=== PATIENT | male | born 1945 | race Caucasian/White ===

== ENCOUNTER → 2017-03-23 11:15 | Outpatient (CLI) | payer MEDICARE, SELFPAY ==
--- NOTE | 2017-03-23 13:58 | STRESSREP ---
Stress Test Report Date: 03/23/2017 Procedure: Exercise tolerance test Indications: Supraventricular tachycardia Consent: Per the patient Procedure: The patient exercised on a Stiven protocol for 6 minutes 30 seconds completing stage II and 30 seconds of stage III achieving a peak heart rate of 144 bpm (96% predicted maximal heart rate) with a peak blood pressure 162/74 mmHg and a peak MET capacity of 7 METs. The baseline ECG demonstrated normal sinus rhythm. The peak exercise ECG demonstrated no obvious ECG changes. There were occasional PACs and repetitive PACs during exercise. There were rare PVCs during exercise. There were occasional PACs in recovery. No capacity was considered average. There was no complaint of chest discomfort during exercise or recovery area Impression: 1. Technically adequate (percent predicted maximal heart rate greater than 9% predicted maximal heart rate) 2. Peak exercise ECG with no obvious ECG changes 3. Occasional PACs and repetitive PACs during exercise 4. Rare PVCs during exercise 5. Occasional PACs in recovery This note was generated with [employer] software. It may contain incorrect words, spelling, and punctuation that were not noted in checking the note before signing.
--- NOTE | 2017-03-23 14:03 | STRESSREP_ITS ---
Stress Test Report Date: 03/23/2017 Procedure: Exercise tolerance test Indications: Supraventricular tachycardia Consent: Per the patient Procedure: The patient exercised on a Stiven protocol for 6 minutes 30 seconds completing stage II and 30 seconds of stage III achieving a peak heart rate of 144 bpm (96 % predicted maximal heart rate) with a peak blood pressure 162/74 mmHg and a peak MET capacity of 7 METs. The baseline ECG demonstrated normal sinus rhythm. The peak exercise ECG demonstrated no obvious ECG changes. There were occasional PACs and repetitive PACs during exercise. There were rare PVCs during exercise. There were occasional PACs in recovery. No capacity was considered average. There was no complaint of chest discomfort during exercise or recovery area Impression: 1. Technically adequate (percent predicted maximal heart rate greater than 9% predicted maximal heart rate) 2. Peak exercise ECG with no obvious ECG changes 3. Occasional PACs and repetitive PACs during exercise 4. Rare PVCs during exercise 5. Occasional PACs in recovery This note was generated with [employer] software. It may contain incorrect words, spelling, and punctuation that were not noted in checking the note before signing.
== END ==
PROVIDERS: Family Provider Family Medicine; PCP Family Medicine; Visit Provider Internal Medicine Cardiovascular Disease
DX: R94.31 Abnormal electrocardiogram [ECG] [EKG] (principal); I47.1 Supraventricular tachycardia; I10 Essential (primary) hypertension; I49.3 Ventricular premature depolarization; I49.1 Atrial premature depolarization
CPT/HCPCS: 93017

== ENCOUNTER → 2017-05-20 09:46 | Outpatient (CLI) | payer MEDICARE, SELFPAY ==
--- NOTE | 2017-05-20 13:38 | NURSING ---
Pt is a 72 yr old male with a history of bladder cancer. Pt was referred by Dr Mcgee for some peristomal skin issues. There is a red, dry, flaky rash noted to the skin just under the appliance edges and to the skin beyond that. Patient states area has been very itchy. Pt states it had started with some small pustules and has since dried up some. Dr Mcgee had placed patient on a Prednisone taper. Pt supine in bed. removed the ostomy appliance. Pt states he changes the appliance approx every 3-4 days. Pt is currently using a flat 2 piece Coloplast appliance. patient states he cuts the opening approx 1 1/2 in diameter. stoma measures approx 1 and is slightly oval in shape. the immediate peristomal skin is intact. stoma sits just slightly above the skin level. Pt may benefit from a convex appliance, but prefers to keep using what he has. Did recommend that patient not cut the opening so large. Pt states if he cuts it smaller, it is more difficult for him to line up the opening around the stoma in the mirror. patient overall is doing well with appliance changes, etc. Pt states he feel comfortable with everything just wishes that the area around the appliance wasn't so itchy. Appears to be a fungal infection. called and talked with Dr Mcgee's nurse. Orders for nystatin powder will be sent in to patient's pharmacy. Pt is very appreciative of care and is aware to call if other questions or concerns arise.
== END ==
PROVIDERS: Family Provider Family Medicine; PCP Family Medicine; Visit Provider Internal Medicine Hematology & Oncology
DX: Z93.6 Other artificial openings of urinary tract status (principal)
CPT/HCPCS: 99211; G0463

== ENCOUNTER 2022-04-01 11:00 | Inpatient (IN) | payer MEDICARE, SELFPAY ==
[2022-04-01] VITALS (7 sets, daily range): BP systolic 136–166; BP diastolic 76–82; PULSE 85–112; RESP 16–20; TEMP 36.1–37; O2SAT 97–100; BMI 27.3; BMI 27.7
--- NOTE | 2022-04-01 11:46 | RAD_ITS ---
STUDY: X-RAY CHEST REASON FOR EXAM: Male, 77 years old. Atypical chest pain TECHNIQUE: 2 AP portable views COMPARISON: 2012 FINDINGS: EKG leads overlie the chest Lungs are expanded with chronic interstitial changes, no superimposed acute pulmonary process Normal size heart. Normal mediastinum and annalisa. Normal visualized pulmonary arteries. Normal visualized aortic arch and descending thoracic aorta. Normal visualized thoracic spine. Normal visualized ribs, clavicles, and shoulders. There is no demonstrated abnormality of the visualized soft tissue structures of the upper abdomen. RAD/Chest 1 View (Portable) IMPRESSION: Chronic interstitial changes, no superimposed acute pulmonary process Electronically Signed: Angel Cason MD at 12:33 EST ,
--- NOTE | 2022-04-01 11:46 | EKG12_ITS ---
Test Reason : ABN LABS Blood Pressure : / mmHG Vent. Rate : 095 BPM Atrial Rate : 095 BPM P-R Int : 200 ms QRS Dur : 118 ms QT Int : 358 ms P-R-T Axes : 058 -39 023 degrees QTc Int : 449 ms Sinus rhythm with Premature supraventricular complexes Left axis deviation Right bundle branch block Abnormal ECG Confirmed by DALLAS QUINTERO, CATALINO ([id number]), industrial editor JADE GARCÍA ([id number]) on 04/03/2022 12:55:12 PM Referred By: NAWAF Confirmed By:CATALINO HAYNES MD
--- NOTE | 2022-04-01 12:02 | EX.ED.DYSGE1 ---
HPI History of Present Illness Chief Complaint: Abn Labs Narrative Narrative: 77-year-old male presenting with abnormal labs. Apparently has had chest pain over the last week. He describes it as burning/pressure pain across the chest. Its been on and off for about a week but was pretty persistent for couple of days whether he was standing and walking or whether he was laying still. He states there was times when it actually improved when he walked. He was seen by his primary care physician who did outpatient labs. He was told that his kidney function was messed up and he might have heart failure and to come right to the emergency room. He denies lightheadedness, diaphoresis, nausea or vomiting. He does state at times the pain radiates to the left shoulder blade. He does state that he has a history of GERD. He also has a history of hypertension. Last stress test was within the last 5 years and he states it was normal. Patient states he smokes about a pack of cigarettes a day. He does have history of prostate cancer and bladder cancer and currently has a urostomy. No active cancer. No history of DVT/PE. PFSH PFSH Medical History Bladder cancer Bladder cancer COPD (chronic obstructive pulmonary disease) Essential hypertension History of ETOH abuse History of ETOH abuse Hydronephrosis Hydronephrosis Hyponatremia Paroxysmal SVT (supraventricular tachycardia) Prostate cancer Prostate cancer Tobacco use Tobacco use Home Medications multivitamin (Daily Multi-Vitamin tablet) 1 tab PO DAILY SUPPLEMENT 08/30/17 [History Last Taken 03/31/22] amlodipine 10 mg tablet 10 mg PO DAILY BP 04/01/22 [History Last Taken 03/31/22] cholecalciferol (vitamin D3) 250 mcg (10,000 unit) tablet 250 mcg PO DAILY SUPPLEMENT 04/01/22 [History Last Taken 03/31/22] etodolac 400 mg tablet 400 mg PO BID MUSCLES 04/01/22 [History Last Taken 03/31/22] lactobacillus comb no.10 20 billion cell capsule (Probiotic) 20,000 mmu cells PO DAILY SUPPLEMENT 04/01/22 [History Last Taken 03/31/22] pantoprazole 40 mg tablet,delayed release 40 mg PO DAILY GERD 04/01/22 [History Last Taken 04/01/22] vit C 250 mg-vit E 90 mg-zinc 40 mg-copper 1 [id number] capsule (PreserVision AREDS-2) 1 tab PO BID EYE HEALTH 04/01/22 [History Last Taken 03/31/22] Allergy/AdvReac Type Severity Reaction Status Date / Time ciprofloxacin [From Cipro] Allergy Intermediate Hives Verified 04/01/22 11:04 metronidazole [From Flagyl] Allergy Rash Verified 04/01/22 11:04 Family History Mother Hypertension Surgical History History of bladder surgery History of carpal tunnel surgery History of circumcision History of foot surgery History of tonsillectomy and adenoidectomy History of transurethral resection of prostate S/P radical cystoprostatectomy Social History Smoking Status: Current every day smoker tobacco type: cigarettes alcohol intake: never details: occasional substance use type: does not use ROS ROS ED Constitutional Constitutional ED: Denies chills, fever(s) or sweats Eyes Eyes: Denies blurry vision or change in vision ENT ENT ED: Denies ear pain or sore throat Cardiovascular Cardiovascular: Reports chest pain; Denies palpitations or racing heartbeat Respiratory/Chest Respiratory/Chest: Denies cough, dyspnea or sputum Gastrointestinal Gastrointestinal: Reports other Details: Burning in the stomach ; Denies abdominal pain, constipation or diarrhea Genitourinary Genitourinary ED: Denies dysuria, hematuria or urinary frequency Musculoskeletal Musculoskeletal: Denies arthralgias, myalgias or neck pain Integumentary Denies abscess, Abrasions or rash Neurologic Neurologic: Denies headache(s), paresthesias or weakness Psychiatric Psychiatric: Denies anxiety, depression, suicidal ideation or suicidal thoughts Endocrine Endocrinology: Denies polydipsia or polyuria EXAM Physical Exam Const Vital Signs: 04/01/22 11:01 04/01/22 12:05 04/01/22 12:05 Temperature 97 F L Temperature Source Temporal Pulse Rate 112 H 85 Respiratory Rate 18 16 Respiratory Effort Respiratory Pattern Blood Pressure 166/81 H 142/82 H Blood Pressure Mean 109 102 Pulse Ox 97 98 Oxygen Delivery Method Room Air Room Air Room Air 04/01/22 12:05 Temperature Temperature Source Pulse Rate Respiratory Rate Respiratory Effort Normal Non-Labored Respiratory Pattern Normal Blood Pressure Blood Pressure Mean Pulse Ox Oxygen Delivery Method General Appearance ED: Negative for pallor HEENT Reports normocephalic, head/scalp atraumatic and moist mucous membranes Eyes PERRL and EOMs intact bilaterally Neck no lymphadenopathy and supple Chest Wall inspection of chest normal and palpation of chest normal Resp normal respiratory effort and clear to auscultation bilaterally Auscultation: Negative for rales, rhonchi or wheezes Cardio regular rate and regular rhythm GI normal to inspection, nondistended, normoactive bowel sounds and non-distended Auscultation: normoactive bowel sounds Palpation: soft Narrative: Deferred Back/Spine no CVA tenderness Cervical Spine: Negative for cervical spine tenderness Extremity General Extremety ED: Negative for edema or tenderness General Extremity: Negative for edema Neuro oriented x3 and CN's II-XII intact bilaterally Sensorium / Orientation: alert Motor Exam: strength 5/5 throughout Psych mental status grossly normal Attitude: No agitated Skin no rashes or lesions noted and no wounds General Skin Exam: Negative for jaundice or pallor MDM MDM MDM Narrative Medical decision making narrative: Reviewed patient's blood work from outpatient. His white blood cell count was 11.5, hemoglobin 12.4, platelets 254. Differential was unremarkable. CMP showed AST 89, ALT 25, bilirubin 0.4, glucose 160 with anion gap of 12. BUN 24 and creatinine 2.07. GFR estimated to be 33. BNP was 3380 with an upper limit of normal at greater less than 450. No troponin was checked. No D-dimer. TSH was normal. His lab work performed 09/19/2021 shows his creatinine was 1.53 at that point. His GFR was 47. Patient does complain pain that feels like pressure across his chest and radiates to the left shoulder blades at times. He is not have any associated symptoms of dizziness, lightheadedness, shortness of breath but states he had a couple of days there where the pain was just unrelenting. Currently he feels okay. Denies history of cardiac disease. He had a stress test within the last 5 years that was normal. He states his only medical problems are hypertension and he does have a history of SVT. He is an everyday smoker. Differential includes but is not limited to ACS, PE, , pneumonia, , pneumothorax, muscle strain, costochondritis, GERD, gastritis, peptic ulcer disease, pancreatitis. CBC to assess white blood cell count, hemoglobin, platelets, differential. Liver function enzymes to assess for liver function. Lipase to assess for pancreatitis as the patient is having epigastric and chest pain. Chest x-ray will be obtained as well. EKG to assess for cardiac ischemia or dysrhythmia. His EKG is sinus rhythm at 95 bpm with premature supraventricular complexes. ND interval 200 ms, QRS duration 118 ms, QTc 449 ms. Chest x-ray on my interpretation shows no acute cardiopulmonary process. Radiology interprets this and agrees. CBC shows a normal white blood cell count with a hemoglobin of 10.3. Hematocrit and hemoglobin are stable. Platelets 253 and normal. Patient's creatinine is increased to 2.66 today after he was just checked a few days ago. It does not appear to be prerenal azotemia. Patient was given a liter of normal saline. His BNP was elevated as an outpatient the other day and it is slightly elevated at 167 here today but he does not have any orthopnea dyspnea, lower extremity edema so I do not believe this represents CHF and I think he would benefit from IV fluids. D-dimer was negative. High-sensitivity troponin came back at 11,578. His LFTs and lipase were normal. I spoke with Dr. Castaneda from cardiology. He recommended weight-based Lovenox. Patient was given 1 mg/kg. Patient was also given aspirin 324 mg. Discussed this with the hospitalist for admission. Patient was transferred to the floor in stabilized. I do believe he likely infarcted at some point this week because he is chest pain-free and well-appearing. Impression: 1. Chest pain 2. NSTEMI 3. GERRI Lab Data Labs: Laboratory Results - last 24 hr 04/01/22 04/01/22 04/01/22 11:59 11:59 11:59 WBC 10.3 RBC 4.12 L Hgb 12.6 L Hct 37.3 L MCV 90.5 MCH 30.6 MCHC 33.8 RDW Std Deviation 43.5 RDW Coeff of Sari 13.2 Plt Count 253 MPV 10.3 Immature Gran % (Auto) 0.600 Neut % (Auto) 68.5 Lymph % (Auto) 19.3 [place] % (Auto) 8.9 Eos % (Auto) 2.1 Baso % (Auto) 0.6 Absolute Neuts (auto) 7.0 Absolute Lymphs (auto) 1.99 Nucleated RBC % 0 D-Dimer Quant (PE/DVT) Sodium 133 L Potassium 4.1 Chloride 98 Carbon Dioxide 25.0 Anion Gap 10 BUN 27 H Creatinine 2.66 H Estim Creat Clear Calc 22.09 Est GFR (MDRD) Af Amer 30 L Est GFR (MDRD) Non-Af 25 L BUN/Creatinine Ratio 10.2 Glucose 110 H Calcium 10.2 H Magnesium Total Bilirubin Direct Bilirubin AST ALT Alkaline Phosphatase Troponin I High Sens 19426 H* B-Natriuretic Peptide 167.0 H Total Protein Albumin Globulin Lipase 04/01/22 04/01/22 04/01/22 11:59 11:59 12:14 WBC RBC Hgb Hct MCV MCH MCHC RDW Std Deviation RDW Coeff of Sari Plt Count MPV Immature Gran % (Auto) Neut % (Auto) Lymph % (Auto) [place] % (Auto) Eos % (Auto) Baso % (Auto) Absolute Neuts (auto) Absolute Lymphs (auto) Nucleated RBC % D-Dimer Quant (PE/DVT) < 0.27 L Sodium Potassium Chloride Carbon Dioxide Anion Gap BUN Creatinine Estim Creat Clear Calc Est GFR (MDRD) Af Amer Est GFR (MDRD) Non-Af BUN/Creatinine Ratio Glucose Calcium Magnesium 2.0 Total Bilirubin 0.60 Direct Bilirubin 0.16 AST 70 H ALT 26 Alkaline Phosphatase 122 H Troponin I High Sens B-Natriuretic Peptide Total Protein 8.0 Albumin 3.3 Globulin 4.7 H Lipase 141 Radiography Diagnostic Testing: Clinical Impression(s) from Imaging Studies Chest X-Ray 04/01/22 11:46 IMPRESSION: Chronic interstitial changes, no superimposed acute pulmonary process Electronically Signed: Angel Cason MD at 12:33 EST , Discharge Plan Triage Chief Complaint: Abn Labs ED Provider: Ravinder Gao Dx/Rx/DC Orders Primary Care Provider: Candido Valle
[2022-04-01 12:11] LABS: Absolute Lymphocyte Count 1.99 X10^3/uL (0.83-4.51); Basophil# 0.06 X10^3/uL; Basophil% 0.6 % (0-1); Eosinophil# 0.22 X10^3/uL; Eosinophils% 2.1 % (0-5); Hematocrit 37.3 % (40-54); Hemoglobin 12.6 g/dL (13.0-16.5); Lymphocyte # 1.99 X10^3/ul (0.83-4.51); Lymphocyte % 19.3 % (19-41); Mean Corp Hgb Conc 33.8 g/dL (32-36); Mean Corpuscular Hgb 30.6 pg (27.0-32.0); Mean Corpuscular Volume 90.5 fL (80-94); Mean Platelet Vol. 10.3 fl (6.2-12.0); Monocyte# 0.92 X10^3/uL; Monocyte% 8.9 % (0-10); NRBC Flagged by Analyzer 0 % (0-5); Neutrophil # 7.04 X10^3/uL (2.7-7.7); Neutrophil % 68.5 % (47-70); Platelet Count 253 K/mm3 (150-450); RBC Distribution Width CV 13.2 % (11.6-14.6); RBC Distribution Width SD 43.5 fl (35.1-43.9); Red Blood Count 4.12 M/mm3 (4.6-6.2); White Blood Count 10.3 K/mm3 (4.4-11.0)
[2022-04-01] MEDS: Aspirin 81 MG TAB.CHEW 324 MG PO (12:11)
[2022-04-01 12:32] LABS: D-Dimer Quantitative (DVT/PE) < 0.27 FEU/ug/m (0.27-0.49)
[2022-04-01 12:39] LABS: AST(SGOT) 70 U/L (15-37); Alanine Aminotransfer ALT/SGPT 26 U/L (16-61); Albumin, Serum 3.3 g/dL (3.2-5.0); Alkaline Phosphatase 122 U/L (45-117); Bilirubin, Direct 0.16 mg/dL (0.00-0.30); Globulin 4.7 g/dL (2.2-4.2); Lipase 141 U/L (73-393)
[2022-04-01 12:48] LABS: Anion Gap 10 (5-15); BUN 27 mg/dL (7-18); BUN/Creat Ratio 10.2 RATIO (10-20); Calcium,Total 10.2 mg/dL (8.5-10.1); Chloride 98 mmol/L (98-107); Creatinine, Serum 2.66 mg/dL (0.70-1.30); EST Glomerular Filtration Rate 25 mL/min (>60); Est Glom Filt Rate - Afr Amer 30 mL/min (>60); Estimated Creatinine Clearance 22.09 ml/min; Glucose 110 mg/dL (74-106); Potassium 4.1 mmol/L (3.5-5.1); Sodium Level 133 mmol/L (136-145); Troponin-I HS (w/2H Reflex) 11578 pg/mL (3.0-78.0)
[2022-04-01] MEDS: 0.9% Normal Saline 1,000 ML 999 ML IV (13:22)
[2022-04-01] MEDS: Enoxaparin 80 MG/0.8 ML Syringe 79 MG SC (13:22)
--- NOTE | 2022-04-01 13:22 | HP.PCM.HOS_ITS ---
HPI - General General Date of Admission: 04/01/22 Date of Service: 04/01/22 Chief Complaint: Chest pain for 1 week, abnormal labs by PCP HPI Narrative MIGUEL PEREZ, is a 77 M who Was sent by PCP for chest pain ongoing for 1 week and abnormal lab. Patient stated usually he has GERD related pain on right side but this time it was more midsternal to left side, initially intermittent for 3 days but got persistent and constant since past 02/24/2022. He described his pain as tightness, pressure-like feeling heavy with radiation to intrascapular area and left shoulder and sometimes in chin. It was not related with activity or exertion. He denies any increased shortness of breath but he has mild chronic cough and shortness of breath on exertion due to COPD and cigarette smoking. Denies diaphoresis, nausea, vomiting, headache, near-syncope or syncope. Patient denies any prior history of KS or coronary clinic disease. He has COPD and was smoking 3 to 4 packs cigarettes in the beginning since age of 17. He cut down to 1 pack/day. Family history: Patient's mother had CHF in her 70s to 80s and from that. In ED, triage vitals initially heart rate was 112/min and BP 166/81 but later readings were in normal range. Twelve-lead EKG done in ER normal sinus rhythm, PAC, RBBB, LAD at 95 beats per, QTc 449 ms. EKG from 04/01 from PCP office similar NSR, RBBB. Previous EKG from January 2017 during last admission was supraventricular tachycardia, RBBB at 131 beats per. Troponin is very high. Patient also has elevated creatinine, GERRI. Abnormal lab and imaging discussed in assessment and plan. [facility] Medical History Bladder cancer Bladder cancer COPD (chronic obstructive pulmonary disease) Essential hypertension History of ETOH abuse History of ETOH abuse Hydronephrosis Hydronephrosis Hyponatremia Paroxysmal SVT (supraventricular tachycardia) Prostate cancer Prostate cancer Tobacco use Tobacco use Home Medications multivitamin (Daily Multi-Vitamin tablet) 1 tab PO DAILY SUPPLEMENT 08/30/17 [History Last Taken 03/31/22] amlodipine 10 mg tablet 10 mg PO DAILY BP 04/01/22 [History Last Taken 03/31/22] cholecalciferol (vitamin D3) 250 mcg (10,000 unit) tablet 250 mcg PO DAILY SUPPLEMENT 04/01/22 [History Last Taken 03/31/22] etodolac 400 mg tablet 400 mg PO BID MUSCLES 04/01/22 [History Last Taken 03/31/22] lactobacillus comb no.10 20 billion cell capsule (Probiotic) 20,000 mmu cells PO DAILY SUPPLEMENT 04/01/22 [History Last Taken 03/31/22] pantoprazole 40 mg tablet,delayed release 40 mg PO DAILY GERD 04/01/22 [History Last Taken 04/01/22] vit C 250 mg-vit E 90 mg-zinc 40 mg-copper 1 [id number] capsule (PreserVision AREDS-2) 1 tab PO BID EYE HEALTH 04/01/22 [History Last Taken 03/31/22] Allergy/AdvReac Type Severity Reaction Status Date / Time ciprofloxacin [From Cipro] Allergy Intermediate Hives Verified 04/01/22 11:04 metronidazole [From Flagyl] Allergy Rash Verified 04/01/22 11:04 Family History Mother Hypertension Surgical History History of bladder surgery History of carpal tunnel surgery History of circumcision History of foot surgery History of tonsillectomy and adenoidectomy History of transurethral resection of prostate S/P radical cystoprostatectomy Social History Smoking Status: Current every day smoker tobacco type: cigarettes alcohol intake: never details: occasional substance use type: does not use ROS ROS Narrative Constitutional: Reports fatigue and weakness HEENT: Reports systems reviewed and no addt'l complaints, except as documented Respiratory: Chronic cough, mild shortness of breath on exertion. Chronic smoker. COPD. CVS: As described in HPI. Denies claudication pain. Gastrointestinal: Denies coffee ground emesis, hematemesis or vomiting Genitourinary: Has urostomy bag. Musculoskeletal: Denies joint pain and limited range of motion Neurologic: Denies seizure-like activity. No stroke. skin: No ulcer. No rash Endocrinology: Reports systems reviewed and no addt'l complaints, except as d ocumented Hematologic/Lymphatic/oncology: Patient has bladder and prostate cancer status radical post cystoprostatectomy. Reports systems reviewed and no addt'l complaints, except as documented Rest 14 ROS are negative except as mentioned in HPI Vital Signs Vital Signs Vital Signs: 04/01/22 11:01 04/01/22 12:05 04/01/22 12:05 Temperature 97 F L Temperature Source Temporal Pulse Rate 112 H 85 Respiratory Rate 18 16 Respiratory Effort Respiratory Pattern Blood Pressure 166/81 H 142/82 H Blood Pressure Mean 109 102 Pulse Ox 97 98 Oxygen Delivery Method Room Air Room Air Room Air 04/01/22 12:05 Temperature Temperature Source Pulse Rate Respiratory Rate Respiratory Effort Normal Non-Labored Respiratory Pattern Normal Blood Pressure Blood Pressure Mean Pulse Ox Oxygen Delivery Method Weight Weight: 174 lb 6.17 oz Body Mass Index (BMI) 27.3 Physical Exam Narrative General: Alert, Oriented x3, Cooperative, mild overweight, BMI 27.3 kg/m?. HEENT: Atraumatic, PERRLA, EOMI, Normocephalic Oral: Oral mucosa moist. No Gingival or Mucosal Lesions/ Ulcerations Neck: Supple, No JVD, Negative Carotid Bruits Lungs: Air entry diminished in bilateral lung bases. Expiratory rhonchi. No tachypnea or dyspnea at rest. No PND or exertional dyspnea Cardiovascular: Sinus rhythm, PAC. Regular rhythm, Normal S1, Normal S2, No murmurs Abdomen: Bowel Sounds Present, Soft, Non Tender, Non-Distended : Urostomy bag. Clear urine. Status post radical cystoprostatectomy. No renal angle tenderness. Extremities: No edema, Capillary Refill Less than 3 Seconds Skin: No rashes, No breakdown Musculoskeletal: No Tenderness to Palpation of Joints or Extremities. ROM full and adequate. Neurological: Cranial nerves II-XII grossly intact, DTR 2+/4 and Symmetrical, Neuro grossly intact Psych/Mental Status: Normal Affect, Appropriate. Results Lab / Micro Data Result Diagrams: 04/01/22 11:59 04/01/22 11:59 Labs: Laboratory Results - last 24 hr 04/01/22 11:59: WBC 10.3, RBC 4.12 L, Hgb 12.6 L, Hct 37.3 L, MCV 90.5, MCH 30.6, MCHC 33.8, RDW Std Deviation 43.5, RDW Coeff of Sari 13.2, Plt Count 253, MPV 10.3, Immature Gran % (Auto) 0.600, Neut % (Auto) 68.5, Lymph % (Auto) 19.3, [place] % (Auto) 8.9, Eos % (Auto) 2.1, Baso % (Auto) 0.6, Absolute Neuts (auto) 7.0, Absolute Lymphs (auto) 1.99, Nucleated RBC % 0 04/01/22 11:59: Sodium 133 L, Potassium 4.1, Chloride 98, Carbon Dioxide 25.0, Anion Gap 10, BUN 27 H, Creatinine 2.66 H, Estim Creat Clear Calc 22.09, Est GFR (MDRD) Af Amer 30 L, Est GFR (MDRD) Non-Af 25 L, BUN/Creatinine Ratio 10.2, Glucose 110 H, Calcium 10.2 H, Troponin I High Sens [id number] H* 04/01/22 11:59: B-Natriuretic Peptide 167.0 H 04/01/22 11:59: Total Bilirubin 0.60, Direct Bilirubin 0.16, AST 70 H, ALT 26, Alkaline Phosphatase 122 H, Total Protein 8.0, Albumin 3.3, Globulin 4.7 H, Lipase 141 04/01/22 12:14: D-Dimer Quant (PE/DVT) < 0.27 L Radiology Impression Chest X-Ray 04/01/22 11:46 IMPRESSION: Chronic interstitial changes, no superimposed acute pulmonary process Electronically Signed: Angel Cason MD at 12:33 EST Reading Location ID and State: [address] [place] [address] , Service support , Assessment & Plan Assessment/Plan (1) NSTEMI (non-ST elevated myocardial infarction): PLAN: Plan 1. Non-STEMI: Patient is being admitted in PCU. Seen by director radiation oncology and discussed with him. Patient is started on enoxaparin 1 mg/kg body weight as per creatinine clearance. High-sensitivity troponin 11,578. Overall clinical course seems that patient has already infarcted. Twelve-lead EKG does not show acute ST-T changes but patient has chronic RBBB. Aspirin, low-dose beta-taco and high sensitive statin. 2D echo ordered. Plan for heart cath when kidney function returns to normal. Labs from PCP office on 03/02 shows NT proBNP 3380, glucose 160, magnesium 1.8. Troponin was not checked. TSH and free T4 ordered. In ED, D-dimer normal. Serum magnesium normal. BNP 167. 2. GERRI from CKD stage IIIa, mild hyponatremia exact etiology unclear possible prerenal: BUN/creatinine from 03/31 was 24/2.07. Sodium 131. His lab work from 09/19/2021 shows creatinine 1.53, GFR 47. BUN/creatinine 27/2.66. Serum sodium low 133. Potassium normal. Anion gap 10. 3. COPD with chronic smoking cigarettes: Chest x-ray initially reviewed shows chronic interstitial changes but no acute cardiopulmonary abnormality. On DuoNeb as needed. Patient consulted to quit smoking. 4. Bladder and prostate cancer status post cystoprostatectomy in 2017) chronic. Patient states she follows Dr. Mcgee. He has regular follow-up CT scans and s hows in remission. Probably he will need last CT scan this month.. 5. Hypertension: BP is in normal limits. 6. History of alcohol use disorder in the past and mild chronic alcoholic hepatitis: Patient was heavy drinker but he states he drinks occasionally. In previous admission in 2017 documented as maintained sobriety since 11/2016. Labs from 03/31 alkaline phosphatase 117, AST 89, ALT 25 and from today AST 70, ALT 26, alkaline phos 122 suggestive of mild chronic alcoholic hepatitis. VTE prophylaxis: Living will/advanced directive/end of life care: Patient does not have living will or advanced directive. Patient does not have dilated power of claims attorney for health. After discussion of benefits/risks procedures involved with full code, DNR CC arrest and DNR CC, the patient opted for full code in the beginning but if resuscitation effort prolongs or becomes dependent on life support he would like to withdraw it.. Patient does want artificial life support including intubation, tube feed, ventilator and/chest compression, central venous catheter, vasopressor and DC shock if needed Total time spent in [id number] encounter in discussion of advanced directive 16 minutes. Laboratory Results 04/01/22 11:59: WBC 10.3, RBC 4.12 L, Hgb 12.6 L, Hct 37.3 L, MCV 90.5, MCH 30.6, MCHC 33.8, RDW Std Deviation 43.5, RDW Coeff of Sari 13.2, Plt Count 253, MPV 10.3, Immature Gran % (Auto) 0.600, Neut % (Auto) 68.5, Lymph % (Auto) 19.3, [place] % (Auto) 8.9, Eos % (Auto) 2.1, Baso % (Auto) 0.6, Absolute Neuts (auto) 7.0, Absolute Lymphs (auto) 1.99, Nucleated RBC % 0 04/01/22 11:59: Sodium 133 L, Potassium 4.1, Chloride 98, Carbon Dioxide 25.0, Anion Gap 10, BUN 27 H, Creatinine 2.66 H, Estim Creat Clear Calc 22.09, Est GFR (MDRD) Af Amer 30 L, Est GFR (MDRD) Non-Af 25 L, BUN/Creatinine Ratio 10.2, Glucose 110 H, Calcium 10.2 H, Troponin I High Sens [id number] H* 04/01/22 11:59: B-Natriuretic Peptide 167.0 H 04/01/22 11:59: Total Bilirubin 0.60, Direct Bilirubin 0.16, AST 70 H, ALT 26, Alkaline Phosphatase 122 H, Total Protein 8.0, Albumin 3.3, Globulin 4.7 H, Lipase 141 04/01/22 11:59: Magnesium Pending 04/01/22 12:14: D-Dimer Quant (PE/DVT) < 0.27 L Clinical Impression(s) from Imaging Studies Chest X-Ray 04/01/22 11:46 IMPRESSION: Chronic interstitial changes, no superimposed acute pulmonary process Charges/Coding Visit Charges Inpatient E&M: 17053 Init Hosp L3 Procedures Hospitalists Procedures: 53578 Advncd Care Plan 30 Min
--- NOTE | 2022-04-01 13:22 | NURSING ---
PCU NSTEMI SAMMI
--- NOTE | 2022-04-01 13:53 | CON.PCM.CA_ITS ---
Assessment & Plan Assessment/Plan (1) NSTEMI (non-ST elevated myocardial infarction): PLAN: Presents with a non-ST elevation myocardial infarction. At this particular time the patient is noted to be pain-free. My recommendations will b e as follows: * Echocardiogram to assess left ventricular function. * Aspirin 81 mg * Lovenox 1 mg/kg x 1 Patient will ultimately need a left heart catheterization. The time to perform the above will depend on recovery of his renal function. * High intensity statin (2) Essential hypertension: PLAN: We will continue with the amlodipine and also start the beta-taco with Lopressor 25 mg twice a day * Will assess left ventricular function with echocardiogram. (3) Paroxysmal SVT (supraventricular tachycardia): PLAN: Patient does not appear to have had any recurrence of the above. HPI Consult Data Date of Consult: 04/01/22 HPI Narrative HPI Narrative: MIGUEL PEREZ, is a 77 M who presents to the emergency room after presenting to his primary care physician's office. He says that he has been having chest discomfort across his chest for the better part of a week to 10 days. He had seen his primary care physician who thought that it may be a gastrointestinal problem and put him on pantoprazole. However he appeared to be getting much worse and so presented today and was sent to the emergency room after an EKG was done which demonstrated sinus rhythm with right bundle branch block and elevated natruretic peptide level. At this particular time he is free of chest discomfort. He has had no dizziness or diaphoresis near syncope or syncope. He does have a previous medical history of hypertension, supraventricular tachyarrhythmia and a colostomy. His electrocardiogram demonstrates sinus rhythm with a right bundle branch block pattern. PFSH Medical History Bladder cancer Bladder cancer COPD (chronic obstructive pulmonary disease) Essential hypertension History of ETOH abuse History of ETOH abuse Hydronephrosis Hydronephrosis Hyponatremia Paroxysmal SVT (supraventricular tachycardia) Prostate cancer Prostate cancer Tobacco use Tobacco use Home Medications multivitamin (Daily Multi-Vitamin tablet) 1 tab PO DAILY SUPPLEMENT 08/30/17 [History Last Taken 03/31/22] amlodipine 10 mg tablet 10 mg PO DAILY BP 04/01/22 [History Last Taken 03/31/22] cholecalciferol (vitamin D3) 250 mcg (10,000 unit) tablet 250 mcg PO DAILY SUPPLEMENT 04/01/22 [History Last Taken 03/31/22] etodolac 400 mg tablet 400 mg PO BID MUSCLES 04/01/22 [History Last Taken 03/31/22] lactobacillus comb no.10 20 billion cell capsule (Probiotic) 20,000 mmu cells PO DAILY SUPPLEMENT 04/01/22 [History Last Taken 03/31/22] pantoprazole 40 mg tablet,delayed release 40 mg PO DAILY GERD 04/01/22 [History Last Taken 04/01/22] vit C 250 mg-vit E 90 mg-zinc 40 mg-copper 1 [id number] capsule (PreserVision AREDS-2) 1 tab PO BID EYE HEALTH 04/01/22 [History Last Taken 03/31/22] Allergy/AdvReac Type Severity Reaction Status Date / Time ciprofloxacin [From Cipro] Allergy Intermediate Hives Verified 04/01/22 11:04 metronidazole [From Flagyl] Allergy Rash Verified 04/01/22 11:04 Family History Mother Hypertension Surgical History History of bladder surgery History of carpal tunnel surgery History of circumcision History of foot surgery History of tonsillectomy and adenoidectomy History of transurethral resection of prostate S/P radical cystoprostatectomy Social History Smoking Status: Current every day smoker tobacco type: cigarettes alcohol intake: never details: occasional substance use type: does not use ROS Constitutional Constitutional: Denies fever(s) or weight loss Eyes Eyes: Reports systems reviewed and no addt'l complaints, except as documented ENT HEENT: Reports systems reviewed and no addt'l complaints, except as documented Cardiovascular Cardiovascular: Reports chest pain at rest; Denies chest pain with activity, dyspnea at rest, dyspnea on exertion, edema, palpitations or paroxysmal nocturnal dyspnea Respiratory/Chest Respiratory/Chest: Reports dyspnea on exertion; Denies productive cough, shortness of breath at rest or shortness of breath with exertion Gastrointestinal Gastrointestinal: Denies change in bowel habits, nausea, vomiting or weight changes Genitourinary Genitourinary: Denies difficulty urinating Musculoskeletal Musculoskeletal: Denies joint stiffness or muscle weakness Integumentary Integumentary: Denies lesions Neurologic Neurologic: Denies dizziness or syncope Psychiatric Psychiatric: Denies anxiety Endocrine Endocrinology: Denies excessive sweating or fatigue Hematologic/Lymphatic Hematologic/Lymphatic: Denies anemia Allergic/Immunologic Allergic/Immunologic: Denies seasonal rhinorrhea Physical Exam Const alert, oriented x3 and no apparent distress General Appearance: cooperative HEENT hearing grossly normal bilaterally Head and Scalp: atraumatic Eyes EOMs intact bilaterally Neck General: normal visual inspection Chest inspection of chest normal and palpation of chest normal Resp normal respiratory effort Auscultation: clear to auscultation bilaterally Cardio regular rate, regular rhythm, S1 normal heart sound and S2 normal heart sound Jugular Venous Distention: JVD GI normal to inspection, nondistended, normoactive bowel sounds GI Narrative: Colostomy Extremity normal capillary refill and no pedal edema Peripheral Pulses: Yes pulses 2+ throughout and femoral pulses present Skin no rashes or lesions noted Neuro oriented x3 and CN's II-XII intact bilaterally Psych Appearance: grossly normal and appropriate Risk Stratification Risk Stratification Applicable: Yes Age >/= 65: Yes >/= 3 CAD Risk Factors (HTN, HLD, DM, family hx of CAD, or current smoker): No Aspirin Use in the Past 7 Days: No Severe Angina (>/= episodes in 24 hours): Yes EKG ST Changes >/= 0.5mm: No Positive Cardiac Marker: Yes ZULY Risk Stratification Score: 3 ZULY % Risk: 13% Risk Objective Data Vital Signs: Vital Signs Temp Pulse Resp BP Pulse Ox O2 Del Method 97 F L 89 18 136/77 H 98 Room Air 04/01/22 11:01 04/01/22 13:23 04/01/22 13:23 04/01/22 13:23 04/01/22 13:23 04/01/22 13:23 Oxygen Delivery Method Room Air Weight: 174 lb 6.17 oz Body Mass Index (BMI) 27.3 Lab / Micro Data Result Diagrams: 04/01/22 11:59 04/01/22 11:59 Labs: Laboratory Results - last 24 hr 04/01/22 11:59: WBC 10.3, RBC 4.12 L, Hgb 12.6 L, Hct 37.3 L, MCV 90.5, MCH 30.6, MCHC 33.8, RDW Std Deviation 43.5, RDW Coeff of Sari 13.2, Plt Count 253, MPV 10.3, Immature Gran % (Auto) 0.600, Neut % (Auto) 68.5, Lymph % (Auto) 19.3, [place] % (Auto) 8.9, Eos % (Auto) 2.1, Baso % (Auto) 0.6, Absolute Neuts (auto) 7.0, Absolute Lymphs (auto) 1.99, Nucleated RBC % 0 04/01/22 11:59: Sodium 133 L, Potassium 4.1, Chloride 98, Carbon Dioxide 25.0, Anion Gap 10, BUN 27 H, Creatinine 2.66 H, Estim Creat Clear Calc 22.09, Est GFR (MDRD) Af Amer 30 L, Est GFR (MDRD) Non-Af 25 L, BUN/Creatinine Ratio 10.2, Glucose 110 H, Calcium 10.2 H, Troponin I High Sens [id number] H* 04/01/22 11:59: B-Natriuretic Peptide 167.0 H 04/01/22 11:59: Total Bilirubin 0.60, Direct Bilirubin 0.16, AST 70 H, ALT 26, Alkaline Phosphatase 122 H, Total Protein 8.0, Albumin 3.3, Globulin 4.7 H, Lipase 141 04/01/22 12:14: D-Dimer Quant (PE/DVT) < 0.27 L Cardiology Labs/Tests 04/01/22 11:59: WBC 10.3, RBC 4.12 L, Hgb 12.6 L, Hct 37.3 L, MCV 90.5, MCH 30 .6, MCHC 33.8, Plt Count 253, MPV 10.3, Immature Gran % (Auto) 0.600, Neut % (Auto) 68.5, Lymph % (Auto) 19.3, [place] % (Auto) 8.9, Eos % (Auto) 2.1, Baso % (Auto) 0.6, Absolute Neuts (auto) 7.0, Nucleated RBC % 0 04/01/22 11:59: Sodium 133 L, Potassium 4.1, Chloride 98, Carbon Dioxide 25.0, Anion Gap 10, BUN 27 H, Creatinine 2.66 H, Est GFR (MDRD) Af Amer 30 L, Est GFR (MDRD) Non-Af 25 L, BUN/Creatinine Ratio 10.2, Glucose 110 H, Calcium 10.2 H 04/01/22 11:59: B-Natriuretic Peptide 167.0 H 04/01/22 11:59: Total Bilirubin 0.60, Direct Bilirubin 0.16 04/01/22 12:14: D-Dimer Quant (PE/DVT) < 0.27 L Rhythm: EKG: ECHO: Stress Test: Cardiac Cath: PCI: CT Surgery: Holter monitor: EPS: PPM: CXR: Chest CT Scan: Radiography Diagnostic Testing: Radiology Impression Chest X-Ray 04/01/22 11:46 IMPRESSION: Chronic interstitial changes, no superimposed acute pulmonary process Electronically Signed: Angel Cason MD at 12:33 EST ,
--- NOTE | 2022-04-01 13:58 | ECHOD_ITS ---
Reason For Study: S/P NE Procedure This was a 2D Doppler, Color Flow transthoracic echocardiogram. Exam performed portable in patient room. Left Ventricle Normal LV size. Apical false tendon noted. Mild segmental systolic dysfunction (see wall motion). The estimated ejection fraction is 55 %. Stage 1 diastolic dysfunction. Mid-Inferior: Severely Hypokinetic. Infero-Basal: Hypokinetic. Basal inferoseptal: Hypokinetic. The rest of the wall segments are normal. Right Ventricle Normal RV size. Normal systolic function. Atria Normal left atrium. Normal right atrium. Mitral Valve Normal mitral valve. Tricuspid Valve Normal tricuspid valve. Mild (1+) tricuspid valve insufficiency. Pulmonary artery systolic pressure is 36 mmHg. Aortic Valve Normal aortic valve. Pulmonic Valve Normal pulmonic valve. Great Vessels Normal aortic root. The pulmonary artery is normal size. Normal inferior vena cava. Pericardium/Pleural No pericardial effusion. MMode/2D Measurements & Calculations LVIDd: 4.9 cm IVSd: 0.87 cm Ao root diam: 3.3 cm LVIDs: 3.3 cm LVPWd: 0.88 cm RVDd: 3.3 cm FS: 31.9 % LAV(MOD-bp): 34.3 ml LVAd ap4: 33.5 cm2 SV(MOD-sp4): 69.0 ml LAV(MOD-bp) Indexed: 17.9 ml/m2 LVLd ap4: 8.0 cm LAV(MOD-sp2): 34.0 ml EDV(MOD-sp4): 113.4 ml LAV(MOD-sp4): 33.6 ml EDV(sp4-el): 118.5 ml LVAs ap4: 18.4 cm2 LVLs ap4: 6.4 cm ESV(MOD-sp4): 44.4 ml ESV(sp4-el): 44.8 ml EF(MOD-sp4): 60.8 % EF(sp4-el): 62.2 % SV(sp4-el): 73.7 ml LA A4 area: 14.5 cm2 LA dimension(2D): 3.5 cm RA A4 area: 12.6 cm2 Time Measurements MV dec time: 0.21 sec Doppler Measurements & Calculations MV E max ritesh: 95.0 cm/sec Lat Peak E' Ritesh: 11.3 cm/sec Med Peak E' Ritesh: 9.5 cm/sec MV A max ritesh: 102.0 cm/sec E/E' lat: 8.4 E/E' med: 10.0 MV E/A: 0.93 Ao V2 max: 123.2 cm/sec LV V1 max: 108.4 cm/sec PA V2 max: 104.7 cm/sec Ao max P.1 mmHg LV V1 max P.7 mmHg TR max ritesh: 283.9 cm/sec TR max P.2 mmHg ECHO/Echo Complete Interpretation Summary Normal LV size. Mild segmental systolic dysfunction (see wall motion). The estimated ejection fraction is 55 %. Stage 1 diastolic dysfunction. Pulmonary artery systolic pressure is 36 mmHg. Ordering Physician: Roberto Castaneda Referring Physician: RAYA LLOYD Performed By: Kayla Patrick RDCS
[2022-04-01 14:04] LABS: Reflex Troponin-HS? (from REC) Y
[2022-04-01] MEDS: 0.9% Normal Saline 1,000 ML 75 ML IV (16:16)
[2022-04-01 17:27] LABS: Troponin-I HS 10345 pg/mL (3.0-78.0)
[2022-04-01] MEDS: 0.9% Saline Lock 10 ML Syringe IV (17:50)
[2022-04-01] MEDS: Multivitamin (Healthy Eyes) Capsule 1 CAP PO (17:50)
[2022-04-01 18:46] LABS: Troponin-I HS 10366 pg/mL (3.0-78.0)
[2022-04-01] MEDS: Atorvastatin Calcium 40 MG Tablet PO (21:37)
[2022-04-01] MEDS: Senna/Docusate Sodium 1 Tablet 2 TABLET PO (21:37)
[2022-04-01] MEDS: Carvedilol 3.125 MG TABLET PO (21:37)
[2022-04-02 04:03] VITALS: BP 133/72; PULSE 79; RESP 18; TEMP 36.6; O2SAT 95
[2022-04-02] MEDS: 0.9% Normal Saline 1,000 ML 75 ML IV (04:12)
[2022-04-02 05:09] LABS: Absolute Lymphocyte Count 2.11 X10^3/uL (0.83-4.51); Absolute Neutrophil Count 5.4 X10^3/uL (2.0-7.7); Basophil# 0.07 X10^3/uL; Basophil% 0.8 % (0-1); Eosinophils% 3.4 % (0-5); Hematocrit 31.3 % (40-54); Hemoglobin 10.3 g/dL (13.0-16.5); Lymphocyte # 2.11 X10^3/ul (0.83-4.51); Lymphocyte % 24.2 % (19-41); Mean Corp Hgb Conc 32.9 g/dL (32-36); Mean Corpuscular Hgb 29.9 pg (27.0-32.0); Mean Platelet Vol. 10.4 fl (6.2-12.0); Monocyte# 0.78 X10^3/uL; NRBC Flagged by Analyzer 0 % (0-5); Neutrophil # 5.41 X10^3/uL (2.7-7.7); Neutrophil % 62.1 % (47-70); Platelet Count 236 K/mm3 (150-450); RBC Distribution Width CV 13.2 % (11.6-14.6); RBC Distribution Width SD 43.7 fl (35.1-43.9); Red Blood Count 3.44 M/mm3 (4.6-6.2); White Blood Count 8.7 K/mm3 (4.4-11.0)
[2022-04-02 05:57] LABS: Anion Gap 5 (5-15); BUN 30 mg/dL (7-18); BUN/Creat Ratio 12.3 RATIO (10-20); Calcium,Total 9.2 mg/dL (8.5-10.1); Chloride 106 mmol/L (98-107); Creatinine, Serum 2.44 mg/dL (0.70-1.30); EST Glomerular Filtration Rate 28 mL/min (>60); Est Glom Filt Rate - Afr Amer 33 mL/min (>60); Estimated Creatinine Clearance 24.08 ml/min; Glucose 92 mg/dL (74-106); Potassium 4.2 mmol/L (3.5-5.1); Sodium Level 134 mmol/L (136-145); Thyroid Stim Hormone (TSH) 3.36 uIU/mL (0.358-3.74)
[2022-04-02 07:49] LABS: Hemoglobin A1c 4.9 % (3.8-5.6)
[2022-04-02] MEDS: Multivitamins,Therapeutic Tablet 1 TABLET PO (07:53)
[2022-04-02] MEDS: Aspirin E.C. 81 MG Tablet PO (07:53)
[2022-04-02] MEDS: Pantoprazole Sodium 40 MG Tablet PO (07:53)
[2022-04-02] MEDS: amLODIPine 10 MG Tablet PO (07:53)
[2022-04-02] MEDS: Carvedilol 3.125 MG TABLET PO ×2 (07:53→20:47)
[2022-04-02] MEDS: Multivitamin (Healthy Eyes) Capsule 1 CAP PO ×2 (07:53→17:30)
[2022-04-02 10:00] VITALS: BP 127/79; PULSE 76; RESP 18; TEMP 37.1; O2SAT 95
--- NOTE | 2022-04-02 10:04 | PCM.PN.CARD ---
Subjective Subjective The patient is awake and alert this morning. He denies ongoing chest discomfort or difficulty breathing. He states he rested comfortably through the night. Objective Data Vital Signs: Vital Signs Temp Pulse Resp BP Pulse Ox O2 Del Method 98 F 79 18 133/72 H 95 Room Air 04/02/22 04:03 04/02/22 04:03 04/02/22 04:03 04/02/22 04:03 04/02/22 04:03 04/02/22 07:45 Oxygen Delivery Method Room Air Weight: 177 lb 4.026 oz Body Mass Index (BMI) 27.7 Intake & Output: Intake and Output for Last 24 Hours 03/31/22 04/01/22 04/02/22 23:59 23:59 23:59 Intake Total 1240 / 1240 895 / 895 Output Total 400 / 400 800 / 800 Balance 840 / 840 95 / 95 Lab / Micro Data Result Diagrams: 04/02/22 03:58 04/02/22 03:58 Labs: Laboratory Results - last 24 hr 04/01/22 11:59: WBC 10.3, RBC 4.12 L, Hgb 12.6 L, Hct 37.3 L, MCV 90.5, MCH 30.6, MCHC 33.8, RDW Std Deviation 43.5, RDW Coeff of Sari 13.2, Plt Count 253, MPV 10.3, Immature Gran % (Auto) 0.600, Neut % (Auto) 68.5, Lymph % (Auto) 19.3, [place] % (Auto) 8.9, Eos % (Auto) 2.1, Baso % (Auto) 0.6, Absolute Neuts (auto) 7.0, Absolute Lymphs (auto) 1.99, Nucleated RBC % 0 04/01/22 11:59: Sodium 133 L, Potassium 4.1, Chloride 98, Carbon Dioxide 25.0, Anion Gap 10, BUN 27 H, Creatinine 2.66 H, Estim Creat Clear Calc 22.09, Est GFR (MDRD) Af Amer 30 L, Est GFR (MDRD) Non-Af 25 L, BUN/Creatinine Ratio 10.2, Glucose 110 H, Calcium 10.2 H, Troponin I High Sens [id number] H* 04/01/22 11:59: B-Natriuretic Peptide 167.0 H 04/01/22 11:59: Total Bilirubin 0.60, Direct Bilirubin 0.16, AST 70 H, ALT 26, Alkaline Phosphatase 122 H, Total Protein 8.0, Albumin 3.3, Globulin 4.7 H, Lipase 141 04/01/22 11:59: Magnesium 2.0 04/01/22 12:14: D-Dimer Quant (PE/DVT) < 0.27 L 04/01/22 16:00: Troponin I High Sens [id number] H* 04/01/22 17:47: Troponin I High Sens [id number] H* 04/02/22 03:58: WBC 8.7, RBC 3.44 L, Hgb 10.3 L, Hct 31.3 L, MCV 91.0, MCH 29.9, MCHC 32.9, RDW Std Deviation 43.7, RDW Coeff of Sari 13.2, Plt Count 236, MPV 10.4, Immature Gran % (Auto) 0.500, Neut % (Auto) 62.1, Lymph % (Auto) 24.2, [place] % (Auto) 9.0, Eos % (Auto) 3.4, Baso % (Auto) 0.8, Absolute Neuts (auto) 5.4, Absolute Lymphs (auto) 2.11, Nucleated RBC % 0 04/02/22 03:58: Sodium 134 L, Potassium 4.2, Chloride 106, Carbon Dioxide 23.0, Anion Gap 5, BUN 30 H, Creatinine 2.44 H, Estim Creat Clear Calc 24.08, Est GFR (MDRD) Af Amer 33 L, Est GFR (MDRD) Non-Af 28 L, BUN/Creatinine Ratio 12.3, Glucose 92, Calcium 9.2, TSH 3.36 04/02/22 03:58: Hemoglobin A1c 4.9 Cardiology Labs/Tests 04/01/22 11:59: WBC 10.3, RBC 4.12 L, Hgb 12.6 L, Hct 37.3 L, MCV 90.5, MCH 30.6, MCHC 33.8, Plt Count 253, MPV 10.3, Immature Gran % (Auto) 0.600, Neut % (Auto) 68.5, Lymph % (Auto) 19.3, [place] % (Auto) 8.9, Eos % (Auto) 2.1, Baso % (Auto) 0.6, Absolute Neuts (auto) 7.0, Nucleated RBC % 0 04/01/22 11:59: Sodium 133 L, Potassium 4.1, Chloride 98, Carbon Dioxide 25.0, Anion Gap 10, BUN 27 H, Creatinine 2.66 H, Est GFR (MDRD) Af Amer 30 L, Est GFR (MDRD) Non-Af 25 L, BUN/Creatinine Ratio 10.2, Glucose 110 H, Calcium 10.2 H 04/01/22 11:59: B-Natriuretic Peptide 167.0 H 04/01/22 11:59: Total Bilirubin 0.60, Direct Bilirubin 0.16 04/01/22 11:59: Magnesium 2.0 04/01/22 12:14: D-Dimer Quant (PE/DVT) < 0.27 L 04/02/22 03:58: WBC 8.7, RBC 3.44 L, Hgb 10.3 L, Hct 31.3 L, MCV 91.0, MCH 29.9, MCHC 32.9, Plt Count 236, MPV 10.4, Immature Gran % (Auto) 0.500, Neut % (Auto) 62.1, Lymph % (Auto) 24.2, [place] % (Auto) 9.0, Eos % (Auto) 3.4, Baso % (Auto) 0.8, Absolute Neuts (auto) 5.4, Nucleated RBC % 0 04/02/22 03:58: Sodium 134 L, Potassium 4.2, Chloride 106, Carbon Dioxide 23.0, Anion Gap 5, BUN 30 H, Creatinine 2.44 H, Est GFR (MDRD) Af Amer 33 L, Est GFR (MDRD) Non-Af 28 L, BUN/Creatinine Ratio 12.3, Glucose 92, Calcium 9.2 04/02/22 03:58: Hemoglobin A1c 4.9 Rhythm: Sinus rhythm ECHO: Pending Radiography Diagnostic Testing: Radiology Impression Chest X-Ray 04/01/22 11:46 IMPRESSION: Chronic interstitial changes, no superimposed acute pulmonary process Electronically Signed: Angel Cason MD at 12:33 EST Reading Location ID and State: [address] [place] [address] , Service support , Physical Exam Const alert, oriented x3 and no apparent distress Orientation / Consciousness: awake HEENT normocephalic, head/scalp atraumatic and hearing grossly normal bilaterally Eyes PERRL, EOMs intact bilaterally and conjunctivae normal Neck full ROM, supple and no JVD Carotids: normal carotid upstroke Resp normal respiratory effort and clear to auscultation bilaterally Cardio regular rate, regular rhythm, S1 normal heart sound and S2 normal heart sound GI normal to inspection, nondistended, normoactive bowel sounds Extremity no pedal edema Skin no rashes or lesions noted Psych mental status grossly normal Assessment & Plan Assessment/Plan (1) NSTEMI (non-ST elevated myocardial infarction): PLAN: The patient's high-sensitivity troponin I levels have been decreasing. His cardiac rhythm has remained sinus rhythm. His echocardiogram is pending. He is continuing medical therapy. At the present time this includes his aspirin 81 mg p.o. daily, enoxaparin SQ-renal dosage, carvedilol, atorvastatin, and his amlodipine therapy. As his creatinine level improves he will be considered for future evaluation with diagnostic cardiac catheterization. (2) Paroxysmal SVT (supraventricular tachycardia): PLAN: He has a history of PSVT. There is been no obvious documented recurrence. At the moment he will continue his medical therapy as noted above (3) Essential hypertension: PLAN: His blood pressure will be followed. His medications can be adjusted as needed. (4) Acute renal insufficiency: PLAN: His renal function/creatinine level has improved. He will continue gentle IV hydration at this time. If his renal function continues to improve then perhaps he can be considered for future diagnostic cardiac catheterization-potentially tomorrow if deemed appropriate and if not then add an alternative date. Addt'l Comments The patient's case was discussed and reviewed with the patient. Comment: Time spent in the patient's evaluation, examination, review of past and present medical records/diagnostic studies, [id number], documentation, etc.: 50 minutes. Procedure Criteria Type of Procedure Procedure Type: Elective Elective Risks - COVID COVID Risk Discussion: The surgeon/proceduralist and patient have discussed in detail the risk of exposure to and/or potential harm posed by the COVID-19 virus with having a surgery/procedure at this time versus the risk of delaying the surgery/procedure. It is not possible to know either the risk of delaying the surgery or procedure or chance of getting an infection with perfect accuracy, but a joint decision was made between the patient and the surgeon/proceduralist to proceed at this time with the scheduled surgery/procedure as indicated on the consent form.
[2022-04-02] MEDS: Cholecalciferol (Vit D3) 125 MCG CAPSULE (5,000 UNITS) 250 MCG PO (10:11)
--- NOTE | 2022-04-02 12:05 | CASEMGMT ---
RN CM Face to Face with patient for initial transition planning/care coordination assessment. RN CM introduced self and role at [facility]. Patient lying in bed, alert and oriented. Patient willing to participate in assessment and is able to answer all questions appropriately. Care providers, pharmacy, and demographics verified. Patient wishes to discharge home, denies need for home health at this time. Patient states he has no further needs or concerns at this time. CM to follow for discharge planning needs that may arise. PCP: Tori Specialists: none Preferred Pharmacy: [facility] Insurance: [employer] [facility] Prescription Benefit: yes Living Will/HPOA: none LNOK: sister, niece Living Arrangements: Patient lives alone in a single story home with 2-3 step to enter the home. Patient states he is independent at home. Transportation: self, friend DME/HHC: Patient denies DME in the home. Patient has had [facility] HHC in the past. Disposition Plan: Patient to discharge home with family support and follow-up plans in place. Raven YANG, RN, CM
[2022-04-02] MEDS: Enoxaparin 80 MG/0.8 ML Syringe SC (13:12)
--- NOTE | 2022-04-02 14:19 | PN.HOSP_ITS ---
Reason for Visit Reason for Visit: Diagnoses Essential (primary) hypertension (04/01/22) Non-ST elevation (NSTEMI) myocardial infarction (04/01/22) Supraventricular tachycardia (04/01/22) Disorder of kidney and ureter, unspecified (04/01/22) Subjective Subjective Patient seen and examined. He had no complaints. Chest pain had not recurred. He was comfortably eating breakfast. Review of systems otherwise negative. He has remained hemodynamically stable. Objective Data Objective Data Vital Signs: Vital Signs Temp Pulse Resp BP Pulse Ox O2 Del Method 98.8 F 76 18 127/79 H 95 Room Air 04/02/22 10:00 04/02/22 10:00 04/02/22 10:00 04/02/22 10:00 04/02/22 10:00 04/02/22 10:00 Oxygen Delivery Method Room Air Weight: 177 lb 4.026 oz Body Mass Index (BMI) 27.7 Intake & Output: Intake and Output for Last 24 Hours 03/31/22 04/01/22 04/02/22 23:59 23:59 23:59 Intake Total 1240 / 1240 1495 / 1495 Output Total 400 / 400 1475 / 1475 Balance 840 / 840 Lab / Micro Data Result Diagrams: 04/02/22 03:58 04/02/22 03:58 Labs: Laboratory Results - last 24 hr 04/01/22 16:00: Troponin I High Sens [id number] H* 04/01/22 17:47: Troponin I High Sens [id number] H* 04/02/22 03:58: WBC 8.7, RBC 3.44 L, Hgb 10.3 L, Hct 31.3 L, MCV 91.0, MCH 29.9, MCHC 32.9, RDW Std Deviation 43.7, RDW Coeff of Sari 13.2, Plt Count 236, MPV 10.4, Immature Gran % (Auto) 0.500, Neut % (Auto) 62.1, Lymph % (Auto) 24.2, [place] % (Auto) 9.0, Eos % (Auto) 3.4, Baso % (Auto) 0.8, Absolute Neuts (auto) 5.4, Absolute Lymphs (auto) 2.11, Nucleated RBC % 0 04/02/22 03:58: Sodium 134 L, Potassium 4.2, Chloride 106, Carbon Dioxide 23.0, Anion Gap 5, BUN 30 H, Creatinine 2.44 H, Estim Creat Clear Calc 24.08, Est GFR (MDRD) Af Amer 33 L, Est GFR (MDRD) Non-Af 28 L, BUN/Creatinine Ratio 12.3, Glucose 92, Calcium 9.2, TSH 3.36 04/02/22 03:58: Hemoglobin A1c 4.9 Radiography Diagnostic Testing: Radiology Impression Echocardiogram 04/01/22 13:58 Interpretation Summary Normal LV size. Mild segmental systolic dysfunction (see wall motion). The estimated ejection fraction is 55 %. Stage 1 diastolic dysfunction. Pulmonary artery systolic pressure is 36 mmHg. Ordering Physician: Roberto Castaneda Referring Physician: RAYA LLOYD Performed By: Kayla Patrick RDCS Physical Exam Const alert, oriented x3 and no apparent distress HEENT head/scalp atraumatic, moist oral mucous membranes and oropharynx normal Head and Scalp: normocephalic Mouth: oral and palatal mucosa normal Eyes PERRL, EOMs intact bilaterally and conjunctivae normal Neck no lymphadenopathy and supple Resp normal respiratory effort and no retractions Cardio regular rate, regular rhythm, S1 normal heart sound, S2 normal heart sound and no murmurs GI normal to inspection, nondistended, normoactive bowel sounds, soft to palpation, non-tender and non-distended Extremity normal to inspection, full ROM and no clubbing, cyanosis or edema Neuro oriented x3, CN's II-XII intact bilaterally, moves all extremities and no focal motor deficits Sensorium / Orientation: awake and alert Motor Exam: strength 5/5 throughout Psych affect normal Assessment & Plan Assessment/Plan (1) Acute renal insufficiency: (2) NSTEMI (non-ST elevated myocardial infarction): PLAN: Plan #Non-STEMI * He was admitted with a complaint of chest pain. Chest pain is now resolved. * Initial troponin was 11,578 and trended downward slowly to a aby of 10,366. * Cardiology on board. * On aspirin and Plavix as well as statin. Also on carvedilol * 2D echo showed severely hypokinetic mid inferior basal inferoseptal left ventricular mari. Pulmonary artery systolic pressure is 36 mmHg. Stage I diastolic dysfunction. * To have cardiac cath once kidney function has improved. Creatinine was 2.66 on admission is trended down to 2.44 today. Baseline is around 0.9. * On Lovenox 80 mg daily for non-STEMI. * #GERRI: * Creatinine as mentioned above was 2.66. Baseline from records from 2017 was 0.53. It is unclear whether the baseline has gone up but he has developed CKD with this is GERRI. We will continue hydrating gently with fluids and trend. * #Paroxysmal SVT: on carvedilol. TSH is within normal limits. #COPD: Not in exacerbation. On breathing treatments bronchodilators. #Hypertension: On amlodipine and carvedilol DVT prophylaxis: Lovenox 80 mg daily for nonstemi Total time spent in review of chart, reviewing specialist notes, seeing and examining patient's [id number], discussion of plan of care with specialist and ancillary staff as well as nursing staff and documentation in EMR: 38 minutes. Charges/Coding Visit Charges Inpatient E&M: 11983 Subs Hosp L2
[2022-04-02 16:00] VITALS: BP 126/73; PULSE 75; RESP 18; TEMP 36.8; O2SAT 95
[2022-04-02 20:31] VITALS: BP 148/71; PULSE 80; RESP 18; TEMP 37.1; O2SAT 94
[2022-04-02] MEDS: Atorvastatin Calcium 40 MG Tablet PO (20:47)
[2022-04-03] VITALS (12 sets, daily range): BP systolic 125–150; BP diastolic 64–88; PULSE 66–84; RESP 12–18; TEMP 36.4–36.9; O2SAT 95–100
[2022-04-03 07:09] LABS: Anion Gap 8 (5-15); BUN 32 mg/dL (7-18); BUN/Creat Ratio 13.4 RATIO (10-20); Calcium,Total 9.6 mg/dL (8.5-10.1); Chloride 108 mmol/L (98-107); Creatinine, Serum 2.39 mg/dL (0.70-1.30); EST Glomerular Filtration Rate 28 mL/min (>60); Est Glom Filt Rate - Afr Amer 34 mL/min (>60); Estimated Creatinine Clearance 24.58 ml/min; Glucose 84 mg/dL (74-106); Potassium 4.3 mmol/L (3.5-5.1); Sodium Level 137 mmol/L (136-145)
[2022-04-03] MEDS: amLODIPine 10 MG Tablet PO ×2 (07:24)
--- NOTE | 2022-04-03 09:19 | CASEMGMT ---
Tertiary facilities in network with patient's insurance: [facility], [facility], , [facility], [facility], [facility].
--- NOTE | 2022-04-03 10:45 | PCIREPORT_ITS ---
PCI Cardiac Cath Report PCI Report: 1. Successful PCI of the culprit which is subtotal 99% stenosis of the proximal OM1 with ZULY I flow With predilatation followed by placement of drug-eluting stent 2.5 x 22 overlapping with 2.5 x 12 mm resolute Jeromy stent Postdilated with 2.75 x 15 mm NC balloon and achieved an excellent result. With reduction of stenosis to 0% and achievement of ZULY-3 flow. 2. Placement of TR band to close the right radial artery arteriotomy site. Preprocedure diagnosis; 77-year-old patient presented with non-ST elevation myocardial infarction. Was treated with medical therapy Had essential hypertension and also has paroxysmal SVT Based on the clinical presentation he underwent evaluation with echocardiogram and cardiac catheterization by Dr. Metz I reviewed the cardiac cath films Left main augmenter graphically bifurcated into LAD and left circumflex He had a subtotal 99% of proximal OM1 branch. Also has moderate size lesion involving the proximal to mid RCA diffuse around 70%. He also had renal insufficiency and elevated creatinine. Consent; Risk and benefit of the procedure explained in detail including risk of contrast-induced nephropathy Informed consent obtained. Interventional equipment used; 1. 6 Egyptian JL 4 guide catheter 2. 6 Egyptian guide liner 3. 0.014 180 cm run-through extra floppy strength guidewire 4. 2 x 15 mm balloon 5. 2.5 x 22 mm resolute Jeromy stent 6. 2.5 x 12 mm resolute [place] drug-eluting stent 7. 2.75 x 15 mm NC balloon Medication use in the Genetics Teacher; Heparin with ACT level 257 Brilinta 180 mg Patient was on aspirin. Procedure in detail; We proceed with a 6 Egyptian JL 4 advancing over the cannulated the left main, angiographic view in [place]BANIAN caudal and AP caudal views Of the culprit lesion proximal OM1 subtotal 99%. Following this we proceed with the extra floppy run-through guide wire cross the lesion into the OM1 followed by predilatation using 2 x 15 mm regular balloon The lesion was very tortuous and with difficulty of delivering the stent therefore we elected to proceed with a guide liner which was placed above the bifurcation of the large circumflex with OM1 and And were able to place a stent 2.5 x 22 mm resolute [place] drug-eluting stent and overlapped with 2.5 x 12 mm resolute Jeromy stent into the proximal OM1 postdilated with 2.75 x 15 mm NC balloon. And achieved an excellent result. IC nitroglycerin 200 mcg was given We achieve ZULY-3 flow into the OM1 and reduction of stenosis to 0 with no immediate complication in the Genetics Teacher Noted side branch with ostial lesion at the site of the overlapping stent that was left and treated medically. Following this TR band applied to right radial artery area to maintain hemostasis Patient is stable Conclusion and recommendation; 1. Patient to continue on DAPT with Brilinta 90 mg twice daily in addition to low-dose aspirin for 1 year 2. Patient has a lesion in the proximal to mid RCA which is moderate size and this can be done as an outpatient elective procedure in 2 to 3 weeks once his renal function is stable 3. To continue monitoring electrolytes and renal function. 4. Patient will be scheduled for cardiac rehab 5. Primary member of parliament Dr. Metz will resume cardiac care and clinical follow-up. Ras Ramirez MD,FACC,[facility]
[2022-04-03] MEDS: Carvedilol 3.125 MG TABLET PO ×2 (11:04→20:37)
[2022-04-03] MEDS: Enoxaparin 80 MG/0.8 ML Syringe SC (11:04)
[2022-04-03] MEDS: Multivitamins,Therapeutic Tablet 1 TABLET PO (11:04)
[2022-04-03] MEDS: Pantoprazole Sodium 40 MG Tablet PO (11:04)
[2022-04-03] MEDS: Cholecalciferol (Vit D3) 125 MCG CAPSULE (5,000 UNITS) 250 MCG PO (11:04)
[2022-04-03] MEDS: Multivitamin (Healthy Eyes) Capsule 1 CAP PO ×2 (11:04→16:37)
[2022-04-03] MEDS: TICAGRELOR 90 MG TABLET PO ×2 (11:08→20:37)
[2022-04-03] MEDS: 0.9% Normal Saline 1,000 ML 75 ML IV (11:13)
--- NOTE | 2022-04-03 11:25 | CRPHASE1_ITS ---
Patient Communication Former Patient:: Phase I PHII Cardiac Rehab Discussed with Patient:: Yes Guide to Cardiac Rehab Given to Patient:: Yes Cardiac Rehab Facility Choice List Given to Patient:: Yes Transfer Specialist:: Ras Ramirez Cardiac Rehabilitation Info Cardiac Rehabilitation Program Information: Cardiac Rehab The cardiac rehab team at [facility] consists of highly skilled exercise physiologists, nurses, respiratory therapists and physicians working together with you. Our purpose is to help you have a full recovery and achieve the goals you set for yourself. Over the years many of our patients have returned to activities they assumed they would never do again! We can help restore your confidence and motivation to make lifestyle changes that can have a significant impact on your health and quality of life! We can help answer questions and concerns you may have about exercise, lifestyle, medications, diet, stress and anxiety which are common following a hospitalization. WE monitor ECG and vital signs during exercise and discuss your progress with you and report to your physician(s). Cardiac Rehab is proven to help reduce readmissions, improve functional capacity and lower recurrence of problems with your heart. Our Cardiac Rehab program is Certified by the [place] [employer] Pulmonary [employer] (AACVPR) and Accredited by the [place] [employer] through our [facility]. You can contact us at . We invite you to call us with your questions or to get started in our program. If you have other questions or concerns be sure to ask your physician/provider during your follow-up visit. WE look forward to seeing you!
--- NOTE | 2022-04-03 11:27 | CRPH1.INST_ITS ---
General Education CAD and cardiac anatomy and function:: Patient communicates acknowledgment Explanation of diagnoses and procedures:: Patient communicates acknowledgment Sign/Symptoms of PA:: Patient communicates acknowledgment Antiplatelet therapy: Patient communicates acknowledgment Proper use of NTG-SL: Patient communicates acknowledgment Emergency procedures and activation of EMS: Patient communicates acknowledgment Smoking Patient Nicotine/Smoking Risk Factors Are:: Cigarettes Recommendations Include:: Smoking cessation strategies/Smoking packet, Second- hand smoke recommendation, Participation in a smoking cessation program Nicotine/Smoking Response Code:: Patient communicates acknowledgment Dyslipidemia Recommendations Include:: Lipid profile not available, Therapeutic Lifestyle Change dietary guidelines Dyslipidemia Response Code:: Patient communicates acknowledgment Overweight/Obesity Patient Overweight/Obesity Risk Factors Are:: Overweight = 26-29 Recommendations Include:: Weight loss of 5-10%, Reduced calorie diet, Exercise 5-7 times/week Overweight/Obesity:: Patient communicates acknowledgment Hypertension Recommendations Include:: Maintain BP <130/85, Moderation of ETOH Hypertension:: Patient communicates acknowledgment Heart Disease Patient Heart Disease Risk Factors Are:: Previous cardiac event Recommendations Include:: Educated family members of their risk Heart Disease Response Code:: Patient communicates acknowledgment Diabetes Patient Diabetes Risk Factors Are:: No documented hx of diabetes Diabetes:: Patient communicates acknowledgment Metabolic Syndrome Patient Metabolic Syndrome Risk Factors Are [3 of 5]:: Hypertension Recommendations Include:: Reinforce compliance to risk factor modifications Metabolic Syndrome Response Code:: Patient communicates acknowledgment Sedentary Recommendations Include:: Aerobic exercise 5-7 times/week for 20-30 minutes continuously, Benefits of regular exercise, Discussed home walking program, Monitored Outpatient Cardiac Rehab Sedentary Response Code:: Patient communicates acknowledgment Stress Recommendations Include:: Identification of stressors, and assessment of coping skills, Stress management techniques Stress Response Code:: Patient communicates acknowledgment
--- NOTE | 2022-04-03 12:49 | PN.CARD_ITS ---
Subjective Subjective The patient was evaluated earlier this morning. He denied any ongoing symptoms of classic angina pectoris or shortness of breath/dyspnea at the time. Since that time he has undergone further evaluation with diagnostic cardiac catheterization which subsequently led to OM PTCA/stent. Objective Data Vital Signs: Vital Signs Temp Pulse Resp BP Pulse Ox O2 Del Method 98.0 F 72 16 130/76 H 100 Room Air 04/03/22 08:00 04/03/22 12:30 04/03/22 12:30 04/03/22 12:30 04/03/22 12:30 04/03/22 12:30 Oxygen Delivery Method Room Air Weight: 177 lb 4.026 oz Body Mass Index (BMI) 27.7 Intake & Output: Intake and Output for Last 24 Hours 04/01/22 04/02/22 04/03/22 23:59 23:59 23:59 Intake Total 1240 / 1240 3045 / 3045 400 / 400 Output Total 400 / 400 2375 / 2375 1800 / 1800 Balance 840 / 840 670 / 670 -1400 / -1400 Lab / Micro Data Result Diagrams: 04/02/22 03:58 04/03/22 05:58 Labs: Laboratory Results - last 24 hr 04/03/22 05:58: Sodium 137, Potassium 4.3, Chloride 108 H, Carbon Dioxide 21.0, Anion Gap 8, BUN 32 H, Creatinine 2.39 H, Estim Creat Clear Calc 24.58, Est GFR (MDRD) Af Amer 34 L, Est GFR (MDRD) Non-Af 28 L, BUN/Creatinine Ratio 13.4, Glucose 84, Calcium 9.6 Cardiology Labs/Tests 04/03/22 05:58: Sodium 137, Potassium 4.3, Chloride 108 H, Carbon Dioxide 21.0, Anion Gap 8, BUN 32 H, Creatinine 2.39 H, Est GFR (MDRD) Af Amer 34 L, Est GFR (MDRD) Non-Af 28 L, BUN/Creatinine Ratio 13.4, Glucose 84, Calcium 9.6 Rhythm: Sinus rhythm Physical Exam Const alert, oriented x3 and no apparent distress HEENT head/scalp atraumatic, moist oral mucous membranes and oropharynx normal Head and Scalp: normocephalic Mouth: oral and palatal mucosa normal Eyes PERRL, EOMs intact bilaterally and conjunctivae normal Neck no lymphadenopathy and supple Resp normal respiratory effort and no retractions Cardio regular rate, regular rhythm, S1 normal heart sound, S2 normal heart sound and n o murmurs GI normal to inspection, nondistended, normoactive bowel sounds, soft to palpation, non-tender and non-distended Extremity normal to inspection, full ROM and no clubbing, cyanosis or edema Neuro oriented x3, CN's II-XII intact bilaterally, moves all extremities and no focal motor deficits Sensorium / Orientation: awake and alert Motor Exam: strength 5/5 throughout Psych affect normal Assessment & Plan Assessment/Plan (1) NSTEMI (non-ST elevated myocardial infarction): PLAN: The patient's high-sensitivity troponin I levels have been decreasing. His cardiac rhythm has remained sinus rhythm. His echocardiogram report has been noted. He has undergone evaluation with diagnostic cardiac catheterization. He was found to have angiographically significant CAD that required OM PTCA/stent. He will continue medical therapy. This will include aspirin 81 mg p.o. daily, ticagrelor 90 mg p.o. twice daily, in addition to agents such as beta-blockers, afterload reducing agents as deemed appropriate, and lipid-lowering therapy. (2) CAD (coronary artery disease): PLAN: He has been diagnosed with CAD. He will continue medical management at this time in addition to his PCI. From medicine standpoint this will include his aspirin 81 mg p.o. daily, t icagrelor/Brilinta 90 mg p.o. twice daily, carvedilol 3.125 mg p.o. twice daily, and atorvastatin 40 mg p.o. nightly. (3) S/P PTCA (percutaneous transluminal coronary angioplasty): PLAN: He underwent OM PTCA/stent per Dr. Ramirez of interventional radiology. He will be considered for a future staged procedure/PCI to the RCA system status post reassessment of his renal function. (4) Paroxysmal SVT (supraventricular tachycardia): PLAN: He has a history of PSVT. There is been no obvious documented recurrence. At the moment he will continue his medical therapy as noted above (5) Essential hypertension: PLAN: His blood pressure will be followed. His medications can be adjusted as needed. (6) Acute renal insufficiency: PLAN: His renal function/creatinine level has improved. He will continue gentle IV hydration at this time. His creatinine level will be followed. Addt'l Comments The patient's case has been discussed and reviewed with the patient and Dr. Ramirez of interventional cardiology. Comment: Time spent in the patient's overall evaluation, examination, review of medical records, review of cardiovascular procedures, documentation, question and answers, etc.,: 50 minutes. Procedure Criteria Type of Procedure Procedure Type: Elective Elective Risks - COVID COVID Risk Discussion: The surgeon/proceduralist and patient have discussed in detail the risk of exposure to and/or potential harm posed by the COVID-19 virus with having a surgery/procedure at this time versus the risk of delaying the surgery/procedure. It is not possible to know either the risk of delaying the surgery or procedure or chance of getting an infection with perfect accuracy, but a joint decision was made between the patient and the surgeon/proceduralist to proceed at this time with the scheduled surgery/procedure as indicated on the consent form.
--- NOTE | 2022-04-03 15:01 | PN.HOSP_ITS ---
Reason for Visit Reason for Visit: Diagnoses Essential (primary) hypertension (04/01/22) Non-ST elevation (NSTEMI) myocardial infarction (04/01/22) Atherosclerotic heart disease of [place] coronary artery without angina pectoris (04/01/22) Supraventricular tachycardia (04/01/22) Disorder of kidney and ureter, unspecified (04/01/22) Coronary angioplasty status (04/01/22) Subjective Subjective Patient seen and examined. He had no complaints. He had cardiac cath today with stenting to the obtuse marginal artery. Objective Data Objective Data Vital Signs: Vital Signs Temp Pulse Resp BP Pulse Ox O2 Del Method 98.0 F 80 12 130/76 H 100 Room Air 04/03/22 13:02 04/03/22 13:02 04/03/22 13:02 04/03/22 13:02 04/03/22 13:02 04/03/22 13:02 Oxygen Delivery Method Room Air Weight: 177 lb 4.026 oz Body Mass Index (BMI) 27.7 Intake & Output: Intake and Output for Last 24 Hours 04/01/22 04/02/22 04/03/22 23:59 23:59 23:59 Intake Total 1240 / 1240 3045 / 3045 400 / 400 Output Total 400 / 400 2375 / 2375 1800 / 1800 Balance 840 / 840 670 / 670 -1400 / -1400 Lab / Micro Data Result Diagrams: 04/02/22 03:58 04/03/22 05:58 Labs: Laboratory Results - last 24 hr 04/03/22 05:58: Sodium 137, Potassium 4.3, Chloride 108 H, Carbon Dioxide 21.0, Anion Gap 8, BUN 32 H, Creatinine 2.39 H, Estim Creat Clear Calc 24.58, Est GFR (MDRD) Af Amer 34 L, Est GFR (MDRD) Non-Af 28 L, BUN/Creatinine Ratio 13.4, Glucose 84, Calcium 9.6 Physical Exam Const alert, oriented x3 and no apparent distress HEENT head/scalp atraumatic, moist oral mucous membranes and oropharynx normal Head and Scalp: normocephalic Mouth: oral and palatal mucosa normal Eyes PERRL, EOMs intact bilaterally and conjunctivae normal Neck no lymphadenopathy and supple Resp normal respiratory effort and no retractions Cardio regular rate, regular rhythm, S1 normal heart sound, S2 normal heart sound and no murmurs GI normal to inspection, nondistended, normoactive bowel sounds, soft to palpation, non-tender and non-distended Extremity normal to inspection, full ROM and no clubbing, cyanosis or edema Neuro oriented x3, CN's II-XII intact bilaterally, moves all extremities and no focal motor deficits Sensorium / Orientation: awake and alert Motor Exam: strength 5/5 throughout Psych affect normal Assessment & Plan Assessment/Plan (1) Acute renal insufficiency: (2) NSTEMI (non-ST elevated myocardial infarction): PLAN: Plan #Non-STEMI * s/p cardiac cath with PCI and drug eluting stent to the obtuse marginal artery. * Cardiology on board. * On aspirin and Brilinta as well as high intensity statin. Also on carvedilol * 2D echo showed severely hypokinetic mid inferior basal inferoseptal left ventricular mari. Pulmonary artery systolic pressure is 36 mmHg. Stage I diastolic dysfunction. I. * #GERRI: * Cr today is down to 2.39. * continue gentle hydration with iVF * baseline Cr is 0.53 * * #Paroxysmal SVT: on carvedilol. TSH is within normal limits. #COPD: Not in exacerbation. On breathing treatments bronchodilators. #Hypertension: On amlodipine and carvedilol DVT prophylaxis: lovenox, renally dosed Total time spent in review of chart, reviewing specialist notes, seeing and examining patient's [id number], discussion of plan of care with specialist and ancillary staff as well as nursing staff and documentation in EMR: 35 minutes. Charges/Coding Visit Charges Inpatient E&M: 66005 Subs Hosp L2
--- NOTE | 2022-04-03 16:39 | CL.D_ITS ---
Patient Name: MIGUEL PEREZ Study Date: 04/03/2022 Performing: Jonathon Metz MD Ht: 67 inches 170.18 cm : 1945 Wt: 177.5 lbs 80.4 kg Age: 77 Gender: male BSA: 1.92 PROCEDURE(S) PERFORMED DC02-(80594)LHC/COR IC12-(80449/[id number])[place] W/WO PTCA, SINGLE CORONARY ARTERY CLINICAL PROFILE AND INDICATIONS Indications: ACS > 24 hrs, Suspected CAD Heart Failure: None Stress/Imaging Stress/Image Study Performed: No Angina Classification Anginal Classification w/in 2 Weeks: CCS III CAD Presentations: Non-STEMI. CONCLUSIONS Elevated Left Ventricular End Diastolic Pressure [place] Multivessel CAD RECOMMENDATIONS Risk factor modification Medical therapy Referred for immediate PCI Case discussed and reviewed with Dr. Ramirez of Interventional Radiology DESCRIPTION OF PROCEDURE The patient arrived to the procedure lab. The risks and benefits of the procedure as well as a full description of our services here and current unavailability of surgical backup were fully explained to the patient and/or their significant other prior to the catheterization. The Timeout was completed, verifying the correct patient and procedure. The patient's procedural site was prepped and draped in the usual fashion. Local anesthetic was given subcutaneously to right radial region with Lidocaine 2%. Using a modified Seldinger technique, arterial access was obtained via the right radial artery, a 6Fr sheath was inserted. Left Coronary Artery selective angiography was performed in multiple views using a 5 Fr. 4.0 [place] catheter. Right Coronary Artery selective angiography was then performed in multiple views using a 5 Fr. 4.0 [place] catheter. LV to AO pullback pressures were then recorded.The arterial sheath was pulled and a TR Band was applied for hemostasis w/ 11ml air CORONARY ANGIOGRAPHY DOMINANCE: Co- Dominant LEFT HEART ASSESSMENT Left Ventricular Ejection Fraction: Not assessed Elevated Left Ventricular End Diastolic Pressure LVEDP: 17 mmHg LEFT MAIN: proximal: 25 % Stenosis LEFT ANTERIOR DESCENDING ARTERY: Mild luminal irregularities CIRCUMFLEX ARTERY: PROX CIRC: Mild luminal irregularities less than 30% OM 1: Proximal - long: diffuse: 95 % Stenosis RIGHT CORONARY ARTERY: MID RCA: irregular: 75 % Stenosis COMPLICATIONS No Complications PROCEDURE MEDICATIONS Versed 1 mg IV Fentanyl 50 mcg IV Fentanyl 25 mcg IV Baby Aspirin (81mg) 1 Tabs PO 04/03/2022 08:18:26 Brilinta 180 mg PO @ 04/03/2022 09:17:47 Heparin given IA 04/03/2022 09:01:25 Heparin 5000 unit(s) IV 04/03/2022 09:23:24 Heparin 2000 unit(s) IV 04/03/2022 10:18:47 Nitro 200 mcg IC 04/03/2022 09:57:43 Verapamil 2.5mg, Ntg 100mcgs, 3000 units of Heparin given IA 04/03/2022 09:01:25 IV Fluids: LR IV started @ 100 ml/hr 04/03/2022 08:20:06 SUMMARY OF HEMODYNAMIC DATA Time AIR REST ECG 08:29:32 AO 132/59 (83) SA 09:04:26 LV 138/3, 18 09:11:55 LV 137/5, 17 09:12:04 LVp 137/2, 17 09:12:09 AOp 147/66 (100) 09:12:16 AO 0/-20 (-17) 10:18:09 Signed By Jonathon Metz MD On 04/03/2022 16:38:52 Jonathon Metz MD
[2022-04-03 17:00] LABS: ACT Activated Clotting Time 257 sec (74-137)
[2022-04-03] MEDS: Atorvastatin Calcium 40 MG Tablet PO (20:37)
[2022-04-04 04:40] VITALS: BP 139/74; PULSE 69; RESP 14; TEMP 36.8; O2SAT 96
[2022-04-04 05:54] LABS: Absolute Lymphocyte Count 1.68 X10^3/uL (0.83-4.51); Absolute Neutrophil Count 6.9 X10^3/uL (2.0-7.7); Basophil# 0.06 X10^3/uL; Basophil% 0.6 % (0-1); Eosinophils% 3.1 % (0-5); Hematocrit 32.7 % (40-54); Hemoglobin 10.8 g/dL (13.0-16.5); Lymphocyte # 1.68 X10^3/ul (0.83-4.51); Lymphocyte % 17.2 % (19-41); Mean Corpuscular Hgb 30.3 pg (27.0-32.0); Mean Corpuscular Volume 91.6 fL (80-94); Mean Platelet Vol. 10.1 fl (6.2-12.0); Monocyte# 0.79 X10^3/uL; Monocyte% 8.1 % (0-10); NRBC Flagged by Analyzer 0 % (0-5); Neutrophil # 6.88 X10^3/uL (2.7-7.7); Neutrophil % 70.5 % (47-70); Platelet Count 270 K/mm3 (150-450); RBC Distribution Width SD 43.4 fl (35.1-43.9); Red Blood Count 3.57 M/mm3 (4.6-6.2); White Blood Count 9.8 K/mm3 (4.4-11.0)
--- NOTE | 2022-04-04 05:55 | EKG12_ITS ---
Test Reason : am ekg Blood Pressure : / mmHG Vent. Rate : 067 BPM Atrial Rate : 067 BPM P-R Int : 216 ms QRS Dur : 112 ms QT Int : 408 ms P-R-T Axes : 073 058 067 degrees QTc Int : 431 ms Sinus rhythm with 1st degree A-V block Right bundle branch block Abnormal ECG When compared with ECG of 01-APR-2022 14:52, No significant change was found Confirmed by DALLAS QUINTERO, CATALINO ([id number]), editorial assistant JADE GARCÍA ([id number]) on 04/07/2022 10:07:25 AM Referred By: Confirmed By:CATALINO HAYNES MD
[2022-04-04 06:16] LABS: ALB/GLOB Ratio 0.7 RATIO (0.9-2.4); AST(SGOT) 31 U/L (15-37); Alanine Aminotransfer ALT/SGPT 16 U/L (16-61); Albumin, Serum 2.8 g/dL (3.2-5.0); Alkaline Phosphatase 102 U/L (45-117); Anion Gap 6 (5-15); BUN 30 mg/dL (7-18); BUN/Creat Ratio 12.8 RATIO (10-20); Calcium,Total 9.8 mg/dL (8.5-10.1); Chloride 106 mmol/L (98-107); Creatinine, Serum 2.34 mg/dL (0.70-1.30); EST Glomerular Filtration Rate 29 mL/min (>60); Est Glom Filt Rate - Afr Amer 35 mL/min (>60); Estimated Creatinine Clearance 25.11 ml/min; Globulin 4.2 g/dL (2.2-4.2); Glucose 92 mg/dL (74-106); Potassium 4.4 mmol/L (3.5-5.1); Sodium Level 134 mmol/L (136-145)
[2022-04-04 08:02] VITALS: O2SAT 95
[2022-04-04 09:15] VITALS: BP 132/72; PULSE 73; RESP 15; TEMP 36.7; O2SAT 98
[2022-04-04] MEDS: amLODIPine 10 MG Tablet PO (09:22)
[2022-04-04] MEDS: Cholecalciferol (Vit D3) 125 MCG CAPSULE (5,000 UNITS) 250 MCG PO (09:23)
[2022-04-04] MEDS: TICAGRELOR 90 MG TABLET PO (09:23)
[2022-04-04] MEDS: Pantoprazole Sodium 40 MG Tablet PO (09:24)
[2022-04-04] MEDS: Carvedilol 3.125 MG TABLET PO (09:24)
[2022-04-04] MEDS: Multivitamin (Healthy Eyes) Capsule 1 CAP PO (09:24)
[2022-04-04] MEDS: Multivitamins,Therapeutic Tablet 1 TABLET PO (09:24)
[2022-04-04] MEDS: Aspirin E.C. 81 MG Tablet PO (09:25)
[2022-04-04] MEDS: Enoxaparin 80 MG/0.8 ML Syringe SC (09:25)
--- NOTE | 2022-04-04 09:50 | CASEMGMT ---
YULIANA HECK NOTE: RN CM to room. Introduced self and role. Given Brilinta 30-day savings card and instructed on use. Questions answered. Pt made aware, if refills are not affordable, to discuss other possible options w/cardiology. He voices understanding. Laurie RALPHN RN CM
--- NOTE | 2022-04-04 11:51 | PN.CARD_ITS ---
Subjective Subjective Patient seen and evaluated today at bedside and discussed with the nursing staff and the medical team Is comfortable does not have any active chest pain and his vitals has been stable. Objective Data To his cardiac telemetry as well as his current treatment plan and medication and current lab test Stable hemodynamically underlying cardiac rhythm is normal sinus rhythm. Vital Signs: Vital Signs Temp Pulse Resp BP Pulse Ox O2 Del Method 98.1 F 73 15 132/72 H 98 Room Air 04/04/22 09:15 04/04/22 09:15 04/04/22 09:15 04/04/22 09:15 04/04/22 09:15 04/04/22 09:15 Oxygen Delivery Method Room Air Weight: 177 lb 4.026 oz Body Mass Index (BMI) 27.7 Intake & Output: Intake and Output for Last 24 Hours 04/02/22 04/03/22 04/04/22 23:59 23:59 23:59 Intake Total 3045 / 3045 400 / 400 1000 / 1000 Output Total 2375 / 2375 3350 / 3350 750 / 750 Balance 670 / 670 -2950 / -2950 250 / 250 Lab / Micro Data Result Diagrams: 04/04/22 05:34 04/04/22 05:34 Labs: Laboratory Results - last 24 hr 04/03/22 10:25: Activated Clotting Time 257 H 04/04/22 05:34: WBC 9.8, RBC 3.57 L, Hgb 10.8 L, Hct 32.7 L, MCV 91.6, MCH 30.3, MCHC 33.0, RDW Std Deviation 43.4, RDW Coeff of Sari 13.0, Plt Count 270, MPV 10.1, Immature Gran % (Auto) 0.500, Neut % (Auto) 70.5 H, Lymph % (Auto) 17.2 L, [place] % (Auto) 8.1, Eos % (Auto) 3.1, Baso % (Auto) 0.6, Absolute Neuts (auto) 6.9, Absolute Lymphs (auto) 1.68, Nucleated RBC % 0 04/04/22 05:34: Sodium 134 L, Potassium 4.4, Chloride 106, Carbon Dioxide 22.0, Anion Gap 6, BUN 30 H, Creatinine 2.34 H, Estim Creat Clear Calc 25.11, Est GFR (MDRD) Af Amer 35 L, Est GFR (MDRD) Non-Af 29 L, BUN/Creatinine Ratio 12.8, Glucose 92, Calcium 9.8, Total Bilirubin 0.40, AST 31, ALT 16, Alkaline Phosphatase 102, Total Protein 7.0, Albumin 2.8 L, Globulin 4.2, Albumin/Globulin Ratio 0.7 L Cardiology Labs/Tests 04/04/22 05:34: WBC 9.8, RBC 3.57 L, Hgb 10.8 L, Hct 32.7 L, MCV 91.6, MCH 30.3, MCHC 33.0, Plt Count 270, MPV 10.1, Immature Gran % (Auto) 0.500, Neut % (Auto) 70.5 H, Lymph % (Auto) 17.2 L, [place] % (Auto) 8.1, Eos % (Auto) 3.1, Baso % (Auto) 0.6, Absolute Neuts (auto) 6.9, Nucleated RBC % 0 04/04/22 05:34: Sodium 134 L, Potassium 4.4, Chloride 106, Carbon Dioxide 22.0, Anion Gap 6, BUN 30 H, Creatinine 2.34 H, Est GFR (MDRD) Af Amer 35 L, Est GFR (MDRD) Non-Af 29 L, BUN/Creatinine Ratio 12.8, Glucose 92, Calcium 9.8, Total Bilirubin 0.40 Rhythm: EKG: ECHO: Stress Test: Cardiac Cath: PCI: CT Surgery: Holter monitor: EPS: PPM: CXR: Chest CT Scan: Physical Exam Cardio Cardio Narrative: Patient alert orientated x3 Not in acute distress Underlying cardiac rhythm is normal sinus Cardiovascular exam S1-S2 is regular Chest examination is clear to auscultation bilateral. Examination abdomen soft. Examination of lower extremity no clubbing no cyanosis no lower extremity edema. Assessment & Plan Assessment/Plan (1) COPD (chronic obstructive pulmonary disease): QUALIFIERS: COPD type: unspecified COPD Qualified Code(s): J44.9 - Chronic obstructive pulmonary disease, unspecified (2) CAD (coronary artery disease): (3) S/P PTCA (percutaneous transluminal coronary angioplasty): (4) Chronic renal insufficiency: PLAN: Plan 77-year-old patient, underwent cardiac catheterization by his primary cardiolog ist Dr. Metz Had a subtotal OM1 and underwent successful PCI and placement of drug-eluting stent. Patient also has [id number] RCA lesion diffuse for 75% This can be done as an elective as an outpatient Patient seen and evaluated today at bedside He is stable clinically he does not have any active chest pain. Cardiac care plan and recommendations; 1. Patient to continue on DAPT dual antiplatelet therapy with Brilinta 90 mg twice daily and aspirin for 1 year Patient also to follow-up with the primary aeronautical engineering professor Dr. Metz. For continuation of cardiac care. Patient also will be scheduled for cardiac rehab 2. To monitor electrolytes and renal function. He has a baseline abnormal creatinine with CKD. No change in his creatinine the baseline creatinine was 2.44 on April 02 today the creatinine number is 2.34 we will continue hydration. Patient will need elective PCI of the RCA this can be set up in outpatient I reviewed the current lab and kidney function remains stable We will continue to monitor and follow-up clinically.
--- NOTE | 2022-04-04 15:03 | DS.PCM_ITS ---
Providers Date of Admission: 04/01/22 Date of Discharge: 04/04/22 Primary Care Physician: Dr. Candido Valle MD Consultations 04/01/22 15:39 Consult: Cardiology Urgent Consulting Provider: Roberto Castaneda Reason for Consult: NSTEMI EMERGENT Consult: No MD Notified: Yes Date Notified: 04/01/22 Time Notified: 13:18 Method of Notification: ED Physician Initiated Reason For Visit: NSTEMI Diagnosis Discharge Diagnosis (1) COPD (chronic obstructive pulmonary disease): Status: Chronic Code(s): J44.9 - Chronic obstructive pulmonary disease, unspecified Qualifiers: COPD type: unspecified COPD Qualified Code(s): J44.9 - Chronic obstructive pulmonary disease, unspecified (2) CAD (coronary artery disease): Status: Acute Code(s): I25.10 - Atherosclerotic heart disease of [place] coronary artery without angina pectoris (3) S/P PTCA (percutaneous transluminal coronary angioplasty): Status: Acute Code(s): Z98.61 - Coronary angioplasty status (4) Chronic renal insufficiency: Status: Chronic Code(s): N18.9 - Chronic kidney disease, unspecified Plan #Non-STEMI * s/p cardiac cath with PCI and drug eluting stent to the obtuse marginal artery. * Cardiology on board. * On aspirin and Brilinta as well as high intensity statin. Also on carvedilol * 2D echo showed severely hypokinetic mid inferior basal inferoseptal left ventricular mari. Pulmonary artery systolic pressure is 36 mmHg. Stage I diastolic dysfunction. I. * #GERRI: * Cr today is down to 2.39. * continue gentle hydration with iVF * baseline Cr is 0.53 * * #Paroxysmal SVT: on carvedilol. TSH is within normal limits. #COPD: Not in exacerbation. On breathing treatments bronchodilators. #Hypertension: On amlodipine and carvedilol DVT prophylaxis: lovenox, renally dosed Total time spent in review of chart, reviewing specialist notes, seeing and examining patient's [id number], discussion of plan of care with specialist and ancillary staff as well as nursing staff and documentation in EMR: 35 minutes. Medications at Discharge Home Medications multivitamin (Daily Multi-Vitamin tablet) 1 tab PO DAILY SUPPLEMENT 08/30/17 amlodipine 10 mg tablet 10 mg PO DAILY BP 02/22/23 cholecalciferol (vitamin D3) 250 mcg (10,000 unit) tablet 250 mcg PO DAILY SUPPLEMENT 04/01/22 lactobacillus comb no.10 20 billion cell capsule (Probiotic) 20,000 mmu cells PO DAILY SUPPLEMENT 04/01/22 pantoprazole 40 mg tablet,delayed release 40 mg PO DAILY GERD 04/01/22 vit C 250 mg-vit E 90 mg-zinc 40 mg-copper 1 er-pctjrw-ocrlwq capsule (PreserVision AREDS-2) 1 tab PO BID EYE HEALTH 04/01/22 aspirin 81 mg tablet,delayed release 81 mg PO DAILY@0800 #30 tabs 04/04/22 atorvastatin 40 mg tablet 40 mg PO QHS #3 tabs 04/04/22 carvedilol 3.125 mg tablet 3.125 mg PO BID #60 tabs 04/04/22 ticagrelor 90 mg tablet (Brilinta) 90 mg PO BID #60 tabs 04/04/22 Hospital Course Operations None Procedures 2-D Echocardiogram Summary of Care Provided Minutes Spent on Discharge: 45 Hospital Course: Patient is a 77-year-old male with a past medical history as outlined was admitted through the ED with a complaint of chest pain which had been going on for about a week. Was midsternal and left-sided and intermittent but became persistent. EKG showed no acute ST changes. Initial troponin was markedly elevated. He was therefore admitted and managed for non-STEMI. Patient also had elevated creatinine and also question whether it was GERRI or a post trend in his creatinine indicating CKD. He was hydrated with IV fluids and cardiology was consulted. He had cardiac cath with PCI and placement of drug-eluting s tents in the obtuse marginal artery. He was placed on aspirin and Brilinta as well as high intensity statin and carvedilol. 2D echo showed severely hypokinetic mid inferior basal, inferoseptal and left ventricular mari with pulmonary artery systolic pressure of 36 mmHg and stage I diastolic dysfunction. His creatinine did trend down slightly but then plateaued. This was thought to be likely due to CKD as his baseline creatinine in the EMR was from 2017 when it was around 0.5. It was therefore likely the patient had developed some chronic renal insufficiency during that period. He remained stable and was discharged home on 04/05/2022. He is follow-up with his primary care doctor and follow-up with cardiology on outpatient basis. Patient seen and examined prior to discharge. He had no active complaints and had an uneventful night. Review of systems otherwise negative. Labs and vitals reviewed. Home medication reviewed and reconciled. Physical Exam Const alert, oriented x3 and no apparent distress General Appearance: cooperative and comfortable Orientation / Consciousness: awake Exam Limitations: no limitations HEENT normocephalic, head/scalp atraumatic, hearing grossly normal bilaterally, moist oral mucous membranes and oropharynx normal Mouth: oral and palatal mucosa normal Eyes PERRL, EOMs intact bilaterally and conjunctivae normal Neck no lymphadenopathy and supple Resp normal respiratory effort and no retractions Cardio regular rate, regular rhythm, S1 normal heart sound, S2 normal heart sound and no murmurs GI normal to inspection, nondistended, normoactive bowel sounds, soft to palpation, non-tender and non-distended Extremity normal to inspection, full ROM and no clubbing, cyanosis or edema Skin no rashes or lesions noted Neuro oriented x3, CN's II-XII intact bilaterally, moves all extremities and no focal motor deficits Sensorium / Orientation: awake and alert Motor Exam: strength 5/5 throughout Psych affect normal Weight / BMI Weight Weight: 177 lb 4.026 oz Body Mass Index (BMI) 27.7 ABG / Lab / Microbiology Data Result Diagrams: 04/04/22 05:34 04/04/22 05:34 Laboratory: Laboratory Results - last 24 hr 04/03/22 10:25: Activated Clotting Time 257 H 04/04/22 05:34: WBC 9.8, RBC 3.57 L, Hgb 10.8 L, Hct 32.7 L, MCV 91.6, MCH 30.3, MCHC 33.0, RDW Std Deviation 43.4, RDW Coeff of Sari 13.0, Plt Count 270, MPV 10.1, Immature Gran % (Auto) 0.500, Neut % (Auto) 70.5 H, Lymph % (Auto) 17.2 L, [place] % (Auto) 8.1, Eos % (Auto) 3.1, Baso % (Auto) 0.6, Absolute Neuts (auto) 6.9, Absolute Lymphs (auto) 1.68, Nucleated RBC % 0 04/04/22 05:34: Sodium 134 L, Potassium 4.4, Chloride 106, Carbon Dioxide 22.0, Anion Gap 6, BUN 30 H, Creatinine 2.34 H, Estim Creat Clear Calc 25.11, Est GFR (MDRD) Af Amer 35 L, Est GFR (MDRD) Non-Af 29 L, BUN/Creatinine Ratio 12.8, Glucose 92, Calcium 9.8, Total Bilirubin 0.40, AST 31, ALT 16, Alkaline Phosphatase 102, Total Protein 7.0, Albumin 2.8 L, Globulin 4.2, Albumin/Globulin Ratio 0.7 L D/C Instructions Discharge Diet: Low fat / Low cholesterol Discharge Activity: Return to Normal Activity Weight Bearing Status: Weight bearing as tolerated Call your doctor if you observe: Fever of 101 or Higher, Shortness of breath, Dizziness, Swelling in the ankles, Chest pain and Increased palpitations (irregular heartbeat) Meaningful Use Info Meaningful Use Diagnoses (Choose all that apply): AMI AMI/Post PCI/Angioplasty Aspirin given w/in 24hrs of arrival?: Yes ASA at discharge?: Yes Antiplatelet Therapy at Discharge:: Yes Statins at discharge?: Yes Claude/ARB at discharge?: No Reason Claude/ARB not ordered:: Worsening renal dysfunctn Beta David at discharge?: Yes Done w/ Acute ME measure.: Yes Documented LVEF (%): 55 Discharge Plan Admission Admit Date/Time: 04/01/22 13:14 Primary Reason for Your Visit: nonstemi Attending Provider: Rhina Hurt Primary Care Provider: Candido Valle Consulting Providers: Roberto Castaneda ; Scott Barrios Instructions Patient Instructions: Heart Attack Dc Discharge Orders/Prescriptions Prescriptions: New Brilinta 90 mg Tablet 90 mg PO BID Qty: 60 2RF atorvastatin 40 mg Tablet 40 mg PO QHS Qty: 3 2RF aspirin 81 mg Tablet,Delayed Release (Dr/Ec) 81 mg PO DAILY@0800 Qty: 30 2RF carvedilol 3.125 mg Tablet 3.125 mg PO BID Qty: 60 2RF Continued multivitamin [Daily Multi-Vitamin] tablet 1 tab PO DAILY pantoprazole 40 mg tablet,delayed release (DR/EC) 40 mg PO DAILY Probiotic 20 billion cell Capsule 20,000 mmu cells PO DAILY Rx Instructions: administer with a meal PreserVision AREDS-2 250-90-40-1 mg Capsule 1 tab PO BID cholecalciferol (vitamin D3) 250 mcg (10,000 unit) Tablet 250 mcg PO DAILY amlodipine 10 MG tablet 10 mg PO DAILY Discontinued etodolac 400 mg tablet 400 mg PO BID Referrals / Follow Up: Roberto Castaneda MD [Med Staff - Active Staff] - Within 2 Weeks Candido Valle MD [Primary Care Provider] - Within 2 Weeks Disposition Disposition (needs filled in before D/C Order can be placed): Home, Self Care Charges/Coding Visit Charges Inpatient E&M: 73628 Disch Hosp >30min
[2022-04-04 15:48] VITALS: BP 122/73; PULSE 62; RESP 16; TEMP 36.7; O2SAT 100
[2022-04-04 16:06] VITALS: BP 122/73; PULSE 62; RESP 16; TEMP 36.7; O2SAT 100
== END 2022-04-04 17:09 | disposition home or self-care (01) | DRG 247 ==
LOC: ED 13:25 → PCU 13:32
PROVIDERS: Internal Medicine Cardiovascular Disease; Admitting Provider Internal Medicine; Emergency Provider Student in an Organized Health Care Education/Training Program; PCP Family Medicine; Visit Provider Student in an Organized Health Care Education/Training Program
DX: I21.4 Non-ST elevation (NSTEMI) myocardial infarction (principal); N17.9 Acute kidney failure, unspecified; I47.1 Supraventricular tachycardia; N18.31 Chronic kidney disease, stage 3a; J44.9 Chronic obstructive pulmonary disease, unspecified; Z93.3 Colostomy status; K70.10 Alcoholic hepatitis without ascites; I12.9 Hypertensive chronic kidney disease with stage 1 through stage 4 chronic kidney disease, or unspecified chronic kidney disease; K21.9 Gastro-esophageal reflux disease without esophagitis; I25.10 Atherosclerotic heart disease of native coronary artery without angina pectoris; F17.210 Nicotine dependence, cigarettes, uncomplicated; Z79.82 Long term (current) use of aspirin; Z79.899 Other long term (current) drug therapy
CPT/HCPCS: 36415; 71045; 80048; 80053; 80076; 83036; 83690; 83735; 83880; 84443; 84484; 85025; 85347; 85379; 92928; 93005; 93306; 93454; 94668; 99152; 99153; 99252; 99285; 99406; J7030; Q9967; A4216; C1725; C1769; C1874; C1887; C1894; C9600; G0463

== ENCOUNTER 2022-04-18 11:42 | Emergency (ER) | payer MEDICARE, SELFPAY ==
[2022-04-18 11:44] VITALS: BP 146/77; PULSE 79; RESP 16; TEMP 36.1; O2SAT 98; BMI 28.1
--- NOTE | 2022-04-18 12:23 | EDS_ITS ---
HPI <CIRO Coronado - Last Filed: 04/18/22 17:13> History of Present Illness Chief Complaint: Complaint Narrative Narrative: Patient 77-year-old male with history of CAD, hyponatremia, bladder cancer, prostate cancer with urostomy for 5 years presents the emergency department for concern of blood in his urine this morning. Patient states that there was some clots, his urine was light red in color. Patient denies any abdominal pain, denies any injury. Patient is currently on Brilinta, baby aspirin, and he is here for evaluation. Patient states he overly feels fine, does like to get his urine checked as well as his laboratory studies. He is not taking his Brilinta yet today. He denies any pain, fever or chills. PFSH <CIRO Coronado - Last Filed: 04/18/22 17:13> PFSH Medical History Acute renal insufficiency Atherosclerotic heart disease of [place] coronary artery without angina pectoris Bladder cancer Bladder cancer CAD (coronary artery disease) Chronic renal insufficiency COPD (chronic obstructive pulmonary disease) Essential hypertension History of ETOH abuse History of ETOH abuse Hydronephrosis Hydronephrosis Hyponatremia NSTEMI (non-ST elevated myocardial infarction) Paroxysmal SVT (supraventricular tachycardia) Presence of stent in coronary artery (~04/03/22) Prostate cancer Prostate cancer Tobacco use Tobacco use Home Medications multivitamin (Daily Multi-Vitamin tablet) 1 tab PO DAILY SUPPLEMENT 08/30/17 [History Last Taken 03/31/22] amlodipine 10 mg tablet 10 mg PO DAILY BP 04/01/22 [History Last Taken 03/31/22] cholecalciferol (vitamin D3) 250 mcg (10,000 unit) tablet 250 mcg PO DAILY SUPPLEMENT 04/01/22 [History Last Taken 03/31/22] lactobacillus comb no.10 20 billion cell capsule (Probiotic) 20,000 mmu cells PO DAILY SUPPLEMENT 04/01/22 [History Last Taken 03/31/22] pantoprazole 40 mg tablet,delayed release 40 mg PO DAILY GERD 04/01/22 [History Last Taken 04/01/22] vit C 250 mg-vit E 90 mg-zinc 40 mg-copper 1 du-jehlmo-kvqmvk capsule (PreserVision AREDS-2) 1 tab PO BID EYE HEALTH 04/01/22 [History Last Taken 03/31/22] aspirin 81 mg tablet,delayed release 81 mg PO DAILY@0800 #30 tabs 04/04/22 [Rx Last Taken Unknown] atorvastatin 40 mg tablet 40 mg PO QHS #3 tabs 04/04/22 [Rx Last Taken Unknown] carvedilol 3.125 mg tablet 3.125 mg PO BID #60 tabs 04/04/22 [Rx Last Taken Unknown] ticagrelor 90 mg tablet (Brilinta) 90 mg PO BID #60 tabs 04/04/22 [Rx Last Taken Unknown] cephalexin 500 mg capsule 500 mg PO BID 5 days #10 caps 04/18/22 [Rx Last Taken Unknown] clopidogrel 75 mg tablet (Plavix) 75 mg PO DAILY #30 tabs 04/18/22 [Rx Last Taken Unknown] Allergy/AdvReac Type Severity Reaction Status Date / Time ciprofloxacin [From Cipro] Allergy Intermediate Hives Verified 04/18/22 11:43 metronidazole [From Flagyl] Allergy Rash Verified 04/18/22 11:43 Family History Mother Hypertension Surgical History (Updated 04/18/22 @ 11:48 by Mona Neves) History of bladder surgery History of carpal tunnel surgery History of circumcision History of foot surgery History of tonsillectomy and adenoidectomy History of transurethral resection of prostate History of urostomy Presence of coronary angioplasty implant and graft (~04/03/22) S/P PTCA (percutaneous transluminal coronary angioplasty) S/P radical cystoprostatectomy Social History Smoking Status: Current every day smoker tobacco type: cigarettes alcohol intake: never details: occasional substance use type: does not use ROS <CIRO Coronado - Last Filed: 04/18/22 17:13> ROS ED ROS Narrative Constitutional: Negative for fever, chills, weight loss, weakness Eyes: Negative for vision loss, vision change, double vision ENT: Negative for any sore throat, ear pain, congestion Cardiovascular: Negative for any chest pain, tightness, palpitations Respiratory: Negative for any cough, sputum production, hemoptysis, dyspnea, dyspnea on exertion, orthopnea Gastrointestinal: Negative for any abdominal pain, nausea, vomiting, diarrhea, constipation, blood in stool, blood in vomit : Negative for any urinary frequency, dysuria, retention. Positive for blood in urine Muscle skeletal: Negative for any muscle joint pain, stiffness, myalgias, arthralgias, neck pain, back pain Neurological: Negative for any headache, syncope, numbness or tingling, dizziness Skin: Negative for any rashes, lumps, itching, abrasions, lacerations Psychiatric: Negative for any depression, anxiety, stress, suicidal ideation, homicidal ideation Hematologic: Negative for any easy bruising, excessive bruising, easy bleeding Allergies: Negative for any eczema, hives, rash EXAM <CIRO Coronado - Last Filed: 04/18/22 17:13> Physical Exam Narrative Exam Narrative: Vital signs reviewed. HEET: Head normocephalic atraumatic, TMs clear bilaterally. Posterior pharynx is clear, moist mucous membranes. Nares clear bilaterally. Pupils are equal round reactive to light. Patient does have a subconjunctival hemorrhage to the medial aspect of the left eye. No signs or symptoms of trauma. Patient has no discomfort. Neck: Supple with no lymphadenopathy or tenderness. No signs of meningismus, negative jolt sign. Cardiac: Regular rate and rhythm no murmurs gallops or rubs, equal peripheral pulses bilaterally. Respiratory: Lungs clear to auscultation bilaterally. No chest tenderness. Abdomen: Soft, nontender, nondistended. No abdominal bruit or pulsatile masses. No hepatosplenomegaly. Urostomy appears well-appearing, no redness. Urine today is yellow, clear, looks normal per me and for the patient. However I did see the patient's past bag from this morning, there is a light pink tinge as well as some floating blood clots. Patient has no abdominal pain. Extremities: No peripheral edema, no signs of gross trauma or deformity. Active full range of motion of all extremities. Neuro: Cranial nerves II through XII intact, no focal neurological deficits. Skin: Clean dry and intact with no rash, purpura, petechiae, vesicles or pustules. Backs/flank: No CVA tenderness, no midline spinal tenderness, no deformity. Psych: Normal mood and affect. No SI, HI or acute psychosis. Rectal: Rectal exam completed secondary to low hemoglobin of 8.6 which is a 2 g drop in the last month. There is no signs or symptoms of [place] red blood around the anus. There is no signs or symptoms of hemorrhoids. Stool was dark brown. No clots noted. This will be sent for microscopic sample. Const Vital Signs: 04/18/22 11:44 04/18/22 15:54 04/18/22 15:55 Temperature 97.0 F L Temperature Source Temporal Pulse Rate 79 Pulse Rate [Lying] 71 69 Pulse Rate [Sitting (for 1 minute prior to obtaining)] 78 Pulse Rate [Standing (for 1 minute prior to obtaining)] 80 Respiratory Rate 16 Blood Pressure 146/77 H Blood Pressure [Lying] 134/63 H 134/63 H Blood Pressure [Sitting (for 1 minute prior to obtaining)] 119/67 Blood Pressure [Standing (for 1 minute prior to obtaining)] 139/61 H Blood Pressure Mean 100 Blood Pressure Mean [Lying] 86 86 Blood Pressure Mean [Sitting (for 1 minute prior to obtaining)] 84 Blood Pressure Mean [Standing (for 1 minute prior to obtaining)] 87 Pulse Ox 98 Oxygen Delivery Method Room Air 04/18/22 15:58 Temperature Temperature Source Pulse Rate 76 Pulse Rate [Lying] Pulse Rate [Sitting (for 1 minute prior to obtaining)] Pulse Rate [Standing (for 1 minute prior to obtaining)] Respiratory Rate 16 Blood Pressure 139/61 H Blood Pressure [Lying] Blood Pressure [Sitting (for 1 minute prior to obtaining)] Blood Pressure [Standing (for 1 minute prior to obtaining)] Blood Pressure Mean 87 Blood Pressure Mean [Lying] Blood Pressure Mean [Sitting (for 1 minute prior to obtaining)] Blood Pressure Mean [Standing (for 1 minute prior to obtaining)] Pulse Ox 98 Oxygen Delivery Method Room Air Positive well nourished and well developed General Appearance ED: well developed <Dr. Lisa Alatorre, DO - Last Filed: 04/20/22 16:31> Physical Exam Const Vital Signs: 04/18/22 11:44 04/18/22 15:54 04/18/22 15:55 Temperature 97.0 F L Temperature Source Temporal Pulse Rate 79 Pulse Rate [Lying] 71 69 Pulse Rate [Sitting (for 1 minute prior to obtaining)] 78 Pulse Rate [Standing (for 1 minute prior to obtaining)] 80 Respiratory Rate 16 Blood Pressure 146/77 H Blood Pressure [Lying] 134/63 H 134/63 H Blood Pressure [Sitting (for 1 minute prior to obtaining)] 119/67 Blood Pressure [Standing (for 1 minute prior to obtaining)] 139/61 H Blood Pressure Mean 100 Blood Pressure Mean [Lying] 86 86 Blood Pressure Mean [Sitting (for 1 minute prior to obtaining)] 84 Blood Pressure Mean [Standing (for 1 minute prior to obtaining)] 87 Pulse Ox 98 Oxygen Delivery Method Room Air 04/18/22 15:58 Temperature Temperature Source Pulse Rate 76 Pulse Rate [Lying] Pulse Rate [Sitting (for 1 minute prior to obtaining)] Pulse Rate [Standing (for 1 minute prior to obtaining)] Respiratory Rate 16 Blood Pressure 139/61 H Blood Pressure [Lying] Blood Pressure [Sitting (for 1 minute prior to obtaining)] Blood Pressure [Standing (for 1 minute prior to obtaining)] Blood Pressure Mean 87 Blood Pressure Mean [Lying] Blood Pressure Mean [Sitting (for 1 minute prior to obtaining)] Blood Pressure Mean [Standing (for 1 minute prior to obtaining)] Pulse Ox 98 Oxygen Delivery Method Room Air ROXIE <CIRO Coronado - Last Filed: 04/18/22 17:13> [facility] Lab Data Labs: Laboratory Results - last 24 hr 04/18/22 04/18/22 04/18/22 12:30 12:30 12:30 WBC 11.0 RBC 2.62 L Hgb 8.2 L Hct 24.4 L MCV 93.1 MCH 31.3 MCHC 33.6 RDW Std Deviation 45.1 H RDW Coeff of Sari 13.2 Plt Count 317 MPV 9.9 Immature Gran % (Auto) 0.500 Neut % (Auto) 74.9 H Lymph % (Auto) 15.3 L Bibb % (Auto) 5.8 Eos % (Auto) 2.8 Baso % (Auto) 0.7 Absolute Neuts (auto) 8.3 H Absolute Lymphs (auto) 1.69 Nucleated RBC % 0 PT 13.1 INR 1.0 Sodium 132 L Potassium 4.4 Chloride 102 Carbon Dioxide 20.0 L Anion Gap 10 BUN 48 H Creatinine 2.74 H Estim Creat Clear Calc 21.44 Est GFR (MDRD) Af Amer 29 L Est GFR (MDRD) Non-Af 24 L BUN/Creatinine Ratio 17.5 Glucose 91 Calcium 9.4 Total Bilirubin 0.40 AST 10 L ALT 17 Alkaline Phosphatase 87 Total Protein 6.9 Albumin 3.1 L Globulin 3.8 Albumin/Globulin Ratio 0.8 L Urine Color Urine Clarity Urine pH Ur Specific [place] Urine Protein Urine Glucose (UA) Urine Ketones Urine Occult Blood Urine Nitrite Urine Bilirubin Urine Urobilinogen Ur Leukocyte Esterase Urine RBC Urine WBC Ur Squamous Epith Cells Urine Bacteria Urine Mucus 04/18/22 12:57 WBC RBC Hgb Hct MCV MCH MCHC RDW Std Deviation RDW Coeff of Sari Plt Count MPV Immature Gran % (Auto) Neut % (Auto) Lymph % (Auto) Bibb % (Auto) Eos % (Auto) Baso % (Auto) Absolute Neuts (auto) Absolute Lymphs (auto) Nucleated RBC % PT INR Sodium Potassium Chloride Carbon Dioxide Anion Gap BUN Creatinine Estim Creat Clear Calc Est GFR (MDRD) Af Amer Est GFR (MDRD) Non-Af BUN/Creatinine Ratio Glucose Calcium Total Bilirubin AST ALT Alkaline Phosphatase Total Protein Albumin Globulin Albumin/Globulin Ratio Urine Color Yellow Urine Clarity Clear Urine pH 6.5 Ur Specific [place] 1.010 Urine Protein 30 H Urine Glucose (UA) Normal Urine Ketones Negative Urine Occult Blood 150 H Urine Nitrite Negative Urine Bilirubin 1 H Urine Urobilinogen Normal Ur Leukocyte Esterase 500 H Urine RBC 0 SEEN Urine WBC 25-50 SEEN Ur Squamous Epith Cells 0 SEEN Urine Bacteria 2+ Urine Mucus 0 SEEN Radiography Diagnostic Testing: Clinical Impression(s) from Imaging Studies Abdomen/Pelvis CT 04/18/22 13:52 IMPRESSION: Spiculated 2.3 cm right lower lobe soft tissue mass suspicious for metastatic disease. Nonspecific small bowel changes which may indicate enteritis in the appropriate clinical setting. Colonic fecal burden consistent with clinical constipation. Urinary diversion status post cystectomy with bilateral hydronephrosis and left renal atrophy. No obstructing calculus identified. Electronically Signed: Hunter Coles MD at 15:41 EST Reading Location ID and State: [facility] / [place] Tel , Service support , Management Discussion w/another healthcare provider: Grocery Supervisor Treatment and Re-Evaluation :: Patient appears well, patient appears nontoxic, vital signs are stable.Patient presents to the emergency department with complaints of blood in his urostomy bag. Patient does have a significant history of bladder cancer, CAD. Patient received a full work-up, patient's laboratory studies show that the patient is anemic with a hemoglobin of 8.2, on April 04, 2022, the patient was getting worked up to get a cardiac cath, patient's hemoglobin is 10.8. This is a 2 g drop in 1 month. Patient's PT/INR within normal limits. Patient's chemistries showed a sodium of 132, looking back in the patient's history, he does run slightly lower. Patient's creatinine is 2.74, patient has been greater than 2 since March 2022. Patient recently had stent placed, that is why he is on the Brilinta for last 2 weeks. We did reach out to cardiology, they request the patient stop the Brilinta and start Plavix and will follow-up outpatient.Patient did receive a CT scan of the abdomen pelvis without contrast looking for any obstructive pathology secondary to the renal insufficiency. Patient CT showed a spiculated 2.3 cm right lower lobe soft tissue mass suspicious for metastatic disease. Nonspecific small bowel changes which may indicate enteritis in the appropriate clinical setting. Colonic fecal burden constipation, urinary division status po st cystectomy with bilateral hydronephrosis and left renal atrophy. No obstructing renal calculi identified. Patient will follow-up with nephrology regarding the hydronephrosis which could be chronic. I did reach out to the patient's oncology office secondary for this lesion of his right lower lobe. He will follow-up this week. Patient's urinalysis was also slowed infection. This we sent for culture. Patient was started on Keflex. I had a long conversation with the patient. I even spoke with the patient's primary care physician who is made aware of all these findings. At this time, patient needs to be reevaluated, another CBC needs to be drawn, as well as a BMP. Patient will continue the Plavix and stop the Brilinta, he will also be started on Keflex. He needs to follow-up with his PCP, nephrology, as well as oncology. We spoke with multiple these specialist today. Patient was orthostatic negative, there is no admission criteria at this time. Patient would also like to be going home. He was given strict return precaution. Patient happy the plan of care and is stable for discharge. <Dr. Lisa Alatorre, DO - Last Filed: 04/20/22 16:31> [facility] History & Record Review Additional record(s) reviewed:: Prior inpatient record (Recent admission for stent. Started on Brilinta. Found to have elevation of creatinine uncertain clinical significance. Treated with gentle hydration but still discharged with the elevated creatinine.) Lab Data Attestation: I reviewed the patient's lab results. Labs: Laboratory Results - last 24 hr 04/18/22 04/18/22 04/18/22 12:30 12:30 12:30 WBC 11.0 RBC 2.62 L Hgb 8.2 L Hct 24.4 L MCV 93.1 MCH 31.3 MCHC 33.6 RDW Std Deviation 45.1 H RDW Coeff of Sari 13.2 Plt Count 317 MPV 9.9 Immature Gran % (Auto) 0.500 Neut % (Auto) 74.9 H Lymph % (Auto) 15.3 L Bibb % (Auto) 5.8 Eos % (Auto) 2.8 Baso % (Auto) 0.7 Absolute Neuts (auto) 8.3 H Absolute Lymphs (auto) 1.69 Nucleated RBC % 0 PT 13.1 INR 1.0 Sodium 132 L Potassium 4.4 Chloride 102 Carbon Dioxide 20.0 L Anion Gap 10 BUN 48 H Creatinine 2.74 H Estim Creat Clear Calc 21.44 Est GFR (MDRD) Af Amer 29 L Est GFR (MDRD) Non-Af 24 L BUN/Creatinine Ratio 17.5 Glucose 91 Calcium 9.4 Total Bilirubin 0.40 AST 10 L ALT 17 Alkaline Phosphatase 87 Total Protein 6.9 Albumin 3.1 L Globulin 3.8 Albumin/Globulin Ratio 0.8 L Urine Color Urine Clarity Urine pH Ur Specific [place] Urine Protein Urine Glucose (UA) Urine Ketones Urine Occult Blood Urine Nitrite Urine Bilirubin Urine Urobilinogen Ur Leukocyte Esterase Urine RBC Urine WBC Ur Squamous Epith Cells Urine Bacteria Urine Mucus 04/18/22 12:57 WBC RBC Hgb Hct MCV MCH MCHC RDW Std Deviation RDW Coeff of Sari Plt Count MPV Immature Gran % (Auto) Neut % (Auto) Lymph % (Auto) Bibb % (Auto) Eos % (Auto) Baso % (Auto) Absolute Neuts (auto) Absolute Lymphs (auto) Nucleated RBC % PT INR Sodium Potassium Chloride Carbon Dioxide Anion Gap BUN Creatinine Estim Creat Clear Calc Est GFR (MDRD) Af Amer Est GFR (MDRD) Non-Af BUN/Creatinine Ratio Glucose Calcium Total Bilirubin AST ALT Alkaline Phosphatase Total Protein Albumin Globulin Albumin/Globulin Ratio Urine Color Yellow Urine Clarity Clear Urine pH 6.5 Ur Specific [place] 1.010 Urine Protein 30 H Urine Glucose (UA) Normal Urine Ketones Negative Urine Occult Blood 150 H Urine Nitrite Negative Urine Bilirubin 1 H Urine Urobilinogen Normal Ur Leukocyte Esterase 500 H Urine RBC 0 SEEN Urine WBC 25-50 SEEN Ur Squamous Epith Cells 0 SEEN Urine Bacteria 2+ Urine Mucus 0 SEEN Radiography Diagnostic Testing: Clinical Impression(s) from Imaging Studies Abdomen/Pelvis CT 04/18/22 13:52 IMPRESSION: Spiculated 2.3 cm right lower lobe soft tissue mass suspicious for metastatic disease. Nonspecific small bowel changes which may indicate enteritis in the appropriate clinical setting. Colonic fecal burden consistent with clinical constipation. Urinary diversion status post cystectomy with bilateral hydronephrosis and left renal atrophy. No obstructing calculus identified. Electronically Signed: Hunter Coles MD at 15:41 EST Reading Location ID and State: [facility] / [place] Tel , Service support , Management Discussion w/another healthcare provider: PCP (Dr. Valle- ensure close outpatient follow up and repeat labs ) Treatment and Re-Evaluation :: Patient appears well, patient appears nontoxic, vital signs are stable.Patient presents to the emergency department with complaints of blood in his urostomy bag. Patient does have a significant history of bladder cancer, CAD. Patient received a full work-up, patient's laboratory studies show that the patient is anemic with a hemoglobin of 8.2, on April 04, 2022, the patient was getting worked up to get a cardiac cath, patient's hemoglobin is 10.8. This is a 2 g drop in 1 month. Patient's PT/INR within normal limits. Patient's chemistries showed a sodium of 132, looking back in the patient's history, he does run slightly lower. Patient's creatinine is 2.74, patient has been greater than 2 since March 2022. Patient recently had stent placed, that is why he is on the Brilinta for last 2 weeks. We did reach out to cardiology, they request the patient stop the Brili nta and start Plavix and will follow-up outpatient.Patient did receive a CT scan of the abdomen pelvis without contrast looking for any obstructive pathology secondary to the renal insufficiency. Patient CT showed a spiculated 2.3 cm right lower lobe soft tissue mass suspicious for metastatic disease. Nonspecific small bowel changes which may indicate enteritis in the appropriate clinical setting. Colonic fecal burden constipation, urinary division status post cystectomy with bilateral hydronephrosis and left renal atrophy. No obstructing renal calculi identified. Patient will follow-up with nephrology regarding the hydronephrosis which could be chronic. I did reach out to the patient's oncology office secondary for this lesion of his right lower lobe. He will follow-up this week. Patient's urinalysis was also slowed infection. This we sent for culture. Patient was started on Keflex. I had a long conversation with the patient. I even spoke with the patient's primary care physician who is made aware of all these findings. At this time, patient needs to be reevaluated, another CBC needs to be drawn, as well as a BMP. Patient will continue the Plavix and stop the Brilinta, he will also be started on Keflex. He needs to follow-up with his PCP, nephrology, as well as oncology. We spoke with multiple these specialist today. Patient was orthostatic negative, there is no admission criteria at this time. Patient would also like to be going home. He was given strict return precaution. Patient happy the plan of care and is stable for discharge. I have personally performed a face to face assessment of the patient and have reviewed the ALESSIO Note. I performed a substantive portion of the visit including all aspects of the following. My mcclendon findings include: Patient is a very pleasant 77-year-old male with history of bladder cancer status post cystectomy and currently has an urostomy. He was recently started on Brilinta and aspirin due to coronary artery disease and placement of his stent about 2 weeks ago. He also was recently found to have an elevation of his creatinine of unknown clinical significance. Patient is presenting today after an episode of hematuria. Patient is found to have acute anemia with a 2 g drop in his hemoglobin. He is asymptomatic from this. Denies any black or blood in his stool however he is Hemoccult positive. He is orthostatic negative in the emergency room. The exact cause of patient's elevation of his creatinine has never been determined. Due to his history of cancer I am concerned he could have some type of mass that is contributing to his renal insufficiency. CT of the abdomen pelvis is obtained which does not show any acute abdominal process but he is found to have a spiculated mass in the right lower lobe of the lung. Urinalysis is consistent with infection and given the acute but transient hematuria we will treat. Culture sent. Patient started on Keflex. Patient does not have findings since with systemic infection. Patient counseled that he should follow-up for repeat CBC and is referred to nephrology as well as oncology. While CT does show bilateral hydronephrosis he continues to have very good urine output in the ER and I do not think he requires emergent urologic consultation or emergent evaluation for nephrostomies. Likely this is more chronic in nature. I did speak with cardiology on-call, Dr. Brink, transitioned the patient from Brilinta to Plavix to see if this helps with the anemia. Patient is given first dose of Plavix in the emergency room and a prescription for a 30-day supply. Counseled importance of outpatient follow-up with oncology for this possible metastatic mass on the lung. Patient has previously been established with [facility] oncology and case discussed with on-call oncology who will relay this information to the patient's oncologist to help ensure close outpatient follow-up. Patient to return precautions. He would like to go home and is comfortable with this plan of care. Other additions or changes: [None] Discharge Plan Triage Chief Complaint: Complaint ED Midlevel Provider: Jonathon Bolaños ED Provider: Lisa Alatorre Dx/Rx/DC Orders Clinical Impression: Acute renal insufficiency, Hematuria, Urinary tract infection, Lesion of lung, Rectal bleed, Anemia, Hydronephrosis Instructions: Anemia, ED Hematuria, ED Lower GI Bleeding (Stable), ED Renal Insufficiency Prescriptions: New clopidogrel [Plavix] 75 mg tablet 75 mg PO DAILY Qty: 30 0RF cephalexin 500 mg capsule 500 mg PO BID 5 Days Qty: 10 0RF No Action multivitamin [Daily Multi-Vitamin] tablet 1 tab PO DAILY pantoprazole 40 mg tablet,delayed release (DR/EC) 40 mg PO DAILY Probiotic 20 billion cell Capsule 20,000 mmu cells PO DAILY Rx Instructions: administer with a meal PreserVision AREDS-2 250-90-40-1 mg Capsule 1 tab PO BID cholecalciferol (vitamin D3) 250 mcg (10,000 unit) Tablet 250 mcg PO DAILY amlodipine 10 MG tablet 10 mg PO DAILY Brilinta 90 mg Tablet 90 mg PO BID Qty: 60 2RF atorvastatin 40 mg Tablet 40 mg PO QHS Qty: 3 2RF aspirin 81 mg Tablet,Delayed Release (Dr/Ec) 81 mg PO DAILY@0800 Qty: 30 2RF carvedilol 3.125 mg Tablet 3.125 mg PO BID Qty: 60 2RF Primary Care Provider: Candido Valle Referrals: Candido Valle MD [Primary Care Provider] - Activity Restrictions/Additional Instructions: You have a lot to do in the next week to 2 weeks. You are going to stop the Brilinta, you will start Plavix once a day, continue her aspirin and carvedilol. You will follow-up with cardiology, you also have a lesion to your right lower lung, this will follow-up with oncology this week. Your renal functions have been worsening, you need to follow-up with your PCP. You need to return for any dizziness, worsening symptoms. You need to take antibiotics until finished. You also have a urinary tract infection. Disposition Disposition: Home, Self Care Discharge Date/Time: 04/18/22 17:33
[2022-04-18 12:41] LABS: Absolute Lymphocyte Count 1.69 X10^3/uL (0.83-4.51); Absolute Neutrophil Count 8.3 X10^3/uL (2.0-7.7); Basophil# 0.08 X10^3/uL; Basophil% 0.7 % (0-1); Eosinophil# 0.31 X10^3/uL; Eosinophils% 2.8 % (0-5); Hematocrit 24.4 % (40-54); Hemoglobin 8.2 g/dL (13.0-16.5); Lymphocyte # 1.69 X10^3/ul (0.83-4.51); Lymphocyte % 15.3 % (19-41); Mean Corp Hgb Conc 33.6 g/dL (32-36); Mean Corpuscular Hgb 31.3 pg (27.0-32.0); Mean Corpuscular Volume 93.1 fL (80-94); Mean Platelet Vol. 9.9 fl (6.2-12.0); Monocyte# 0.64 X10^3/uL; Monocyte% 5.8 % (0-10); NRBC Flagged by Analyzer 0 % (0-5); Neutrophil # 8.27 X10^3/uL (2.7-7.7); Neutrophil % 74.9 % (47-70); Platelet Count 317 K/mm3 (150-450); RBC Distribution Width CV 13.2 % (11.6-14.6); RBC Distribution Width SD 45.1 fl (35.1-43.9); Red Blood Count 2.62 M/mm3 (4.6-6.2)
[2022-04-18 12:47] LABS: Prothrombin Time (Protime)PT. 13.1 SECONDS (11.7-14.9)
[2022-04-18 12:56] LABS: ALB/GLOB Ratio 0.8 RATIO (0.9-2.4); AST(SGOT) 10 U/L (15-37); Alanine Aminotransfer ALT/SGPT 17 U/L (16-61); Albumin, Serum 3.1 g/dL (3.2-5.0); Alkaline Phosphatase 87 U/L (45-117); Anion Gap 10 (5-15); BUN 48 mg/dL (7-18); BUN/Creat Ratio 17.5 RATIO (10-20); Calcium,Total 9.4 mg/dL (8.5-10.1); Chloride 102 mmol/L (98-107); Creatinine, Serum 2.74 mg/dL (0.70-1.30); EST Glomerular Filtration Rate 24 mL/min (>60); Est Glom Filt Rate - Afr Amer 29 mL/min (>60); Estimated Creatinine Clearance 21.44 ml/min; Globulin 3.8 g/dL (2.2-4.2); Glucose 91 mg/dL (74-106); Potassium 4.4 mmol/L (3.5-5.1); Protein, Total 6.9 g/dL (6.4-8.2); Sodium Level 132 mmol/L (136-145)
[2022-04-18 13:09] LABS: Mucous, Urine 0 SEEN /hpf (<or=2+); Red Blood Cells-Urine 0 SEEN /hpf (0-5); Squamous Epithelial Cells - UA 0 SEEN /hpf (0-5)
[2022-04-18 13:31] LABS: Color, Urine Yellow (Yellow); Glucose, Dipstick Normal (Normal); Ketone-Dipstick Negative (Negative); Leukocyte Esterase-Dipstick 500 /ul (Negative); Nitrite-Dipstick Negative (Negative); Occult Blood-Urine 150 /ul (Negative); Protein-Dipstick 30 mg/dl (Negative); Urine Clarity Clear (Clear); Urine Urobilinogen Normal (Normal); Urine pH 6.5 (5.0 - 8.0)
[2022-04-18 13:36] LABS: Urine Bilirubin Dipstick 1 mg/dL (Negative)
[2022-04-18 13:49] LABS: Bacteria 2+ /hpf (None Seen); White Blood Cells 25-50 SEEN /hpf (0-5)
--- NOTE | 2022-04-18 13:52 | CT_ITS ---
INDICATION: abd pain EXAMINATION: CT ABDOMEN AND PELVIS WITHOUT CONTRAST - CT Abdomen And Pelvis W/O Contrast Injection TECHNIQUE: Helically acquired images were obtained of the abdomen and pelvis without oral or IV contrast. A radiation dose optimization technique was used for this scan. IV Contrast dosage and agent: None. Oral contrast: None. COMPARISON: 01/28/2017 FINDINGS: LOWER CHEST: 2.3 cm spiculated soft tissue lesion right lower lobe posterolaterally. No acute infiltrates or consolidations. No cardiomegaly or pericardial effusion. LIVER: Hepatic cysts right and left lobes again noted. No concerning focal mass. GALLBLADDER AND BILIARY TREE: No calcified gallstones. No gallbladder distension or wall edema. No intra- or extrahepatic biliary ductal dilation. PANCREAS: No focal cystic or solid mass. SPLEEN: Normal size without focal cystic or solid mass. ADRENAL GLANDS: No nodules. KIDNEYS AND URETERS: Left renal atrophy. Bilateral cortical cysts. Bilateral nonobstructing renal calculi. Bilateral hydronephrosis with distended ureters extending to the ileal loop without demonstrated ureteral calculus. Stable right lower quadrant ureterostomy. PERITONEUM: No ascites or free air. BOWEL: No evidence of acute appendicitis. Diffuse mild small bowel fluid distention. Diffusely increased colonic fecal burden. No focal inflammatory change. LYMPH NODES: No enlarged mesenteric or retroperitoneal lymph nodes. VESSELS: Aorta is non-dilated. URINARY BLADDER: Surgically absent. REPRODUCTIVE ORGANS: No pelvic masses. ABDOMINAL WALL: No discrete abdominal or pelvic wall hernia. BONES: No lytic or blastic abnormality. CT/Abdomen/Pelvis without Cont IMPRESSION: Spiculated 2.3 cm right lower lobe soft tissue mass suspicious for metastatic disease. Nonspecific small bowel changes which may indicate enteritis in the appropriate clinical setting. Colonic fecal burden consistent with clinical constipation. Urinary diversion status post cystectomy with bilateral hydronephrosis and left renal atrophy. No obstructing calculus identified. Electronically Signed: Hunter Coles MD at 15:41 EST ,
[2022-04-18] MEDS: Cephalexin 250 MG Capsule 500 MG PO (15:14)
[2022-04-18 15:54] VITALS: BP 134/63; PULSE 71
[2022-04-18 15:55] VITALS: BP 119/67; BP 134/63; BP 139/61; PULSE 69; PULSE 78; PULSE 80
[2022-04-18 15:58] VITALS: BP 139/61; PULSE 76; RESP 16; O2SAT 98
[2022-04-18] MEDS: Clopidogrel Bisulfate 75 MG Tablet PO (16:48)
[2022-04-18 17:32] VITALS: BP 139/69; PULSE 70; RESP 16; O2SAT 95
== END 2022-04-18 17:33 | disposition home or self-care (01) ==
PROVIDERS: Nurse Practitioner; Emergency Provider Emergency Medicine; PCP Family Medicine; Visit Provider Emergency Medicine
DX: N13.6 Pyonephrosis (principal); Z93.6 Other artificial openings of urinary tract status; D63.1 Anemia in chronic kidney disease; K62.5 Hemorrhage of anus and rectum; I25.10 Atherosclerotic heart disease of native coronary artery without angina pectoris; I12.9 Hypertensive chronic kidney disease with stage 1 through stage 4 chronic kidney disease, or unspecified chronic kidney disease; R31.9 Hematuria, unspecified; R91.1 Solitary pulmonary nodule; Z79.82 Long term (current) use of aspirin; N18.9 Chronic kidney disease, unspecified; F17.210 Nicotine dependence, cigarettes, uncomplicated; Z90.6 Acquired absence of other parts of urinary tract
CPT/HCPCS: 74176; 80053; 81001; 82274; 85025; 85610; 87077; 87086; 87088; 87186; 99285; A4216

== ENCOUNTER → 2022-04-21 | Outpatient (CLI) | payer MEDICARE, SELFPAY ==
[2022-04-21 10:39] LABS: Absolute Lymphocyte Count 1.56 X10^3/uL (0.83-4.51); Absolute Neutrophil Count 8.9 X10^3/uL (2.0-7.7); Basophil# 0.07 X10^3/uL; Basophil% 0.6 % (0-1); Eosinophil# 0.35 X10^3/uL; Hematocrit 23.9 % (40-54); Hemoglobin 7.9 g/dL (13.0-16.5); Lymphocyte # 1.56 X10^3/ul (0.83-4.51); Lymphocyte % 13.3 % (19-41); Mean Corp Hgb Conc 33.1 g/dL (32-36); Mean Corpuscular Hgb 31.5 pg (27.0-32.0); Mean Corpuscular Volume 95.2 fL (80-94); Mean Platelet Vol. 9.6 fl (6.2-12.0); Monocyte# 0.78 X10^3/uL; Monocyte% 6.7 % (0-10); NRBC Flagged by Analyzer 0 % (0-5); Neutrophil # 8.91 X10^3/uL (2.7-7.7); Platelet Count 281 K/mm3 (150-450); RBC Distribution Width CV 13.6 % (11.6-14.6); RBC Distribution Width SD 46.6 fl (35.1-43.9); Red Blood Count 2.51 M/mm3 (4.6-6.2); White Blood Count 11.7 K/mm3 (4.4-11.0)
[2022-04-21 11:03] LABS: Anion Gap 9 (5-15); BUN 53 mg/dL (7-18); BUN/Creat Ratio 15.6 RATIO (10-20); Calcium,Total 9.3 mg/dL (8.5-10.1); Chloride 107 mmol/L (98-107); Creatinine, Serum 3.39 mg/dL (0.70-1.30); EST Glomerular Filtration Rate 19 mL/min (>60); Est Glom Filt Rate - Afr Amer 23 mL/min (>60); Glucose 95 mg/dL (74-106); Potassium 4.6 mmol/L (3.5-5.1); Sodium Level 136 mmol/L (136-145)
== END | disposition home or self-care (01) ==
LOC: LAB 10:25
PROVIDERS: PCP Family Medicine; Referring Provider Physician Assistant Medical; Visit Provider Physician Assistant Medical
DX: D64.9 Anemia, unspecified (principal); N28.9 Disorder of kidney and ureter, unspecified; Z95.5 Presence of coronary angioplasty implant and graft
CPT/HCPCS: 36415; 80048; 85025

== ENCOUNTER → 2022-04-24 | Outpatient (CLI) | payer MEDICARE, SELFPAY ==
[2022-04-24 08:18] VITALS: BP 129/69; PULSE 77; RESP 16; TEMP 36.1; O2SAT 100; BMI 27.6
[2022-04-24 08:40] VITALS: BP 105/48; PULSE 66; RESP 16; TEMP 36
[2022-04-24 09:40] VITALS: BP 106/51; PULSE 61; RESP 16; TEMP 35.9; O2SAT 100
[2022-04-24 10:38] VITALS: BP 113/50; PULSE 63; RESP 16; TEMP 35.9; O2SAT 100
== END | disposition home or self-care (01) ==
PROVIDERS: PCP Family Medicine; Referring Provider Internal Medicine Hematology & Oncology; Visit Provider Internal Medicine Hematology & Oncology
DX: Z51.89 Encounter for other specified aftercare (principal); D64.9 Anemia, unspecified
CPT/HCPCS: 36430; 86850; 86900; 86901; 86920; 86922; J7040; P9016; A4216

== ENCOUNTER → 2022-05-07 | Outpatient (CLI) | payer MEDICARE, SELFPAY ==
[2022-05-07 09:24] LABS: Anion Gap 6 (5-15); BUN 40 mg/dL (7-18); BUN/Creat Ratio 13.6 RATIO (10-20); Calcium,Total 9.4 mg/dL (8.5-10.1); Chloride 109 mmol/L (98-107); Creatinine, Serum 2.95 mg/dL (0.70-1.30); EST Glomerular Filtration Rate 22 mL/min (>60); Est Glom Filt Rate - Afr Amer 27 mL/min (>60); Glucose 97 mg/dL (74-106); Potassium 4.6 mmol/L (3.5-5.1); Sodium Level 137 mmol/L (136-145)
== END | disposition home or self-care (01) ==
LOC: LAB 08:33
PROVIDERS: PCP Family Medicine; Referring Provider Urology; Visit Provider Urology
DX: C67.8 Malignant neoplasm of overlapping sites of bladder (principal)
CPT/HCPCS: 36415; 80048

== ENCOUNTER → 2022-05-14 | Outpatient (CLI) | payer MEDICARE, SELFPAY ==
[2022-05-14 13:01] LABS: PTHIN 103.8 pg/mL (18.4-80.1)
[2022-05-14 13:05] LABS: Albumin, Serum 3.3 g/dL (3.2-5.0); BUN 29 mg/dL (7-18); BUN/Creat Ratio 11.5 RATIO (10-20); Calcium,Total 9.7 mg/dL (8.5-10.1); Chloride 103 mmol/L (98-107); Creatinine, Serum 2.53 mg/dL (0.70-1.30); EST Glomerular Filtration Rate 26 mL/min (>60); Est Glom Filt Rate - Afr Amer 32 mL/min (>60); Glucose 91 mg/dL (74-106); Phosphorus 2.8 mg/dL (2.5-4.9); Potassium 4.6 mmol/L (3.5-5.1); Sodium Level 131 mmol/L (136-145)
== END | disposition home or self-care (01) ==
LOC: LAB 12:09
PROVIDERS: PCP Family Medicine; Referring Provider Internal Medicine Nephrology; Visit Provider Internal Medicine Nephrology
DX: N18.4 Chronic kidney disease, stage 4 (severe) (principal); N17.9 Acute kidney failure, unspecified
CPT/HCPCS: 36415; 80069; 82306; 83970

== ENCOUNTER → 2022-05-25 | Outpatient (CLI) | payer MEDICARE, SELFPAY ==
[2022-05-25] VITALS (12 sets, daily range): BP systolic 93–143; BP diastolic 33–77; PULSE 63–70; RESP 12–21; TEMP 36.6; O2SAT 91–100; BMI 27.1
--- NOTE | 2022-05-25 | ASPIGT_PTH ---
PATIENT: MIGUEL PEREZ LOC: CT U#:[id number] AGE/SX: 77/M ROOM: RE05/25/[address]: Dr. Jonathon Mcgee DO : 1945 BED: DIS: 05/25/2022 SPEC #: [id number] RECD: 05/25/22 11:35 STATUS: JUAN REQ #: [id number] DOMINIK: 05/25/22 00:[address]: Jonathon Mcgee DEPT: SURGICAL PATHOLOGY RECD BY: Jacques Bedolla ENTERED: 05/25/22 11:36 SP TYPE: ASP RAD OTHR DR: Dr. Candido Valle MD Tissues: Lung, NOS Procedures: FNA Specimen Adequacy Special Stain Group II Surgery Specimen Level IV Imprint (control) HEADER OPERATION: CT-guided right lower lobe lung biopsy PRE-OP DIAGNOSIS: Right lower lobe lung mass TISSUE SUBMITTED: Right lower lobe lung MICROSCOPIC DIAGNOSIS Right lower lobe lung, CT-guided core biopsy: Non-small cell carcinoma, favor squamous cell carcinoma. See comment. SJ:aranza 05/26/2022 COMMENT The specimen is evaluated at the time of biopsy by Dr. Manriquez. Immediate Evaluation = Malignant cells present derived from non-small cell carcinoma. Immunohistochemistry ([id number]) supports the above diagnosis. Metastatic from urothelial carcinoma cannot be entirely excluded. As per EMR, the patient has history of bladder carcinoma. Case has been reviewed in consultation with Dr. Farooq who concurs with the above diagnosis. IDC:AM MICROSCOPIC DESCRIPTION Slides are reviewed. GROSS DESCRIPTION Received is one container labeled with the patient's name and not further designated. The specimen consists of multiple irregular and elongated fragments of mendosa tissue that in aggregate measure 1.5 x 0.3 x 0.1 cm. The specimen is totally submitted in one cassette. / AM:aranza 05/25/2022 TC:0 CPT: 63034, 66744
--- NOTE | 2022-05-25 | IMM_PTH ---
PATIENT: MIGUEL PEREZ LOC: CT U#:[id number] AGE/SX: 77/M ROOM: RE05/25/[address]: Dr. Jonathon Mcgee DO : 1945 BED: DIS: 05/25/2022 SPEC #: [id number] RECD: 05/25/22 13:54 STATUS: JUAN REQ #: [id number] DOMINIK: 05/25/22 00:[address]: Jonathon Mcgee DEPT: IMMUNOHISTOCHEMISTRY RECD BY: Sada Clarke ENTERED: 05/25/22 13:57 SP TYPE: IMMUNO OTHR DR: Dr. Candido Valle MD Tissues: Right lower lobe of lung, NOS Procedures: RCC (add) NAPSIN A (add) CK20 (add) CK5-6 (add) CK7 (add) CK8 (add) HEP PAR (add) TTF1 (add) Pankeratin (initial) P40 (add) CD44 (add) PSAP (add) PHYSICIAN & INSTITUTION [address] [address] SPECIMEN INFORMATION: Tissue Source: Right lower lobe lung biopsy Clinical Info: Right lower lobe lung mass Specimen Number: [id number] CPT code: 47522, 05454 x11 METHODOLOGY: Deparaffinized sections of prefer/formalin-fixed tissue or PAP/DQ stained slides are incubated with monoclonal/polyclonal antibodies/oligonucleotide probes. Localization is made via biotin free immunoperoxidase method. Appropriate controls are performed and reacted as expected. Results on target cell population are indicated in the following table: RESULTS: ANTIBODY / CLONE RESULT AE1-3 (AE1/AE3/PCK26) positive CK7 (OV-TL12/30) negative CK8 (15xgwoK07) positive CK20 (KS20.8) negative TTF-1 (8G7G3/1) negative Napsin A (Rabbit Polyclonal) negative HepPar (OCh1E5) negative RCC (PN-15) negative PSAP (PASE/4LJ) negative anti-CD44 (SP37) positive CK5-6 (D5 & 1684) positive P40 (BC28) positive These tests were developed and their performance characteristics determined by [facility]. They may not have been cleared or approved by the U.S. Food and Drug Administration. The FDA has determined that such clearance or approval is not necessary. The above immunohistochemical/dualISH markers are ordered and reviewed by the Pathologist. INTERPRETATION: Right lower lobe lung, biopsy: Non-small cell carcinoma, favor squamous cell carcinoma. See comment. SJ:aranza 05/26/2022 Comment: Metastasis from urothelial carcinoma cannot be excluded. Case has been reviewed in consultation with Dr. Farooq who concurs with the above diagnosis. IDC:NOHELIA
--- NOTE | 2022-05-25 08:48 | CT_ITS ---
PROCEDURE: CT GUIDED CORE NEEDLE BIOPSY OF A right upper lobe LUNG LESION INDICATION: Male, 77 years old. Right upper lobe nodule. PHYSICIAN: CONSENT: Written informed consent was obtained having explained the risks, benefits and alternatives in detail with the patient who accepted the risks and agreed to proceed. Laboratory review and clinical assessment was performed. CONSCIOUS SEDATION PROTOCOL: The Drugs used were: 2 mg Versed, IV., and 50 mcg Fentanyl, IV. The sedation time was: 25 minutes. Conscious sedation was started at 10:20 AM and terminated at 10:45 AM. The conscious sedation protocol was independently monitored. RADIATION DOSAGE (If Supplied By Facility): CTDIvol = ( 17 ) mGy, DLP = ( 667.30 ) mGycm Individualized dose optimization techniques were used for this CT. TECHNIQUE: The patient was placed in the left side down decubitus position. A noncontrast CT was performed to localize the lesion in the peripheral aspect of the right upper lobe . The skin surface was prepped and draped in a sterile fashion. 1% lidocaine was used for local anesthesia. Using CT guidance, a 20-gauge coaxial biopsy device was advanced to the periphery of the lesion. A total of 4 core specimens were obtained. The specimens were placed in a formalin solution. A post procedure CT demonstrated no adverse sequelae or pneumothorax. The patient tolerated the procedure well without adverse event. A negative biopsy does not exclude malignancy. Further imaging or clinical followup based on patient condition and degree of clinical suspicion for malignancy. Suggest rebiopsy, if biopsy results do not match with clinical scenario. CT/Biopsy/Inj or Needle Placement IMPRESSION: 1. CT directed core needle biopsy of the peripheral base nodule in the right upper lobe using CT image guidance with image documentation as described. Pathology results are pending. 2. Conscious Sedation protocol utilized with independent monitoring. Electronically Signed: Ramo Little MD at 11:07 EDT ,
[2022-05-25 08:52] LABS: Platelet Count 284 K/mm3 (150-450)
[2022-05-25 09:04] LABS: Partial Thromboplast Time 42.1 Seconds (24.1-36.2)
[2022-05-25 09:22] LABS: International Normalized Ratio 1.1
[2022-05-25] MEDS: Midazolam 2 MG/2 ML Syringe IV (10:20)
[2022-05-25] MEDS: fentaNYL 100 MCG/2 ML Ampul IV (10:20)
--- NOTE | 2022-05-25 10:30 | RAD_ITS ---
INDICATION: post biopsy RLL -- Immediately post lung biopsy EXAMINATION/TECHNIQUE: X-RAY - XR Chest 2 Views COMPARISON: April 01, 2022 FINDINGS: LINES/DEVICES: None. LUNGS: There is a small right apical pneumothorax. There is a round opacity within the right lower lung. MEDIASTINUM AND CARDIOVASCULAR STRUCTURES: Cardiac silhouette not enlarged. Central airways and mediastinal contour are unremarkable. BONES AND SOFT TISSUES: Unremarkable. RAD/Chest Insp/Exp 2 View IMPRESSION: Small right apical pneumothorax. Please note according to the technical support analyst (Margret Guajardo) who spoke directly to Dr. Layo Little who stated he was aware of the findings and declined connection and intended to repeat a chest x-ray in 2 hours. Round opacity within the right lower lung may be secondary to a neoplastic process. N.B. : Sidney Ralph MD, confirmed on 05/25/2022 11:14:36 (ET) that the referring physician received the results and does not require a verbal communication. Electronically Signed: Marci Chávez MD at 11:19 EDT ,
[2022-05-25] MEDS: Lidocaine 2% (20 ml mdv) 20 ML Vial INFILT (10:40)
--- NOTE | 2022-05-25 12:55 | RAD_ITS ---
STUDY: X-RAY CHEST REASON FOR EXAM: Male, 77 years old. POST BIOPSY RLL -- 2 hours post lung biopsy TECHNIQUE: AP inspiration and expiration views. COMPARISON: Comparison is made with prior study done earlier in the day. FINDINGS: Stable minimal right apical pneumothorax. The patient is asymptomatic. RAD/Chest Insp/Exp 2 View IMPRESSION: Stable minimal right apical pneumothorax. The patient is asymptomatic. Electronically Signed: Ramo Little MD at 14:55 EDT ,
== END | disposition home or self-care (01) ==
LOC: CT 08:36
PROVIDERS: Radiology Diagnostic Radiology; PCP Family Medicine; Referring Provider Internal Medicine Hematology & Oncology; Visit Provider Internal Medicine Hematology & Oncology
DX: C34.31 Malignant neoplasm of lower lobe, right bronchus or lung (principal); G62.0 Drug-induced polyneuropathy; C67.2 Malignant neoplasm of lateral wall of bladder; C61 Malignant neoplasm of prostate; R91.1 Solitary pulmonary nodule; J95.811 Postprocedural pneumothorax; D50.0 Iron deficiency anemia secondary to blood loss (chronic); K90.9 Intestinal malabsorption, unspecified; F17.200 Nicotine dependence, unspecified, uncomplicated; T45.1X5A Adverse effect of antineoplastic and immunosuppressive drugs, initial encounter
CPT/HCPCS: 32408; 36415; 71046; 77012; 85049; 85610; 85730; 88172; 88305; 88313; 88341; 88342; 99156; J7050; A4216; C2613

== ENCOUNTER → 2022-05-26 | Outpatient (CLI) | payer MEDICARE, SELFPAY ==
--- NOTE | 2022-05-26 11:30 | PET_ITS ---
EXAMINATION: FDG PET/CT INDICATIONS: 77-year-old male with a history of pulmonary nodularity and presumed history of bladder carcinoma. COMPARISON EXAMINATION: None available. INDEX LESION SIZE SUV INTERPRETATION Right lower lung field, right lower lobe 22.9 mm largest 7.7 max Fulfills quantitative criteria for viable neoplasm TECHNIQUE: Following the intravenous administration of 14.32 mCi of F-18 deoxyglucose via the left hand, multiplanar image acquisitions of the head, neck, chest, abdomen and pelvis to the level of the midthigh, obtained at one-hour post radiopharmaceutical administration contemporaneously interpreted with the current CT of the chest, abdomen and pelvis dated 05/26/2022 via coregistration reveal: SERUM GLUCOSE LEVEL: 120 mg/dL HEIGHT: 68 inches WEIGHT: 174 pounds FINDINGS: HEAD/NECK: There is no evidence of abnormal increased glucose metabolism in the pharyngeal mucosal space, parapharyngeal space, oropharynx, bilateral-lateral and anterior neck, hypopharynx and distribution of the larynx. The visualized portion of the cerebral cortical-subcortical structures demonstrate symmetric and preserved glucose metabolism. CHEST: Enhanced concentration is noted in the right lower posterolateral lung zone, right lower lobe. The calculated maximum standard uptake value is 7.7. The maximal axial diameter of the metabolic, morphologic abnormality is 22.9 mm. The left ventricular myocardium visualization is consistent with the [place]. Prominent uptake is noted in the descending thoracic aorta commensurate with activated leukocytes associated with atherosclerotic plaque formation. CT of the chest demonstrates the following anatomic characteristics: Atherosclerotic calcification is defined in the thoracic aorta without evidence of dilatation, aneurysm formation. Coronary artery calcification is observed. A right hemithorax pleural effusion demonstrates no evidence of glucose avidity. Mediastinal and bilateral axillary soft tissue densities primarily subcentimeter in presentation with fatty hilus formation are nonglucose avid. There are no additional parenchymal densities-nodules noted in the right and left hemithorax with quantitatively significant increased FDG uptake. ABDOMEN/PELVIS: Normal physiologic distribution of the radiopharmaceutical is identified in the hepatic (3.3) and splenic parenchyma, both renal units are identified, and visualized intestinal tract. The urinary bladder appears surgically absent. There is evidence of a urinary diversion. The left kidney is markedly hypotrophic. Apparent contamination artifact is identified in the right anterior hemipelvic region, extracorporal in location. CT of the abdomen and pelvis is remarkable for the following: Atherosclerotic calcification is defined in the abdominal aorta without evidence of dilatation, aneurysm formation. Abdominal and pelvic arterial calcification is observed. Postprocedural change is defined in the bilateral lower hemipelvis. Right and left inguinal soft tissue densities are ametabolic. Colonic diverticulosis is noted without evidence of diverticulitis. Calcification is defined in both kidneys. Multifocal cyst formation is defined in the left kidney. There is evidence of a urinary diversion. The urinary bladder is surgically absent. Ileal conduit is defined in the right hemipelvis with ostomy formation demonstrated in the right anterior pelvic wall. SKELETAL: There is no evidence of quantitatively significant enhanced glucose metabolism on meticulous inspection of the appendicular and axial skeletal structures. Degenerative changes defined in the thoracic and lumbar spine demonstrate no evidence of increased glucose metabolism. Lumbar scoliosis is defined. There are no sclerotic, mixed sclerotic-lytic, or primarily lytic changes defined in the axial skeletal structures with evidence of increased FDG uptake. PET/PET/CT Tumor Base -Thigh Init IMPRESSION: 1. The increase in FDG concentration noted in the right lower posterolateral lung zone, right lower lobe fulfills quantitative criteria for viable neoplasm. (Teixeira et al, Journal of Nuclear Medicine, 32:1, 1991). Histopathologic analysis is recommended. 2. No other quantitatively significant hypermetabolic abnormalities are noted. Electronic Signature Sam Briggs D.O. Accurate Quantification of SUVs for this report are calculated using the exclusive [employer]. ([place].S. Patent No. [id number] [phone] B2 [phone] [place] patent [phone]). Standardization and correction of the FDG SUV metric via [employer] technology allow for vendor non-specific objective quantitative examination comparison and optimization of the sensitivity and specificity of the FDG PET-CT examination. Electronically Signed: Sam Briggs, at 11:07 EDT ,
== END | disposition home or self-care (01) ==
LOC: ONC 09:23
PROVIDERS: PCP Family Medicine; Referring Provider Internal Medicine Hematology & Oncology; Visit Provider Internal Medicine Hematology & Oncology
DX: C67.2 Malignant neoplasm of lateral wall of bladder (principal); C67.8 Malignant neoplasm of overlapping sites of bladder; R91.8 Other nonspecific abnormal finding of lung field
CPT/HCPCS: 78815; A9552

== ENCOUNTER → 2022-06-17 | Outpatient (CLI) | payer MEDICARE, SELFPAY ==
[2022-06-17 13:13] LABS: Albumin, Serum 3.7 g/dL (3.2-5.0); BUN 32 mg/dL (7-18); BUN/Creat Ratio 12.6 RATIO (10-20); Calcium,Total 9.8 mg/dL (8.5-10.1); Chloride 104 mmol/L (98-107); Creatinine, Serum 2.54 mg/dL (0.70-1.30); EST Glomerular Filtration Rate 26 mL/min (>60); Est Glom Filt Rate - Afr Amer 32 mL/min (>60); Glucose 89 mg/dL (74-106); Phosphorus 2.3 mg/dL (2.5-4.9); Potassium 4.4 mmol/L (3.5-5.1); Sodium Level 135 mmol/L (136-145)
== END | disposition home or self-care (01) ==
LOC: LAB 11:51
PROVIDERS: PCP Family Medicine; Referring Provider Internal Medicine Nephrology; Visit Provider Internal Medicine Nephrology
DX: N18.4 Chronic kidney disease, stage 4 (severe) (principal)
CPT/HCPCS: 36415; 80069

== ENCOUNTER → 2022-06-19 | Outpatient (CLI) | payer MEDICARE, SELFPAY ==
--- NOTE | 2022-06-23 07:02 | PFT ---
INTRODUCTION: The patient is a 77-year-old male that presents for pulmonary function studies secondary to a diagnosis of lung cancer. Respiratory therapy reported good patient effort. Bronchodilators were used during testing. INTERPRETATION: Forced expiration spirometry demonstrates the presence of a moderate large airways obstructive ventilatory defect. There was no significant response to aerosolized bronchodilators. Spirograms are of good quality but do not plateau indicating slow emptying of the lungs. Body plethysmography was performed and revealed lung volumes to be within normal limits. Diffusing capacity by single breath CO was also within normal limits. IMPRESSION: Irreversible moderate large airways obstructive ventilatory impairment with preserved lung volumes and diffusing capacity.
== END | disposition home or self-care (01) ==
LOC: PSN 06:36
PROVIDERS: PCP Family Medicine; Referring Provider Internal Medicine Critical Care Medicine; Visit Provider Internal Medicine Critical Care Medicine
DX: F17.210 Nicotine dependence, cigarettes, uncomplicated (principal)
CPT/HCPCS: 94060; 94726; 94729

== ENCOUNTER 2022-06-25 08:19 | Observation (INO) | payer MEDICARE, SELFPAY ==
[2022-06-25 08:20] VITALS: BP 148/62; PULSE 73; RESP 16; TEMP 36.1; O2SAT 100
[2022-06-25 08:27] VITALS: BMI 27.1
--- NOTE | 2022-06-25 08:37 | EX.ED.UPPERE ---
HPI History of Present Illness Chief Complaint: Upper Extremity Injury Informant: patient Narrative Narrative: Woke up in the middle of the night with severe pain in her right wrist and hand. Hurts to move. Hurts for anything to touch it. Never had this before. Was using his hand and wrist without any difficulty prior to going to bed last night. Here at 8:30 AM for this. No systemic symptoms or fevers. No recent injury to the affected areas, but he states couple weeks ago he bruised the knuckle on his index finger, but it has been not very painful and he has been able to use it without any difficulty. No history of gout. Never had any surgery on his hand or wrist. No pain in other joints. PFSH PFSH Medical History Acute renal insufficiency Atherosclerotic heart disease of [place] coronary artery without angina pectoris Bladder cancer Bladder cancer CAD (coronary artery disease) Chronic renal insufficiency COPD (chronic obstructive pulmonary disease) Essential hypertension History of ETOH abuse History of ETOH abuse Hydronephrosis Hydronephrosis Hyponatremia NSTEMI (non-ST elevated myocardial infarction) Paroxysmal SVT (supraventricular tachycardia) Presence of stent in coronary artery (~04/03/22) Prostate cancer Prostate cancer Tobacco use Tobacco use Home Medications multivitamin (Daily Multi-Vitamin tablet) 1 tab PO DAILY SUPPLEMENT 08/30/17 [History Last Taken 03/31/22] amlodipine 10 mg tablet 10 mg PO DAILY BP 04/01/22 [History Last Taken 03/31/22] cholecalciferol (vitamin D3) 250 mcg (10,000 unit) tablet 250 mcg PO DAILY SUPPLEMENT 04/01/22 [History Last Taken 03/31/22] vit C 250 mg-vit E 90 mg-zinc 40 mg-copper 1 [id number] capsule (PreserVision AREDS-2) 1 tab PO BID EYE HEALTH 04/01/22 [History Last Taken 03/31/22] atorvastatin 40 mg tablet 40 mg PO QHS #90 tabs 04/21/22 [Rx Last Taken Unknown] carvedilol 3.125 mg tablet 3.125 mg PO BID #180 tabs 04/21/22 [Rx Last Taken Unknown] aspirin 81 mg tablet,delayed release 81 mg PO DAILY #90 tabs 05/18/22 [Rx Last Taken Unknown] clopidogrel 75 mg tablet (Plavix) 75 mg PO DAILY #90 tabs 05/18/22 [Rx Last Taken 05/20/22] Allergy/AdvReac Type Severity Reaction Status Date / Time ciprofloxacin [From Cipro] Allergy Intermediate Hives Verified 06/25/22 08:20 metronidazole [From Flagyl] Allergy Rash Verified 06/25/22 08:20 Family History Mother Hypertension Surgical History History of bladder surgery History of carpal tunnel surgery History of circumcision History of foot surgery History of tonsillectomy and adenoidectomy History of transurethral resection of prostate History of urostomy Presence of coronary angioplasty implant and graft (~04/03/22) S/P PTCA (percutaneous transluminal coronary angioplasty) S/P radical cystoprostatectomy Social History Smoking Status: Current every day smoker tobacco type: cigarettes alcohol intake: current details: occasional substance use type: does not use ROS ROS ED Constitutional Constitutional ED: Denies chills or fever(s) Musculoskeletal Musculoskeletal: Reports extremity pain; Denies neck pain Integumentary Denies Abrasions, rash or wounds Neurologic Neurologic: Denies paresthesias or weakness EXAM Physical Exam Const Vital Signs: 06/25/22 08:20 Temperature 97.0 F L Temperature Source Temporal Pulse Rate 73 Respiratory Rate 16 Blood Pressure 148/62 H Blood Pressure Mean 90 Pulse Ox 100 Oxygen Delivery Method Room Air Positive well nourished and well developed General Appearance ED: well developed and NAD Neck full ROM and supple GI non-tender and non-distended GI Narrative: Urostomy right lower quadrant, no hematuria Back/Spine normal ROM and normal to inspection Extremity Extremity Narrative: Warm very mild erythema about the right wrist. Severe pain with any range of movement of that joint. He has pain that seems to be more referred to the wrist when I move the joints of the hand, but everyone of them moves without significant difficulty on their own. The only slight redness is about the dorsum of the right wrist. There is no epitrochlear lymphadenopathy. There is no lymphangitis. There is no abscess or obvious nidus for infection or signs of a foreign body. Neuro oriented x3, no focal motor deficits and no sensory deficits noted Sensorium / Orientation: alert Psych mental status grossly normal and thought process normal Skin no wounds Rashes: no rashes MDM MDM MDM Narrative Medical decision making narrative: My concern is that this patient could have septic arthritis versus crystal induced arthritis, looks less like cellulitis. Labs and x-ray obtained initially, he has a leukocytosis, x-ray 3 views of the right wrist on my interpretation negative for any acute fracture, radiology in agreement, reviewed the rest of the labs. Patient was amenable to an arthrocentesis of this was done, given that he has never had a history of gout or pseudogout in the past, and his exam is suspicious for one of the above. I reviewed the results. 32,000 white blood cells, although the specimen was slightly bloody, his white blood count is not nearly this high, and no crystals were seen. However no organisms were seen on Gram stain. These are both not under percent sensitive, so I am starting him on Zosyn empirically. Discussed with orthopedics Dr. Holman. He recommends IV antibiotics which we started, and admission to medicine given his other medical issues, and he will see the patient today for further evaluation and management. Lab Data Attestation: I reviewed the patient's lab results. Labs: Laboratory Tests 06/25/22 06/25/22 06/25/22 Range/Units 12:25 08:35 08:35 WBC 13.0 H (4.4-11.0) K/mm3 RBC 3.14 L (4.6-6.2) M/mm3 Hgb 10.1 L (13.0-16.5) g/dL Hct 30.0 L (40-54) % MCV 95.5 H (80-94) fL MCH 32.2 H (27.0-32.0) pg MCHC 33.7 (32-36) g/dL RDW Std Deviation 42.8 (35.1-43.9) fl RDW Coeff of Sari 12.2 (11.6-14.6) % Plt Count 267 (150-450) K/mm3 MPV 9.7 (6.2-12.0) fl Immature Gran % (Auto) 0.600 (0.0-0.9) % Neut % (Auto) 77.2 H (47-70) % Lymph % (Auto) 10.8 L (19-41) % [place] % (Auto) 7.8 (0-10) % Eos % (Auto) 2.8 (0-5) % Baso % (Auto) 0.8 (0-1) % Absolute Neuts (auto) 10.1 H (2.0-7.7) X10^3/uL Absolute Lymphs (auto) 1.40 (0.83-4.51) X10^3/uL Nucleated RBC % 0 (0-5) % ESR 13 (0-20) mm/hr Sodium 134 L (136-145) mmol/L Potassium 4.0 (3.5-5.1) mmol/L Chloride 105 (98-107) mmol/L Carbon Dioxide 24.0 (21.0-32.0) mmol/L Anion Gap 5 (5-15) BUN 29 H (7-18) mg/dL Creatinine 2.17 H (0.70-1.30) mg/dL Estim Creat Clear Calc 27.08 ml/min Est GFR (MDRD) Af Amer 38 L (>60) mL/min Est GFR (MDRD) Non-Af 32 L (>60) mL/min BUN/Creatinine Ratio 13.4 (10-20) RATIO Glucose 109 H (74-106) mg/dL Uric Acid 4.6 (3.5-7.2) mg/dL Calcium 9.3 (8.5-10.1) mg/dL C-React Prot Ext Range 5.33 H (0.0-3.0) mg/L Fluid Source Cancelled Fluid Color Cancelled Fluid Appearance Cancelled Fluid WBC Cancelled Fluid RBC Cancelled Fluid Tot Cell Count Cancelled Fld Polynuclear WBCs # Cancelled Fld Polynuclear WBCs % Cancelled Fluid Mononuclear WBCs Cancelled Fld Mononuclear WBCs % Cancelled Fluid Neutrophils Cancelled Fluid Lymphocytes Cancelled Fluid Monocytes Cancelled Fluid Plasma Cells Cancelled Fluid Macrophages Cancelled Fld Mesothelial Cells Cancelled Fluid Other Cells Cancelled Fluid Crystals NO CRYSTALS SEEN Fluid Crystal Source SYNOVIAL Fl Crystal Path Review Will follow Fl Pathologist Comment Cancelled Fluid Comment 2 Cancelled Synovial Source RT WRIST Synovial Color Red (Pale Yellow) Synovial Appearance Hazy (CLEAR) Synovial Viscosity Sl. Viscous (HIGH) Synovial WBC 32.4900 H (0.000-0.002) 10^3/uL Synovial RBC 1.085 H (0) 10^6/uL Synovial Tot Cell Ct 32.5850 H (0.000-0.000) 10^3/uL Synovial Neutrophils 96 H (0-25) % Synovial Lymphocytes 1 % Synovial Monocytes 3 % Synovial Path Comment May follow Radiography Diagnostic Testing: Clinical Impression(s) from Imaging Studies Wrist X-Ray 06/25/22 09:05 IMPRESSION: Soft tissue swelling. Electronically Signed: Ramo Little MD at 9:34 EDT , Procedures Other Procedures Procedure(s): Arthrocentesis right wrist: After informed consent, area was prepped with isopropanol, locally anesthetized with 1 cc of plain 1% lidocaine, reprepped with Betadine, this is at the dorsal aspect of the wrist, just distal to the radius at the radiocarpal joint, I was able to aspirate 1 cc of bloody synovial fluid. Tolerated well no complications. Dressed with a bandage and ice pack afterwards. Discharge Plan Triage Chief Complaint: Upper Extremity Injury ED Provider: Zack Roberts Dx/Rx/DC Orders Clinical Impression: Arthritis of wrist, right, CKD (chronic kidney disease) Prescriptions: No Action multivitamin [Daily Multi-Vitamin] tablet 1 tab PO DAILY carvedilol 3.125 mg tablet 3.125 mg PO BID Qty: 180 3RF atorvastatin 40 mg tablet 40 mg PO QHS Qty: 90 3RF aspirin 81 mg tablet,delayed release (DR/EC) 81 mg PO DAILY Qty: 90 3RF clopidogrel [Plavix] 75 mg tablet 75 mg PO DAILY Qty: 90 3RF PreserVision AREDS-2 250-90-40-1 mg Capsule 1 tab PO BID cholecalciferol (vitamin D3) 250 mcg (10,000 unit) Tablet 250 mcg PO DAILY amlodipine 10 MG tablet 10 mg PO DAILY Primary Care Provider: Candido Valle Referrals: Candido Valle MD [Primary Care Provider] - Disposition Disposition: Acute Care [facility]
[2022-06-25] MEDS: Morphine 2 MG/ML Syringe IV ×2 (09:00→20:00)
--- NOTE | 2022-06-25 09:05 | RAD_ITS ---
STUDY: X-RAY - RIGHT WRIST REASON FOR EXAM: Male, 77 years old. Atraumatic wrist pain. TECHNIQUE: 3 view(s) of the wrist were obtained. COMPARISON: None. FINDINGS: Normal visualized distal radius and ulna. Normal radiocarpal articulation. Normal distal radioulnar articulation. Normal carpal bones. Normal carpal articulations. Normal carpometacarpal articulation of the thumb. Normal second through fifth carpometacarpal articulations. Normal visualized metacarpal bones. Soft tissue swelling. RAD/Wrist min 3 Views IMPRESSION: Soft tissue swelling. Electronically Signed: Ramo Little MD at 9:34 EDT ,
[2022-06-25 09:14] LABS: Erythrocyte Sedimentation Rate 13 mm/hr (0-20)
[2022-06-25 09:15] LABS: Absolute Neutrophil Count 10.1 X10^3/uL (2.0-7.7); Anion Gap 5 (5-15); BUN 29 mg/dL (7-18); BUN/Creat Ratio 13.4 RATIO (10-20); Basophil% 0.8 % (0-1); CRP 5.33 mg/L (0.0-3.0); Calcium,Total 9.3 mg/dL (8.5-10.1); Chloride 105 mmol/L (98-107); Creatinine, Serum 2.17 mg/dL (0.70-1.30); EST Glomerular Filtration Rate 32 mL/min (>60); Eosinophil# 0.36 X10^3/uL; Eosinophils% 2.8 % (0-5); Est Glom Filt Rate - Afr Amer 38 mL/min (>60); Estimated Creatinine Clearance 27.08 ml/min; Glucose 109 mg/dL (74-106); Hemoglobin 10.1 g/dL (13.0-16.5); Lymphocyte % 10.8 % (19-41); Mean Corp Hgb Conc 33.7 g/dL (32-36); Mean Corpuscular Hgb 32.2 pg (27.0-32.0); Mean Corpuscular Volume 95.5 fL (80-94); Mean Platelet Vol. 9.7 fl (6.2-12.0); Monocyte# 1.01 X10^3/uL; Monocyte% 7.8 % (0-10); NRBC Flagged by Analyzer 0 % (0-5); Neutrophil # 10.05 X10^3/uL (2.7-7.7); Neutrophil % 77.2 % (47-70); Platelet Count 267 K/mm3 (150-450); RBC Distribution Width CV 12.2 % (11.6-14.6); RBC Distribution Width SD 42.8 fl (35.1-43.9); Red Blood Count 3.14 M/mm3 (4.6-6.2); Sodium Level 134 mmol/L (136-145); Uric Acid 4.6 mg/dL (3.5-7.2)
[2022-06-25] MEDS: Colchicine 0.6 MG TABLET PO (12:01)
--- NOTE | 2022-06-25 12:56 | ED.RN ---
pt drove self. calling to see if he can arrange ride prior to getting dilaudid.
[2022-06-25 12:57] VITALS: BP 152/87; PULSE 84; RESP 16; O2SAT 99
[2022-06-25] MEDS: HYDROmorphone 0.5 MG/0.5 ML SYRINGE IV (13:03)
[2022-06-25 14:06] LABS: AUTO B FLUID DILUENT BKGD CT WBC <0.1 RBC <0.01 (W<.1,R<.01); CRYSTALS, BODY FLUID NO CRYSTALS SEEN; Pathologist Comment May follow
[2022-06-25 14:07] LABS: Source / Synovial Fluid RT WRIST; Source- Body Fluid SYNOVIAL; Viscosity / Synovial Fluid Sl. Viscous (HIGH)
[2022-06-25 14:08] LABS: Appearance /Synovial Fluid Hazy (CLEAR); Color / Synovial Fluid Red (Pale Yellow)
[2022-06-25 14:09] LABS: RBC /Synovial Fluid 1.085 10^6/uL (0)
[2022-06-25 14:17] LABS: Body Fluid QC Type(s) BF1Q
[2022-06-25 14:27] LABS: Lymph 1 %; Monocyte /Synovial Fluid 3 %; Neutrophil 96 % (0-25)
[2022-06-25 16:00] VITALS: BP 145/84; PULSE 86; RESP 18; O2SAT 98
[2022-06-25 16:13] VITALS: BP 149/86; PULSE 84; RESP 18; TEMP 36.7; O2SAT 99
--- NOTE | 2022-06-25 16:39 | CON.PCM.OR_ITS ---
HPI Consult Data Date of Consult: 06/25/22 HPI Narrative HPI Narrative: MIGUEL PEREZ, is a 77 M who presents with right wrist pain. No history of such. Started last evening around midnight, from forearm dorsal to hand dorsal. Pain became severe so came into the ED this morning. Was called around 3pm, saw the patient around 345pm. No trauma, though did hit the index finger about a week ago. Always getting blood draws, has CKD and many medical issues. Not santos ving any fevers, chills, or feeling unwell. No drainage. Hurts through the hand dorsum and at the wrist, and hurts to make an ok sign. Pain failed to improve with 1 mg IV morphine this morning the patient states. PFSH Medical History Acute renal insufficiency Atherosclerotic heart disease of [place] coronary artery without angina pectoris Bladder cancer Bladder cancer CAD (coronary artery disease) Cellulitis of right wrist Chronic renal insufficiency COPD (chronic obstructive pulmonary disease) Essential hypertension History of ETOH abuse History of ETOH abuse Hydronephrosis Hydronephrosis Hyponatremia NSTEMI (non-ST elevated myocardial infarction) Paroxysmal SVT (supraventricular tachycardia) Presence of stent in coronary artery (~04/03/22) Prostate cancer Prostate cancer Tobacco use Tobacco use Home Medications multivitamin (Daily Multi-Vitamin tablet) 1 tab PO DAILY SUPPLEMENT 08/30/17 [ History Last Taken 03/31/22] amlodipine 10 mg tablet 10 mg PO DAILY BP 04/01/22 [History Last Taken 03/31/22] cholecalciferol (vitamin D3) 250 mcg (10,000 unit) tablet 250 mcg PO DAILY SUPPLEMENT 04/01/22 [History Last Taken 03/31/22] vit C 250 mg-vit E 90 mg-zinc 40 mg-copper 1 [id number] capsule (PreserVision AREDS-2) 1 tab PO BID EYE HEALTH 04/01/22 [History Last Taken 03/31/22] atorvastatin 40 mg tablet 40 mg PO QHS #90 tabs 04/21/22 [Rx Last Taken Unknown] carvedilol 3.125 mg tablet 3.125 mg PO BID #180 tabs 04/21/22 [Rx Last Taken Unknown] aspirin 81 mg tablet,delayed release 81 mg PO DAILY #90 tabs 05/18/22 [Rx Last Taken Unknown] clopidogrel 75 mg tablet (Plavix) 75 mg PO DAILY #90 tabs 05/18/22 [Rx Last Taken 05/20/22] Allergy/AdvReac Type Severity Reaction Status Date / Time ciprofloxacin [From Cipro] Allergy Intermediate Hives Verified 06/25/22 08:20 metronidazole [From Flagyl] Allergy Rash Verified 06/25/22 08:20 Family History Mother Hypertension Surgical History History of bladder surgery History of carpal tunnel surgery History of circumcision History of foot surgery History of tonsillectomy and adenoidectomy History of transurethral resection of prostate History of urostomy Presence of coronary angioplasty implant and graft (~04/03/22) S/P PTCA (percutaneous transluminal coronary angioplasty) S/P radical cystoprostatectomy Social History Smoking Status: Current every day smoker tobacco type: cigarettes alcohol intake: current details: occasional substance use type: does not use Vital Signs Vital Signs Vital Signs: 06/25/22 08:20 06/25/22 12:57 06/25/22 16:00 Temperature 97.0 F L Temperature Source Temporal Pulse Rate 73 84 86 Respiratory Rate 16 16 18 Blood Pressure 148/62 H 152/87 H 145/84 H Blood Pressure Mean 90 108 104 Pulse Ox 100 99 98 Oxygen Delivery Method Room Air Room Air Room Air Weight Weight: 173 lb 4.533 oz Body Mass Index (BMI) 27.1 Physical Exam Const alert, oriented x3 and no apparent distress General Appearance: cooperative HEENT normocephalic Extremity Extremity Narrative: right wrist very mild warmth, v mild redness at the dorsum of the wrist and hand, v mild swelling there, pain to palpate diffusely through wrist and hand. ROM 20 ext, 40 flexion. can make a fist with difficulty. normal sensation and motor MRU and AIN/Pin. strong radial pulse, hand warm well perfused. small needle poke with mild bruise at the radial carpal joint area on dorsum, distal to listers tubercle. forearm compartments soft. Lab / Micro Data Result Diagrams: 06/25/22 08:35 06/25/22 08:35 Labs: Laboratory Results - last 24 hr 06/25/22 08:35: WBC 13.0 H, RBC 3.14 L, Hgb 10.1 L, Hct 30.0 L, MCV 95.5 H, MCH 32.2 H, MCHC 33.7, RDW Std Deviation 42.8, RDW Coeff of Srai 12.2, Plt Count 267, MPV 9.7, Immature Gran % (Auto) 0.600, Neut % (Auto) 77.2 H, Lymph % (Auto) 10.8 L, [place] % (Auto) 7.8, Eos % (Auto) 2.8, Baso % (Auto) 0.8, Absolute Neuts (auto) 10.1 H, Absolute Lymphs (auto) 1.40, Nucleated RBC % 0, ESR 13 06/25/22 08:35: Sodium 134 L, Potassium 4.0, Chloride 105, Carbon Dioxide 24.0, Anion Gap 5, BUN 29 H, Creatinine 2.17 H, Estim Creat Clear Calc 27.08, Est GFR (MDRD) Af Amer 38 L, Est GFR (MDRD) Non-Af 32 L, BUN/Creatinine Ratio 13.4, Glucose 109 H, Uric Acid 4.6, Calcium 9.3, C-React Prot Ext Range 5.33 H 06/25/22 12:25: Fluid Source Cancelled, Fluid Color Cancelled, Fluid Appearance Cancelled, Fluid WBC Cancelled, Fluid RBC Cancelled, Fluid Tot Cell Count Cancelled, Fld Polynuclear WBCs # Cancelled, Fld Polynuclear WBCs % Cancelled, Fluid Mononuclear WBCs Cancelled, Fld Mononuclear WBCs % Cancelled, Fluid Neutrophils Cancelled, Fluid Lymphocytes Cancelled, Fluid Monocytes Cancelled, Fluid Plasma Cells Cancelled, Fluid Macrophages Cancelled, Fld Mesothelial Cells Cancelled, Fluid Other Cells Cancelled, Fluid Crystals NO CRYSTALS SEEN, Fluid Crystal Source SYNOVIAL, Fl Crystal Path Review Will follow, Fl Pathologist Comment Cancelled, Fluid Comment 2 Cancelled, Synovial Source RT WRIST, Synovial Color Red, Synovial Appearance Hazy, Synovial Viscosity Sl. Viscous, Synovial WBC 32.4900 H, Synovial RBC 1.085 H, Synovial Tot Cell Ct 32.5850 H, Synovial Neutrophils 96 H, Synovial Lymphocytes 1, Synovial Monocytes 3, Synovial Path Comment May follow Micro: Microbiology 06/25/22 12:25 Fluid - Synovial (joint) Gram Stain - Final Radiology Impression Wrist X-Ray 06/25/22 09:05 IMPRESSION: Soft tissue swelling. Electronically Signed: Ramo Little MD at 9:34 EDT , agree no bony abnormalities Assessment & Plan Assessment/Plan (1) Cellulitis of right wrist: PLAN: 77 M with right wrist pain, mild redness and warmth. WBC 13k, aspirate pending gm stain, negative crystals, 32k wbc aspirate. CRP 5. no fevers. This is a mixed clinical picture for soft tissue vs SA, and upon review of the literature a rare septic joint (3% overall) and difficult to use any one parameter or algorithm to confirm diagnosis. In my estimation this is pointing more towards a wrist cellulitis, but of course SA is in the differential. Even positive crystals do not rule out a SA. Patient already underwent an aspiration, and in the literature serial aspirations with IV antibiotics and admission are a reasonable course of action. Other option of course would be to go right to I and D, though I think it is not warranted in this case at the moment given the clinical exam. I will follow blood work, await cultures, admit the patient with IV broad spec antibiotics, and see him tomorrow morning. If fails to improve in 12-24 hours on antibiotics, would have low threshold for either repeat aspiration or I and D formally in the OR (would likely do this art hroscopically). We discussed the different courses of action, with the patient as well as the hospitalist service and Dr. Hopkins. Will proceed with plan as written.
[2022-06-25 17:28] VITALS: BMI 25.7
[2022-06-25 17:30] VITALS: BP 148/71; PULSE 77; RESP 18; TEMP 36.7; O2SAT 99
--- NOTE | 2022-06-25 17:43 | HP.PCM.HOS_ITS ---
HPI - General General Date of Admission: 06/25/22 Date of Service: 06/25/22 Chief Complaint: right wrist and hand pain. HPI Narrative MIGUEL PEREZ, is a 77 M who presents with right wrist pain. Symptoms began today. No redness. Pain with tapping thumb to fingers. Never had this before. No history of gout. No trauma/falls. He went to the ED and underwent an aspiration. The synovial fluid showe 32k WBCs, no crystals. Patient received several rounds of colchicine without help. Dr. Holman saw the patient. Patient received piperacillin/tazo in ED. Pt denies any history of this before. PFSH Medical History Acute renal insufficiency Atherosclerotic heart disease of [place] coronary artery without angina pectoris Bladder cancer Bladder cancer CAD (coronary artery disease) Cancer Cellulitis of right wrist Chest pain Chronic indwelling Ricketts catheter Chronic renal insufficiency COPD (chronic obstructive pulmonary disease) COPD (chronic obstructive pulmonary disease) Essential hypertension History of ETOH abuse History of ETOH abuse Hydronephrosis Hydronephrosis Hypertension Hyponatremia Kidney disease Kidney stones Myocardial infarct NSTEMI (non-ST elevated myocardial infarction) Paroxysmal SVT (supraventricular tachycardia) Presence of stent in coronary artery (~04/03/22) Prostate cancer Prostate cancer Smoker Tobacco use Tobacco use Home Medications multivitamin (Daily Multi-Vitamin tablet) 1 tab PO DAILY SUPPLEMENT 08/30/17 [History Last Taken 03/31/22] amlodipine 10 mg tablet 10 mg PO DAILY BP 04/01/22 [History Last Taken 03/31/22] cholecalciferol (vitamin D3) 250 mcg (10,000 unit) tablet 250 mcg PO DAILY SUPPLEMENT 04/01/22 [History Last Taken 03/31/22] vit C 250 mg-vit E 90 mg-zinc 40 mg-copper 1 [id number] capsule (PreserVision AREDS-2) 1 tab PO BID EYE HEALTH 04/01/22 [History Last Taken 03/31/22] atorvastatin 40 mg tablet 40 mg PO QHS #90 tabs 04/21/22 [Rx Last Taken Unknown] carvedilol 3.125 mg tablet 3.125 mg PO BID #180 tabs 04/21/22 [Rx Last Taken Unknown] aspirin 81 mg tablet,delayed release 81 mg PO DAILY #90 tabs 05/18/22 [Rx Last Taken Unknown] clopidogrel 75 mg tablet (Plavix) 75 mg PO DAILY #90 tabs 05/18/22 [Rx Last Taken 05/20/22] Allergy/AdvReac Type Severity Reaction Status Date / Time ciprofloxacin [From Cipro] Allergy Intermediate Hives Verified 06/25/22 08:20 metronidazole [From Flagyl] Allergy Rash Verified 06/25/22 08:20 Family History Mother Hypertension Surgical History History of bladder surgery History of carpal tunnel surgery History of circumcision History of coronary artery stent placement History of foot surgery History of tonsillectomy and adenoidectomy History of transurethral resection of prostate History of urostomy Presence of coronary angioplasty implant and graft (~04/03/22) S/P PTCA (percutaneous transluminal coronary angioplasty) S/P radical cystoprostatectomy Social History Smoking Status: Current every day smoker tobacco type: cigarettes alcohol intake: current details: occasional substance use type: does not use ROS ROS Narrative ileostomy in place, leaks occassionally. All review of systems were negative except as mentioned above in the history of present illness and the other review of systems. Vital Signs Vital Signs Vital Signs: 06/25/22 08:20 06/25/22 12:57 06/25/22 16:00 Temperature 36.1 C L Temperature Source Temporal Pulse Rate 73 84 86 Respiratory Rate 16 16 18 Blood Pressure 148/62 H 152/87 H 145/84 H Blood Pressure Mean 90 108 104 Blood Pressure Source Blood Pressure Position Blood Pressure Location Pulse Ox 100 99 98 Oxygen Delivery Method Room Air Room Air Room Air 06/25/22 16:13 06/25/22 17:30 Temperature 36.7 C 36.7 C Temperature Source Temporal Oral Pulse Rate 84 77 Respiratory Rate 18 18 Blood Pressure 149/86 H 148/71 H Blood Pressure Mean 107 96 Blood Pressure Source Monitor Blood Pressure Position Semi-Fowlers Blood Pressure Location Right Arm Pulse Ox 99 99 Oxygen Delivery Method Room Air Room Air Weight Weight: 74.616 kg Body Mass Index (BMI) 25.7 Physical Exam Const alert and no apparent distress HEENT normocephalic, head/scalp atraumatic, hearing grossly normal bilaterally and moist oral mucous membranes Eyes PERRL Neck no lymphadenopathy Resp normal respiratory effort, no retractions, no use of accessory muscles and clear to auscultation bilaterally Cardio regular rate, regular rhythm, S1 normal heart sound and S2 normal heart sound GI normal to inspection, nondistended, normoactive bowel sounds, soft to palpation, non-tender and non-distended GI Narrative: Ileostomy in place right lower quadrant. Extremity full ROM Extremity Narrative: Right wrist tender to palpation. Swelling of the dorsum of his right hand. No warmth. Patient with difficulty abducting his thumb and 4 fingers without pain. Neuro oriented x3 and moves all extremities Sensorium / Orientation: awake and alert Results Lab / Micro Data Attestation: I reviewed the patient's lab results. Result Diagrams: 06/25/22 08:35 06/25/22 08:35 Labs: Laboratory Results - last 24 hr 06/25/22 08:35: WBC 13.0 H, RBC 3.14 L, Hgb 10.1 L, Hct 30.0 L, MCV 95.5 H, MCH 32.2 H, MCHC 33.7, RDW Std Deviation 42.8, RDW Coeff of Sari 12.2, Plt Count 267, MPV 9.7, Immature Gran % (Auto) 0.600, Neut % (Auto) 77.2 H, Lymph % (Auto) 10.8 L, [place] % (Auto) 7.8, Eos % (Auto) 2.8, Baso % (Auto) 0.8, Absolute Neuts (auto) 10.1 H, Absolute Lymphs (auto) 1.40, Nucleated RBC % 0, ESR 13 06/25/22 08:35: Sodium 134 L, Potassium 4.0, Chloride 105, Carbon Dioxide 24.0, Anion Gap 5, BUN 29 H, Creatinine 2.17 H, Estim Creat Clear Calc 27.08, Est GFR (MDRD) Af Amer 38 L, Est GFR (MDRD) Non-Af 32 L, BUN/Creatinine Ratio 13.4, Glucose 109 H, Uric Acid 4.6, Calcium 9.3, C-React Prot Ext Range 5.33 H 06/25/22 12:25: Fluid Source Cancelled, Fluid Color Cancelled, Fluid Appearance Cancelled, Fluid WBC Cancelled, Fluid RBC Cancelled, Fluid Tot Cell Count Cancelled, Fld Polynuclear WBCs # Cancelled, Fld Polynuclear WBCs % Cancelled, Fluid Mononuclear WBCs Cancelled, Fld Mononuclear WBCs % Cancelled, Fluid Neutrophils Cancelled, Fluid Lymphocytes Cancelled, Fluid Monocytes Cancelled, Fluid Plasma Cells Cancelled, Fluid Macrophages Cancelled, Fld Mesothelial Cells Cancelled, Fluid Other Cells Cancelled, Fluid Crystals NO CRYSTALS SEEN, Fluid Crystal Source SYNOVIAL, Fl Crystal Path Review Will follow, Fl Pathologist Comment Cancelled, Fluid Comment 2 Cancelled, Synovial Source RT WRIST, Synovial Color Red, Synovial Appearance Hazy, Synovial Viscosity Sl. Viscous, Synovial WBC 32.4900 H, Synovial RBC 1.085 H, Synovial Tot Cell Ct 32.5850 H, Synovial Neutrophils 96 H, Synovial Lymphocytes 1, Synovial Monocytes 3, Synovial Path Comment May follow Micro: Microbiology 06/25/22 12:25 Fluid - Synovial (joint) Gram Stain - Final Radiology Impression Wrist X-Ray 06/25/22 09:05 IMPRESSION: Soft tissue swelling. Electronically Signed: Ramo Little MD at 9:34 EDT , Assessment & Plan Assessment/Plan (1) Cellulitis of right wrist: PLAN: Versus septic arthritis Patient received pip/tazo in ED. Will continue and add vancomycin Follow up cultures Orthopaedics on consult Check MRI hand Elevate hand (2) CAD (coronary artery disease): PLAN: s/p CHUYITA to OM1 on 04/03/22. He states he was taken off ASA and clopidogrel for 5 days for PET scan. Pt does not know if cardiology was aware. If surgery is needed, consider consulting cardiology to see if those medication could be held. Continue carvedilol, statin, clopidogrel ASA PLAN: Plan Chronic conditions: * NSCLC (favor squamous cell): follow up with oncology. PET on 05/26 showed RLL. * h/o bladder cancer. s/p cystectomy. ileostomy in place. * HTN: stable. continue amlodipine VTE prophylaxis: LMWH Code Status: DW pt, FULL CODE. Charges/Coding Visit Charges Inpatient E&M: 56977 Init Hosp L3
--- NOTE | 2022-06-25 17:57 | MRI_ITS ---
INDICATION: right hand septic arthritis EXAMINATION: MRI - MR Hand W/O Contrast TECHNIQUE: Multiplanar and multisequence MR images were performed of the . IV Contrast Dosage and Agent: None. COMPARISON: None. 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 There is a moderate lateral subluxation of the base of the first metacarpal with respect to the greater multangular. There is a moderate joint effusion at this site. Osteoarthritis remainder carpus and MCP and IP joints. MUSCLES: No edema or myositis. BONE: No fracture or abnormal bone marrow signal. OTHER SOFT TISSUES: There is moderate edema deep in the carpal tunnel deep to the flexor tendons. There is extensive soft tissue edema is seen adjacent to the lateral and medial carpus and extending posteriorly. There is a fluid seen extending anteriorly from the articulation of the ulna with the triquetral. This fluid could represent synovial recess or fluid within synovial cyst. There is a moderate tenosynovitis of the flexor hallucis tendon. MRI/Upper Ext/No Jt/ wo IMPRESSION: Next item no evidence of osteomyelitis. Abnormality at the articulation of the greater multangular with the base of the first metacarpal. This is likely due to osteoarthritis. Septic arthritis should be considered less likely given absence of marrow edema. Synovial cyst versus fluid and synovial recess anterior to the articulation of the ulna with a triquetral. Subcutaneous edema consistent with cellulitis most prominent laterally in the carpal and metacarpal region and to a lesser degree medially. Electronically Signed: Candido Collins MD, JANETH at 16:40 EDT ,
[2022-06-25] MEDS: oxyCODONE 5 MG Tablet PO (18:28)
--- NOTE | 2022-06-25 18:50 | PCM.RX.CS ---
Consult Pharmacy has been consulted to manage selected antiobiotic: Vancomycin Type of Consult: New start Suspected Infection: Skin/Soft tissue Labs: Sodium 134 mmol/L (136-145) L 06/25/22 08:35 Potassium 4.0 mmol/L (3.5-5.1) 06/25/22 08:35 Chloride 105 mmol/L (98-107) 06/25/22 08:35 Carbon Dioxide 24.0 mmol/L (21.0-32.0) 06/25/22 08:35 Anion Gap 5 (5-15) 06/25/22 08:35 BUN 29 mg/dL (7-18) H 06/25/22 08:35 Creatinine 2.17 mg/dL (0.70-1.30) H 06/25/22 08:35 Est GFR (MDRD) Af Amer 38 mL/min (>60) L 06/25/22 08:35 Est GFR (MDRD) Non-Af 32 mL/min (>60) L 06/25/22 08:35 BUN/Creatinine Ratio 13.4 RATIO (10-20) 06/25/22 08:35 Glucose 109 mg/dL (74-106) H 06/25/22 08:35 Microbiology: Microbiology 06/25/22 12:25 Fluid - Synovial (joint) Gram Stain - Final Goal Trough: 15-20 mcg/mL Pharmacy Plan for Drug Dosing: NEW START IV VANCOMYCIN Consulting Physician: Dr. Bravo Indication: SSTI Goal Trough: 15-20 SrCr: 2.17 CrCl: 27 mL/min Comments: Loading dose of 2g IV ordered and administered 06/25/22 @1828 Vancomycin Dose: 750mg IV Q24h to start 06/26/22 @1800 Pending Level: 06/27/22 @1730, prior to 3rd total dose per protocol. Pharmacy Service will continue to monitor and adjust dosing as required.
[2022-06-25] MEDS: 0.9% Saline Lock 10 ML Syringe IV (19:59)
[2022-06-25 20:00] VITALS: BP 136/73; PULSE 81; RESP 15; TEMP 36.9; O2SAT 98
[2022-06-25] MEDS: Acetaminophen 500 MG Tablet 1000 MG PO (21:41)
[2022-06-25] MEDS: Carvedilol 3.125 MG TABLET PO (21:42)
[2022-06-25] MEDS: Atorvastatin Calcium 40 MG Tablet PO (21:42)
[2022-06-25] MEDS: Multivitamin (Healthy Eyes) Capsule 1 CAP PO (21:45)
[2022-06-26 02:30] VITALS: BP 126/65; PULSE 64; RESP 16; TEMP 36.6; O2SAT 96
[2022-06-26] MEDS: Acetaminophen 500 MG Tablet 1000 MG PO ×3 (04:56→22:17)
[2022-06-26 05:13] LABS: Absolute Lymphocyte Count 1.86 X10^3/uL (0.83-4.51); Absolute Neutrophil Count 6.5 X10^3/uL (2.0-7.7); Basophil# 0.07 X10^3/uL; Basophil% 0.7 % (0-1); Eosinophil# 0.27 X10^3/uL; Eosinophils% 2.8 % (0-5); Hematocrit 31.6 % (40-54); Hemoglobin 10.2 g/dL (13.0-16.5); Lymphocyte # 1.86 X10^3/ul (0.83-4.51); Lymphocyte % 19.2 % (19-41); Mean Corp Hgb Conc 32.3 g/dL (32-36); Mean Platelet Vol. 9.9 fl (6.2-12.0); Monocyte# 0.98 X10^3/uL; Monocyte% 10.1 % (0-10); NRBC Flagged by Analyzer 0 % (0-5); Neutrophil # 6.47 X10^3/uL (2.7-7.7); Neutrophil % 66.6 % (47-70); Platelet Count 255 K/mm3 (150-450); RBC Distribution Width CV 12.2 % (11.6-14.6); RBC Distribution Width SD 43.1 fl (35.1-43.9); Red Blood Count 3.29 M/mm3 (4.6-6.2); White Blood Count 9.7 K/mm3 (4.4-11.0)
[2022-06-26 05:41] LABS: ALB/GLOB Ratio 0.8 RATIO (0.9-2.4); AST(SGOT) 12 U/L (15-37); Alanine Aminotransfer ALT/SGPT 19 U/L (16-61); Albumin, Serum 3.2 g/dL (3.2-5.0); Alkaline Phosphatase 106 U/L (45-117); Anion Gap 6 (5-15); BUN 27 mg/dL (7-18); BUN/Creat Ratio 12.2 RATIO (10-20); Calcium,Total 9.9 mg/dL (8.5-10.1); Chloride 105 mmol/L (98-107); Creatinine, Serum 2.21 mg/dL (0.70-1.30); EST Glomerular Filtration Rate 31 mL/min (>60); Est Glom Filt Rate - Afr Amer 37 mL/min (>60); Estimated Creatinine Clearance 26.59 ml/min; Globulin 3.8 g/dL (2.2-4.2); Glucose 105 mg/dL (74-106); Potassium 4.4 mmol/L (3.5-5.1); Sodium Level 134 mmol/L (136-145)
--- NOTE | 2022-06-26 07:26 | PN.HOSP_ITS ---
Reason for Visit Reason for Visit: Diagnoses Atherosclerotic heart disease of [place] coronary artery without angina pectoris (06/25/22) Cellulitis of right upper limb (06/25/22) Objective Data Objective Data Vital Signs: Vital Signs Temp Pulse Resp BP Pulse Ox O2 Del Method 36.6 C 64 16 126/65 H 96 Room Air 06/26/22 02:30 06/26/22 02:30 06/26/22 02:30 06/26/22 02:30 06/26/22 02:30 06/26/22 02:30 Oxygen Delivery Method Room Air Weight: 74.616 kg Body Mass Index (BMI) 25.7 Intake & Output: Intake and Output for Last 24 Hours 06/24/22 06/25/22 06/26/22 23:59 23:59 23:59 Intake Total 590 / 590 50 / 50 Output Total 800 / 800 Balance 590 / -210 -750 / -750 Lab / Micro Data Result Diagrams: 06/26/22 04:35 06/26/22 04:35 Labs: Laboratory Results - last 24 hr 06/25/22 08:35: WBC 13.0 H, RBC 3.14 L, Hgb 10.1 L, Hct 30.0 L, MCV 95.5 H, MCH 32.2 H, MCHC 33.7, RDW Std Deviation 42.8, RDW Coeff of Sari 12.2, Plt Count 267, MPV 9.7, Immature Gran % (Auto) 0.600, Neut % (Auto) 77.2 H, Lymph % (Auto) 10.8 L, [place] % (Auto) 7.8, Eos % (Auto) 2.8, Baso % (Auto) 0.8, Absolute Neuts (auto) 10.1 H, Absolute Lymphs (auto) 1.40, Nucleated RBC % 0, ESR 13 06/25/22 08:35: Sodium 134 L, Potassium 4.0, Chloride 105, Carbon Dioxide 24.0, Anion Gap 5, BUN 29 H, Creatinine 2.17 H, Estim Creat Clear Calc 27.08, Est GFR (MDRD) Af Amer 38 L, Est GFR (MDRD) Non-Af 32 L, BUN/Creatinine Ratio 13.4, Glucose 109 H, Uric Acid 4.6, Calcium 9.3, C-React Prot Ext Range 5.33 H 06/25/22 12:25: Fluid Source Cancelled, Fluid Color Cancelled, Fluid Appearance Cancelled, Fluid WBC Cancelled, Fluid RBC Cancelled, Fluid Tot Cell Count Cancelled, Fld Polynuclear WBCs # Cancelled, Fld Polynuclear WBCs % Cancelled, Fluid Mononuclear WBCs Cancelled, Fld Mononuclear WBCs % Cancelled, Fluid Neutrophils Cancelled, Fluid Lymphocytes Cancelled, Fluid Monocytes Cancelled, Fluid Plasma Cells Cancelled, Fluid Macrophages Cancelled, Fld Mesothelial Cells Cancelled, Fluid Other Cells Cancelled, Fluid Crystals NO CRYSTALS SEEN, Fluid Crystal Source SYNOVIAL, Fl Crystal Path Review Will follow, Fl Pathologist Comment Cancelled, Fluid Comment 2 Cancelled, Synovial Source RT WRIST, Synovial Color Red, Synovial Appearance Hazy, Synovial Viscosity Sl. Viscous, Synovial WBC 32.4900 H, Synovial RBC 1.085 H, Synovial Tot Cell Ct 32.5850 H, Synovial Neutrophils 96 H, Synovial Lymphocytes 1, Synovial Monocytes 3, Synovial Path Comment May follow 06/26/22 04:35: WBC 9.7, RBC 3.29 L, Hgb 10.2 L, Hct 31.6 L, MCV 96.0 H, MCH 31.0, MCHC 32.3, RDW Std Deviation 43.1, RDW Coeff of Sari 12.2, Plt Count 255, MPV 9.9, Immature Gran % (Auto) 0.600, Neut % (Auto) 66.6, Lymph % (Auto) 19.2, [place] % (Auto) 10.1 H, Eos % (Auto) 2.8, Baso % (Auto) 0.7, Absolute Neuts (auto) 6.5, Absolute Lymphs (auto) 1.86, Nucleated RBC % 0 06/26/22 04:35: Sodium 134 L, Potassium 4.4, Chloride 105, Carbon Dioxide 23.0, Anion Gap 6, BUN 27 H, Creatinine 2.21 H, Estim Creat Clear Calc 26.59, Est GFR (MDRD) Af Amer 37 L, Est GFR (MDRD) Non-Af 31 L, BUN/Creatinine Ratio 12.2, Glucose 105, Calcium 9.9, Total Bilirubin 0.50, AST 12 L, ALT 19, Alkaline Phosphatase 106, Total Protein 7.0, Albumin 3.2, Globulin 3.8, Albumin/Globulin Ratio 0.8 L Micro: Microbiology 06/25/22 12:25 Fluid - Synovial (joint) Gram Stain - Final Radiography Diagnostic Testing: Radiology Impression Wrist X-Ray 06/25/22 09:05 IMPRESSION: Soft tissue swelling. Electronically Signed: Ramo Little MD at 9:34 EDT , Assessment & Plan Assessment/Plan (1) Cellulitis of right wrist: PLAN: Versus septic arthritis Patient received pip/tazo in ED. Will continue and add vancomycin Follow up cultures Orthopaedics on consult Check MRI hand Elevate hand (2) CAD (coronary artery disease): PLAN: s/p CHUYITA to OM1 on 04/03/22. He states he was taken off ASA and clopidogrel for 5 days for PET scan. Pt does not know if cardiology was aware. If surgery is needed, consider consulting cardiology to see if those medication could be held. Continue carvedilol, statin, clopidogrel ASA PLAN: Plan Chronic conditions: * NSCLC (favor squamous cell): follow up with oncology. PET on 05/26 showed RLL. * h/o bladder cancer. s/p cystectomy. ileostomy in place. * HTN: stable. continue amlodipine VTE prophylaxis: LMWH Code Status: DW pt, FULL CODE.
[2022-06-26 08:00] VITALS: BP 121/70; PULSE 68; RESP 18; TEMP 36.4; O2SAT 94
[2022-06-26] MEDS: Aspirin E.C. 81 MG Tablet PO (08:07)
[2022-06-26] MEDS: Multivitamins,Therapeutic Tablet 1 TABLET PO (08:07)
[2022-06-26] MEDS: Clopidogrel Bisulfate 75 MG Tablet PO (08:07)
[2022-06-26] MEDS: Cholecalciferol (Vit D3) 125 MCG CAPSULE (5,000 UNITS) PO (08:07)
[2022-06-26] MEDS: Carvedilol 3.125 MG TABLET PO ×2 (08:07→22:17)
[2022-06-26] MEDS: amLODIPine 10 MG Tablet PO (08:07)
[2022-06-26] MEDS: Enoxaparin 30 MG/0.3 ML Syringe SC (08:08)
--- NOTE | 2022-06-26 08:15 | PN.ORTHO_ITS ---
Subjective Subjective Postadmission day 1 right wrist cellulitis. Patient is feeling quite a bit better today in terms of the pain is really settled down quite a lot. no subjective fevers or other symptoms. Objective Data Objective Data Vital Signs: Vital Signs Temp Pulse Resp BP Pulse Ox O2 Del Method 97.5 F L 68 18 121/70 H 94 Room Air 06/26/22 08:00 06/26/22 08:00 06/26/22 08:00 06/26/22 08:00 06/26/22 08:00 06/26/22 08:00 Oxygen Delivery Method Room Air Weight: 164 lb 8 oz Body Mass Index (BMI) 25.7 Intake & Output: Intake and Output for Last 24 Hours 06/24/22 06/25/22 06/26/22 23:59 23:59 23:59 Intake Total 590 / 590 50 / 50 Output Total 800 / 800 Balance 590 / -210 -750 / -750 Lab / Micro Data Attestation: I reviewed the patient's lab results. Result Diagrams: 06/26/22 04:35 06/26/22 04:35 Labs: Laboratory Results - last 24 hr 06/25/22 08:35: WBC 13.0 H, RBC 3.14 L, Hgb 10.1 L, Hct 30.0 L, MCV 95.5 H, MCH 32.2 H, MCHC 33.7, RDW Std Deviation 42.8, RDW Coeff of Sari 12.2, Plt Count 267, MPV 9.7, Immature Gran % (Auto) 0.600, Neut % (Auto) 77.2 H, Lymph % (Auto) 10.8 L, [place] % (Auto) 7.8, Eos % (Auto) 2.8, Baso % (Auto) 0.8, Absolute Neuts (auto) 10.1 H, Absolute Lymphs (auto) 1.40, Nucleated RBC % 0, ESR 13 06/25/22 08:35: Sodium 134 L, Potassium 4.0, Chloride 105, Carbon Dioxide 24.0, Anion Gap 5, BUN 29 H, Creatinine 2.17 H, Estim Creat Clear Calc 27.08, Est GFR (MDRD) Af Amer 38 L, Est GFR (MDRD) Non-Af 32 L, BUN/Creatinine Ratio 13.4, Glucose 109 H, Uric Acid 4.6, Calcium 9.3, C-React Prot Ext Range 5.33 H 06/25/22 12:25: Fluid Source Cancelled, Fluid Color Cancelled, Fluid Appearance Cancelled, Fluid WBC Cancelled, Fluid RBC Cancelled, Fluid Tot Cell Count Cancelled, Fld Polynuclear WBCs # Cancelled, Fld Polynuclear WBCs % Cancelled, Fluid Mononuclear WBCs Cancelled, Fld Mononuclear WBCs % Cancelled, Fluid Neutrophils Cancelled, Fluid Lymphocytes Cancelled, Fluid Monocytes Cancelled, Fluid Plasma Cells Cancelled, Fluid Macrophages Cancelled, Fld Mesothelial Cells Cancelled, Fluid Other Cells Cancelled, Fluid Crystals NO CRYSTALS SEEN, Fluid Crystal Source SYNOVIAL, Fl Crystal Path Review Will follow, Fl Pathologist Comment Cancelled, Fluid Comment 2 Cancelled, Synovial Source RT WRIST, Synovial Color Red, Synovial Appearance Hazy, Synovial Viscosity Sl. Viscous, Synovial WBC 32.4900 H, Synovial RBC 1.085 H, Synovial Tot Cell Ct 32.5850 H, Synovial Neutrophils 96 H, Synovial Lymphocytes 1, Synovial Monocytes 3, Synovial Path Comment May follow 06/26/22 04:35: WBC 9.7, RBC 3.29 L, Hgb 10.2 L, Hct 31.6 L, MCV 96.0 H, MCH 31.0, MCHC 32.3, RDW Std Deviation 43.1, RDW Coeff of Sari 12.2, Plt Count 255, MPV 9.9, Immature Gran % (Auto) 0.600, Neut % (Auto) 66.6, Lymph % (Auto) 19.2, [place] % (Auto) 10.1 H, Eos % (Auto) 2.8, Baso % (Auto) 0.7, Absolute Neuts (auto) 6.5, Absolute Lymphs (auto) 1.86, Nucleated RBC % 0 06/26/22 04:35: Sodium 134 L, Potassium 4.4, Chloride 105, Carbon Dioxide 23.0, Anion Gap 6, BUN 27 H, Creatinine 2.21 H, Estim Creat Clear Calc 26.59, Est GFR (MDRD) Af Amer 37 L, Est GFR (MDRD) Non-Af 31 L, BUN/Creatinine Ratio 12.2, Glucose 105, Calcium 9.9, Total Bilirubin 0.50, AST 12 L, ALT 19, Alkaline Phosphatase 106, Total Protein 7.0, Albumin 3.2, Globulin 3.8, Albumin/Globulin Ratio 0.8 L Micro: Microbiology 06/25/22 12:25 Fluid - Synovial (joint) Gram Stain - Final Gram stain shows no organisms trace inflammatory cells 4+ red blood cells Radiography Diagnostic Testing: Radiology Impression Wrist X-Ray 06/25/22 09:05 IMPRESSION: Soft tissue swelling. Electronically Signed: Ramo Little MD at 9:34 EDT , Physical Exam Const alert and oriented x3 General Appearance: cooperative Extremity Extremity Narrative: Right wrist shows diminished to no redness trace warmth more so toward the dorsum of the hand as well as slightly at the wrist range of motion of the wrist 20 degrees extension 45 degrees of flexion is slightly improved today. Hands warm and well-perfused. Some mild pain to palpation of the dorsum of the hand slightly at the wrist. Seems to have improved compared to last evening. Assessment & Plan Assessment/Plan (1) Cellulitis of right wrist: PLAN: 77 M postadmission day 1 right wrist seems to be a cellulitis. At this point given the negative Gram stain I have a lower suspicion of a septic wrist arthritis therefore we will continue to treat with IV antibiotics trend the inflammatory markers keep the patient in the hospital for least another 1 to 2 days with goal to transition to p.o. antibiotics and discharge home sometime over the weekend ideally. Would not recommend repeat aspiration or irrigation and debridement at this point but will still keep a close eye on things.
--- NOTE | 2022-06-26 09:10 | PCM.PSN.6M ---
PSN 6 Minute Walk Test Interpretation Interpretation: The patient ambulated 1011 feet over the course of 6 minutes beginning on room air without assistive devices. Pretesting oxygen saturation was noted to be 98% on room air. With ambulation, the aby oxygen saturation was 94%. There was no significant exertional oxygen desaturation. Recommendations Recommendations: There is no indication for the use of supplemental oxygen at this time.
--- NOTE | 2022-06-26 10:12 | CASEMGMT ---
"YULIANA HECK Assessment: Face to Face with pt for initial transition planning/care coordination assessment. RN UMANG introduced self and role at [facility], pt voices understanding and consents to assessment. Pt is A/O x4 and answers all questions appropriately at this time. Pt sitting up in bed in no distress. Care providers, pharmacy, and demographics verified/updated. Admitting Dx: arthritis of R wrist PCP:Tori Specialists:Everardo, onc; Yung, nephro; Misha, pulm; Yung, radiation onc [facility] Prescription Benefit: yes LNOK: Maria R De Jesus, niece; Leyla Enriquez, sister Living Arrangements: Pt lives alone in a single story home with 2 steps to enter without a rail. Pt reports he is I in ADL's and denies concerns at home. Transportation: Pt drives self and denies concerns with transportation. DME/HHC/SNF: Pt has a [employer] at home. He obtains his urostomy supplies through [employer]. Pt has had HHC in the past but is unsure of the name of the agency. Pt denies SNF stays. Pt states no concerns with going home at time of dc. Pt states no further concerns/needs. CM to follow. Advised pt to ask CM if any further question/concerns/needs arise, voices understanding. Pt Goal: Home Plan: Home"
[2022-06-26 10:24] LABS: Pathologist Review Reviewed
--- NOTE | 2022-06-26 12:44 | PCM.PN.HOSP ---
Reason for Visit Reason for Visit: Diagnoses Atherosclerotic heart disease of [place] coronary artery without angina pectoris (06/25/22) Cellulitis of right upper limb (06/25/22) Subjective Subjective Right hand feeling better, but still with difficulty extending right wrist. Swelling improved. Objective Data Objective Data Vital Signs: Vital Signs Temp Pulse Resp BP Pulse Ox O2 Del Method 36.4 C L 68 18 121/70 H 94 Room Air 06/26/22 08:00 06/26/22 08:00 06/26/22 08:00 06/26/22 08:00 06/26/22 08:00 06/26/22 08:00 Oxygen Delivery Method Room Air Weight: 74.616 kg Body Mass Index (BMI) 25.7 Intake & Output: Intake and Output for Last 24 Hours 06/24/22 06/25/22 06/26/22 23:59 23:59 23:59 Intake Total 590 / 590 100 / 100 Output Total 1500 / 1500 Balance 590 / -210 -1400 / -1400 Lab / Micro Data Result Diagrams: 06/26/22 04:35 06/26/22 04:35 Labs: Laboratory Results - last 24 hr 06/25/22 12:25: Fluid Source Cancelled, Fluid Color Cancelled, Fluid Appearance Cancelled, Fluid WBC Cancelled, Fluid RBC Cancelled, Fluid Tot Cell Count Cancelled, Fld Polynuclear WBCs # Cancelled, Fld Polynuclear WBCs % Cancelled, Fluid Mononuclear WBCs Cancelled, Fld Mononuclear WBCs % Cancelled, Fluid Neutrophils Cancelled, Fluid Lymphocytes Cancelled, Fluid Monocytes Cancelled, Fluid Plasma Cells Cancelled, Fluid Macrophages Cancelled, Fld Mesothelial Cells Cancelled, Fluid Other Cells Cancelled, Fluid Crystals NO CRYSTALS SEEN, Fluid Crystal Source SYNOVIAL, Fl Crystal Path Review Reviewed, Fl Pathologist Comment Cancelled, Fluid Comment 2 Cancelled, Synovial Source RT WRIST, Synovial Color Red, Synovial Appearance Hazy, Synovial Viscosity Sl. Viscous, Synovial WBC 32.4900 H, Synovial RBC 1.085 H, Synovial Tot Cell Ct 32.5850 H, Synovial Neutrophils 96 H, Synovial Lymphocytes 1, Synovial Monocytes 3, Synovial Path Comment May follow 06/26/22 04:35: WBC 9.7, RBC 3.29 L, Hgb 10.2 L, Hct 31.6 L, MCV 96.0 H, MCH 31.0, MCHC 32.3, RDW Std Deviation 43.1, RDW Coeff of Sari 12.2, Plt Count 255, MPV 9.9, Immature Gran % (Auto) 0.600, Neut % (Auto) 66.6, Lymph % (Auto) 19.2, [place] % (Auto) 10.1 H, Eos % (Auto) 2.8, Baso % (Auto) 0.7, Absolute Neuts (auto) 6.5, Absolute Lymphs (auto) 1.86, Nucleated RBC % 0 06/26/22 04:35: Sodium 134 L, Potassium 4.4, Chloride 105, Carbon Dioxide 23.0, Anion Gap 6, BUN 27 H, Creatinine 2.21 H, Estim Creat Clear Calc 26.59, Est GFR (MDRD) Af Amer 37 L, Est GFR (MDRD) Non-Af 31 L, BUN/Creatinine Ratio 12.2, Glucose 105, Calcium 9.9, Total Bilirubin 0.50, AST 12 L, ALT 19, Alkaline Phosphatase 106, Total Protein 7.0, Albumin 3.2, Globulin 3.8, Albumin/Globulin Ratio 0.8 L Micro: Microbiology 06/25/22 12:25 Fluid - Synovial (joint) Gram Stain - Final 06/25/22 12:25 Fluid - Synovial (joint) Body Fluid Culture - Preliminary No growth-Final to follow Physical Exam Const alert and no apparent distress HEENT head/scalp atraumatic Neck no lymphadenopathy Cardio regular rate Extremity Extremity Narrative: decreased edema on dorsum of right hand Neuro oriented x3 and moves all extremities Assessment & Plan Assessment/Plan (1) Cellulitis of right wrist: PLAN: Versus septic arthritis Patient received pip/tazo in ED. Will continue and add vancomycin Follow up cultures Orthopaedics on consult. YAKELIN Holman, no plans for surgery at this point. Continue to monitor. Check MRI hand Elevate hand (2) CAD (coronary artery disease): PLAN: s/p CHUYITA to OM1 on 04/03/22. He states he was taken off ASA and clopidogrel for 5 days for PET scan. Pt does not know if cardiology was aware. If surgery is needed, consider consulting cardiology to see if those medication could be held. Continue carvedilol, statin, clopidogrel ASA PLAN: Plan Chronic conditions: NSCLC (favor squamous cell): follow up with oncology. PET on 05/26 showed RLL. h/o bladder cancer. s/p cystectomy. ileostomy in place. HTN: stable. continue amlodipine VTE prophylaxis: LMWH Code Status: DW pt, FULL CODE. Charges/Coding Visit Charges Inpatient E&M: 40867 Subs Hosp L2
[2022-06-26 15:00] VITALS: BP 128/68; PULSE 68; RESP 18; TEMP 36.6; O2SAT 95
[2022-06-26] MEDS: Multivitamin (Healthy Eyes) Capsule 1 CAP PO (15:02)
[2022-06-26 20:00] VITALS: BP 135/76; PULSE 64; RESP 15; TEMP 36.7; O2SAT 96
[2022-06-26] MEDS: 0.9% Saline Lock 10 ML Syringe IV (22:17)
[2022-06-26] MEDS: Atorvastatin Calcium 40 MG Tablet PO (22:18)
[2022-06-27] MEDS: Acetaminophen 500 MG Tablet 1000 MG PO (05:04)
[2022-06-27 05:20] VITALS: BP 130/67; PULSE 68; RESP 15; TEMP 36.4; O2SAT 96
--- NOTE | 2022-06-27 07:54 | PN.HOSP_ITS ---
Reason for Visit Reason for Visit: Diagnoses Atherosclerotic heart disease of [place] coronary artery without angina pectoris (06/25/22) Cellulitis of right upper limb (06/25/22) Subjective Subjective Swelling on dorsum of right hand worse, but he is able to flex and extend his right wrist much easier and able to pinch better, but not back to normal yet. Objective Data Objective Data Vital Signs: Vital Signs Temp Pulse Resp BP Pulse Ox O2 Del Method 36.4 C L 68 15 130/67 H 96 Room Air 06/27/22 05:20 06/27/22 05:20 06/27/22 05:20 06/27/22 05:20 06/27/22 05:20 06/27/22 05:20 Oxygen Delivery Method Room Air Weight: 74.616 kg Body Mass Index (BMI) 25.7 Intake & Output: Intake and Output for Last 24 Hours 06/25/22 06/26/22 06/27/22 23:59 23:59 23:59 Intake Total 590 / 590 1015 / 1015 450 / 450 Output Total 2250 / 3250 1800 / 1800 Balance 590 / -210 -1235 / -2235 -1350 / -1350 Lab / Micro Data Result Diagrams: 06/26/22 04:35 06/26/22 04:35 Labs: Laboratory Results - last 24 hr 06/25/22 12:25: Fl Crystal Path Review Reviewed Micro: Microbiology 06/25/22 12:25 Fluid - Synovial (joint) Gram Stain - Final 06/25/22 12:25 Fluid - Synovial (joint) Body Fluid Culture - Preliminary No growth-Final to follow Radiography Diagnostic Testing: Radiology Impression Upper Extremity MRI 06/25/22 17:57 IMPRESSION: Next item no evidence of osteomyelitis. Abnormality at the articulation of the greater multangular with the base of the first metacarpal. This is likely due to osteoarthritis. Septic arthritis should be considered less likely given absence of marrow edema. Synovial cyst versus fluid and synovial recess anterior to the articulation of the ulna with a triquetral. Subcutaneous edema consistent with cellulitis most prominent laterally in the carpal and metacarpal region and to a lesser degree medially. Electronically Signed: Candido Collins MD, JANETH at 16:40 EDT , Physical Exam Const alert and no apparent distress HEENT head/scalp atraumatic Extremity Extremity Narrative: right hand with non-pitting edema. less TTP over right wrist. Assessment & Plan Assessment/Plan (1) Cellulitis of right wrist: PLAN: less likely septic arthritis s/p arthrocentesis in ED on 06/25 Patient received pip/tazo in ED. Will continue and add vancomycin Follow up cultures, thus far negative Orthopaedics on consult. DW Dr. Holman, no plans for surgery at this point. Continue to monitor. MRI hand: no OM. 1st MCP OA, less likely septic arthritis. Synovial cyst v fluid and synovail recess. SQ edema cw cellulitis Elevate hand (2) CAD (coronary artery disease): PLAN: s/p CHUYITA to OM1 on 04/03/22. He states he was taken off ASA and clopidogrel for 5 days for PET scan. Pt does not know if cardiology was aware. If surgery is needed, consider consulting cardiology to see if those medication could be held. Continue carvedilol, statin, clopidogrel ASA PLAN: Plan Chronic conditions: * NSCLC (favor squamous cell): follow up with oncology. PET on 05/26 showed RLL. * h/o bladder cancer. s/p cystectomy. ileostomy in place. * HTN: stable. continue amlodipine VTE prophylaxis: LMWH Code Status: DW pt, FULL CODE. DC home with oral abx.
[2022-06-27] MEDS: oxyCODONE 5 MG Tablet PO (08:11)
[2022-06-27] MEDS: Carvedilol 3.125 MG TABLET PO (08:12)
[2022-06-27] MEDS: Cholecalciferol (Vit D3) 125 MCG CAPSULE (5,000 UNITS) PO (08:12)
[2022-06-27] MEDS: Multivitamin (Healthy Eyes) Capsule 1 CAP PO (08:12)
[2022-06-27] MEDS: Aspirin E.C. 81 MG Tablet PO (08:12)
[2022-06-27] MEDS: Enoxaparin 30 MG/0.3 ML Syringe SC (08:12)
[2022-06-27] MEDS: Clopidogrel Bisulfate 75 MG Tablet PO (08:12)
[2022-06-27] MEDS: Multivitamins,Therapeutic Tablet 1 TABLET PO (08:13)
[2022-06-27] MEDS: amLODIPine 10 MG Tablet PO (08:13)
[2022-06-27 08:26] VITALS: BP 128/62; PULSE 72; RESP 16; TEMP 36.4; O2SAT 97
--- NOTE | 2022-06-27 09:25 | PCM.DC ---
Discharge Instructions Diet Discharge Diet: Low fat / Low cholesterol Activity Discharge Activity: Return to Normal Activity Weight Bearing Status: Weight bearing as tolerated (to right wrist) Dressing / Incision Call your doctor if your incision/area has: Increased Redness Call your doctor if you observe: Fever of 101 or Higher and - (increased pain and swelling of right wrist and hand. ) Follow Up Care Test Results: Test results from this visit will be discussed in further detail at your follow-up appointment, if applicable. Discharge Plan Admission Admit Date/Time: 06/25/22 17:36 Primary Reason for Your Visit: right hand cellulitis Attending Provider: Blake Bravo Primary Care Provider: Candido Valle Consulting Providers: Jordan Holman Instructions Additional Instructions / Restrictions: You had right hand cellulitis. You had an arthrocentesis (needle aspiration) of your right wrist. The cultures were negative. Keep you right hand elevated when you are at rest and ice as needed. Notify a physician or return to the ED if it gets worse. Discharge Orders/Prescriptions Prescriptions: New acetaminophen 500 mg Tablet 1,000 mg PO Q8 Qty: 0 0RF oxycodone 5 mg Tablet 5 mg PO Q6H PRN PRN (Reason: Pain Score 4-10) 3 Days Qty: 12 0RF doxycycline monohydrate 100 mg capsule 100 mg PO BID Qty: 14 0RF Continued multivitamin [Daily Multi-Vitamin] tablet 1 tab PO DAILY carvedilol 3.125 mg tablet 3.125 mg PO BID Qty: 180 3RF atorvastatin 40 mg tablet 40 mg PO QHS Qty: 90 3RF aspirin 81 mg tablet,delayed release (DR/EC) 81 mg PO DAILY Qty: 90 3RF clopidogrel [Plavix] 75 mg tablet 75 mg PO DAILY Qty: 90 3RF PreserVision AREDS-2 250-90-40-1 mg Capsule 1 tab PO BID cholecalciferol (vitamin D3) 250 mcg (10,000 unit) Tablet 250 mcg PO DAILY amlodipine 10 MG tablet 10 mg PO DAILY Referrals / Follow Up: Candido Valle MD [Primary Care Provider] - Within 2 Weeks Disposition Disposition (needs filled in before D/C Order can be placed): Home, Self Care
--- NOTE | 2022-06-27 09:44 | DS.PCM_ITS ---
Providers Date of Admission: 06/25/22 Primary Care Physician: Dr. Candido Valle MD Consultations 06/25/22 17:57 Consult: Orthopedics Routine Consulting Provider: Jordan Holman Reason for Consult: right wrist septic arthritis EMERGENT Consult: No MD Notified: Yes Date Notified: 06/25/22 Time Notified: 17:40 Method of Notification: ED Physician Initiated Reason For Visit: ARTHRITIS OF RT WRIST Diagnosis Discharge Diagnosis (1) Cellulitis of right wrist: Status: Acute Code(s): L03.113 - Cellulitis of right upper limb Plan: less likely septic arthritis s/p arthrocentesis in ED on 06/25 Patient received pip/tazo in ED. Will continue and add vancomycin Follow up cultures, thus far negative Orthopaedics on consult. DW Dr. Holman, [place] plans for surgery at this point. Continue to monitor. MRI hand: no OM. 1st MCP OA, less likely septic arthritis. Synovial cyst v fluid and synovail recess. SQ edema cw cellulitis Elevate hand (2) CAD (coronary artery disease): Status: Acute Code(s): I25.10 - Atherosclerotic heart disease of [place] coronary artery without angina pectoris Plan: s/p CHUYITA to OM1 on 04/03/22. He states he was taken off ASA and clopidogrel for 5 days for PET scan. Pt does not know if cardiology was aware. If surgery is needed, consider consulting cardiology to see if those medication could be held. Continue carvedilol, statin, clopidogrel ASA Plan Chronic conditions: * NSCLC (favor squamous cell): follow up with oncology. PET on 05/26 showed RLL. * h/o bladder cancer. s/p cystectomy. ileostomy in place. * HTN: stable. continue amlodipine VTE prophylaxis: LMWH Code Status: DW pt, FULL CODE. DC home with oral abx. Medications at Discharge Home Medications multivitamin (Daily Multi-Vitamin tablet) 1 tab PO DAILY SUPPLEMENT 08/30/17 amlodipine 10 mg tablet 10 mg PO DAILY BP 04/01/22 cholecalciferol (vitamin D3) 250 mcg (10,000 unit) tablet 250 mcg PO DAILY SUPPLEMENT 04/01/22 vit C 250 mg-vit E 90 mg-zinc 40 mg-copper 1 [id number] capsule (PreserVision AREDS-2) 1 tab PO BID EYE HEALTH 04/01/22 atorvastatin 40 mg tablet 40 mg PO QHS #90 tabs 04/21/22 carvedilol 3.125 mg tablet 3.125 mg PO BID #180 tabs 04/21/22 aspirin 81 mg tablet,delayed release 81 mg PO DAILY #90 tabs 05/18/22 clopidogrel 75 mg tablet (Plavix) 75 mg PO DAILY #90 tabs 05/18/22 acetaminophen 500 mg tablet 1,000 mg PO Q8 #0 tabs 06/27/22 doxycycline monohydrate 100 mg capsule 100 mg PO BID #14 caps 06/27/22 oxycodone 5 mg tablet 5 mg PO Q6H PRN PRN Pain Score 4-10 3 days #12 tabs 06/27/22 Hospital Course Operations None Procedures None Summary of Care Provided Minutes Spent on Discharge: 32 Hospital Course: Patient presents with right hand pain and wrist pain. Concern was for septic arthritis patient did undergo an arthrocentesis. The cyst showed a white count of 32,000. Orthopedics was consulted and was thinking that this is more cellulitis. Cultures are thus far negative. Patient did undergo an MRI that did show cellulitis as well as arthritis but not concerning for septic arthritis. Patient overall has been doing well with the antibiotics of vancomycin and piperacillin/tazobactam. Patient will be discharged today to complete a course of doxycycline and advised to return if his pain and wrist to get worse. Weight / BMI Weight Weight: 74.616 kg Body Mass Index (BMI) 25.7 ABG / Lab / Microbiology Data Result Diagrams: 06/26/22 04:35 06/26/22 04:35 Laboratory: Laboratory Results - last 24 hr 06/25/22 12:25: Fl Crystal Path Review Reviewed Microbiology: Microbiology 06/25/22 12:25 Fluid - Synovial (joint) Gram Stain - Final 06/25/22 12:25 Fluid - Synovial (joint) Body Fluid Culture - Preliminary No growth-Final to follow Radiography Diagnostic Testing: Radiology Impression Upper Extremity MRI 06/25/22 17:57 IMPRESSION: Next item no evidence of osteomyelitis. Abnormality at the articulation of the greater multangular with the base of the first metacarpal. This is likely due to osteoarthritis. Septic arthritis should be considered less likely given absence of marrow edema. Synovial cyst versus fluid and synovial recess anterior to the articulation of the ulna with a triquetral. Subcutaneous edema consistent with cellulitis most prominent laterally in the carpal and metacarpal region and to a lesser degree medially. Electronically Signed: Candido Collins MD, JANETH at 16:40 EDT Reading Location ID and State: [facility] / [place] Tel , Service support , D/C Instructions Discharge Diet: Low fat / Low cholesterol Weight Bearing Status: Weight bearing as tolerated (to right wrist) Call your doctor if your incision/area has: Increased Redness Call your doctor if you observe: Fever of 101 or Higher and - (increased pain and swelling of right wrist and hand. ) Meaningful Use Info Meaningful Use Diagnoses (Choose all that apply): None applicable Discharge Plan Admission Admit Date/Time: 06/25/22 17:36 Primary Reason for Your Visit: right hand cellulitis Attending Provider: Blake Bravo Primary Care Provider: Candido Valle Consulting Providers: Jordan Holman Instructions Additional Instructions / Restrictions: You had right hand cellulitis. You had an arthrocentesis (needle aspiration) of your right wrist. The cultures were negative. Keep you right hand elevated when you are at rest and ice as needed. Notify a physician or return to the ED if it gets worse. Discharge Orders/Prescriptions Prescriptions: New acetaminophen 500 mg Tablet 1,000 mg PO Q8 Qty: 0 0RF oxycodone 5 mg Tablet 5 mg PO Q6H PRN PRN (Reason: Pain Score 4-10) 3 Days Qty: 12 0RF doxycycline monohydrate 100 mg capsule 100 mg PO BID Qty: 14 0RF Continued multivitamin [Daily Multi-Vitamin] tablet 1 tab PO DAILY carvedilol 3.125 mg tablet 3.125 mg PO BID Qty: 180 3RF atorvastatin 40 mg tablet 40 mg PO QHS Qty: 90 3RF aspirin 81 mg tablet,delayed release (DR/EC) 81 mg PO DAILY Qty: 90 3RF clopidogrel [Plavix] 75 mg tablet 75 mg PO DAILY Qty: 90 3RF PreserVision AREDS-2 250-90-40-1 mg Capsule 1 tab PO BID cholecalciferol (vitamin D3) 250 mcg (10,000 unit) Tablet 250 mcg PO DAILY amlodipine 10 MG tablet 10 mg PO DAILY Referrals / Follow Up: Candido aVlle MD [Primary Care Provider] - Within 2 Weeks Disposition Disposition (needs filled in before D/C Order can be placed): Home, Self Care Charges/Coding Visit Charges Inpatient E&M: 53821 Disch Hosp >30min
--- NOTE | 2022-06-27 13:14 | PCM.PN.ORT ---
Subjective Subjective PAD 2 wrist infection. Feels a bit better today, more ROM. Objective Data Objective Data less redness and warmth today of the wrist, slightly greater ROM Vital Signs: Vital Signs Temp Pulse Resp BP Pulse Ox O2 Del Method 97.5 F L 72 16 128/62 H 97 Room Air 06/27/22 08:26 06/27/22 08:26 06/27/22 08:26 06/27/22 08:26 06/27/22 08:26 06/27/22 08:26 Oxygen Delivery Method Room Air Weight: 164 lb 8 oz Body Mass Index (BMI) 25.7 Intake & Output: Intake and Output for Last 24 Hours 06/25/22 06/26/22 06/27/22 23:59 23:59 23:59 Intake Total 590 / 590 1015 / 1015 500 / 500 Output Total 2250 / 3250 1800 / 1800 Balance 590 / -210 -1235 / -2235 -1300 / -1300 Lab / Micro Data Attestation: I reviewed the patient's lab results. Result Diagrams: 06/26/22 04:35 06/26/22 04:35 Micro: Microbiology 06/25/22 12:25 Fluid - Synovial (joint) Gram Stain - Final 06/25/22 12:25 Fluid - Synovial (joint) Body Fluid Culture - Preliminary No growth-Final to follow Radiography Diagnostic Testing: Radiology Impression Upper Extremity MRI 06/25/22 17:57 IMPRESSION: Next item no evidence of osteomyelitis. Abnormality at the articulation of the greater multangular with the base of the first metacarpal. This is likely due to osteoarthritis. Septic arthritis should be considered less likely given absence of marrow edema. Synovial cyst versus fluid and synovial recess anterior to the articulation of the ulna with a triquetral. Subcutaneous edema consistent with cellulitis most prominent laterally in the carpal and metacarpal region and to a lesser degree medially. Electronically Signed: Candido Collins MD, JAENTH at 16:40 EDT , Agree, no strong suspicion of septic arthritis Assessment & Plan Assessment/Plan (1) Cellulitis of right hand: PLAN: 77 M right wrist resolving infection. Agree with discharge plan, FU 3-5 days in clinic, outpatient antibiotics. Patient understands, no further questions or concerns.
== END 2022-06-27 11:15 | disposition home or self-care (01) | DRG 603 ==
LOC: ED 16:08 → MS3 17:45
PROVIDERS: Emergency Provider Emergency Medicine; PCP Family Medicine
DX: L03.113 Cellulitis of right upper limb (principal); Z93.2 Ileostomy status; J44.9 Chronic obstructive pulmonary disease, unspecified; Z90.6 Acquired absence of other parts of urinary tract; F17.210 Nicotine dependence, cigarettes, uncomplicated; N18.9 Chronic kidney disease, unspecified; I25.10 Atherosclerotic heart disease of native coronary artery without angina pectoris; M19.031 Primary osteoarthritis, right wrist; I12.9 Hypertensive chronic kidney disease with stage 1 through stage 4 chronic kidney disease, or unspecified chronic kidney disease; Z79.82 Long term (current) use of aspirin; Z79.02 Long term (current) use of antithrombotics/antiplatelets; Z79.899 Other long term (current) drug therapy; Z95.5 Presence of coronary angioplasty implant and graft; Z85.51 Personal history of malignant neoplasm of bladder
CPT/HCPCS: 20605; 36415; 73110; 73218; 80048; 80053; 84550; 85025; 85652; 86140; 87070; 87075; 87205; 89050; 89051; 89060; 94618; 96365; 96366; 96367; 96372; 96375; 96376; 99221; 99285; J7040; J7050; A4216; G0378

== ENCOUNTER → 2022-06-25 | Outpatient (CLI) | payer MEDICARE, SELFPAY ==
[2022-06-25 08:22] VITALS: PULSE 101; PULSE 106; PULSE 81; PULSE 86; PULSE 90; PULSE 92; PULSE 96; O2SAT 94; O2SAT 96; O2SAT 97; O2SAT 98
== END | disposition home or self-care (01) ==
LOC: PSN 07:56
PROVIDERS: PCP Family Medicine; Referring Provider Internal Medicine Critical Care Medicine; Visit Provider Internal Medicine Critical Care Medicine
DX: F17.210 Nicotine dependence, cigarettes, uncomplicated (principal)
CPT/HCPCS: 94618

== ENCOUNTER → 2022-11-24 | Outpatient (CLI) | payer MEDICARE, SELFPAY ==
--- NOTE | 2022-11-24 08:00 | PET_ITS ---
EXAMINATION: FDG PET-CT INDICATIONS: A 77-year-old male with history of primary lung carcinoma presenting for restaging examination. COMPARISON EXAMINATION: FDG PET study dated 05/26/22 INDEX LESION SIZE SUV INTERPRETATION PREVIOUS: right lower lung field, right lower lobe Demonstrates metabolic resolution on the current examination NON-INDEX LESION SIZE SUV INTERPRETATION NEW: subcutaneous fat 3.3 (max) Warrants further investigation with clinical examination TECHNIQUE: Following the intravenous administration of 13.37 mCi of F-18 deoxyglucose via the right antecubital fossa, multiplanar image acquisitions of the neck, chest, abdomen and pelvis to level of mid thigh, obtained at one hour post radiopharmaceutical administration contemporaneously interpreted with the current CT of the neck, chest, abdomen and pelvis, to level of mid thigh, dated 11/24/22 via coregistration and prior FDG PET study dated 05/26/22 reveals: BLOOD GLUCOSE LEVEL:?? 142 mg/dl?HEIGHT:?68 inches?WEIGHT: 159 lbs. FINDINGS: Head/Neck: There is no evidence of abnormal increased glucose metabolism in the pharyngeal mucosal space, parapharyngeal space, bilateral-lateral and anterior neck, hypopharynx and distribution of the laryngeal structures. The visualized portion of the cerebral cortical-subcortical structures demonstrate symmetric and preserved glucose metabolism. CHEST: There is no quantitative scintigraphic evidence of abnormal increased glucose metabolism within the context of the bilateral hemithorax pulmonary parenchyma, right and left hemithorax pleural interface, mediastinal structures and right-left thoracic perihilum. Prominent radiopharmaceutical concentration is identified in the left ventricular myocardium commensurate with the [place]. The prior defined right lower lung field, right lower lobe hypermetabolic focus is not apparent on the current examination. Facilitated uptake is noted in the left anterior chest wall associated with ventricular pacemaker placement. There is a right hemithorax pleural effusion which demonstrates no evidence of increased tracer uptake. Previously defined morphologic-anatomic changes noted on review of CT of the chest dated 05/26/22, are essentially unchanged on the current examination. Abdomen/Pelvis: Normal physiologic distribution of the radiopharmaceutical is apparent in the hepatic and splenic parenchyma, both renal units, and visualized intestinal tract. A urinary diversion-ileal conduit is redefined. The ostomy is demonstrated in the right hemipelvic anterior wall. Review of CT of the abdomen and pelvis dated 05/26/22 demonstrates no significant interval change. Skeletal/INTEGUMENTARY: Degenerative changes are noted in the cervical, thoracic and lumbar spine without evidence of increased radiopharmaceutical concentration. Facilitated radiopharmaceutical concentration is noted in several locations in the subcutaneous fat with a calculated maximal standard uptake value of 3.3. Correlation with clinical examination is recommended. PET/PET/CT Tumor WB Subs IMPRESSION: 1. NEGATIVE EXAMINATION. There is no definitive quantitative scintigraphic evidence of recurrent-metastatic primary lung neoplasm. 2. Enhanced tracer uptake noted in the subcutaneous fat in several locations warrant further clinical investigation secondary to the quantitative degree of uptake. 3. There is interim metabolic resolution of the prior defined right lower lung field, right lower lobe hypermetabolic focus. 4. Overall, compared to the prior FDG PET study dated 05/26/22, there is current absence of defined viable neoplastic disease. Electronic Signature Sam Briggs D.O. Accurate Quantification of SUVs for this report are calculated using the exclusive [employer], ([place]. Patent No. [id number] [id number] [phone] [place] patent [id number] [id number] ). Standardization and correction of the FDG SUV metric exclusively available with [employer] intellectual property, allow for vendor non-specific objective quantitative sequential FDG PET-CT comparison and otherwise unobtainable optimization of the sensitivity and specificity of the examination. [email or web address] Electronically Signed: Sam Birggs DO at 20:52 EDT ,
== END | disposition home or self-care (01) ==
LOC: ONC 07:44
PROVIDERS: PCP Family Medicine; Referring Provider Internal Medicine Hematology & Oncology; Visit Provider Internal Medicine Hematology & Oncology
DX: C34.31 Malignant neoplasm of lower lobe, right bronchus or lung (principal)
CPT/HCPCS: 78816; A9552

== ENCOUNTER 2022-11-27 12:17 | Emergency (ER) | payer MEDICARE, SELFPAY ==
[2022-11-27 12:18] VITALS: BP 118/61; PULSE 75; RESP 20; TEMP 36.6; O2SAT 97; BMI 25.6
[2022-11-27 12:20] VITALS: O2SAT 98
--- NOTE | 2022-11-27 12:40 | EKG12_ITS ---
Test Reason : SOB Blood Pressure : / mmHG Vent. Rate : 086 BPM Atrial Rate : 086 BPM P-R Int : 266 ms QRS Dur : 116 ms QT Int : 372 ms P-R-T Axes : -19 065 024 degrees QTc Int : 445 ms Sinus rhythm with 1st degree A-V block Right bundle branch block Abnormal ECG Confirmed by STEPHANE QUINTERO, JOSE ([id number]), associate editor FILI AGARWAL ([id number]) on 11/30/2022 10:51:35 AM Referred By: Confirmed By:ONEIL CALDERÓN MD
[2022-11-27 13:00] LABS: Absolute Lymphocyte Count 0.81 X10^3/uL (0.83-4.51); Absolute Neutrophil Count 6.3 X10^3/uL (2.0-7.7); Basophil# 0.05 X10^3/uL; Basophil% 0.6 % (0-1); Eosinophil# 0.01 X10^3/uL; Eosinophils% 0.1 % (0-5); Hematocrit 26.1 % (40-54); Hemoglobin 8.9 g/dL (13.0-16.5); Lymphocyte # 0.81 X10^3/ul (0.83-4.51); Lymphocyte % 9.9 % (19-41); Mean Corp Hgb Conc 34.1 g/dL (32-36); Mean Corpuscular Hgb 31.7 pg (27.0-32.0); Mean Corpuscular Volume 92.9 fL (80-94); Mean Platelet Vol. 9.5 fl (6.2-12.0); Monocyte# 0.98 X10^3/uL; Monocyte% 11.9 % (0-10); NRBC Flagged by Analyzer 0 % (0-5); Neutrophil # 6.32 X10^3/uL (2.7-7.7); Neutrophil % 76.9 % (47-70); Platelet Count 265 K/mm3 (150-450); RBC Distribution Width CV 12.4 % (11.6-14.6); RBC Distribution Width SD 42.1 fl (35.1-43.9); Red Blood Count 2.81 M/mm3 (4.6-6.2); White Blood Count 8.2 K/mm3 (4.4-11.0)
[2022-11-27 13:08] LABS: Anion Gap 9 (5-15); BUN 40 mg/dL (7-18); BUN/Creat Ratio 20.3 RATIO (10-20); Calcium,Total 9.2 mg/dL (8.5-10.1); Chloride 98 mmol/L (98-107); Creatinine, Serum 1.97 mg/dL (0.70-1.30); EST Glomerular Filtration Rate 35 mL/min (>60); Est Glom Filt Rate - Afr Amer 43 mL/min (>60); Estimated Creatinine Clearance 29.83 ml/min; Glucose 113 mg/dL (74-106); Sodium Level 129 mmol/L (136-145)
--- NOTE | 2022-11-27 14:20 | EX.ED.DYSGE1 ---
HPI History of Present Illness Chief Complaint: Shortness of Breath Detail of Chief Complaint: Multiple symptoms Informant: patient Onset/Context/Timing Onset: Weeks Context: Gradual Onset Timing: Continuous Quality: Does have been present since lobectomy. Location: Respiratory, cardiac and urologic Current Severity: Per HPI narrative Maximum Severity: Per HPI narrative Worsened by: Nothing that patient is aware of Relieved by: Nothing Associated Symptoms Associated Symptoms: No new symptoms since surgery Narrative Narrative: It is a 77-year-old male who presents because of blood in his urostomy bag. He is on apixaban for atrial fibrillation. He had a recent pacemaker placed at [facility]. 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 He denies fever, chills night sweats. He denies headache. He denies visual, ocular auditory symptoms. He denies cough. Does have shortness of breath. He said shortness of breath since surgery. He denies black or maroon-colored stool. He has a urostomy due to bladder cancer that was operated on several years ago. He denies orthopnea, PND, dyspnea on exertion. 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 Bladder cancer Bladder cancer CAD (coronary artery disease) Cancer Cellulitis of right wrist Chest pain Chronic indwelling Ricketts catheter Chronic renal insufficiency CKD (chronic kidney disease) COPD (chronic obstructive pulmonary disease) COPD (chronic obstructive pulmonary disease) Essential hypertension History of ETOH abuse History of ETOH abuse Hydronephrosis Hydronephrosis Hypertension Hyponatremia Kidney disease Kidney stones Myocardial infarct NSTEMI (non-ST elevated myocardial infarction) Paroxysmal SVT (supraventricular tachycardia) Presence of stent in coronary artery (~04/03/22) Prostate cancer Prostate cancer Smoker Tobacco use Tobacco use Home Medications multivitamin (Daily Multi-Vitamin tablet) 1 tab PO DAILY SUPPLEMENT 08/30/17 [History Last Taken 03/31/22] amlodipine 10 mg tablet 10 mg PO DAILY BP 04/01/22 [History Last Taken 03/31/22] cholecalciferol (vitamin D3) 250 mcg (10,000 unit) tablet 250 mcg PO DAILY SUPPLEMENT 04/01/22 [History Last Taken 03/31/22] vit C 250 mg-vit E 90 mg-zinc 40 mg-copper 1 [id number] capsule (PreserVision AREDS-2) 1 tab PO BID EYE HEALTH 04/01/22 [History Last Taken 03/31/22] atorvastatin 40 mg tablet 40 mg PO QHS #90 tabs 04/21/22 [Rx Last Taken Unknown] carvedilol 3.125 mg tablet 3.125 mg PO BID #180 tabs 04/21/22 [Rx Last Taken Unknown] clopidogrel 75 mg tablet (Plavix) 75 mg PO DAILY #90 tabs 05/18/22 [Rx Last Taken 05/20/22] acetaminophen 500 mg tablet 1,000 mg (2 x 500 mg) PO Q8 #0 tabs 06/27/22 [Rx Last Taken Unknown] oxycodone 5 mg tablet 5 mg PO Q6H PRN PRN Pain Score 4-10 3 days #12 tabs 06/27/22 [Rx Last Taken Unknown] Balance of Nature fruit/veg PO 07/08/22 [History Last Taken Unknown] apixaban 5 mg tablet (Eliquis) 5 mg PO BID #180 tabs 11/09/22 [Rx Last Taken Unknown] Allergy/AdvReac Type Severity Reaction Status Date / Time ciprofloxacin [From Cipro] Allergy Intermediate Hives Verified 08/26/22 09:56 metronidazole [From Flagyl] Allergy Rash Verified 08/26/22 09:56 Family History Mother Hypertension Surgical History History of bladder surgery History of carpal tunnel surgery History of circumcision History of coronary artery stent placement History of foot surgery History of tonsillectomy and adenoidectomy History of transurethral resection of prostate History of urostomy Presence of coronary angioplasty implant and graft (~04/03/22) S/P PTCA (percutaneous transluminal coronary angioplasty) S/P radical cystoprostatectomy Social History Smoking Status: Former smoker alcohol intake: current details: occasional substance use type: does not use ROS ROS ED Constitutional Constitutional ED: Denies chills, fever(s), subjective, sweats or weight loss Eyes Eyes: Denies blurry vision, change in vision or diplopia ENT ENT ED: Denies ear pain, rhinorrhea or sore throat Cardiovascular Cardiovascular: Denies chest pain, orthopnea, palpitations, paroxysmal nocturnal dyspnea or racing heartbeat Respiratory/Chest Respiratory/Chest: Reports dyspnea; Denies cough, orthopnea or paroxysmal nocturnal dyspnea Gastrointestinal Gastrointestinal: Denies abdominal pain, melena, nausea or vomiting Genitourinary Genitourinary ED: Reports hematuria; Denies dysuria or urinary frequency Musculoskeletal Musculoskeletal: Denies arthralgias or myalgias Integumentary Denies abscess or Abrasions Neurologic Neurologic: Reports weakness Psychiatric Psychiatric: Reports anxiety Endocrine Endocrinology: Denies cold intolerance or heat intolerance Hematologic/Lymphatic Hematologic/Lymphatic: Reports anemia, easy bleeding and easy bruising EXAM Physical Exam Const Vital Signs: 11/27/22 12:18 11/27/22 12:20 Temperature 97.8 F Temperature Source Oral Pulse Rate 75 Respiratory Rate 20 H Respiratory Effort Short of Breath Respiratory Depth Normal Respiratory Pattern Normal Blood Pressure 118/61 Blood Pressure Mean 80 Pulse Ox 97 Oxygen Delivery Method Room Air Room Air Positive well nourished and well developed General Appearance ED: well developed, NAD and pallor; Negative for cyanotic or diaphoretic HEENT Reports moist mucous membranes HEENT Narrative: Is atraumatic normocephalic. Ears are normal. TMs are normal. Nares are patent. Posterior pharynx is Eyes PERRL and EOMs intact bilaterally General Eye ED: Yes pale conjunctiva; Negative for scleral icterus Neck no lymphadenopathy, supple and no JVD Chest Wall inspection of chest normal and palpation of chest normal Chest Narrative: There are 2 Port sites posterior right lung field secondary to lobectomy. Resp normal respiratory effort Auscultation: diminished lung sounds right lower Cardio regular rate, regular rhythm, S1 normal heart sound, S2 normal heart sound and no murmurs GI normal to inspection, nondistended, normoactive bowel sounds, non-tender, non-distended and no masses; Negative for hepatosplenomegaly GI Narrative: Does have a urostomy bag noted right side. Stoma appears normal. There is blood in the urine. This was not sent for culture since it is a contaminated specimen. Back/Spine no CVA tenderness Thoracic Spine / Upper Back: Negative for thoracic spinal tenderness Lumbar Spine / Lower Back: Negative for lumbar spinal tenderness Extremity normal to inspection General Extremety ED: Negative for edema or tenderness General Extremity: Negative for edema Neuro oriented x3, CN's II-XII intact bilaterally and no sensory deficits noted Sensorium / Orientation: alert Motor Exam: strength 5/5 throughout Skin no rashes or lesions noted, no wounds and No skin turgor normal General Skin Exam: pallor; Negative for jaundice MDM MDM MDM Narrative Medical decision making narrative: Clinically patient appears anemic. We will compare to prior H&H. An EKG to determine rhythm and to rule out ischemia. Coags were not obtained since he is on apixaban PT/INR PTT results are of no value. History & Record Review Additional record(s) reviewed:: Prior outpatient record, Prior ED visit and Prior labs Lab Data Attestation: I reviewed the patient's lab results. Lab results narrative: White count is normal. Patient is anemic with normal indices. H&H 896 point. Electrolyte panel was elevated BUN and creatinine of 40 and 1.97 respectively she is approximately 20-1. Sodium is 129. He has history of hyponatremia. He has a history of elevated creatinine. Patient's hemoglobin is down approxi-1 g. In light of the surgical procedures he has had within the past 1 to 2 months this is not surprising. His creatinine is at baseline BUN is slightly elevated compared to prior. This may represent mild dehydration. Labs: Laboratory Results - last 24 hr 11/27/22 12:33 WBC 8.2 RBC 2.81 L Hgb 8.9 L Hct 26.1 L MCV 92.9 MCH 31.7 MCHC 34.1 RDW Std Deviation 42.1 RDW Coeff of Sari 12.4 Plt Count 265 MPV 9.5 Immature Gran % (Auto) 0.600 Neut % (Auto) 76.9 H Lymph % (Auto) 9.9 L [place] % (Auto) 11.9 H Eos % (Auto) 0.1 Baso % (Auto) 0.6 Absolute Neuts (auto) 6.3 Absolute Lymphs (auto) 0.81 L Nucleated RBC % 0 Sodium 129 L Potassium 4.0 Chloride 98 Carbon Dioxide 22.0 Anion Gap 9 BUN 40 H Creatinine 1.97 H Estim Creat Clear Calc 29.83 Est GFR (MDRD) Af Amer 43 L Est GFR (MDRD) Non-Af 35 L BUN/Creatinine Ratio 20.3 H Glucose 113 H Calcium 9.2 EKG Initial EKG: Attestation: I personally reviewed and interpreted this EKG as follows: Interpretation: Sinus Rhythm (Sinus rhythm 86 with a first-degree AV block. [place] interval is 236 ms. Cures duration is 116 ms and there is evidence of RR prime and consistent with a bundle branch block. Posterior 72 ms. [place] is to the right ) Treatment and Re-Evaluation :: Form the reason he has blood in his urine is because he is on anticoagulant. He is also on antiplatelet. Does need to be continued cannot be discontinued. Since he has only minimal red tinge to his urine this can be followed. At this point in my opinion patient does not meet criteria for admission to the hospital. Discharge Plan Triage Chief Complaint: Shortness of Breath Other Complaint: Complaint ED Provider: Real Smith Dx/Rx/DC Orders Clinical Impression: Hematuria, Atherosclerotic heart disease of [place] coronary artery without angina pectoris, COPD (chronic obstructive pulmonary disease), Chronic hyponatremia, Anemia, unspecified, History of lobectomy of lung Instructions: ED Anemia, Type Not Specified (Adult), ED Hematuria, ED Hyponatremia Prescriptions: No Action multivitamin [Daily Multi-Vitamin] tablet 1 tab PO DAILY carvedilol 3.125 mg tablet 3.125 mg PO BID Qty: 180 3RF atorvastatin 40 mg tablet 40 mg PO QHS Qty: 90 3RF clopidogrel [Plavix] 75 mg tablet 75 mg PO DAILY Qty: 90 3RF Balance of Nature fruit/veg PO PreserVision AREDS-2 250-90-40-1 mg Capsule 1 tab PO BID cholecalciferol (vitamin D3) 250 mcg (10,000 unit) Tablet 250 mcg PO DAILY amlodipine 10 MG tablet 10 mg PO DAILY acetaminophen 500 mg Tablet 1,000 mg PO Q8 Qty: 0 0RF oxycodone 5 mg Tablet 5 mg PO Q6H PRN PRN (Reason: Pain Score 4-10) 3 Days Qty: 12 0RF Eliquis 5 mg tablet 5 mg PO BID Qty: 180 3RF Primary Care Provider: Candido Valle Referrals: Candido Valle MD [Primary Care Provider] - 3-5 Days Disposition Disposition: Home, Self Care
[2022-11-27 15:08] VITALS: BP 129/62; PULSE 82; RESP 18; O2SAT 95
== END 2022-11-27 15:14 | disposition home or self-care (01) ==
PROVIDERS: Emergency Provider Emergency Medicine; PCP Family Medicine; Visit Provider Emergency Medicine
DX: T83.83XA Hemorrhage due to genitourinary prosthetic devices, implants and grafts, initial encounter (principal); J44.9 Chronic obstructive pulmonary disease, unspecified; I48.91 Unspecified atrial fibrillation; R31.9 Hematuria, unspecified; Z95.0 Presence of cardiac pacemaker; D64.9 Anemia, unspecified; I12.9 Hypertensive chronic kidney disease with stage 1 through stage 4 chronic kidney disease, or unspecified chronic kidney disease; N18.9 Chronic kidney disease, unspecified; I25.10 Atherosclerotic heart disease of native coronary artery without angina pectoris; E87.1 Hypo-osmolality and hyponatremia; I25.2 Old myocardial infarction; Z79.01 Long term (current) use of anticoagulants; Z79.02 Long term (current) use of antithrombotics/antiplatelets; Z79.899 Other long term (current) drug therapy; Z87.891 Personal history of nicotine dependence; Z95.5 Presence of coronary angioplasty implant and graft
CPT/HCPCS: 80048; 85025; 93005; 99285; A4216

== ENCOUNTER 2022-12-04 12:13 | Inpatient (IN) | payer MEDICARE, SELFPAY ==
[2022-12-04] VITALS (12 sets, daily range): BP systolic 106–137; BP diastolic 56–70; PULSE 65–79; RESP 14–22; TEMP 36.4–37; O2SAT 84–96; BMI 25.3; BMI 23.5
--- NOTE | 2022-12-04 12:42 | RAD_ITS ---
HISTORY: Shortness of breath after IV infusion. TECHNIQUE: XR Chest 1 View. COMPARISON: 05/25/2022. FINDINGS: CARDIOMEDIASTINAL BORDERS: Cardiac silhouette within normal limits in size with pacemaker generator placed in the left chest wall and leads in the expected region of the right atrium and ventricle. Mediastinal contour unremarkable. LUNGS: Right greater than left interstitial and linear opacities. PLEURA: Mild right pleural effusion. OSSEOUS STRUCTURES: Mild degenerative change. RAD/Chest 1 View (Portable) IMPRESSION: Mild right pleural effusion with asymmetric pulmonary edema or pneumonitis in the lung bases. Electronically Signed: Shelley Sheets MD at 13:38 EDT ,
[2022-12-04 13:14] LABS: Absolute Lymphocyte Count 0.95 X10^3/uL (0.83-4.51); Absolute Neutrophil Count 9.3 X10^3/uL (2.0-7.7); Basophil# 0.02 X10^3/uL; Basophil% 0.2 % (0-1); Hematocrit 27.8 % (40-54); Hemoglobin 9.2 g/dL (13.0-16.5); Lymphocyte # 0.95 X10^3/ul (0.83-4.51); Lymphocyte % 8.6 % (19-41); Mean Corp Hgb Conc 33.1 g/dL (32-36); Mean Corpuscular Hgb 30.3 pg (27.0-32.0); Mean Corpuscular Volume 91.4 fL (80-94); Monocyte% 6.3 % (0-10); NRBC Flagged by Analyzer 0 % (0-5); Neutrophil # 9.27 X10^3/uL (2.7-7.7); Neutrophil % 83.6 % (47-70); Platelet Count 364 K/mm3 (150-450); RBC Distribution Width CV 12.4 % (11.6-14.6); RBC Distribution Width SD 41.9 fl (35.1-43.9); Red Blood Count 3.04 M/mm3 (4.6-6.2); White Blood Count 11.1 K/mm3 (4.4-11.0)
--- NOTE | 2022-12-04 13:32 | ED.VIS.DYS ---
HPI History of Present Illness Chief Complaint: Shortness of Breath Detail of Chief Complaint: Shortness of breath since lung surgery. Patient has history of lung cancer Informant: patient Onset/Context/Timing Onset: Weeks Context: sudden (Postop) Timing: Continuous and Waxes and wanes Quality: Positive for Dyspnea on exertion; Negative for Orthopnea, PND or Wheezing Current Severity: Mild Maximum Severity: Moderate (After infusion of 1 L of saline at the infusion center) Worsened by: - (Presumed IV infusion) Relieved by: Nothing Associated Symptoms Negative for cough, rhinorrhea, post nasal drip, ear pain, fever, sore throat, subjective, chills or sweats Chest Pain: Positive for None Narrative Narrative: Patient is a 77-year-old male. He has history of squamous cell carcinoma of the right lung. He is status post surgery. His shortness of breath has been present since surgery. Patient states he is not normally on oxygen. Saturation was 87% uncertain whether this was on room air or oxygen the way it is documented. Patient denies history of PE or DVT. He is on regular for atrial fibrillation. He is also on Plavix. He took his last dose this morning for both the Plavix and Eliquis. He denies fever, chills night sweats. He denies headache, visual, ocular auditory symptoms. He denies chest pain or pressure. He denies vomiting. He denies black or maroon-colored stool. He does have gross blood coming from his ileal conduit. This has been bleeding for some time. Is worse today. He was told by his applications support specialist oncologist to discontinue the Eliquis. He was told to continue taking the Plavix since he was placed on the Plavix for heart stents. 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 Bladder cancer Bladder cancer CAD (coronary artery disease) Cancer Cellulitis of right wrist Chest pain Chronic indwelling Ricketts catheter Chronic renal insufficiency CKD (chronic kidney disease) COPD (chronic obstructive pulmonary disease) COPD (chronic obstructive pulmonary disease) Essential hypertension History of ETOH abuse History of ETOH abuse Hydronephrosis Hydronephrosis Hypertension Hyponatremia Kidney disease Kidney stones Myocardial infarct NSTEMI (non-ST elevated myocardial infarction) Paroxysmal SVT (supraventricular tachycardia) Presence of stent in coronary artery (~04/03/22) Prostate cancer Prostate cancer Smoker Tobacco use Tobacco use Home Medications multivitamin (Daily Multi-Vitamin tablet) 1 tab PO DAILY SUPPLEMENT 08/30/17 [History Last Taken 03/31/22] amlodipine 10 mg tablet 10 mg PO DAILY BP 04/01/22 [History Last Taken 03/31/22] cholecalciferol (vitamin D3) 250 mcg (10,000 unit) tablet 250 mcg PO DAILY SUPPLEMENT 04/01/22 [History Last Taken 03/31/22] vit C 250 mg-vit E 90 mg-zinc 40 mg-copper 1 [id number]-[id number]-qsyuvr capsule (PreserVision AREDS-2) 1 tab PO BID EYE HEALTH 04/01/22 [History Last Taken 03/31/22] atorvastatin 40 mg tablet 40 mg PO QHS #90 tabs 04/21/22 [Rx Last Taken Unknown] carvedilol 3.125 mg tablet 3.125 mg PO BID #180 tabs 04/21/22 [Rx Last Taken Unknown] clopidogrel 75 mg tablet (Plavix) 75 mg PO DAILY #90 tabs 05/18/22 [Rx Last Taken 05/20/22] acetaminophen 500 mg tablet 1,000 mg (2 x 500 mg) PO Q8 #0 tabs 06/27/22 [Rx Last Taken Unknown] Balance of Nature fruit/veg 3 cap PO DAILY 07/08/22 [History Last Taken Unknown] apixaban 5 mg tablet (Eliquis) 5 mg PO BID #180 tabs 11/09/22 [Rx Last Taken Unknown] Lactobacil.acidophilus-Bifido.animalis 5 billion cell sprinkle capsule (Probiotic) 1 cap PO DAILY 12/04/22 [History Last Taken Unknown] ferrous sulfate 325 mg (65 mg iron) tablet (Feosol) 325 mg PO QODAY 12/04/22 [History Last Taken Unknown] megestrol 400 mg/10 mL (40 mg/mL) oral suspension 20 mg PO DAILY 12/04/22 [History Last Taken Unknown] Allergy/AdvReac Type Severity Reaction Status Date / Time ciprofloxacin [From Cipro] Allergy Intermediate Hives Verified 12/04/22 12:29 metronidazole [From Flagyl] Allergy Rash Verified 12/04/22 12:29 Family History Mother Hypertension Surgical History History of bladder surgery History of carpal tunnel surgery History of circumcision History of coronary artery stent placement History of foot surgery History of tonsillectomy and adenoidectomy History of transurethral resection of prostate History of urostomy Presence of coronary angioplasty implant and graft (~04/03/22) S/P PTCA (percutaneous transluminal coronary angioplasty) S/P radical cystoprostatectomy Social History Smoking Status: Former smoker alcohol intake: current details: occasional substance use type: does not use ROS ROS ED Constitutional Constitutional ED: Denies chills, fever(s), sweats or weight loss Eyes Eyes: Denies blurry vision, change in vision or diplopia ENT ENT ED: Denies ear pain, rhinorrhea or sore throat Cardiovascular Cardiovascular: Denies chest pain, orthopnea, palpitations, paroxysmal nocturnal dyspnea or racing heartbeat Respiratory/Chest Respiratory/Chest: Reports dyspnea and dyspnea on exertion; Denies cough, orthopnea or paroxysmal nocturnal dyspnea Gastrointestinal Gastrointestinal: Denies abdominal pain, nausea or vomiting Genitourinary Genitourinary ED: Reports hematuria; Denies dysuria or urinary frequency Musculoskeletal Musculoskeletal: Denies arthralgias, back pain, myalgias or neck pain Integumentary Denies abscess, Abrasions or rash Neurologic Neurologic: Reports weakness; Denies headache(s) or paresthesias Endocrine Endocrinology: Denies cold intolerance or heat intolerance Hematologic/Lymphatic Hematologic/Lymphatic: Denies easy bleeding or easy bruising EXAM Physical Exam Const Vital Signs: 12/04/22 12:21 12/04/22 12:28 12/04/22 12:28 Temperature 97.6 F L 97.6 F L Temperature Source Temporal Temporal Pulse Rate 73 73 70 Respiratory Rate 14 20 H 20 H Respiratory Effort Respiratory Depth Respiratory Pattern Blood Pressure 116/69 124/70 H 124/70 H Blood Pressure Mean 84 88 88 Pulse Ox 87 93 92 Oxygen Delivery Method Room Air Nasal Cannula Nasal Cannula Oxygen Flow Rate (L/min) 4 4 12/04/22 12:28 12/04/22 14:14 12/04/22 14:32 Temperature 98.2 F Temperature Source Temporal Pulse Rate 78 73 Respiratory Rate 19 H 20 H Respiratory Effort Short of Breath Respiratory Depth Shallow Respiratory Pattern Tachypnea Blood Pressure 120/56 L 106/59 L Blood Pressure Mean 77 74 Pulse Ox 84 89 Oxygen Delivery Method Room Air Room Air Nasal Cannula Oxygen Flow Rate (L/min) 2 12/04/22 15:10 Temperature 97.6 F L Temperature Source Oral Pulse Rate 78 Respiratory Rate 21 H Respiratory Effort Respiratory Depth Respiratory Pattern Blood Pressure 124/63 H Blood Pressure Mean 83 Pulse Ox 94 Oxygen Delivery Method Nasal Cannula Oxygen Flow Rate (L/min) 4 Positive well nourished and well developed General Appearance ED: well developed, NAD and pallor HEENT Reports moist mucous membranes HEENT Narrative: Head is atraumatic and normocephalic. Ears are normal. Nares are patent. Posterior pharynx is normal. Uvula is midline. There is no deviation tongue with protrusion. Eyes PERRL and EOMs intact bilaterally General Eye ED: Yes pale conjunctiva; Negative for scleral icterus Neck no lymphadenopathy, supple, no meningeal signs and no JVD Resp normal respiratory effort and No clear to auscultation bilaterally Resp Narrative: Decreased breath sounds right lower lobe posteriorly. Fine crackles left base and mid to lower third on the right side posteriorly. Cardio regular rate, regular rhythm, S1 normal heart sound, S2 normal heart sound and no murmurs GI non-tender, non-distended and no masses GI Narrative: Ileal conduit noted with bright red blood. Urine has color of a rosea Auscultation: normoactive bowel sounds Palpation: soft Back/Spine no CVA tenderness Extremity normal to inspection General Extremety ED: Negative for edema or tenderness General Extremity: Negative for edema Neuro oriented x3, CN's II-XII intact bilaterally and no sensory deficits noted Kyleigh Coma Scale: document GCS findings Spontaneous Obeys Commands Oriented 15 Sensorium / Orientation: alert Psych Mood & Affect: depressed Skin No skin turgor normal General Skin Exam: pallor; Negative for jaundice Rashes: no rashes Trauma: Negative for abrasion MDM MDM MDM Narrative Medical decision making narrative: They did obtain possibility of PE which would be unlikely since patient's had shortness of breath since surgery. This may be due to fluid overload. Need to rule out pneumonia, pneumothorax, malignant effusion. Chest x-ray was obtained. Clinically patient appears pale and anemic CBC was obtained assess H&H and indices. BMP was obtained to assess renal function. Troponin to rule out cardiac ischemia BNP to assess for possible heart failure since this occurred after IV effusion. Lab Data Attestation: I reviewed the patient's lab results. Lab results narrative: Patient has anemia on the CBC. He is within his baseline. H&H is very between 8-10. Basic metabolic panel was elevated BUN and creatinine of 55 and 2.27 respectively with a ratio of 24:1. GFR is estimated to be 30. Lactate was normal. troponin is normal at 24. BNP is normal at 90. Labs: Laboratory Results - last 24 hr 12/04/22 12/04/22 13:05 13:10 WBC 11.1 H RBC 3.04 L Hgb 9.2 L Hct 27.8 L MCV 91.4 MCH 30.3 MCHC 33.1 RDW Std Deviation 41.9 RDW Coeff of Sari 12.4 Plt Count 364 MPV 9.0 Immature Gran % (Auto) 1.300 H Neut % (Auto) 83.6 H Lymph % (Auto) 8.6 L [place] % (Auto) 6.3 Eos % (Auto) 0.0 Baso % (Auto) 0.2 Absolute Neuts (auto) 9.3 H Absolute Lymphs (auto) 0.95 Nucleated RBC % 0 Sodium 132 L Potassium 3.8 Chloride 102 Carbon Dioxide 22.0 Anion Gap 8 BUN 55 H Creatinine 2.27 H Estim Creat Clear Calc 25.88 Est GFR (MDRD) Af Amer 36 L Est GFR (MDRD) Non-Af 30 L BUN/Creatinine Ratio 24.2 H Glucose 108 H Lactic Acid 1.2 Calcium 9.5 Troponin I High Sens 24 B-Natriuretic Peptide 90.0 Radiography Chest X-Ray - ED: 1 View and Read by ED Physician (There is atelectasis with pulmonary changes right lower lobe. This may be due to obstructive pneumonia versus atelectasis. Cardiac silhouette and size normal. Perihilar regions unremarkable. Osseous structures are unremarkable. This is entirely reviewed interpreted by me at 1332.) Diagnostic Testing: Clinical Impression(s) from Imaging Studies Chest X-Ray 12/04/22 12:42 IMPRESSION: Mild right pleural effusion with asymmetric pulmonary edema or pneumonitis in the lung bases. Electronically Signed: Shelley Sheets MD at 13:38 EDT , I am in disagreement with radiology read. There is no effusion. Management Discussion w/another healthcare provider: Radiologist (Discussed case Dr. Chandler. He agrees there is no effusion on the chest x-ray. CTA was reviewed by him and reveals bronchiectasis on the right and a left lower lobe pneumonia. Since he is hypoxic with a left lower lobe pneumonia and recent hospitalization we will treat for healthcare acquired pneumo) Treatment and Re-Evaluation :: Patient's chest x-ray findings may be due to the fact that he had surgery for right lower lobe squamous cell carcinoma. This may also represent pneumonia PE as a possible biliary but unlikely since she is on Eliquis and Plavix. CTA of the chest was ordered. His GFR is 30. He will require admission for hypoxia. If CT reveals infiltrate will treat with antibiotics. Comments:: Case was turned over to the afternoon physician Dr. Bess to contact hospitalist once CTA has been completed and interpreted by radiologist. Plan is antibiotics if CT reveals evidence of pneumonia. If patient has evidence of PE depending on size will need to discuss with surgery regarding possible inferior vena cava filter. Since patient's lactate is normal blood cultures were not obtained. Discharge Plan Triage Chief Complaint: Shortness of Breath ED Provider: Real Smith Dx/Rx/DC Orders Clinical Impression: Acute hypoxic respiratory failure, Smoking greater than 40 pack years, COPD (chronic obstructive pulmonary disease), Gross hematuria, Anticoagulant long-term use, Antiplatelet or antithrombotic long-term use, Bronchiectasis, Left lower lobe pneumonia Prescriptions: No Action multivitamin [Daily Multi-Vitamin] tablet 1 tab PO DAILY carvedilol 3.125 mg tablet 3.125 mg PO BID Qty: 180 3RF atorvastatin 40 mg tablet 40 mg PO QHS Qty: 90 3RF clopidogrel [Plavix] 75 mg tablet 75 mg PO DAILY Qty: 90 3RF Balance of Nature fruit/veg 3 cap PO DAILY PreserVision AREDS-2 250-90-40-1 mg Capsule 1 tab PO BID cholecalciferol (vitamin D3) 250 mcg (10,000 unit) Tablet 250 mcg PO DAILY amlodipine 10 MG tablet 10 mg PO DAILY Patient Comments: Pt instructed by PCP to stop this med due to low bp. 95/[address] today 12/04/2022. acetaminophen 500 mg Tablet 1,000 mg PO Q8 Qty: 0 0RF megestrol 400 mg/10 mL (40 mg/mL) suspension 20 mg PO DAILY ferrous sulfate [Feosol] 325 mg (65 mg iron) tablet 325 mg PO QODAY Probiotic 5 billion cell capsule, sprinkle 1 cap PO DAILY Eliquis 5 mg tablet 5 mg PO BID Qty: 180 3RF Patient Comments: Pt reports his doctor wants him to stop this med tomorrow. 12/05/2022. Pt unsure why. Primary Care Provider: Candido Valle Referrals: Candido Valle MD [Primary Care Provider] - Disposition Disposition: Acute Care Hospital [facility]
[2022-12-04 13:38] LABS: Anion Gap 8 (5-15); BUN 55 mg/dL (7-18); BUN/Creat Ratio 24.2 RATIO (10-20); Calcium,Total 9.5 mg/dL (8.5-10.1); Chloride 102 mmol/L (98-107); Creatinine, Serum 2.27 mg/dL (0.70-1.30); EST Glomerular Filtration Rate 30 mL/min (>60); Est Glom Filt Rate - Afr Amer 36 mL/min (>60); Estimated Creatinine Clearance 25.88 ml/min; Glucose 108 mg/dL (74-106); Potassium 3.8 mmol/L (3.5-5.1); Sodium Level 132 mmol/L (136-145); Troponin-I HS 24 pg/mL (3.0-78.0)
[2022-12-04 13:48] LABS: Lactic Acid 1.2 mmol/L (0.4-1.9)
--- NOTE | 2022-12-04 14:41 | CT_ITS ---
HISTORY: High pretest probability PE. TECHNIQUE: CT angiogram of the chest was performed after the intravenous administration of 100 mL Isovue-370. Post-processing of the angiographic images was performed with multiplanar reformation and 3D reconstruction. Individualized dose optimization techniques were used for this CT. 1178 images. COMPARISON: XR same day. PET-CT 11/24/2022. FINDINGS: CENTRAL AIRWAYS: Mild fluid in the right lower lobe bronchus. LUNGS: Mild-moderate centrilobular emphysema with mild scarring. Mild linear and patchy opacity in the right middle lobe. Increased dependent right lower lobe patchy opacities. New dependent consolidation in the left lower lobe. PLEURA: Persistent mild right pleural effusion. HEART/PERICARDIUM: Heart within normal limits in size with pacemaker in place. No pericardial effusion. PULMONARY ARTERIES: No filling defect. AORTA/VESSELS: No thoracic aortic aneurysm or dissection flap. MEDIASTINUM/DAVID: Mediastinal and right hilar lymph nodes without pathologic enlargement. Right infrahilar postoperative change with suture. Mild circumferential esophageal wall thickening. OSSEOUS STRUCTURES: Degenerative change and osteopenia. UPPER ABDOMEN: 2.7 cm cyst in the hepatic dome and 1.3 cm cyst in the left hepatic lobe. Left renal atrophy with small cysts. Multiple right renal calculi. CT/CTA Chest W/WO Contrast IMPRESSION: No evidence of pulmonary embolism. Increased right lower lobe opacity with patchy opacities in the right middle and left lower lobes, concerning for pneumonia or pneumonitis. Right lower lobe postoperative change. Recommend follow-up to resolution. Persistent mild right pleural effusion. Mild esophageal wall thickening, which can be seen with esophagitis. Chronic findings of the upper abdomen as above. Electronically Signed: Shelley Sheets MD at 15:40 EDT ,
[2022-12-04] MEDS: Piperacil/Tazobactam 4.5 GM in 0.9% Normal Saline (100mL MB+) 100 ML IV (15:45)
[2022-12-04] MEDS: Vancomycin HCl 1,750 MG in 0.9% Normal Saline (500mL Bag) 500 ML 250 MG IV (16:21)
--- NOTE | 2022-12-04 16:25 | HP.PCM.HOS_ITS ---
[facility] Date of Admission: 12/04/22 Date of Service: 12/04/22 Chief Complaint: Shortness of breath HPI Narrative MIGUEL PEREZ, is a 77 M who presented to the emergency department at [facility] on 12/04/2022 with chief complaint of shortness of breath. The patient was recently diagnosed with lung cancer and had a right lower lobe resection at [facility] from when she was discharged at the end of October. He notes that since that point in time he has had shortness of breath. During his lung procedure he developed some cardiac arrhythmia that required pacemaker placement concurrently. Over the last week or so he has developed more shortness of breath as well as a cough and some congestion. His cough is not productive but he feels like he has some congestion in the central chest area that he is just not able to bring up. He also complains of some chills but no documented fever. He has been weaker than he had been previously. His appetite has been poor for several months but this is not new. He is following with Dr. Mcgee from an oncology standpoint and has had some hematuria for which Dr. Mcgee has referred him to Dr. Quarles for further investigation. He typically is not oxygen dependent and he was tested for oxygen requirements prior to discharge from [facility]. Upon arrival here he was hypoxic and required 4 L nasal cannula to maintain saturations greater than 92%. Vital signs on presentation are as follows: Temperature 97.6, heart rate 73, blood pressure 116/69, respiratory rate has been 14-21 and oxygen saturations were initially 87% on room air with a follow-up at 84% on room air and then 89% on 2 L nasal cannula. He is now up to 95% on 4 L nasal cannula. During my evaluation he was somewhat dyspneic with conversation and oxygen saturations on that 4 L dropped to 92%. His CBC shows a leukocytosis with a white count of 11.1. He has an anemia at 9.2 which appears to be stable compared to previous. He does have a left shift with an 83.6% neutrophilia. His chemistry panel shows a chronic stable hyponatremia at 132, BUN at 55 and serum creatinine at 2.27 which are both his baseline as well. His lactic acid was normal at 1.2. A trop onin was obtained and was 24 and his BNP was 90. Chest x-ray showed a mild right pleural effusion with asymmetric pulmonary edema or pneumonitis in the lung bases. CTA of his chest was performed and he had no evidence of pulmonary embolus with increased right lower lobe opacity and patchy opacities in the right middle and left lower lobes concerning for pneumonia or pneumonitis and right lower lobe postoperative changes with a persistent mild right pleural effusion. He also has mild esophageal wall thickening which can be seen with esophagitis. PFSH Medical History Acute renal insufficiency Anemia Arthritis of wrist, right Atherosclerotic heart disease of [place] coronary artery without angina pectoris Bladder cancer Bladder cancer CAD (coronary artery disease) Cancer Cellulitis of right wrist Chest pain Chronic hyponatremia Chronic indwelling Ricketts catheter Chronic renal insufficiency CKD (chronic kidney disease) COPD (chronic obstructive pulmonary disease) COPD (chronic obstructive pulmonary disease) Essential hypertension History of ETOH abuse History of ETOH abuse Hydronephrosis Hydronephrosis Hypertension Hyponatremia Kidney disease Kidney stones Myocardial infarct NSTEMI (non-ST elevated myocardial infarction) Paroxysmal SVT (supraventricular tachycardia) Presence of stent in coronary artery (~04/03/22) Prostate cancer Prostate cancer Smoker Tobacco use Tobacco use Home Medications multivitamin (Daily Multi-Vitamin tablet) 1 tab PO DAILY SUPPLEMENT 08/30/17 [History Last Taken 12/04/22] amlodipine 10 mg tablet 10 mg PO DAILY BP 04/01/22 [History Last Taken 12/04/22] cholecalciferol (vitamin D3) 250 mcg (10,000 unit) tablet 250 mcg PO DAILY SUPPLEMENT 04/01/22 [History Last Taken 12/04/22] vit C 250 mg-vit E 90 mg-zinc 40 mg-copper 1 [id number]-[id number] capsule (PreserVi mackenzie AREDS-2) 1 tab PO BID EYE HEALTH 04/01/22 [History Last Taken 12/04/22] atorvastatin 40 mg tablet 40 mg PO QHS #90 tabs 04/21/22 [Rx Last Taken 12/03/22] carvedilol 3.125 mg tablet 3.125 mg PO BID #180 tabs 04/21/22 [Rx Last Taken 12/04/22] clopidogrel 75 mg tablet (Plavix) 75 mg PO DAILY #90 tabs 05/18/22 [Rx Last Taken 12/04/22] acetaminophen 500 mg tablet 1,000 mg (2 x 500 mg) PO Q8 #0 tabs 06/27/22 [Rx Last Taken Unknown] Balance of Nature fruit/veg 3 cap PO DAILY 07/08/22 [History Last Taken 12/03/22] apixaban 5 mg tablet (Eliquis) 5 mg PO BID #180 tabs 11/09/22 [Rx Last Taken 12/04/22] Lactobacil.acidophilus-Bifido.animalis 5 billion cell sprinkle capsule (Probiotic) 1 cap PO DAILY 12/04/22 [History Last Taken 12/04/22] ferrous sulfate 325 mg (65 mg iron) tablet (Feosol) 325 mg PO QODAY 12/04/22 [History Last Taken 12/03/22] megestrol 400 mg/10 mL (40 mg/mL) oral suspension 20 mg PO DAILY 12/04/22 [History Last Taken 12/03/22] Allergy/AdvReac Type Severity Reaction Status Date / Time ciprofloxacin [From Cipro] Allergy Intermediate Hives Verified 12/04/22 12:29 metronidazole [From Flagyl] Allergy Rash Verified 12/04/22 12:29 Family History Mother Hypertension Surgical History History of bladder surgery History of carpal tunnel surgery History of circumcision History of coronary artery stent placement History of foot surgery History of tonsillectomy and adenoidectomy History of transurethral resection of prostate History of urostomy Presence of coronary angioplasty implant and graft (~04/03/22) S/P PTCA (percutaneous transluminal coronary angioplasty) S/P radical cystoprostatectomy Social History Smoking Status: Former smoker alcohol intake: current details: occasional substance use type: does not use ROS Constitutional Constitutional: Reports anorexia, change in weight, chills, fatigue, malaise and weakness; Denies fever(s), night sweats or other Eyes Eyes: Denies blurry vision, change in eye color, change in vision, discharge from eye(s), double vision, erythema, eye pain, loss of vision or other ENT HEENT: Denies abnormal hearing, dysphagia, ear pain, epistaxis, headache(s), hearing loss, nasal congestion, nasal discharge, post nasal drip, sinus pressure, sore throat or other Cardiovascular Cardiovascular: Reports paroxysmal nocturnal dyspnea; Denies chest pain, claudication, dyspnea on exertion, edema, lightheadedness, orthopnea, palp itations, rapid heart rate, syncope or other Respiratory/Chest Respiratory/Chest: Reports cough, dyspnea, shortness of breath at rest and shortness of breath with exertion; Denies excessive phlegm production, hemoptysis, productive cough, wheezing or other Gastrointestinal Gastrointestinal: Denies abdominal pain, coffee ground emesis, constipation, diarrhea, dyspepsia, hematemesis, hematochezia, loose stools, melena, nausea, vomiting or other Genitourinary Genitourinary: Reports hematuria Musculoskeletal Musculoskeletal: Reports myalgias; Denies arthralgias, back pain, joint pain, joint stiffness, joint swelling, neck pain or other Neurologic Neurologic: Denies abnormal gait, abnormal speech, confusion, disequilibrium, dizziness, focal weakness, headache(s), numbness, paresthesias, seizure-like activity, seizures, syncope, tingling, tremor(s) or other Psychiatric Psychiatric: Denies anxiety, depression, homicidal ideation, suicidal ideation or other Endocrine Endocrinology: Denies change in body appearance, cold intolerance, excessive sweating, heat intolerance, polydipsia, polyuria or other Hematologic/Lymphatic Hematologic/Lymphatic: Denies anemia, easy bleeding, easy bruising, lymphaden opathy or other Allergic/Immunologic Allergic/Immunologic: Denies rhinitis, hives, eczemia, asthma or other Vital Signs Vital Signs Vital Signs: 12/04/22 12:21 12/04/22 12:28 12/04/22 12:28 Temperature 97.6 F L 97.6 F L Temperature Source Temporal Temporal Pulse Rate 73 73 70 Respiratory Rate 14 20 H 20 H Respiratory Effort Respiratory Depth Respiratory Pattern Blood Pressure 116/69 124/70 H 124/70 H Blood Pressure Mean 84 88 88 Pulse Ox 87 93 92 Oxygen Delivery Method Room Air Nasal Cannula Nasal Cannula Oxygen Flow Rate (L/min) 4 4 12/04/22 12:28 12/04/22 14:14 12/04/22 14:32 Temperature 98.2 F Temperature Source Temporal Pulse Rate 78 73 Respiratory Rate 19 H 20 H Respiratory Effort Short of Breath Respiratory Depth Shallow Respiratory Pattern Tachypnea Blood Pressure 120/56 L 106/59 L Blood Pressure Mean 77 74 Pulse Ox 84 89 Oxygen Delivery Method Room Air Room Air Nasal Cannula Oxygen Flow Rate (L/min) 2 12/04/22 15:10 12/04/22 15:32 12/04/22 16:04 Temperature 97.6 F L 98.6 F 97.8 F Temperature Source Oral Temporal Pulse Rate 78 77 78 Respiratory Rate 21 H 16 18 Respiratory Effort Respiratory Depth Respiratory Pattern Blood Pressure 124/63 H 126/62 H 113/57 L Blood Pressure Mean 83 83 75 Pulse Ox 94 94 95 Oxygen Delivery Method Nasal Cannula Nasal Cannula Oxygen Flow Rate (L/min) 4 4 Weight Weight: 73.4 kg Body Mass Index (BMI) 25.3 Results Lab / Micro Data 12/04/22 13:05 12/04/22 13:05 Labs: Laboratory Results - last 24 hr 12/04/22 13:05: WBC 11.1 H, RBC 3.04 L, Hgb 9.2 L, Hct 27.8 L, MCV 91.4, MCH 30.3, MCHC 33.1, RDW Std Deviation 41.9, RDW Coeff of Sari 12.4, Plt Count 364, MPV 9.0, Immature Gran % (Auto) 1.300 H, Neut % (Auto) 83.6 H, Lymph % (Auto) 8.6 L, [place] % (Auto) 6.3, Eos % (Auto) 0.0, Baso % (Auto) 0.2, Absolute Neuts (auto) 9.3 H, Absolute Lymphs (auto) 0.95, Nucleated RBC % 0, Sodium 132 L, Potassium 3.8, Chloride 102, Carbon Dioxide 22.0, Anion Gap 8, BUN 55 H, Creatinine 2.27 H, Estim Creat Clear Calc 25.88, Est GFR (MDRD) Af Amer 36 L, Est GFR (MDRD) Non-Af 30 L, BUN/Creatinine Ratio 24.2 H, Glucose 108 H, Calcium 9.5, Troponin I High Sens 24, B-Natriuretic Peptide 90.0 12/04/22 13:10: Lactic Acid 1.2 Radiology Impression Chest X-Ray 12/04/22 12:42 IMPRESSION: Mild right pleural effusion with asymmetric pulmonary edema or pneumonitis in the lung bases. Electronically Signed: Shelley Sheets MD at 13:38 EDT , Chest CTA 12/04/22 14:41 IMPRESSION: No evidence of pulmonary embolism. Increased right lower lobe opacity with patchy opacities in the right middle and left lower lobes, concerning for pneumonia or pneumonitis. Right lower lobe postoperative change. Recommend follow-up to resolution. Persistent mild right pleural effusion. Mild esophageal wall thickening, which can be seen with esophagitis. Chronic findings of the upper abdomen as above. Electronically Signed: Shelley Sheets MD at 15:40 EDT , Assessment & Plan Assessment/Plan (1) Pneumonia of both lower lobes: (2) Bronchiectasis: (3) Leukocytosis: (4) Hematuria: (5) Hypoxia: PLAN: Plan Acute hypoxia secondary to B LL PNA -CTA Chest shows bilateral lower lobe infiltrates -Patient has not started any chemotherapy -Vancomycin and Zosyn initially in the emergency department we will continue with recent hospitalization -Continue nasal cannula 4 L and wean as able -Aggressive pulmonary toilet with DuoNebs and as needed albuterol -Mucinex -I-S -Acapella 10 times every 2 hours while awake Acute hematuria -Patient does have history of prostate and bladder cancer -Has followed with Dr. Mcgee -Referral to Dr. Sher in progress -We will monitor hemoglobin closely and if precipitous drop may need to get urological involvement prior to discharge however at this point will lead to posthospitalization follow-up -Eliquis was stopped today with his last dose being this morning -Will need to stay on Plavix and we will need to add back baby aspirin as he had a drug-eluting stent placed in March 2022 Anemia -Blood counts do appear to be dropping slowly -Dr. Mcgee stopped his Eliquis today -Takes this for history of atrial fibrillation -We will need to continue his Plavix and start baby dose of aspirin with his recent drug-eluting stent in March 2022 -Continue supplemental iron CKD stage IV -P.o. intake has been poor and patient has been more dehydrated -Current creatinine appears to be close to baseline -We will need to monitor closely and consider fluid resuscitation -Patient follows as an outpatient with Dr. Barragan Metastatic lung cancer -Status post right lower lobectomy however tumor had infiltrated with studding into the right middle lobe therefore it is metastatic in nature CAD/HTN/HPL -[place] 04/03/2022 -Continue Plavix -Restart aspirin on 12/06/2022 -Continue home atorvastatin -Continue home amlodipine -Continue home carvedilol -Patient will need dual antiplatelet therapy with the discontinuation of Eliquis until the end of March 2023 History of bladder and prostate cancer -Patient follows with Dr. Mcgee -This is remote Tobacco abuse -Remote If in recommend continued cessation DVT prophylaxis -Subcu heparin 3 times daily -Need to monitor hemoglobin closely CODE STATUS -DNR CCA okay for short-term intubation per discussion prior to admission Charges/Coding Visit Charges Inpatient E&M: 19003 Init Hosp L2
[2022-12-04] MEDS: 0.9% Normal Saline (1000mL) 1,000 ML 75 ML IV (18:47)
[2022-12-04] MEDS: Ipratropium/Albuterol Sulfate 3 ML AMPUL.NEB INHALATION (19:13)
--- NOTE | 2022-12-04 19:17 | PCM.RX.CS ---
Consult Antibiotic Management Pharmacy has been consulted to manage selected antiobiotic: Vancomycin Type of Intervention Type of Consult: New start Suspected Infection Suspected Infection: Pneumonia Labs Labs: Sodium 132 mmol/L (136-145) L 12/04/22 13:05 Potassium 3.8 mmol/L (3.5-5.1) 12/04/22 13:05 Chloride 102 mmol/L (98-107) 12/04/22 13:05 Carbon Dioxide 22.0 mmol/L (21.0-32.0) 12/04/22 13:05 Anion Gap 8 (5-15) 12/04/22 13:05 BUN 55 mg/dL (7-18) H 12/04/22 13:05 Creatinine 2.27 mg/dL (0.70-1.30) H 12/04/22 13:05 Est GFR (MDRD) Af Amer 36 mL/min (>60) L 12/04/22 13:05 Est GFR (MDRD) Non-Af 30 mL/min (>60) L 12/04/22 13:05 BUN/Creatinine Ratio 24.2 RATIO (10-20) H 12/04/22 13:05 Glucose 108 mg/dL (74-106) H 12/04/22 13:05 Goal Trough Goal Trough: 15-20 mcg/mL Pharmacy Plan for Drug Dosing Pharmacy Plan for Drug Dosing: IV VANCOMYCIN Consulting Physician: Dr. Kade Barragan Indication: Pneumonia Goal Trough: 15-20 SrCr: 2.27 CrCl: 26 mL/min Comments: Patient had initial dose of vancomycin 1750mg IV x1 in ED 12/04 @1621 Vancomycin Dose: 750mg IV Q24hr to start 12/05/22 @1600 Pending Level: 12/06/22 @1530, prior to 3rd total dose per protocol Pharmacy Service will continue to monitor and adjust dosing as required.
[2022-12-04 20:26] LABS: M R Staph aureus DNA By PCR Negative (Negative); Probe Check PASS; Specimen Processing Control PASS
[2022-12-04] MEDS: Carvedilol 3.125 MG TABLET PO (23:52)
[2022-12-04] MEDS: Atorvastatin Calcium 40 MG Tablet PO (23:52)
[2022-12-04] MEDS: Heparin Injection (Vial) 5,000 UNIT/ML VIAL 5000 UNIT SC (23:52)
[2022-12-04] MEDS: Multivitamin (Healthy Eyes) Capsule 1 CAP PO (23:52)
[2022-12-04] MEDS: guaiFENesin 1,200 MG Tablet 1200 MG PO (23:52)
[2022-12-04] MEDS: Menthol/Lanolin/Calamine/Znox 113 GM Tube 1 APPLIC TOPICAL (23:53)
[2022-12-04] MEDS: Acetaminophen 500 MG Tablet 1000 MG PO (23:53)
[2022-12-04] MEDS: Piperacil/Tazobactam 3.375 GM in 0.9% Normal Saline (50mL MB+) 50 ML IV (23:58)
[2022-12-05] VITALS (11 sets, daily range): BP systolic 102–121; BP diastolic 52–82; PULSE 60–70; RESP 16–22; TEMP 36.4–37; O2SAT 90–96
[2022-12-05] MEDS: Ipratropium/Albuterol Sulfate 3 ML AMPUL.NEB INHALATION ×3 (00:29→19:30)
[2022-12-05] MEDS: Piperacil/Tazobactam 3.375 GM in 0.9% Normal Saline (50mL MB+) 50 ML IV ×3 (05:48→21:46)
[2022-12-05] MEDS: Acetaminophen 500 MG Tablet 1000 MG PO ×3 (05:48→21:47)
[2022-12-05] MEDS: Heparin Injection (Vial) 5,000 UNIT/ML VIAL 5000 UNIT SC ×3 (05:48→21:46)
[2022-12-05] MEDS: Menthol/Lanolin/Calamine/Znox 113 GM Tube 1 APPLIC TOPICAL ×2 (05:49→21:46)
[2022-12-05 08:41] LABS: Absolute Lymphocyte Count 1.29 X10^3/uL (0.83-4.51); Absolute Neutrophil Count 5.7 X10^3/uL (2.0-7.7); Basophil# 0.02 X10^3/uL; Basophil% 0.3 % (0-1); Eosinophil# 0.02 X10^3/uL; Eosinophils% 0.3 % (0-5); Hematocrit 22.5 % (40-54); Hemoglobin 7.4 g/dL (13.0-16.5); Lymphocyte # 1.29 X10^3/ul (0.83-4.51); Lymphocyte % 16.4 % (19-41); Mean Corp Hgb Conc 32.9 g/dL (32-36); Mean Corpuscular Hgb 30.8 pg (27.0-32.0); Mean Corpuscular Volume 93.8 fL (80-94); Mean Platelet Vol. 9.4 fl (6.2-12.0); Monocyte# 0.74 X10^3/uL; Monocyte% 9.4 % (0-10); NRBC Flagged by Analyzer 0 % (0-5); Neutrophil # 5.73 X10^3/uL (2.7-7.7); Neutrophil % 72.6 % (47-70); Platelet Count 318 K/mm3 (150-450); RBC Distribution Width CV 12.5 % (11.6-14.6); RBC Distribution Width SD 43.3 fl (35.1-43.9); White Blood Count 7.9 K/mm3 (4.4-11.0)
[2022-12-05 09:11] LABS: ALB/GLOB Ratio 0.6 RATIO (0.9-2.4); AST(SGOT) 42 U/L (15-37); Alanine Aminotransfer ALT/SGPT 73 U/L (16-61); Albumin, Serum 2.3 g/dL (3.2-5.0); Alkaline Phosphatase 123 U/L (45-117); Anion Gap 6 (5-15); BUN 43 mg/dL (7-18); BUN/Creat Ratio 21.2 RATIO (10-20); Calcium,Total 8.9 mg/dL (8.5-10.1); Chloride 109 mmol/L (98-107); Creatinine, Serum 2.03 mg/dL (0.70-1.30); EST Glomerular Filtration Rate 34 mL/min (>60); Est Glom Filt Rate - Afr Amer 41 mL/min (>60); Estimated Creatinine Clearance 28.94 ml/min; Globulin 3.8 g/dL (2.2-4.2); Glucose 99 mg/dL (74-106); Magnesium 2.4 mg/dL (1.6-2.6); Phosphorus 2.4 mg/dL (2.5-4.9); Potassium 4.2 mmol/L (3.5-5.1); Protein, Total 6.1 g/dL (6.4-8.2); Sodium Level 135 mmol/L (136-145)
[2022-12-05] MEDS: 0.9% Saline Lock 10 ML Syringe IV (09:24)
[2022-12-05] MEDS: Azithromycin 500 MG in Dextrose 5%-Water (250mL Bag) 250 ML 250 MG IV (09:25)
[2022-12-05] MEDS: Ferrous Sulfate 325 MG Tablet PO (09:25)
[2022-12-05] MEDS: Multivitamin (Healthy Eyes) Capsule 1 CAP PO ×2 (09:25→21:47)
[2022-12-05] MEDS: Carvedilol 3.125 MG TABLET PO ×2 (09:25→21:47)
[2022-12-05] MEDS: Megestrol Acetate 400 MG/10 ML UDC 200 MG PO (09:26)
[2022-12-05] MEDS: guaiFENesin 1,200 MG Tablet 1200 MG PO ×2 (09:26→21:47)
[2022-12-05] MEDS: Clopidogrel Bisulfate 75 MG Tablet PO (09:27)
--- NOTE | 2022-12-05 10:03 | PN.HOSP_ITS ---
Subjective Subjective Doing well but feels about the same as when he came in. Objective Data Objective Data Vital Signs: Vital Signs Temp Pulse Resp BP Pulse Ox O2 Del Method O2 Flow Rate 97.8 F 68 18 105/60 94 Nasal Cannula 1 12/05/22 09:33 12/05/22 09:33 12/05/22 09:33 12/05/22 09:33 12/05/22 09:33 12/05/22 09:34 12/05/22 09:33 Oxygen Flow Rate (L/min) 1 Oxygen Delivery Method Nasal Cannula Weight: 150 lb 5.684 oz Body Mass Index (BMI) 23.5 Intake & Output: Intake and Output for Last 24 Hours 12/04/22 12/05/22 12/06/22 03:59 03:59 03:59 Intake Total 685 / 685 1050 / 1050 Output Total 1100 / 1100 350 / 350 Balance -415 / -415 700 / 700 Lab / Micro Data 12/05/22 08:02 12/05/22 08:02 Labs: Laboratory Results - last 24 hr 12/04/22 13:05: WBC 11.1 H, RBC 3.04 L, Hgb 9.2 L, Hct 27.8 L, MCV 91.4, MCH 30.3, MCHC 33.1, RDW Std Deviation 41.9, RDW Coeff of Sari 12.4, Plt Count 364, MPV 9.0, Immature Gran % (Auto) 1.300 H, Neut % (Auto) 83.6 H, Lymph % (Auto) 8.6 L, [place] % (Auto) 6.3, Eos % (Auto) 0.0, Baso % (Auto) 0.2, Absolute Neuts (auto) 9.3 H, Absolute Lymphs (auto) 0.95, Nucleated RBC % 0, Sodium 132 L, Potassium 3.8, Chloride 102, Carbon Dioxide 22.0, Anion Gap 8, BUN 55 H, Creatinine 2.27 H, Estim Creat Clear Calc 25.88, Est GFR (MDRD) Af Amer 36 L, Est GFR (MDRD) Non-Af 30 L, BUN/Creatinine Ratio 24.2 H, Glucose 108 H, Calcium 9.5, Troponin I High Sens 24, B-Natriuretic Peptide 90.0 12/04/22 13:10: Lactic Acid 1.2 12/04/22 18:45: MRSA (PCR) Negative 12/05/22 08:02: WBC 7.9, RBC 2.40 L, Hgb 7.4 L, Hct 22.5 L, MCV 93.8, MCH 30.8, MCHC 32.9, RDW Std Deviation 43.3, RDW Coeff of Sari 12.5, Plt Count 318, MPV 9.4, Immature Gran % (Auto) 1.000 H, Neut % (Auto) 72.6 H, Lymph % (Auto) 16.4 L , [place] % (Auto) 9.4, Eos % (Auto) 0.3, Baso % (Auto) 0.3, Absolute Neuts (auto) 5.7, Absolute Lymphs (auto) 1.29, Nucleated RBC % 0, Sodium 135 L, Potassium 4.2, Chloride 109 H, Carbon Dioxide 20.0 L, Anion Gap 6, BUN 43 H, Creatinine 2.03 H, Estim Creat Clear Calc 28.94, Est GFR (MDRD) Af Amer 41 L, Est GFR (MDRD) Non-Af 34 L, BUN/Creatinine Ratio 21.2 H, Glucose 99, Calcium 8.9, Phosphorus 2.4 L, Magnesium 2.4, Total Bilirubin 0.40, AST 42 H, ALT 73 H, Alkaline Phosphatase 123 H, Total Protein 6.1 L, Albumin 2.3 L, Globulin 3.8, Albumin/Globulin Ratio 0.6 L Micro: Microbiology 12/04/22 19:10 Mucosa - Nasopharyngeal Respiratory Panel (PCR) - Final Radiography Diagnostic Testing: Radiology Impression Chest X-Ray 12/04/22 12:42 IMPRESSION: Mild right pleural effusion with asymmetric pulmonary edema or pneumonitis in the lung bases. Electronically Signed: Shelley Sheets MD at 13:38 EDT , Chest CTA 12/04/22 14:41 IMPRESSION: No evidence of pulmonary embolism. Increased right lower lobe opacity with patchy opacities in the right middle and left lower lobes, concerning for pneumonia or pneumonitis. Right lower lobe postoperative change. Recommend follow-up to resolution. Persistent mild right pleural effusion. Mild esophageal wall thickening, which can be seen with esophagitis. Chronic findings of the upper abdomen as above. Electronically Signed: Shelley Sheets MD at 15:40 EDT , Physical Exam Narrative General: Alert, Oriented x3, Cooperative, No apparent distress HEENT: Atraumatic, PERRLA, EOMI, Normocephalic Oral: Moist Mucosa Neck: Supple, No JVD Lungs: Diminished, Normal air movement, No rhonchi, No wheeze, No rales, basilar crackles Cardiovascular: Regular rate, Regular Rhythm, Normal S1, Normal S2, No murmurs Abdomen: Soft, Non Tender, Non-Distended, No Hepato-splenomegaly Extremities: No edema, Capillary Refill Less than 3 Seconds Skin: No rashes, No breakdown Musculoskeletal: No Tenderness to Palpation of Joints or Extremities Neurological: Cranial nerves II-XII grossly intact, Motor Exam 5/5 strength throughout, Sensory exam intact to light touch and pain Psych/Mental Status: Normal Affect, Appropriate Assessment & Plan Assessment/Plan (1) Pneumonia of both lower lobes: (2) Bronchiectasis: (3) Leukocytosis: (4) Hematuria: (5) Hypoxia: PLAN: Plan 1. Acute hypoxia secondary to bilateral lower lobe pneumonia/metastatic lung disease ? Continue with IV antibiotics ? Wean oxygen as able, will obtain an ambulatory pulse ox ? He did quit smoking in October we will continue to encourage cessation continue with inhaler as necessary ? He is status post right lower lobectomy but there was some seeding into his middle lobe 2. Anemia from acute hematuria with a history of prostate and bladder cancer/CKD 4 ? Does have a history of prostate and bladder cancer and follows with oncology as an outpatient ? We will continue to monitor his hemoglobin did drop to 7.4, will repeat this afternoon ? His Eliquis has been discontinued and he is currently on Plavix due to stents back in March we will likely need started back on aspirin but I would like to wait for his hemoglobin to improve. If he does continue to bleed will likely need to get urology on board during this admission ? Continue to monitor his renal function, he likely does also have a component of anemia these 3. CAD status post stent/HTN/HLD/A-fib ? Discontinued his Eliquis secondary to his hematuria ? Continue his blood pressure medications, will monitor and make adjustments as necessary ? Continue with Lipitor DVT: Heparin Charges/Coding Visit Charges Inpatient E&M: 98794 Subs Hosp L2
[2022-12-05 12:45] LABS: Hemoglobin 7.4 g/dL (13.0-16.5)
--- NOTE | 2022-12-05 12:45 | CASEMGMT ---
YULIANA HECK Face to Face with patient for initial transition planning/care coordination assessment. YULIANA HECK introduced self and role at [facility]. Patient lying in bed, alert and oriented, niece at bedside. Patient willing to participate in assessment and is able to answer all questions appropriately. Care providers, pharmacy, and demographics verified. Patient wishes to discharge home and would like HHC. A list of C providers including quality and resource use data and consistent with the patient?s preferred geographical region, medical needs, and insurance network were provided from the [employer] Guide. [facility]. Patient states he has no further needs or concerns at this time. CM to follow for discharge planning needs that may arise. PCP: Tori Specialists: Everardo oncologist Preferred Pharmacy: [facility] Insurance: [employer] Prescription Benefit: yes Living Will/HPOA: none, interested in completing LNOK: sister, nieces Living Arrangements: Patient lives alone in a singles story home with 3 steps to enter the home. Patient states he was independent at home. Transportation: self, friends DME/HHC: Patient has cane. No previous SNF. [place] has had HHC in the past but does not recall agency. YULIANA HECK called and made referral to [facility], awaiting acceptance. Patient is able to discharge home prior to acceptance and CM will follow-up on Wednesday. Disposition Plan: Patient to discharge home with HHC, family support, and follow-up plans in place. Raven YANG, RN, CM
--- NOTE | 2022-12-05 14:17 | CASEMGMT ---
Social Work SW met w/pt, pt completed LW and Healthcare POA w/SW. SW gave pt originals and copies, and copies placed on the chart. GAIL Maier
[2022-12-05] MEDS: Vancomycin HCl 750 MG in 0.9% Normal Saline (250mL Bag) 250 ML 250 MG IV (16:19)
[2022-12-05] MEDS: Ensure Plus High Protein 120 ML LIQUID PO (21:46)
[2022-12-05] MEDS: Atorvastatin Calcium 40 MG Tablet PO (21:47)
[2022-12-06] VITALS (9 sets, daily range): BP systolic 121–142; BP diastolic 50–69; PULSE 66–89; RESP 16–22; TEMP 36.6–36.8; O2SAT 93–97
[2022-12-06] MEDS: Ipratropium/Albuterol Sulfate 3 ML AMPUL.NEB INHALATION ×4 (01:14→19:35)
[2022-12-06] MEDS: Heparin Injection (Vial) 5,000 UNIT/ML VIAL 5000 UNIT SC ×3 (05:56→22:24)
[2022-12-06] MEDS: Acetaminophen 500 MG Tablet 1000 MG PO ×3 (05:56→22:24)
[2022-12-06] MEDS: Piperacil/Tazobactam 3.375 GM in 0.9% Normal Saline (50mL MB+) 50 ML IV ×3 (05:57→22:24)
[2022-12-06] MEDS: Menthol/Lanolin/Calamine/Znox 113 GM Tube 1 APPLIC TOPICAL ×3 (05:57→22:20)
[2022-12-06 06:56] LABS: Absolute Lymphocyte Count 1.55 X10^3/uL (0.83-4.51); Absolute Neutrophil Count 5.6 X10^3/uL (2.0-7.7); Basophil# 0.03 X10^3/uL; Basophil% 0.4 % (0-1); Eosinophil# 0.06 X10^3/uL; Eosinophils% 0.7 % (0-5); Hematocrit 23.2 % (40-54); Hemoglobin 7.5 g/dL (13.0-16.5); Lymphocyte # 1.55 X10^3/ul (0.83-4.51); Lymphocyte % 19.3 % (19-41); Mean Corp Hgb Conc 32.3 g/dL (32-36); Mean Corpuscular Hgb 30.5 pg (27.0-32.0); Mean Corpuscular Volume 94.3 fL (80-94); Mean Platelet Vol. 9.2 fl (6.2-12.0); Monocyte# 0.68 X10^3/uL; Monocyte% 8.5 % (0-10); NRBC Flagged by Analyzer 0 % (0-5); Neutrophil % 69.6 % (47-70); Platelet Count 378 K/mm3 (150-450); RBC Distribution Width CV 12.6 % (11.6-14.6); RBC Distribution Width SD 43.3 fl (35.1-43.9); Red Blood Count 2.46 M/mm3 (4.6-6.2)
[2022-12-06 07:20] LABS: Anion Gap 4 (5-15); BUN 40 mg/dL (7-18); BUN/Creat Ratio 20.9 RATIO (10-20); Calcium,Total 9.4 mg/dL (8.5-10.1); Chloride 111 mmol/L (98-107); Creatinine, Serum 1.91 mg/dL (0.70-1.30); EST Glomerular Filtration Rate 37 mL/min (>60); Est Glom Filt Rate - Afr Amer 44 mL/min (>60); Estimated Creatinine Clearance 30.76 ml/min; Glucose 96 mg/dL (74-106); Potassium 4.1 mmol/L (3.5-5.1); Sodium Level 135 mmol/L (136-145)
[2022-12-06 08:08] LABS: Iron 29 ug/dL (65-175); Iron Binding Capacity,Total 198 ug/dL (250-450); PERCENT IRON SATURATION 14.6 % (15.0-55.0)
--- NOTE | 2022-12-06 09:09 | PN.HOSP_ITS ---
Subjective Subjective Coughing and wheezing, he still feels a little bit rundown Objective Data Objective Data Vital Signs: Vital Signs Temp Pulse Resp BP Pulse Ox O2 Del Method O2 Flow Rate 97.9 F 79 18 121/63 H 97 Nasal Cannula 1 12/06/22 03:59 12/06/22 07:29 12/06/22 07:29 12/06/22 03:59 12/06/22 08:00 12/06/22 07:29 12/06/22 08:00 Oxygen Flow Rate (L/min) 1 Oxygen Delivery Method Nasal Cannula Weight: 150 lb 5.684 oz Body Mass Index (BMI) 23.5 Intake & Output: Intake and Output for Last 24 Hours 12/05/22 12/06/22 12/07/22 03:59 03:59 03:59 Intake Total 685 / 685 2019 300 / 300 Output Total 1100 / 1100 1620 / 1620 600 / 600 Balance -415 / -415 400 / 400 -300 / -300 Medical Nutrition Assessment Dietitian: Malnutrition Criteria Met Start: 12/05/22 17:17 Freq: Status: Active Protocol: Document 12/05/22 17:17 TONNY (Rec: 12/05/22 17:17 [facility] [id number]) Nutrition Malnutrition Evidence of Malnutrition Exists Yes Malnutrition (severe): Chronic Evidenced By Suboptimal Energy Intake ( Severe),Weight Loss (Severe) Clinical Problem Chronic Disease or Condition Related Malnutrition Etiology related to decreased ability to consume sufficient energy to meet estimated nutrient needs Signs/Symptoms as evidenced by significant weight loss of 15.3% in 8 months based upon EMR wt of 177lb 4.026oz as of 04/03/22 as well as decreased oral intakes meeting less than 50% of estimated nutrient needs for at least one month. Status Active Problem Recommendation Dietitian Recommendations/Changes Changed diet to Regular ALEX for liberalization. Continue with Ensure plus high protein 120mL 4x/day with medpass. Will also order Waldo BID with breakfast and dinner to promote wound healing and beneprotein with soup at lunch to further increase oral intakes. Discussed some preferences, such as cottage cheese, that also have protein . Lab / Micro Data 12/06/22 05:38 12/06/22 05:38 Labs: Laboratory Results - last 24 hr 12/05/22 08:02: Sodium 135 L, Potassium 4.2, Chloride 109 H, Carbon Dioxide 20.0 L, Anion Gap 6, BUN 43 H, Creatinine 2.03 H, Estim Creat Clear Calc 28.94, Est GFR (MDRD) Af Amer 41 L, Est GFR (MDRD) Non-Af 34 L, BUN/Creatinine Ratio 21.2 H , Glucose 99, Calcium 8.9, Phosphorus 2.4 L, Magnesium 2.4, Total Bilirubin 0.40, AST 42 H, ALT 73 H, Alkaline Phosphatase 123 H, Total Protein 6.1 L, Albumin 2.3 L, Globulin 3.8, Albumin/Globulin Ratio 0.6 L 12/05/22 12:35: Hgb 7.4 L, Hct 23.0 L 12/06/22 05:38: WBC 8.0, RBC 2.46 L, Hgb 7.5 L, Hct 23.2 L, MCV 94.3 H, MCH 30.5, MCHC 32.3, RDW Std Deviation 43.3, RDW Coeff of Sari 12.6, Plt Count 378, MPV 9.2, Immature Gran % (Auto) 1.500 H, Neut % (Auto) 69.6, Lymph % (Auto) 19.3, [place] % (Auto) 8.5, Eos % (Auto) 0.7, Baso % (Auto) 0.4, Absolute Neuts (auto) 5.6, Absolute Lymphs (auto) 1.55, Nucleated RBC % 0, Sodium 135 L, Potassium 4.1, Chloride 111 H, Carbon Dioxide 20.0 L, Anion Gap 4 L, BUN 40 H, Creatinine 1.91 H, Estim Creat Clear Calc 30.76, Est GFR (MDRD) Af Amer 44 L, Est GFR (MDRD) Non-Af 37 L, BUN/Creatinine Ratio 20.9 H, Glucose 96, Calcium 9.4, Iron 29 L, TIBC 198 L, Iron Saturation 14.6 L Micro: Microbiology 12/04/22 19:10 Mucosa - Nasopharyngeal Respiratory Panel (PCR) - Final Physical Exam Narrative General: Alert, Oriented x3, Cooperative, No apparent distress HEENT: Atraumatic, PERRLA, EOMI, Normocephalic Oral: Moist Mucosa Neck: Supple, No JVD Lungs: Diminished, Normal air movement, No rhonchi, bilateral wheeze, No rales Cardiovascular: Regular rate, Regular Rhythm, Normal S1, Normal S2, No murmurs Abdomen: Soft, Non Tender, Non-Distended, No Hepato-splenomegaly Extremities: No edema, Capillary Refill Less than 3 Seconds Skin: No rashes, No breakdown Musculoskeletal: No Tenderness to Palpation of Joints or Extremities Neurological: Cranial nerves II-XII grossly intact, Motor Exam 5/5 strength throughout, Sensory exam intact to light touch and pain Psych/Mental Status: Normal Affect, Appropriate Assessment & Plan Assessment/Plan (1) Pneumonia of both lower lobes: (2) Bronchiectasis: (3) Leukocytosis: (4) Hematuria: (5) Hypoxia: PLAN: Plan 1. Acute hypoxia secondary to bilateral lower lobe pneumonia/metastatic lung disease ? Continue with IV antibiotics, MRSA screen came back negative so we will d iscontinue his vancomycin ? Currently on room air, he does have some wheezing so we will add some pr ednisone ? He did quit smoking in October we will continue to encourage cessation continue with inhaler as necessary ? He is status post right lower lobectomy but there was some seeding into his middle lobe 2. Anemia from acute hematuria with a history of prostate and bladder cancer/CKD 4 ? Does have a history of prostate and bladder cancer and follows with oncology as an outpatient ? We will continue to monitor his hemoglobin did drop to 7.4, will repeat this afternoon ? His Eliquis has been discontinued and he is currently on Plavix due to stents back in March we will likely need started back on aspirin but I would like to wait for his hemoglobin to improve. If he does continue to bleed will likely need to get urology on board during this admission ? Continue to monitor his renal function, he likely does also have a component of anemia these ? We will also check iron studies he has not been eating very well and he takes every other day iron 3. CAD status post stent/HTN/HLD/A-fib ? Discontinued his Eliquis secondary to his hematuria ? Continue his blood pressure medications, will monitor and make adjustments as necessary ? Continue with Lipitor DVT: Heparin Charges/Coding Visit Charges Inpatient E&M: 30154 Subs Hosp L2
[2022-12-06] MEDS: Carvedilol 3.125 MG TABLET PO ×2 (10:04→22:25)
[2022-12-06] MEDS: Megestrol Acetate 400 MG/10 ML UDC 200 MG PO (10:05)
[2022-12-06] MEDS: Multivitamin (Healthy Eyes) Capsule 1 CAP PO ×2 (10:05→22:24)
[2022-12-06] MEDS: guaiFENesin 1,200 MG Tablet 1200 MG PO ×2 (10:06→22:24)
[2022-12-06] MEDS: Clopidogrel Bisulfate 75 MG Tablet PO (10:06)
[2022-12-06] MEDS: Cholecalciferol (Vit D3) 125 MCG CAPSULE (5,000 UNITS) 250 MCG PO (10:07)
[2022-12-06] MEDS: Azithromycin 500 MG in Dextrose 5%-Water (250mL Bag) 250 ML 250 MG IV (10:18)
[2022-12-06] MEDS: predniSONE 20 MG Tablet 40 MG PO (10:18)
[2022-12-06] MEDS: Ensure Plus High Protein 120 ML LIQUID PO ×4 (10:18→22:24)
[2022-12-06 13:41] LABS: Ferritin 661 ng/mL (26-388)
--- NOTE | 2022-12-06 15:50 | RAD_ITS ---
EXAM: XR CHEST, 2 VIEWS CLINICAL INDICATION: increasing SOB TECHNIQUE: Frontal and lateral views of the chest. COMPARISON: 12/04/2022 FINDINGS: LUNGS AND PLEURAL SPACES: Right pleural effusion with associated airspace disease, worse when compared to the prior examination. Overall left pulmonary hyperinflation suggesting superimposed COPD. Mild diffuse interstitial prominence. No pneumothorax. HEART: No significant abnormality. Cardiac silhouette not enlarged. MEDIASTINUM: Central airways and mediastinal contour are unremarkable. BONES/JOINTS: Degenerative changes in the spine and shoulders. SOFT TISSUES: No significant abnormality. VASCULATURE: Atherosclerosis. TUBES, LINES AND DEVICES: Left-sided cardiac pacer is again identified. RAD/Chest PA and Lateral IMPRESSION: 1. Right pleural effusion with associated airspace disease, worse when compared to the prior examination. 2. COPD. Electronically Signed: Jf Marie DO at 16:16 EDT ,
[2022-12-06] MEDS: Sodium Ferric Gluconat/Sucrose 250 MG in 0.9% Normal Saline (250mL Bag) 250 ML 135 MG IV (17:20)
[2022-12-06] MEDS: Atorvastatin Calcium 40 MG Tablet PO (22:24)
[2022-12-07] VITALS (13 sets, daily range): BP systolic 137–161; BP diastolic 62–86; PULSE 60–93; RESP 12–18; TEMP 36.3–37.1; O2SAT 94–98
[2022-12-07] MEDS: Ipratropium/Albuterol Sulfate 3 ML AMPUL.NEB INHALATION ×3 (00:45→19:21)
[2022-12-07] MEDS: Menthol/Lanolin/Calamine/Znox 113 GM Tube 1 APPLIC TOPICAL ×3 (05:57→21:11)
[2022-12-07] MEDS: Heparin Injection (Vial) 5,000 UNIT/ML VIAL 5000 UNIT SC ×3 (05:57→21:11)
[2022-12-07] MEDS: Piperacil/Tazobactam 3.375 GM in 0.9% Normal Saline (50mL MB+) 50 ML IV ×3 (05:58→21:11)
[2022-12-07] MEDS: Acetaminophen 500 MG Tablet 1000 MG PO ×3 (05:58→21:11)
[2022-12-07 06:53] LABS: Absolute Lymphocyte Count 1.12 X10^3/uL (0.83-4.51); Absolute Neutrophil Count 8.3 X10^3/uL (2.0-7.7); Basophil# 0.01 X10^3/uL; Basophil% 0.1 % (0-1); Hematocrit 22.6 % (40-54); Hemoglobin 7.5 g/dL (13.0-16.5); Lymphocyte # 1.12 X10^3/ul (0.83-4.51); Lymphocyte % 10.7 % (19-41); Mean Corp Hgb Conc 33.2 g/dL (32-36); Mean Corpuscular Hgb 30.9 pg (27.0-32.0); Mean Platelet Vol. 9.5 fl (6.2-12.0); Monocyte# 0.64 X10^3/uL; Monocyte% 6.1 % (0-10); NRBC Flagged by Analyzer 0 % (0-5); Neutrophil # 8.31 X10^3/uL (2.7-7.7); Platelet Count 409 K/mm3 (150-450); RBC Distribution Width CV 12.6 % (11.6-14.6); RBC Distribution Width SD 43.5 fl (35.1-43.9); Red Blood Count 2.43 M/mm3 (4.6-6.2); White Blood Count 10.5 K/mm3 (4.4-11.0)
--- NOTE | 2022-12-07 07:12 | US_ITS ---
STUDY: SUPERFICIAL ULTRASOUND - RIGHT CHEST. REASON FOR EXAM: Male, 77 years old. Pleural effusion TECHNIQUE: A superficial ultrasound was performed with real-time and static sparks-scale imaging. COMPARISON: None. FINDINGS: Not enough right pleural effusion is present for safe thoracentesis. US/Chest IMPRESSION: Not enough pleural effusion for safe thoracentesis. Electronically Signed: Ramo Little MD at 12:42 EDT ,
[2022-12-07 07:16] LABS: Anion Gap 6 (5-15); BUN 47 mg/dL (7-18); BUN/Creat Ratio 24.9 RATIO (10-20); Calcium,Total 9.9 mg/dL (8.5-10.1); Chloride 107 mmol/L (98-107); Creatinine, Serum 1.89 mg/dL (0.70-1.30); EST Glomerular Filtration Rate 37 mL/min (>60); Est Glom Filt Rate - Afr Amer 45 mL/min (>60); Estimated Creatinine Clearance 31.09 ml/min; Glucose 116 mg/dL (74-106); Potassium 4.6 mmol/L (3.5-5.1); Sodium Level 136 mmol/L (136-145)
[2022-12-07 07:29] LABS: International Normalized Ratio 1.1; Prothrombin Time (Protime)PT. 14.1 SECONDS (11.7-14.9)
--- NOTE | 2022-12-07 09:05 | PN.HOSP_ITS ---
Subjective Subjective Feels little bit better though still pretty weak and he gets very short of breath with ambulation Objective Data Objective Data Vital Signs: Vital Signs Temp Pulse Resp BP Pulse Ox O2 Del Method O2 Flow Rate 97.8 F 78 18 140/75 H 95 Nasal Cannula 2 12/07/22 02:53 12/07/22 06:47 12/07/22 06:47 12/07/22 02:53 12/07/22 06:47 12/07/22 06:47 12/07/22 06:47 Oxygen Flow Rate (L/min) 2 Oxygen Delivery Method Nasal Cannula Weight: 150 lb 5.684 oz Body Mass Index (BMI) 23.5 Intake & Output: Intake and Output for Last 24 Hours 12/06/22 12/07/22 12/08/22 03:59 03:59 03:59 Intake Total 2019 1475 / 1475 500 / 500 Output Total 1620 / 1620 1450 / 1450 875 / 875 Balance 400 / 400 25 / 25 -375 / -375 Medical Nutrition Assessment Dietitian: Malnutrition Criteria Met Start: 12/05/22 17:17 Freq: Status: Active Protocol: Document 12/05/22 17:17 TONNY (Rec: 12/05/22 17:17 [facility] [id number]) Nutrition Malnutrition Evidence of Malnutrition Exists Yes Malnutrition (severe): Chronic Evidenced By Suboptimal Energy Intake ( Severe),Weight Loss (Severe) Clinical Problem Chronic Disease or Condition Related Malnutrition Etiology related to decreased ability to consume sufficient energy to meet estimated nutrient needs Signs/Symptoms as evidenced by significant weight loss of 15.3% in 8 months based upon EMR wt of 177lb 4.026oz as of 04/03/22 as well as decreased oral intakes meeting less than 50% of estimated nutrient needs for at least one month. Status Active Problem Recommendation Dietitian Recommendations/Changes Changed diet to Regular ALEX for liberalization. Continue with Ensure plus high protein 120mL 4x/day with medpass. Will also order Waldo BID with breakfast and dinner to promote wound healing and beneprotein with soup at lunch to further increase oral intakes. Discussed some preferences, such as cottage cheese, that also have protein . Lab / Micro Data 12/07/22 05:40 12/07/22 05:40 Labs: Laboratory Results - last 24 hr 12/06/22 05:38: Ferritin 661 H 12/07/22 05:40: WBC 10.5, RBC 2.43 L, Hgb 7.5 L, Hct 22.6 L, MCV 93.0, MCH 30.9, MCHC 33.2, RDW Std Deviation 43.5, RDW Coeff of Sari 12.6, Plt Count 409, MPV 9.5, Immature Gran % (Auto) 4.100 H, Neut % (Auto) 79.0 H, Lymph % (Auto) 10.7 L , [place] % (Auto) 6.1, Eos % (Auto) 0.0, Baso % (Auto) 0.1, Absolute Neuts (auto) 8.3 H, Absolute Lymphs (auto) 1.12, Nucleated RBC % 0, PT 14.1, INR 1.1, Sodium 136, Potassium 4.6, Chloride 107, Carbon Dioxide 23.0, Anion Gap 6, BUN 47 H, Creatinine 1.89 H, Estim Creat Clear Calc 31.09, Est GFR (MDRD) Af Amer 45 L, Est GFR (MDRD) Non-Af 37 L, BUN/Creatinine Ratio 24.9 H, Glucose 116 H, Calcium 9.9 Micro: Microbiology 12/04/22 19:10 Mucosa - Nasopharyngeal Respiratory Panel (PCR) - Final Radiography Diagnostic Testing: Radiology Impression Chest X-Ray 12/06/22 15:50 IMPRESSION: 1. Right pleural effusion with associated airspace disease, worse when compared to the prior examination. 2. COPD. Electronically Signed: Jf Marie DO at 16:16 EDT , Physical Exam Narrative General: Alert, Oriented x3, Cooperative, No apparent distress HEENT: Atraumatic, PERRLA, EOMI, Normocephalic Oral: Moist Mucosa Neck: Supple, No JVD Lungs: Diminished right greater than left, Normal air movement, No rhonchi, bilateral wheeze, No rales Cardiovascular: Regular rate, Regular Rhythm, Normal S1, Normal S2, No murmurs Abdomen: Soft, Non Tender, Non-Distended, No Hepato-splenomegaly Extremities: No edema, Capillary Refill Less than 3 Seconds Skin: No rashes, No breakdown Musculoskeletal: No Tenderness to Palpation of Joints or Extremities Neurological: Cranial nerves II-XII grossly intact, Motor Exam 5/5 strength throughout, Sensory exam intact to light touch and pain Psych/Mental Status: Normal Affect, Appropriate Assessment & Plan Assessment/Plan (1) Pneumonia of both lower lobes: (2) Bronchiectasis: (3) Leukocytosis: (4) Hematuria: (5) Hypoxia: PLAN: Plan 1. Acute hypoxia secondary to bilateral lower lobe pneumonia/metastatic lung disease/right-sided pleural effusion ? Continue with IV antibiotics, MRSA screen came back negative so we will discontinue his vancomycin ? Continue with prednisone and DuoNebs ? He did quit smoking in October we will continue to encourage cessation continue with inhaler as necessary ? He is status post right lower lobectomy but there was some seeding into his middle lobe ? We will plan for thoracentesis today, INR is 1.1. We will send it for lab work as well as cytology 2. Anemia from acute hematuria with a history of prostate and bladder cancer/CKD 4 ? Does have a history of prostate and bladder cancer and follows with oncology as an outpatient ? We will continue to monitor his hemoglobin did drop to 7.4, will repeat this afternoon ? His Eliquis has been discontinued and he is currently on Plavix due to stents back in March we will likely need started back on aspirin but I would like to wait for his hemoglobin to improve. If he does continue to bleed will likely need to get urology on board during this admission ? Continue to monitor his renal function, he likely does also have a component of anemia these ? He did get a dose of iron yesterday and his hemoglobin has stabilized despite having dropped to 7.5, will transfuse 1 unit given his cardiac history 3. CAD status post stent/HTN/HLD/A-fib ? Discontinued his Eliquis secondary to his hematuria ? Continue his blood pressure medications, will monitor and make adjustments as necessary ? Continue with Lipitor DVT: Heparin Charges/Coding Visit Charges Inpatient E&M: 14984 Subs Hosp L2
[2022-12-07] MEDS: guaiFENesin 1,200 MG Tablet 1200 MG PO ×2 (10:05→21:11)
[2022-12-07] MEDS: Megestrol Acetate 400 MG/10 ML UDC 200 MG PO (10:05)
[2022-12-07] MEDS: Azithromycin 500 MG in Dextrose 5%-Water (250mL Bag) 250 ML 250 MG IV (10:05)
[2022-12-07] MEDS: Cholecalciferol (Vit D3) 125 MCG CAPSULE (5,000 UNITS) 250 MCG PO (10:05)
[2022-12-07] MEDS: Clopidogrel Bisulfate 75 MG Tablet PO (10:05)
[2022-12-07] MEDS: Multivitamin (Healthy Eyes) Capsule 1 CAP PO ×2 (10:06→21:11)
[2022-12-07] MEDS: Ferrous Sulfate 325 MG Tablet PO (10:06)
[2022-12-07] MEDS: Carvedilol 3.125 MG TABLET PO ×2 (10:06→21:11)
[2022-12-07] MEDS: predniSONE 20 MG Tablet 40 MG PO (10:06)
[2022-12-07] MEDS: Ensure Plus High Protein 120 ML LIQUID PO ×4 (10:06→21:15)
--- NOTE | 2022-12-07 14:42 | CASEMGMT ---
Received notification from Jyoti at [facility] that pt is accepted for services and they will start on .
--- NOTE | 2022-12-07 16:35 | CHAPLAIN ---
Type of Pastoral Visit _x__ Initial Visit ___ Follow-up Visit ___ On-call Visit ___ General Patient Visit ___ Spiritual Assessment ___ Family Conference ___ Bereavement ___ Rapid Response ___ Code Blue ___ Other (describe below) Pastoral Care Referral From _x__ Patient ___ Family ___ Nurse ___ Physician ___ Ingot Caster ___ Folder Seamer ___ Other (describe below) Sacrament/Intervention _x__ Active listening ___ Anointing ___ Anabaptism ___ Bereavement ___ Communion _x__ Zoya exploration ___ _x__ Life review _x__ Prayer ___ Reconciliation ___ Sacrament of Sick _x__ Supportive presence ___ Wedding ___ Other (describe below) Pastoral Comments patient describes his recent surgeries and his updated diagnosis of cancer advancement; pt admits that this is all heavy and leads to some depressing thoughts; pt says that he tries to stay positive for himself and for others; pt goal is to live a few more years but has no concerns that this will not be possible; pt is asked about his support and says that he has great family (although mostly in [facility]), great friends, doctors, but does worry that he won't live to get older; pt says that he is encouraged about so many people putting me on their prayer chains and they are strangers; pt admits that he has a belief in God but that someday he needs to take the next step; when asked more about this the patient deferred; explored with patient keeping his perspective and the fact that he has to deal with the physical weakness and new information with patience for himself; pt did welcome prayer and the presence of this integrity engineer for his support today
[2022-12-07] MEDS: Atorvastatin Calcium 40 MG Tablet PO (21:11)
[2022-12-08] VITALS (8 sets, daily range): BP systolic 135–158; BP diastolic 72–81; PULSE 68–88; RESP 16–18; TEMP 36.6–37.2; O2SAT 95–98
[2022-12-08] MEDS: Menthol/Lanolin/Calamine/Znox 113 GM Tube 1 APPLIC TOPICAL ×3 (06:12→21:53)
[2022-12-08] MEDS: Piperacil/Tazobactam 3.375 GM in 0.9% Normal Saline (50mL MB+) 50 ML IV ×3 (06:12→21:53)
[2022-12-08] MEDS: Heparin Injection (Vial) 5,000 UNIT/ML VIAL 5000 UNIT SC ×3 (06:13→21:54)
[2022-12-08] MEDS: Acetaminophen 500 MG Tablet 1000 MG PO ×3 (06:13→21:52)
[2022-12-08] MEDS: Ipratropium/Albuterol Sulfate 3 ML AMPUL.NEB INHALATION ×2 (06:45→19:13)
[2022-12-08 07:13] LABS: Absolute Neutrophil Count 12.6 X10^3/uL (2.0-7.7); Basophil# 0.02 X10^3/uL; Basophil% 0.1 % (0-1); Hematocrit 27.8 % (40-54); Hemoglobin 9.1 g/dL (13.0-16.5); Lymphocyte % 13.6 % (19-41); Mean Corp Hgb Conc 32.7 g/dL (32-36); Mean Corpuscular Hgb 30.4 pg (27.0-32.0); Mean Platelet Vol. 9.3 fl (6.2-12.0); Monocyte% 4.9 % (0-10); NRBC Flagged by Analyzer 0 % (0-5); Neutrophil # 12.61 X10^3/uL (2.7-7.7); Platelet Count 454 K/mm3 (150-450); RBC Distribution Width CV 13.1 % (11.6-14.6); Red Blood Count 2.99 M/mm3 (4.6-6.2); White Blood Count 16.2 K/mm3 (4.4-11.0)
[2022-12-08 07:48] LABS: Anion Gap 3 (5-15); BUN 44 mg/dL (7-18); BUN/Creat Ratio 22.4 RATIO (10-20); Calcium,Total 10.4 mg/dL (8.5-10.1); Chloride 108 mmol/L (98-107); Creatinine, Serum 1.96 mg/dL (0.70-1.30); EST Glomerular Filtration Rate 35 mL/min (>60); Est Glom Filt Rate - Afr Amer 43 mL/min (>60); Estimated Creatinine Clearance 29.98 ml/min; Glucose 101 mg/dL (74-106); Potassium 4.4 mmol/L (3.5-5.1); Sodium Level 134 mmol/L (136-145)
--- NOTE | 2022-12-08 09:30 | PN.HOSP_ITS ---
Reason for Visit Reason for Visit: Diagnoses Elevated white blood cell count, unspecified (12/04/22) Pneumonia, unspecified organism (12/04/22) Bronchiectasis, uncomplicated (12/04/22) Hypoxemia (12/04/22) Hematuria, unspecified (12/04/22) Subjective Subjective Patient is a 77-year-old gentleman with multiple comorbidities admitted with progressive shortness of breath Objective Data Objective Data Vital Signs: Vital Signs Temp Pulse Resp BP Pulse Ox O2 Del Method O2 Flow Rate 97.9 F 72 18 158/79 H 95 Room Air 2 12/08/22 02:54 12/08/22 06:46 12/08/22 06:46 12/08/22 02:54 12/08/22 06:46 12/08/22 06:46 12/07/22 06:47 Oxygen Flow Rate (L/min) 2 Oxygen Delivery Method Room Air Weight: 68.2 kg Body Mass Index (BMI) 23.5 Intake & Output: Intake and Output for Last 24 Hours 12/06/22 12/07/22 12/08/22 23:59 23:59 23:59 Intake Total 1275 / 1275 3805 / 4085 680 / 680 Output Total 1450 / 1450 2975 / 3625 1900 / 1900 Balance -175 / -175 830 / 460 -1220 / -1220 Medical Nutrition Assessment Dietitian: Malnutrition Criteria Met Start: 12/05/22 17:17 Freq: Status: Active Protocol: Document 12/05/22 17:17 TONNY (Rec: 12/05/22 17:17 TONNY [id number]) Nutrition Malnutrition Evidence of Malnutrition Exists Yes Malnutrition (severe): Chronic Evidenced By Suboptimal Energy Intake ( Severe),Weight Loss (Severe) Clinical Problem Chronic Disease or Condition Related Malnutrition Etiology related to decreased ability to consume sufficient energy to meet estimated nutrient needs Signs/Symptoms as evidenced by significant weight loss of 15.3% in 8 months based upon EMR wt of 177lb 4.026oz as of 04/03/22 as well as decreased oral intakes meeting less than 50% of estimated nutrient needs for at least one month. Status Active Problem Recommendation Dietitian Recommendations/Changes Changed diet to Regular ALEX for liberalization. Continue with Ensure plus high protein 120mL 4x/day with medpass. Will also order Waldo BID with breakfast and dinner to promote wound healing and beneprotein with soup at lunch to further increase oral intakes. Discussed some preferences, such as cottage cheese, that also have protein . Lab / Micro Data 12/08/22 06:25 12/08/22 06:25 Labs: Laboratory Results - last 24 hr 12/07/22 09:54: Blood Type O POSITIVE, Antibody Screen NEGATIVE, Crossmatch See Detail 12/08/22 06:25: WBC 16.2 H, RBC 2.99 L, Hgb 9.1 L, Hct 27.8 L, MCV 93.0, MCH 30.4, MCHC 32.7, RDW Std Deviation 44.0 H, RDW Coeff of Sari 13.1, Plt Count 454 H, MPV 9.3, Immature Gran % (Auto) 3.400 H, Neut % (Auto) 78.0 H, Lymph % (Auto) 13.6 L, [place] % (Auto) 4.9, Eos % (Auto) 0.0, Baso % (Auto) 0.1, Absolute Neuts (auto) 12.6 H, Absolute Lymphs (auto) 2.20, Nucleated RBC % 0, Sodium 134 L, Potassium 4.4, Chloride 108 H, Carbon Dioxide 23.0, Anion Gap 3 L, BUN 44 H, Creatinine 1.96 H, Estim Creat Clear Calc 29.98, Est GFR (MDRD) Af Amer 43 L, Est GFR (MDRD) Non-Af 35 L, BUN/Creatinine Ratio 22.4 H, Glucose 101, Calcium 10.4 H Micro: Microbiology 12/04/22 19:10 Mucosa - Nasopharyngeal Respiratory Panel (PCR) - Final Physical Exam Narrative GENERAL: cooperative HEENT: Atraumatic; normocephalic EYES; Anicteric, Normal Conjunctiva NECK; supple, normal thyroid, RESPIRATORY: Diminished to auscultation CARDIOVASCULAR: Regular S1 S2, GI: soft, normoactive bowel sounds, : Urostomy bag on the right flank EXTREMITIES: No edema, no clubbing, MUSCULOSKELETAL: no muscle wasting NEURO: Awake; no lateralizing signs. SKIN: No Rash PSYCH; Flat affect Assessment & Plan Assessment/Plan (1) Pneumonia of both lower lobes: (2) Hypoxia: PLAN: Plan Patient is a 77-year-old gentleman with multiple comorbidities admitted with progressive shortness of breath 1. Acute hypoxia ? Secondary to bilateral lower lobe pneumonia as well as patient underlying metastatic lung disease right-sided pleural effusion. Patient admitted to regular nursing floor managed with broad-spectrum antibiotic therapy in addition to supplemental oxygen 2. Right-sided pleural effusion -Plan was for patient to have undergone ultrasound-guided thoracocentesis however there was not much fluid to be drained 3. Recently diagnosed lung CA ? Patient had right lower lobe resection done at [facility] 4. History of prostate and bladder CA ? Status post urostomy 5. Chronic kidney disease stage IV ? Kidney function at baseline 6. Physical deconditioning - Requested for PT OT eval and medical social consultant to assist with discharge planning 7. Coronary artery disease ? With recent PCI with [facility] patient is on antiplatelet therapy 8. Anemia ? Secondary to acute blood loss anemia from hematuria. Patient antiplatelet held. Patient was recently on Eliquis for paroxysmal A-fib also discontinued. Patient did receive parenteral iron subsequently monitoring H&H 9. Hypertension - Blood pressure controlled, home medications continued with dose adjustment as needed 10. Dyslipidemia -Patient is on statin therapy, continued at home dose 11. Paroxysmal A-fib ? Rate controlled systemic anticoagulation held given patient's significant anemia 12. DVT prophylaxis ? SC heparin Time spent in the patient's overall evaluation,decision-making process, review of diagnostic data, adjustment of management, discussion with other providers, nursing nursing and ancillary staff involved in patient's care documentation,50 Minutes Charges/Coding Visit Charges Inpatient E&M: 13117 [facility] L3
[2022-12-08] MEDS: Megestrol Acetate 400 MG/10 ML UDC 200 MG PO (09:52)
[2022-12-08] MEDS: Clopidogrel Bisulfate 75 MG Tablet PO (09:52)
[2022-12-08] MEDS: guaiFENesin 1,200 MG Tablet 1200 MG PO ×2 (09:52→21:52)
[2022-12-08] MEDS: predniSONE 20 MG Tablet 40 MG PO (09:52)
[2022-12-08] MEDS: Cholecalciferol (Vit D3) 125 MCG CAPSULE (5,000 UNITS) 250 MCG PO (09:53)
[2022-12-08] MEDS: Ensure Plus High Protein 120 ML LIQUID PO ×3 (09:53→18:34)
[2022-12-08] MEDS: Carvedilol 3.125 MG TABLET PO ×2 (09:53→21:52)
[2022-12-08] MEDS: Multivitamin (Healthy Eyes) Capsule 1 CAP PO ×2 (09:53→21:51)
[2022-12-08] MEDS: Azithromycin 500 MG in Dextrose 5%-Water (250mL Bag) 250 ML 250 MG IV (10:06)
--- NOTE | 2022-12-08 10:56 | CASEMGMT ---
Discharge Planning A list of?SNF providers including quality and resource use data and consistent with the patient's preferred geographic region, medical needs, and insurance network was created in [employer] Guide.? This list was provided to the SW. Suzie Paul Discharge Planning Asst.
--- NOTE | 2022-12-08 11:56 | CASEMGMT ---
Addendum entered by Sil Nichols 12/08/22 14:46: Social Work [facility] beds available. [facility]. Precert to be started at this time. SW met with pt and updated regarding this. Pt agreeable. Plan: [facility], pending [facility] Original Note: Social Work SW received referral from physician that pt does not feel he can return home at this time. SW met with pt and introduced self and role of SW. Pt lives alone and feels he is too weak and is losing balance while ambulating and will need short term rehab prior to returning home. A list of SNF providers including quality and resource use data and consistent with the patient?s preferred geographic region, medical needs, and insurance network were provided from the [employer] Guide. Pt preferred providers are [facility]. [facility] and 2. [facility]. Referral to be made. Pt will need precert prior to admission to SNF. Plan: [facility], pending acceptance and precert [facility] [place]
[2022-12-08] MEDS: Atorvastatin Calcium 40 MG Tablet PO (21:52)
[2022-12-09] VITALS (9 sets, daily range): BP systolic 125–160; BP diastolic 65–79; PULSE 60–85; RESP 16–19; TEMP 36.4–37.2; O2SAT 95–99
[2022-12-09] MEDS: Acetaminophen 500 MG Tablet 1000 MG PO ×3 (06:22→21:41)
[2022-12-09] MEDS: Menthol/Lanolin/Calamine/Znox 113 GM Tube 1 APPLIC TOPICAL ×3 (06:22→21:42)
[2022-12-09] MEDS: Piperacil/Tazobactam 3.375 GM in 0.9% Normal Saline (50mL MB+) 50 ML IV ×3 (06:22→21:41)
[2022-12-09] MEDS: Ipratropium/Albuterol Sulfate 3 ML AMPUL.NEB INHALATION ×3 (06:45→19:17)
[2022-12-09 06:56] LABS: Absolute Neutrophil Count 15.2 X10^3/uL (2.0-7.7); Basophil# 0.06 X10^3/uL; Basophil% 0.3 % (0-1); Hematocrit 28.2 % (40-54); Hemoglobin 9.4 g/dL (13.0-16.5); Mean Corp Hgb Conc 33.3 g/dL (32-36); Mean Corpuscular Hgb 30.8 pg (27.0-32.0); Mean Corpuscular Volume 92.5 fL (80-94); Mean Platelet Vol. 9.5 fl (6.2-12.0); Monocyte# 0.95 X10^3/uL; Monocyte% 4.9 % (0-10); NRBC Flagged by Analyzer 0.1 % (0-5); Neutrophil % 78.7 % (47-70); Platelet Count 487 K/mm3 (150-450); RBC Distribution Width CV 13.1 % (11.6-14.6); RBC Distribution Width SD 43.6 fl (35.1-43.9); Red Blood Count 3.05 M/mm3 (4.6-6.2); White Blood Count 19.3 K/mm3 (4.4-11.0)
[2022-12-09 07:48] LABS: Anion Gap 7 (5-15); BUN 46 mg/dL (7-18); BUN/Creat Ratio 23.8 RATIO (10-20); Calcium,Total 10.2 mg/dL (8.5-10.1); Chloride 106 mmol/L (98-107); Creatinine, Serum 1.93 mg/dL (0.70-1.30); EST Glomerular Filtration Rate 36 mL/min (>60); Est Glom Filt Rate - Afr Amer 44 mL/min (>60); Estimated Creatinine Clearance 30.44 ml/min; Glucose 106 mg/dL (74-106); Magnesium 1.9 mg/dL (1.6-2.6); Phosphorus 2.7 mg/dL (2.5-4.9); Potassium 4.7 mmol/L (3.5-5.1); Sodium Level 135 mmol/L (136-145)
--- NOTE | 2022-12-09 07:57 | PCM.PN.HOSP ---
Reason for Visit Reason for Visit: Diagnoses Elevated white blood cell count, unspecified (12/04/22) Pneumonia, unspecified organism (12/04/22) Bronchiectasis, uncomplicated (12/04/22) Hypoxemia (12/04/22) Hematuria, unspecified (12/04/22) Subjective Subjective Patient has a rise in his WBC count attributed to patient being on concomitant steroids patient remains off oxygen. Awaiting insurance pre-CERT prior to patient being transferred to alf for Objective Data Objective Data Vital Signs: Vital Signs Temp Pulse Resp BP Pulse Ox O2 Del Method O2 Flow Rate 98.9 F 80 16 160/79 H 95 Room Air 2 12/09/22 04:09 12/09/22 06:45 12/09/22 06:45 12/09/22 04:09 12/09/22 06:45 12/09/22 06:45 12/07/22 06:47 Oxygen Flow Rate (L/min) 2 Oxygen Delivery Method Room Air Weight: 68.2 kg Body Mass Index (BMI) 23.5 Intake & Output: Intake and Output for Last 24 Hours 12/07/22 12/08/22 12/09/22 23:59 23:59 23:59 Intake Total 3805 / 4085 2735 / 2735 50 / 50 Output Total 2975 / 3625 4400 / 4400 750 / 750 Balance 830 / 460 -1665 / -1665 -700 / -700 Medical Nutrition Assessment Dietitian: Malnutrition Criteria Met Start: 12/05/22 17:17 Freq: Status: Active Protocol: Document 12/05/22 17:17 TONNY (Rec: 12/05/22 17:17 [facility] [id number]) Nutrition Malnutrition Evidence of Malnutrition Exists Yes Malnutrition (severe): Chronic Evidenced By Suboptimal Energy Intake ( Severe),Weight Loss (Severe) Clinical Problem Chronic Disease or Condition Related Malnutrition Etiology related to decreased ability to consume sufficient energy to meet estimated nutrient needs Signs/Symptoms as evidenced by significant weight loss of 15.3% in 8 months based upon EMR wt of 177lb 4.026oz as of 04/03/22 as well as decreased oral intakes meeting less than 50% of estimated nutrient needs for at least one month. Status Active Problem Recommendation Dietitian Recommendations/Changes Changed diet to Regular ALEX for liberalization. Continue with Ensure plus high protein 120mL 4x/day with medpass. Will also order Waldo BID with breakfast and dinner to promote wound healing and beneprotein with soup at lunch to further increase oral intakes. Discussed some preferences, such as cottage cheese, that also have protein . Lab / Micro Data 12/09/22 06:10 12/09/22 06:10 Labs: Laboratory Results - last 24 hr 12/09/22 06:10: WBC 19.3 H, RBC 3.05 L, Hgb 9.4 L, Hct 28.2 L, MCV 92.5, MCH 30.8, MCHC 33.3, RDW Std Deviation 43.6, RDW Coeff of Sari 13.1, Plt Count 487 H, MPV 9.5, Immature Gran % (Auto) 3.100 H, Neut % (Auto) 78.7 H, Lymph % (Auto) 13.0 L, [place] % (Auto) 4.9, Eos % (Auto) 0.0, Baso % (Auto) 0.3, Absolute Neuts (auto) 15.2 H, Absolute Lymphs (auto) 2.50, Nucleated RBC % 0.1, Sodium 135 L, Potassium 4.7, Chloride 106, Carbon Dioxide 22.0, Anion Gap 7, BUN 46 H, Creatinine 1.93 H, Estim Creat Clear Calc 30.44, Est GFR (MDRD) Af Amer 44 L, Est GFR (MDRD) Non-Af 36 L, BUN/Creatinine Ratio 23.8 H, Glucose 106, Calcium 10.2 H, Phosphorus 2.7, Magnesium 1.9 Micro: Microbiology 12/04/22 19:10 Mucosa - Nasopharyngeal Respiratory Panel (PCR) - Final Radiography Diagnostic Testing: Radiology Impression Chest Ultrasound 12/07/22 07:12 IMPRESSION: Not enough pleural effusion for safe thoracentesis. Electronically Signed: Ramo Little MD at 12:42 EDT , Physical Exam Narrative GENERAL: cooperative HEENT: Atraumatic; normocephalic EYES; Anicteric, Normal Conjunctiva NECK; supple, normal thyroid, RESPIRATORY: Diminished to auscultation CARDIOVASCULAR: Regular S1 S2, GI: soft, normoactive bowel sounds, : Urostomy bag on the right flank EXTREMITIES: No edema, no clubbing, MUSCULOSKELETAL: no muscle wasting NEURO: Awake; no lateralizing signs. SKIN: No Rash PSYCH; Flat affect Assessment & Plan Assessment/Plan (1) Pneumonia of both lower lobes: (2) Hypoxia: PLAN: Plan Patient is a 77-year-old gentleman with multiple comorbidities admitted with progressive shortness of breath 1. Acute hypoxia ? Secondary to bilateral lower lobe pneumonia as well as patient underlying metastatic lung disease right-sided pleural effusion. Patient admitted to regular nursing floor managed with broad-spectrum antibiotic therapy in addition to supplemental oxygen ? 12/09/2022 patient has been weaned off oxygen 2. Right-sided pleural effusion -Plan was for patient to have undergone ultrasound-guided thoracocentesis however there was not much fluid to be drained 3. Recently diagnosed lung CA ? Patient had right lower lobe resection done at [facility] 4. History of prostate and bladder CA ? Status post urostomy 5. Chronic kidney disease stage IV ? Kidney function at baseline 6. Physical deconditioning - Requested for PT OT eval and social work instructor to assist with discharge planning 7. Coronary artery disease ? With recent PCI with [facility] patient is on antiplatelet therapy 8. Anemia ? Secondary to acute blood loss anemia from hematuria. Patient antiplatelet held. Patient was recently on Eliquis for paroxysmal A-fib also discontinued. Patient did receive parenteral iron subsequently monitoring H&H 9. Hypertension - Blood pressure controlled, home medications continued with dose adjustment as needed 10. Dyslipidemia -Patient is on statin therapy, continued at home dose 11. Paroxysmal A-fib ? Rate controlled systemic anticoagulation held given patient's significant anemia 12. DVT prophylaxis ? SC heparin 13. Leukocytosis ? Attributed to concomitant use of steroids which is currently being tapered Time spent in the patient's overall evaluation,decision-making process, review of diagnostic data, adjustment of management, discussion with other providers, nursing nursing and ancillary staff involved in patient's care documentation, 35 Minutes Charges/Coding Visit Charges Inpatient E&M: 14932 Subs Hosp L2
--- NOTE | 2022-12-09 08:22 | NURSING ---
This RN is aware of Vital Signs taken by [facility] Medical Billing Coordinator that were obtained this morning.
[2022-12-09] MEDS: predniSONE 20 MG Tablet 40 MG PO (08:33)
[2022-12-09] MEDS: Carvedilol 3.125 MG TABLET PO ×2 (08:34→21:41)
[2022-12-09] MEDS: Clopidogrel Bisulfate 75 MG Tablet PO (08:34)
[2022-12-09] MEDS: Multivitamin (Healthy Eyes) Capsule 1 CAP PO ×2 (08:35→21:41)
[2022-12-09] MEDS: guaiFENesin 1,200 MG Tablet 1200 MG PO ×2 (08:35→21:41)
[2022-12-09] MEDS: Megestrol Acetate 400 MG/10 ML UDC 200 MG PO (08:36)
[2022-12-09] MEDS: Ferrous Sulfate 325 MG Tablet PO (08:37)
[2022-12-09] MEDS: Cholecalciferol (Vit D3) 125 MCG CAPSULE (5,000 UNITS) 250 MCG PO (08:38)
--- NOTE | 2022-12-09 08:53 | NURSING ---
Pt is sitting in chair and breakfast arrived. No further needs.
--- NOTE | 2022-12-09 10:28 | CASEMGMT ---
Updated Jyoti at [facility] that pt dc plan is SNF, referral cancelled.
[2022-12-09] MEDS: Azithromycin 500 MG in Dextrose 5%-Water (250mL Bag) 250 ML 250 MG IV (11:03)
[2022-12-09] MEDS: Ensure Plus High Protein 120 ML LIQUID PO ×2 (18:07→21:42)
[2022-12-09] MEDS: Heparin Injection (Vial) 5,000 UNIT/ML VIAL 5000 UNIT SC (21:41)
[2022-12-09] MEDS: Atorvastatin Calcium 40 MG Tablet PO (21:46)
[2022-12-10] VITALS (8 sets, daily range): BP systolic 101–151; BP diastolic 63–84; PULSE 74–118; RESP 12–20; TEMP 36.6–36.7; O2SAT 95–98
[2022-12-10] MEDS: Acetaminophen 500 MG Tablet 1000 MG PO ×3 (05:22→20:33)
[2022-12-10] MEDS: Piperacil/Tazobactam 3.375 GM in 0.9% Normal Saline (50mL MB+) 50 ML IV ×3 (05:22→20:33)
[2022-12-10] MEDS: Ipratropium/Albuterol Sulfate 3 ML AMPUL.NEB INHALATION ×2 (07:29→19:29)
[2022-12-10 07:37] LABS: Absolute Lymphocyte Count 2.63 X10^3/uL (0.83-4.51); Absolute Neutrophil Count 14.3 X10^3/uL (2.0-7.7); Basophil# 0.08 X10^3/uL; Basophil% 0.4 % (0-1); Hematocrit 30.3 % (40-54); Hemoglobin 9.8 g/dL (13.0-16.5); Lymphocyte # 2.63 X10^3/ul (0.83-4.51); Lymphocyte % 14.2 % (19-41); Mean Corp Hgb Conc 32.3 g/dL (32-36); Mean Corpuscular Hgb 30.5 pg (27.0-32.0); Mean Corpuscular Volume 94.4 fL (80-94); Mean Platelet Vol. 9.6 fl (6.2-12.0); Monocyte# 0.99 X10^3/uL; Monocyte% 5.3 % (0-10); NRBC Flagged by Analyzer 0 % (0-5); Neutrophil # 14.34 X10^3/uL (2.7-7.7); Neutrophil % 77.3 % (47-70); Platelet Count 555 K/mm3 (150-450); RBC Distribution Width CV 13.2 % (11.6-14.6); RBC Distribution Width SD 44.9 fl (35.1-43.9); Red Blood Count 3.21 M/mm3 (4.6-6.2); White Blood Count 18.6 K/mm3 (4.4-11.0)
[2022-12-10 08:09] LABS: Anion Gap 8 (5-15); BUN 48 mg/dL (7-18); Calcium,Total 10.1 mg/dL (8.5-10.1); Chloride 106 mmol/L (98-107); Creatinine, Serum 2.18 mg/dL (0.70-1.30); EST Glomerular Filtration Rate 31 mL/min (>60); Est Glom Filt Rate - Afr Amer 38 mL/min (>60); Estimated Creatinine Clearance 26.95 ml/min; Glucose 98 mg/dL (74-106); Potassium 4.8 mmol/L (3.5-5.1); Sodium Level 136 mmol/L (136-145)
--- NOTE | 2022-12-10 08:13 | PCM.PN.HOSP ---
Reason for Visit Reason for Visit: Diagnoses Elevated white blood cell count, unspecified (12/04/22) Pneumonia, unspecified organism (12/04/22) Bronchiectasis, uncomplicated (12/04/22) Hypoxemia (12/04/22) Hematuria, unspecified (12/04/22) Subjective Subjective Patient seen clinical condition continues to improve. Awaiting insurance pre-CERT prior to transfer to half-way. Objective Data Objective Data Vital Signs: Vital Signs Temp Pulse Resp BP Pulse Ox O2 Del Method O2 Flow Rate 98.1 F 74 16 151/84 H 97 Room Air 2 12/10/22 02:20 12/10/22 02:20 12/10/22 02:20 12/10/22 02:20 12/10/22 02:20 12/10/22 02:20 12/07/22 06:47 Oxygen Flow Rate (L/min) 2 Oxygen Delivery Method Room Air Weight: 68.2 kg Body Mass Index (BMI) 23.5 Intake & Output: Intake and Output for Last 24 Hours 12/08/22 12/09/22 12/10/22 23:59 23:59 23:59 Intake Total 2735 / 2735 1125 / 1125 50 / 50 Output Total 4400 / 4400 1650 / 2300 1100 / 1100 Balance -1665 / -1665 -525 / -1175 -1050 / -1050 Medical Nutrition Assessment Dietitian: Malnutrition Criteria Met Start: 12/05/22 17:17 Freq: Status: Active Protocol: Document 12/05/22 17:17 TONNY (Rec: 12/05/22 17:17 [facility] [id number]) Nutrition Malnutrition Evidence of Malnutrition Exists Yes Malnutrition (severe): Chronic Evidenced By Suboptimal Energy Intake ( Severe),Weight Loss (Severe) Clinical Problem Chronic Disease or Condition Related Malnutrition Etiology related to decreased ability to consume sufficient energy to meet estimated nutrient needs Signs/Symptoms as evidenced by significant weight loss of 15.3% in 8 months based upon EMR wt of 177lb 4.026oz as of 04/03/22 as well as decreased oral intakes meeting less than 50% of estimated nutrient needs for at least one month. Status Active Problem Recommendation Dietitian Recommendations/Changes Changed diet to Regular ALEX for liberalization. Continue with Ensure plus high protein 120mL 4x/day with medpass. Will also order Waldo BID with breakfast and dinner to promote wound healing and beneprotein with soup at lunch to further increase oral intakes. Discussed some preferences, such as cottage cheese, that also have protein . Lab / Micro Data 12/10/22 06:35 12/10/22 06:35 Labs: Laboratory Results - last 24 hr 12/10/22 06:35: WBC 18.6 H, RBC 3.21 L, Hgb 9.8 L, Hct 30.3 L, MCV 94.4 H, MCH 30.5, MCHC 32.3, RDW Std Deviation 44.9 H, RDW Coeff of Sari 13.2, Plt Count 555 H, MPV 9.6, Immature Gran % (Auto) 2.800 H, Neut % (Auto) 77.3 H, Lymph % (Auto) 14.2 L, [place] % (Auto) 5.3, Eos % (Auto) 0.0, Baso % (Auto) 0.4, Absolute Neuts (auto) 14.3 H, Absolute Lymphs (auto) 2.63, Nucleated RBC % 0, Sodium 136, Potassium 4.8, Chloride 106, Carbon Dioxide 22.0, Anion Gap 8, BUN 48 H, Creatinine 2.18 H, Estim Creat Clear Calc 26.95, Est GFR (MDRD) Af Amer 38 L, Est GFR (MDRD) Non-Af 31 L, BUN/Creatinine Ratio 22.0 H, Glucose 98, Calcium 10.1 Micro: Microbiology 12/04/22 19:10 Mucosa - Nasopharyngeal Respiratory Panel (PCR) - Final Physical Exam Narrative GENERAL: cooperative HEENT: Atraumatic; normocephalic EYES; Anicteric, Normal Conjunctiva NECK; supple, normal thyroid, RESPIRATORY: Diminished to auscultation CARDIOVASCULAR: Regular S1 S2, GI: soft, normoactive bowel sounds, : Urostomy bag on the right flank EXTREMITIES: No edema, no clubbing, MUSCULOSKELETAL: no muscle wasting NEURO: Awake; no lateralizing signs. SKIN: No Rash PSYCH; Flat affect Assessment & Plan Assessment/Plan (1) Pneumonia of both lower lobes: (2) Hypoxia: PLAN: Plan Patient is a 77-year-old gentleman with multiple comorbidities admitted with progressive shortness of breath 1. Acute hypoxia ? Secondary to bilateral lower lobe pneumonia as well as patient underlying metastatic lung disease right-sided pleural effusion. Patient admitted to regular nursing floor managed with broad-spectrum antibiotic therapy in addition to supplemental oxygen ? 12/09/2022 patient has been weaned off oxygen 2. Right-sided pleural effusion -Plan was for patient to have undergone ultrasound-guided thoracocentesis however there was not much fluid to be drained 3. Recently diagnosed lung CA ? Patient had right lower lobe resection done at [facility] 4. History of prostate and bladder CA ? Status post urostomy 5. Chronic kidney disease stage IV ? Kidney function at baseline 6. Physical deconditioning - Requested for PT OT eval and rn social work to assist with discharge planning 7. Coronary artery disease ? With recent PCI with [facility] patient is on antiplatelet therapy 8. Anemia ? Secondary to acute blood loss anemia from hematuria. Patient antiplatelet held. Patient was recently on Eliquis for paroxysmal A-fib also discontinued. Patient did receive parenteral iron subsequently monitoring H&H 9. Hypertension - Blood pressure controlled, home medications continued with dose adjustment as needed 10. Dyslipidemia -Patient is on statin therapy, continued at home dose 11. Paroxysmal A-fib ? Rate controlled systemic anticoagulation held given patient's significant anemia 12. DVT prophylaxis ? SC heparin 13. Leukocytosis ? Attributed to concomitant use of steroids which is currently being tapered 14. Malnutrition (severe): -chronic Evidenced By Suboptimal Energy Intake ( Severe),Weight Loss (Severe) Clinical Problem ? Chronic Disease or Condition Related Malnutrition Etiology related to decreased ability to consume sufficient energy to meet estimated nutrient needs ?Signs/Symptoms as evidenced by significant weight loss of 15.3% in 8 months based upon EMR wt of 177lb 4.026oz as of 04/03/22 as well as decreased oral intakes meeting less than 50% of estimated nutrient needs for at least one month. ? Dietitian Recommendations/Changes? Changed diet to Regular ALEX for liberalization. Continue with Ensure plus high protein 120mL 4x/day with medpass. Will also order Waldo BID with breakfast and dinner to promote wound healing and beneprotein with soup at lunch to further increase oral intakes. Discussed some preferences, such as cottage cheese, that also have protein. Time spent in the patient's overall evaluation,decision-making process, review of diagnostic data, adjustment of management, discussion with other providers, nursing nursing and ancillary staff involved in patient's care documentation, 35 Minutes Charges/Coding Visit Charges Inpatient E&M: 59263 Subs Hosp L2
[2022-12-10] MEDS: Clopidogrel Bisulfate 75 MG Tablet PO (09:19)
[2022-12-10] MEDS: Carvedilol 3.125 MG TABLET PO ×2 (09:19→20:35)
[2022-12-10] MEDS: Megestrol Acetate 400 MG/10 ML UDC 200 MG PO (09:19)
[2022-12-10] MEDS: Ensure Plus High Protein 120 ML LIQUID PO ×4 (09:19→20:40)
[2022-12-10] MEDS: Multivitamin (Healthy Eyes) Capsule 1 CAP PO ×2 (09:19→20:35)
[2022-12-10] MEDS: guaiFENesin 1,200 MG Tablet 1200 MG PO ×2 (09:19→20:35)
[2022-12-10] MEDS: Cholecalciferol (Vit D3) 125 MCG CAPSULE (5,000 UNITS) 250 MCG PO (09:19)
[2022-12-10] MEDS: Azithromycin 500 MG in Dextrose 5%-Water (250mL Bag) 250 ML 250 MG IV (09:27)
[2022-12-10] MEDS: 0.9% Normal Saline (250mL Bag) 250 ML 15 ML IV (11:01)
[2022-12-10] MEDS: Menthol/Lanolin/Calamine/Znox 113 GM Tube 1 APPLIC TOPICAL (20:33)
[2022-12-10] MEDS: Heparin Injection (Vial) 5,000 UNIT/ML VIAL 5000 UNIT SC (20:34)
[2022-12-10] MEDS: Atorvastatin Calcium 40 MG Tablet PO (20:36)
[2022-12-11] MEDS: Ipratropium/Albuterol Sulfate 3 ML AMPUL.NEB INHALATION ×2 (01:26→07:06)
[2022-12-11 01:28] VITALS: PULSE 76; RESP 16
[2022-12-11] MEDS: Piperacil/Tazobactam 3.375 GM in 0.9% Normal Saline (50mL MB+) 50 ML IV (06:15)
[2022-12-11] MEDS: Menthol/Lanolin/Calamine/Znox 113 GM Tube 1 APPLIC TOPICAL (06:15)
[2022-12-11] MEDS: Acetaminophen 500 MG Tablet 1000 MG PO (06:17)
[2022-12-11 06:21] VITALS: BP 135/74; PULSE 72; RESP 16; TEMP 36.6; O2SAT 99
[2022-12-11 07:06] VITALS: PULSE 72; RESP 19; O2SAT 97
[2022-12-11 07:12] LABS: Absolute Lymphocyte Count 2.39 X10^3/uL (0.83-4.51); Absolute Neutrophil Count 10.8 X10^3/uL (2.0-7.7); Basophil# 0.04 X10^3/uL; Basophil% 0.3 % (0-1); Eosinophil# 0.06 X10^3/uL; Eosinophils% 0.4 % (0-5); Hematocrit 33.1 % (40-54); Hemoglobin 10.4 g/dL (13.0-16.5); Lymphocyte # 2.39 X10^3/ul (0.83-4.51); Lymphocyte % 16.2 % (19-41); Mean Corp Hgb Conc 31.4 g/dL (32-36); Mean Corpuscular Volume 95.4 fL (80-94); Mean Platelet Vol. 9.6 fl (6.2-12.0); Monocyte# 0.92 X10^3/uL; Monocyte% 6.2 % (0-10); NRBC Flagged by Analyzer 0 % (0-5); Neutrophil # 10.79 X10^3/uL (2.7-7.7); Neutrophil % 73.3 % (47-70); Platelet Count 587 K/mm3 (150-450); RBC Distribution Width CV 13.4 % (11.6-14.6); RBC Distribution Width SD 45.4 fl (35.1-43.9); Red Blood Count 3.47 M/mm3 (4.6-6.2); White Blood Count 14.7 K/mm3 (4.4-11.0)
--- NOTE | 2022-12-11 07:25 | PCM.PN.HOSP ---
Reason for Visit Reason for Visit: Diagnoses Elevated white blood cell count, unspecified (12/04/22) Pneumonia, unspecified organism (12/04/22) Bronchiectasis, uncomplicated (12/04/22) Hypoxemia (12/04/22) Hematuria, unspecified (12/04/22) Subjective Subjective Patient seen complains of feeling winded with therapy. Awaiting insurance precertification [facility] Objective Data Objective Data Vital Signs: Vital Signs Temp Pulse Resp BP Pulse Ox O2 Del Method O2 Flow Rate 97.8 F 72 19 H 135/74 H 97 Room Air 2 12/11/22 06:21 12/11/22 07:06 12/11/22 07:06 12/11/22 06:21 12/11/22 07:06 12/11/22 07:06 12/07/22 06:47 Oxygen Flow Rate (L/min) 2 Oxygen Delivery Method Room Air Weight: 68.2 kg Body Mass Index (BMI) 23.5 Intake & Output: Intake and Output for Last 24 Hours 12/09/22 12/10/22 12/11/22 23:59 23:59 23:59 Intake Total 1125 / 1125 818.25 / 1168.25 700 / 700 Output Total 1650 / 2300 1600 / 1600 650 / 650 Balance -525 / -1175 -781.75 / -431.75 50 / 50 Medical Nutrition Assessment Dietitian: Malnutrition Criteria Met Start: 12/05/22 17:17 Freq: Status: Active Protocol: Document 12/05/22 17:17 TONNY (Rec: 12/05/22 17:17 [facility] [id number]) Nutrition Malnutrition Evidence of Malnutrition Exists Yes Malnutrition (severe): Chronic Evidenced By Suboptimal Energy Intake ( Severe),Weight Loss (Severe) Clinical Problem Chronic Disease or Condition Related Malnutrition Etiology related to decreased ability to consume sufficient energy to meet estimated nutrient needs Signs/Symptoms as evidenced by significant weight loss of 15.3% in 8 months based upon EMR wt of 177lb 4.026oz as of 04/03/22 as well as decreased oral intakes meeting less than 50% of estimated nutrient needs for at least one month. Status Active Problem Recommendation Dietitian Recommendations/Changes Changed diet to Regular ALEX for liberalization. Continue with Ensure plus high protein 120mL 4x/day with medpass. Will also order Waldo BID with breakfast and dinner to promote wound healing and beneprotein with soup at lunch to further increase oral intakes. Discussed some preferences, such as cottage cheese, that also have protein . Lab / Micro Data 12/11/22 05:40 12/11/22 05:40 Labs: Laboratory Results - last 24 hr 12/10/22 06:35: WBC 18.6 H, RBC 3.21 L, Hgb 9.8 L, Hct 30.3 L, MCV 94.4 H, MCH 30.5, MCHC 32.3, RDW Std Deviation 44.9 H, RDW Coeff of Sari 13.2, Plt Count 555 H, MPV 9.6, Immature Gran % (Auto) 2.800 H, Neut % (Auto) 77.3 H, Lymph % (Auto) 14.2 L, [place] % (Auto) 5.3, Eos % (Auto) 0.0, Baso % (Auto) 0.4, Absolute Neuts (auto) 14.3 H, Absolute Lymphs (auto) 2.63, Nucleated RBC % 0, Sodium 136, Potassium 4.8, Chloride 106, Carbon Dioxide 22.0, Anion Gap 8, BUN 48 H, Creatinine 2.18 H, Estim Creat Clear Calc 26.95, Est GFR (MDRD) Af Amer 38 L, Est GFR (MDRD) Non-Af 31 L, BUN/Creatinine Ratio 22.0 H, Glucose 98, Calcium 10.1 12/11/22 05:40: WBC 14.7 H, RBC 3.47 L, Hgb 10.4 L, Hct 33.1 L, MCV 95.4 H, MCH 30.0, MCHC 31.4 L, RDW Std Deviation 45.4 H, RDW Coeff of Sari 13.4, Plt Count 587 H, MPV 9.6, Immature Gran % (Auto) 3.600 H, Neut % (Auto) 73.3 H, Lymph % (Auto) 16.2 L, [place] % (Auto) 6.2, Eos % (Auto) 0.4, Baso % (Auto) 0.3, Absolute Neuts (auto) 10.8 H, Absolute Lymphs (auto) 2.39, Nucleated RBC % 0 Micro: Microbiology 12/04/22 19:10 Mucosa - Nasopharyngeal Respiratory Panel (PCR) - Final Physical Exam Narrative GENERAL: cooperative HEENT: Atraumatic; normocephalic EYES; Anicteric, Normal Conjunctiva NECK; supple, normal thyroid, RESPIRATORY: Diminished to auscultation CARDIOVASCULAR: Regular S1 S2, GI: soft, normoactive bowel sounds, : Urostomy bag on the right flank EXTREMITIES: No edema, no clubbing, MUSCULOSKELETAL: no muscle wasting NEURO: Awake; no lateralizing signs. SKIN: No Rash PSYCH; Flat affect Assessment & Plan Assessment/Plan (1) Pneumonia of both lower lobes: (2) Hypoxia: PLAN: Plan Patient is a 77-year-old gentleman with multiple comorbidities admitted with progressive shortness of breath 1. Acute hypoxia ? Secondary to bilateral lower lobe pneumonia as well as patient underlying metastatic lung disease right-sided pleural effusion. Patient admitted to regular nursing floor managed with broad-spectrum antibiotic therapy in addition to supplemental oxygen ? 12/09/2022 patient has been weaned off oxygen 2. Right-sided pleural effusion -Plan was for patient to have undergone ultrasound-guided thoracocentesis however there was not much fluid to be drained 3. Recently diagnosed lung CA ? Patient had right lower lobe resection done at [facility] 4. History of prostate and bladder CA ? Status post urostomy 5. Chronic kidney disease stage IV ? Kidney function at baseline 6. Physical deconditioning - Requested for PT OT eval and director social service to assist with discharge planning 7. Coronary artery disease ? With recent PCI with [facility] patient is on antiplatelet therapy 8. Anemia ? Secondary to acute blood loss anemia from hematuria. Patient antiplatelet held. Patient was recently on Eliquis for paroxysmal A-fib also discontinued. Patient did receive parenteral iron subsequently monitoring H&H 9. Hypertension - Blood pressure controlled, home medications continued with dose adjustment as needed 10. Dyslipidemia -Patient is on statin therapy, continued at home dose 11. Paroxysmal A-fib ? Rate controlled systemic anticoagulation held given patient's significant anemia 12. DVT prophylaxis ? SC heparin 13. Leukocytosis ? Attributed to concomitant use of steroids which is currently being tapered 14. Malnutrition (severe): -chronic Evidenced By Suboptimal Energy Intake ( Severe),Weight Loss (Severe) Clinical Problem ? Chronic Disease or Condition Related Malnutrition Etiology related to decreased ability to consume sufficient energy to meet estimated nutrient needs ?Signs/Symptoms as evidenced by significant weight loss of 15.3% in 8 months based upon EMR wt of 177lb 4.026oz as of 04/03/22 as well as decreased oral intakes meeting less than 50% of estimated nutrient needs for at least one month. ? Dietitian Recommendations/Changes? Changed diet to Regular ALEX for liberalization. Continue with Ensure plus high protein 120mL 4x/day with medpass. Will also order Waldo BID with breakfast and dinner to promote wound healing and beneprotein with soup at lunch to further increase oral intakes. Discussed some preferences, such as cottage cheese, that also have protein. Time spent in the patient's overall evaluation,decision-making process, review of diagnostic data, adjustment of management, discussion with other providers, nursing nursing and ancillary staff involved in patient's care documentation, 35 Minutes Charges/Coding Visit Charges Inpatient E&M: 84539 Subs Hosp L2
[2022-12-11 07:38] LABS: Anion Gap 8 (5-15); BUN 57 mg/dL (7-18); BUN/Creat Ratio 24.4 RATIO (10-20); Calcium,Total 10.1 mg/dL (8.5-10.1); Chloride 108 mmol/L (98-107); Creatinine, Serum 2.34 mg/dL (0.70-1.30); EST Glomerular Filtration Rate 29 mL/min (>60); Est Glom Filt Rate - Afr Amer 35 mL/min (>60); Estimated Creatinine Clearance 25.11 ml/min; Glucose 89 mg/dL (74-106); Potassium 4.9 mmol/L (3.5-5.1); Sodium Level 138 mmol/L (136-145)
[2022-12-11 09:16] VITALS: BP 123/75; PULSE 94; RESP 18; TEMP 36.5; O2SAT 98
[2022-12-11] MEDS: Cholecalciferol (Vit D3) 125 MCG CAPSULE (5,000 UNITS) 250 MCG PO (09:29)
[2022-12-11] MEDS: guaiFENesin 1,200 MG Tablet 1200 MG PO (09:29)
[2022-12-11] MEDS: Multivitamin (Healthy Eyes) Capsule 1 CAP PO (09:29)
[2022-12-11] MEDS: Ferrous Sulfate 325 MG Tablet PO (09:29)
[2022-12-11] MEDS: Carvedilol 3.125 MG TABLET PO (09:29)
[2022-12-11] MEDS: Clopidogrel Bisulfate 75 MG Tablet PO (09:29)
[2022-12-11] MEDS: Megestrol Acetate 400 MG/10 ML UDC 200 MG PO (09:29)
--- NOTE | 2022-12-11 09:31 | CASEMGMT ---
Discharge Planning Message sent to [facility] via [employer] asking for status of precert. Suzie Paul, Discharge Planning Asst.
[2022-12-11] MEDS: Ensure Plus High Protein 120 ML LIQUID PO (09:33)
--- NOTE | 2022-12-11 11:09 | CASEMGMT ---
Social Work Per [facility], Insurance has denied admission to SNF. SW met with pt and informed that insurance will not cover cost of SNF. SW discussed pt's functional ability with therapy and discharge options including home with home health care and private pay at facility. After discussion and consideration pt choosing to go to [facility] private pay. SW spoke with Katie at [facility] and they are able to accept pt today. Private pay costs and need to pay up front relayed to pt and he is agreeable. Physician updated and pt will discharge today. Pt requesting that SW call his sister Leyla and update on discharge plan. Phone call to Leyla and information relayed. Leyla agreeable to discharge. Plan: [facility], skilled under private pay. TORY Bhatt
--- NOTE | 2022-12-11 11:15 | PCM.TXEXTCAR ---
Diet Diet Order/Speech Therapy: 12/05/22 16:24 Diet: Regular - No Added Salt Type of Dietary Supplement:: Walod Is pt able to select menu?: Yes Diet Comments: Waldo Fruit Punch with bfast and dinner, try beneprotein w/ soup at lunch Routine Orders/Code Status Code Status: Full Code Wound(s) RIGHT UPPER BUTTOCK: Wound Type: Pressure Injury LEFT CHEST- PACEMAKER SITE: Wound Type: Surgical Incision R back and side: Wound Type: Surgical Incision Therapies Occupational Therapy: Eval and Treat Problem/Diagnosis (1) Pneumonia of both lower lobes: Status: Acute Code(s): J18.9 - Pneumonia, unspecified organism (2) Hypoxia: Status: Acute Code(s): R09.02 - Hypoxemia Plan Patient is a 77-year-old gentleman with multiple comorbidities admitted with progressive shortness of breath 1. Acute hypoxia ? Secondary to bilateral lower lobe pneumonia as well as patient underlying metastatic lung disease right-sided pleural effusion. Patient admitted to regular nursing floor managed with broad-spectrum antibiotic therapy in addition to supplemental oxygen ? 12/09/2022 patient has been weaned off oxygen 2. Right-sided pleural effusion -Plan was for patient to have undergone ultrasound-guided thoracocentesis however there was not much fluid to be drained 3. Recently diagnosed lung CA ? Patient had right lower lobe resection done at [facility] 4. History of prostate and bladder CA ? Status post urostomy 5. Chronic kidney disease stage IV ? Kidney function at baseline 6. Physical deconditioning - Requested for PT OT eval and social security benefits interviewer to assist with discharge planning 7. Coronary artery disease ? With recent PCI with CHUYITA patient is on antiplatelet therapy 8. Anemia ? Secondary to acute blood loss anemia from hematuria. Patient antiplatelet held. Patient was recently on Eliquis for paroxysmal A-fib also discontinued. Patient did receive parenteral iron subsequently monitoring H&H 9. Hypertension - Blood pressure controlled, home medications continued with dose adjustment as needed 10. Dyslipidemia -Patient is on statin therapy, continued at home dose 11. Paroxysmal A-fib ? Rate controlled systemic anticoagulation held given patient's significant anemia 12. DVT prophylaxis ? SC heparin 13. Leukocytosis ? Attributed to concomitant use of steroids which is currently being tapered 14. Malnutrition (severe): -chronic Evidenced By Suboptimal Energy Intake ( Severe),Weight Loss (Severe) Clinical Problem ? Chronic Disease or Condition Related Malnutrition Etiology related to decreased ability to consume sufficient energy to meet estimated nutrient needs ?Signs/Symptoms as evidenced by significant weight loss of 15.3% in 8 months based upon EMR wt of 177lb 4.026oz as of 04/03/22 as well as decreased oral intakes meeting less than 50% of estimated nutrient needs for at least one month. ? Dietitian Recommendations/Changes? Changed diet to Regular ALEX for liberalization. Continue with Ensure plus high protein 120mL 4x/day with medpass. Will also order Waldo BID with breakfast and dinner to promote wound healing and beneprotein with soup at lunch to further increase oral intakes. Discussed some preferences, such as cottage cheese, that also have protein. Time spent in the patient's overall evaluation,decision-making process, review of diagnostic data, adjustment of management, discussion with other providers, nursing nursing and ancillary staff involved in patient's care documentation, 35 Minutes Allergies/Procedures Done in Hospital Allergies ciprofloxacin [From Cipro] Allergy (Intermediate, Verified 12/04/22 12:29) Hives metronidazole [From Flagyl] Allergy (Verified 12/04/22 12:29) Rash Type of Care/Length of Stay Estimated LOS: Convalescent Care Less Than 30 days Type of Care Needed: Skilled Rehab Potential: Good Prognosis: Good Additional Orders/Day of Discharge Day of Discharge: 12/11/22 Dietary and Speech Recommendations Dietitian Recommendations/Changes: Changed diet to Regular ALEX for liberalization. Continue with Ensure plus high protein 120mL 4x/day with medpass and beneprotein with soup at lunch to further increase oral intakes. Will discontinue Waldo BID due to causing diarrhea. Discharge Plan Admission Admit Date/Time: 12/04/22 16:15 Attending Provider: Shaun Chen Primary Care Provider: Candido Valle Consulting Providers: Prabha Barragan; Christian Marshall Discharge Orders/Prescriptions Prescriptions: New ipratropium-albuterol 0.5 mg-3 mg(2.5 mg base)/3 mL Solution For Nebulization 3 ml inhalation Q6H.RT Qty: 0 0RF sennosides-docusate sodium [Stool Softener-Stimulant Laxat] 8.6-50 mg Tablet 2 tab PO BID PRN PRN (Reason: Constipation) Qty: 0 0RF guaifenesin [Mucus Relief ER] 1,200 mg Tablet Extended Release 12hr 1,200 mg PO BID Qty: 0 0RF menthol-zinc oxide [Calmoseptine] 0.44-20.6 % Ointment 1 applic topical TID Qty: 0 0RF Protocol: *Topical Application Instructions APPLICATION INSTRUCTIONS: RIGHT BUTTOCK- PRESSURE WOUND Ensure Plus High Protein 0.08 gram-1.5 kcal/mL Liquid 120 ml PO 4X/DAY Qty: 0 0RF Continued multivitamin [Daily Multi-Vitamin] tablet 1 tab PO DAILY carvedilol 3.125 mg tablet 3.125 mg PO BID Qty: 180 3RF atorvastatin 40 mg tablet 40 mg PO QHS Qty: 90 3RF clopidogrel [Plavix] 75 mg tablet 75 mg PO DAILY Qty: 90 3RF Balance of Nature fruit/veg 3 cap PO DAILY PreserVision AREDS-2 250-90-40-1 mg Capsule 1 tab PO BID cholecalciferol (vitamin D3) 250 mcg (10,000 unit) Tablet 250 mcg PO DAILY amlodipine 10 MG tablet 10 mg PO DAILY Patient Comments: Pt instructed by PCP to stop this med due to low bp. 95/[address] office today 12/04/2022. acetaminophen 500 mg Tablet 1,000 mg PO Q8 Qty: 0 0RF megestrol 400 mg/10 mL (40 mg/mL) suspension 200 mg PO DAILY ferrous sulfate [Feosol] 325 mg (65 mg iron) tablet 325 mg PO QODAY Probiotic 5 billion cell capsule, sprinkle 1 cap PO DAILY Eliquis 5 mg tablet 5 mg PO BID Qty: 180 3RF Patient Comments: Pt reports his doctor wants him to stop this med tomorrow. 12/05/2022. Pt unsure why. Referrals / Follow Up: Candido Valle MD [Primary Care Provider] - Within 2 Weeks Disposition Disposition (needs filled in before D/C Order can be placed): [facility] Facility
--- NOTE | 2022-12-11 11:21 | PCM.DC.SUM ---
Providers Date of Admission: 12/04/22 Date of Discharge: 12/11/22 Primary Care Physician: Dr. Candido Valle MD Reason For Visit: PNEUMONIA Diagnosis Discharge Diagnosis (1) Pneumonia of both lower lobes: Status: Acute Code(s): J18.9 - Pneumonia, unspecified organism (2) Hypoxia: Status: Acute Code(s): R09.02 - Hypoxemia Plan Patient is a 77-year-old gentleman with multiple comorbidities admitted with progressive shortness of breath 1. Acute hypoxia ? Secondary to bilateral lower lobe pneumonia as well as patient underlying metastatic lung disease right-sided pleural effusion. Patient admitted to regular nursing floor managed with broad-spectrum antibiotic therapy in addition to supplemental oxygen ? 12/09/2022 patient has been weaned off oxygen 2. Right-sided pleural effusion -Plan was for patient to have undergone ultrasound-guided thoracocentesis however there was not much fluid to be drained 3. Recently diagnosed lung CA ? Patient had right lower lobe resection done at [facility] 4. History of prostate and bladder CA ? Status post urostomy 5. Chronic kidney disease stage IV ? Kidney function at baseline 6. Physical deconditioning - Requested for PT OT eval and high school social studies tutor to assist with discharge planning 7. Coronary artery disease ? With recent PCI with CHUYITA patient is on antiplatelet therapy 8. Anemia ? Secondary to acute blood loss anemia from hematuria. Patient antiplatelet held. Patient was recently on Eliquis for paroxysmal A-fib also discontinued. Patient did receive parenteral iron subsequently monitoring H&H 9. Hypertension - Blood pressure controlled, home medications continued with dose adjustment as needed 10. Dyslipidemia -Patient is on statin therapy, continued at home dose 11. Paroxysmal A-fib ? Rate controlled systemic anticoagulation held given patient's significant anemia ? Apixaban resumed on discharge 12. DVT prophylaxis ? SC heparin 13. Leukocytosis ? Attributed to concomitant use of steroids which is currently being tapered 14. Malnutrition (severe): -chronic Evidenced By Suboptimal Energy Intake ( Severe),Weight Loss (Severe) Clinical Problem ? Chronic Disease or Condition Related Malnutrition Etiology related to decreased ability to consume sufficient energy to meet estimated nutrient needs ?Signs/Symptoms as evidenced by significant weight loss of 15.3% in 8 months based upon EMR wt of 177lb 4.026oz as of 04/03/22 as well as decreased oral intakes meeting less than 50% of estimated nutrient needs for at least one month. ? Dietitian Recommendations/Changes? Changed diet to Regular ALEX for liberalization. Continue with Ensure plus high protein 120mL 4x/day with medpass. Will also order Waldo BID with breakfast and dinner to promote wound healing and beneprotein with soup at lunch to further increase oral intakes. Discussed some preferences, such as cottage cheese, that also have protein. Time spent in the patient's overall evaluation,decision-making process, review of diagnostic data, adjustment of management, discussion with other providers, nursing nursing and ancillary staff involved in patient's care documentation, 35 Minutes Medications at Discharge Home Medications multivitamin (Daily Multi-Vitamin tablet) 1 tab PO DAILY SUPPLEMENT 08/30/17 amlodipine 10 mg tablet 10 mg PO DAILY BP 04/01/22 cholecalciferol (vitamin D3) 250 mcg (10,000 unit) tablet 250 mcg PO DAILY SUPPLEMENT 04/01/22 vit C 250 mg-vit E 90 mg-zinc 40 mg-copper 1 at-hlgcrv-gxronc capsule (PreserVision AREDS-2) 1 tab PO BID EYE HEALTH 04/01/22 atorvastatin 40 mg tablet 40 mg PO QHS #90 tabs 04/21/22 carvedilol 3.125 mg tablet 3.125 mg PO BID #180 tabs 04/21/22 clopidogrel 75 mg tablet (Plavix) 75 mg PO DAILY #90 tabs 05/18/22 acetaminophen 500 mg tablet 1,000 mg (2 x 500 mg) PO Q8 #0 tabs 06/27/22 Balance of Nature fruit/veg 3 cap PO DAILY 07/08/22 apixaban 5 mg tablet (Eliquis) 5 mg PO BID #180 tabs 11/09/22 Lactobacil.acidophilus-Bifido.animalis 5 billion cell sprinkle capsule (Probiotic) 1 cap PO DAILY 12/04/22 ferrous sulfate 325 mg (65 mg iron) tablet (Feosol) 325 mg PO QODAY 12/04/22 megestrol 400 mg/10 mL (40 mg/mL) oral suspension 200 mg PO DAILY cancer treatment 12/04/22 food supplemt, lactose-reduced 0.08 gram-1.5 kcal/mL oral liquid (Ensure Plus High Protein) 120 ml PO 4X/DAY #0 mL 12/11/22 guaifenesin 1,200 mg tablet, extended release 12 hr (Mucus Relief ER) 1,200 mg PO BID #0 tabs 12/11/22 ipratropium 0.5 mg-albuterol 3 mg (2.5 mg base)/3 mL nebulization soln 3 ml inhalation Q6H.RT #0 mL 12/11/22 menthol 0.44 %-zinc oxide 20.6 % topical ointment (Calmoseptine) 1 applic topical TID #0 grams 12/11/22 sennosides 8.6 mg-docusate sodium 50 mg tablet (Stool Softener-Stimulant Laxative) 2 tab PO BID PRN PRN Constipation #0 tabs 12/11/22 Hospital Course Summary of Care Provided Minutes Spent on Discharge: 35 Physical Exam Narrative GENERAL: cooperative HEENT: Atraumatic; normocephalic EYES; Anicteric, Normal Conjunctiva NECK; supple, normal thyroid, RESPIRATORY: Diminished to auscultation CARDIOVASCULAR: Regular S1 S2, GI: soft, normoactive bowel sounds, : Urostomy bag on the right flank EXTREMITIES: No edema, no clubbing, MUSCULOSKELETAL: no muscle wasting NEURO: Awake; no lateralizing signs. SKIN: No Rash PSYCH; Flat affect Medical Records Data Medical Nutrition Assessment Dietitian: Malnutrition Criteria Met Start: 12/05/22 17:17 Freq: Status: Active Protocol: Document 12/05/22 17:17 TONNY (Rec: 12/05/22 17:17 [facility] [id number]) Nutrition Malnutrition Evidence of Malnutrition Exists Yes Malnutrition (severe): Chronic Evidenced By Suboptimal Energy Intake ( Severe),Weight Loss (Severe) Clinical Problem Chronic Disease or Condition Related Malnutrition Etiology related to decreased ability to consume sufficient energy to meet estimated nutrient needs Signs/Symptoms as evidenced by significant weight loss of 15.3% in 8 months based upon EMR wt of 177lb 4.026oz as of 04/03/22 as well as decreased oral intakes meeting less than 50% of estimated nutrient needs for at least one month. Status Active Problem Recommendation Dietitian Recommendations/Changes Changed diet to Regular ALEX for liberalization. Continue with Ensure plus high protein 120mL 4x/day with medpass. Will also order Waldo BID with breakfast and dinner to promote wound healing and beneprotein with soup at lunch to further increase oral intakes. Discussed some preferences, such as cottage cheese, that also have protein . Weight / BMI Weight Weight: 68.2 kg Body Mass Index (BMI) 23.5 ABG / Lab / Microbiology Data 12/11/22 05:40 12/11/22 05:40 Laboratory: Laboratory Results - last 24 hr 12/11/22 05:40: WBC 14.7 H, RBC 3.47 L, Hgb 10.4 L, Hct 33.1 L, MCV 95.4 H, MCH 30.0, MCHC 31.4 L, RDW Std Deviation 45.4 H, RDW Coeff of Sari 13.4, Plt Count 587 H, MPV 9.6, Immature Gran % (Auto) 3.600 H, Neut % (Auto) 73.3 H, Lymph % (Auto) 16.2 L, [place] % (Auto) 6.2, Eos % (Auto) 0.4, Baso % (Auto) 0.3, Absolute Neuts (auto) 10.8 H, Absolute Lymphs (auto) 2.39, Nucleated RBC % 0, Sodium 138, Potassium 4.9, Chloride 108 H, Carbon Dioxide 22.0, Anion Gap 8, BUN 57 H, Creatinine 2.34 H, Estim Creat Clear Calc 25.11, Est GFR (MDRD) Af Amer 35 L, Est GFR (MDRD) Non-Af 29 L, BUN/Creatinine Ratio 24.4 H, Glucose 89, Calcium 10.1 Microbiology: Microbiology 12/04/22 19:10 Mucosa - Nasopharyngeal Respiratory Panel (PCR) - Final Meaningful Use Info Meaningful Use Diagnoses (Choose all that apply): None applicable Discharge Plan Admission Admit Date/Time: 12/04/22 16:15 Attending Provider: Shaun Chen Primary Care Provider: Candido Valle Consulting Providers: Prabha Barragan; Christian Marshall Discharge Orders/Prescriptions Prescriptions: New ipratropium-albuterol 0.5 mg-3 mg(2.5 mg base)/3 mL Solution For Nebulization 3 ml inhalation Q6H.RT Qty: 0 0RF sennosides-docusate sodium [Stool Softener-Stimulant Laxat] 8.6-50 mg Tablet 2 tab PO BID PRN PRN (Reason: Constipation) Qty: 0 0RF guaifenesin [Mucus Relief ER] 1,200 mg Tablet Extended Release 12hr 1,200 mg PO BID Qty: 0 0RF menthol-zinc oxide [Calmoseptine] 0.44-20.6 % Ointment 1 applic topical TID Qty: 0 0RF Protocol: *Topical Application Instructions APPLICATION INSTRUCTIONS: RIGHT BUTTOCK- PRESSURE WOUND Ensure Plus High Protein 0.08 gram-1.5 kcal/mL Liquid 120 ml PO 4X/DAY Qty: 0 0RF Continued multivitamin [Daily Multi-Vitamin] tablet 1 tab PO DAILY carvedilol 3.125 mg tablet 3.125 mg PO BID Qty: 180 3RF atorvastatin 40 mg tablet 40 mg PO QHS Qty: 90 3RF clopidogrel [Plavix] 75 mg tablet 75 mg PO DAILY Qty: 90 3RF Balance of Nature fruit/veg 3 cap PO DAILY PreserVision AREDS-2 250-90-40-1 mg Capsule 1 tab PO BID cholecalciferol (vitamin D3) 250 mcg (10,000 unit) Tablet 250 mcg PO DAILY amlodipine 10 MG tablet 10 mg PO DAILY Patient Comments: Pt instructed by PCP to stop this med due to low bp. 95/[address] office today 12/04/2022. acetaminophen 500 mg Tablet 1,000 mg PO Q8 Qty: 0 0RF megestrol 400 mg/10 mL (40 mg/mL) suspension 200 mg PO DAILY ferrous sulfate [Feosol] 325 mg (65 mg iron) tablet 325 mg PO QODAY Probiotic 5 billion cell capsule, sprinkle 1 cap PO DAILY Eliquis 5 mg tablet 5 mg PO BID Qty: 180 3RF Patient Comments: Pt reports his doctor wants him to stop this med tomorrow. 12/05/2022. Pt unsure why. Referrals / Follow Up: Candido Valle MD [Primary Care Provider] - Within 2 Weeks Disposition Disposition (needs filled in before D/C Order can be placed): [facility] Facility Charges/Coding Visit Charges Inpatient E&M: 46873 Disch Hosp >30min
--- NOTE | 2022-12-11 12:58 | PHA.DC.MR.R ---
[facility] has performed discharge medication reconciliation for this patient. The patient's discharge medication list was reviewed for discrepancies and discrepancies were resolved. Medications at Discharge Home Medications multivitamin (Daily Multi-Vitamin tablet) 1 tab PO DAILY SUPPLEMENT 08/30/17 amlodipine 10 mg tablet 10 mg PO DAILY BP 04/01/22 cholecalciferol (vitamin D3) 250 mcg (10,000 unit) tablet 250 mcg PO DAILY SUPPLEMENT 04/01/22 vit C 250 mg-vit E 90 mg-zinc 40 mg-copper 1 uj-gqrehl-oneyby capsule (PreserVision AREDS-2) 1 tab PO BID EYE HEALTH 04/01/22 atorvastatin 40 mg tablet 40 mg PO QHS #90 tabs 04/21/22 carvedilol 3.125 mg tablet 3.125 mg PO BID #180 tabs 04/21/22 clopidogrel 75 mg tablet (Plavix) 75 mg PO DAILY #90 tabs 05/18/22 acetaminophen 500 mg tablet 1,000 mg (2 x 500 mg) PO Q8 #0 tabs 06/27/22 Balance of Nature fruit/veg 3 cap PO DAILY 07/08/22 apixaban 5 mg tablet (Eliquis) 5 mg PO BID #180 tabs 11/09/22 Lactobacil.acidophilus-Bifido.animalis 5 billion cell sprinkle capsule (Probiotic) 1 cap PO DAILY 12/04/22 ferrous sulfate 325 mg (65 mg iron) tablet (Feosol) 325 mg PO QODAY 12/04/22 megestrol 400 mg/10 mL (40 mg/mL) oral suspension 200 mg PO DAILY cancer treatment 12/04/22 food supplemt, lactose-reduced 0.08 gram-1.5 kcal/mL oral liquid (Ensure Plus High Protein) 120 ml PO 4X/DAY #0 mL 12/11/22 guaifenesin 1,200 mg tablet, extended release 12 hr (Mucus Relief ER) 1,200 mg PO BID #0 tabs 12/11/22 ipratropium 0.5 mg-albuterol 3 mg (2.5 mg base)/3 mL nebulization soln 3 ml inhalation Q6H.RT #0 mL 12/11/22 menthol 0.44 %-zinc oxide 20.6 % topical ointment (Calmoseptine) 1 applic topical TID #0 grams 12/11/22 sennosides 8.6 mg-docusate sodium 50 mg tablet (Stool Softener-Stimulant Laxative) 2 tab PO BID PRN PRN Constipation #0 tabs 12/11/22
--- NOTE | 2022-12-11 12:58 | CASEMGMT ---
Social Work Pt is ready for discharge today. 7000 convalescent exemption form competed in [facility] and sent alonge with discharge orders sent to [place] via [facility]. Pt notified of discharge and is agreeable. Pt will secure transportation with a friend and will be picked up around 2:30. Nursing and [place] notified of discharge time. Disposition: [place], skilled level of care [facility] [place]
[2022-12-11 13:13] VITALS: BP 115/72; PULSE 95; RESP 16; TEMP 36.3; O2SAT 98
--- NOTE | 2022-12-11 14:12 | NURSING ---
Report called to [facility] [phone] to nurse Griselda
== END 2022-12-11 14:10 | disposition skilled nursing facility (03) | DRG 193 ==
LOC: ED 16:35 → MS3 17:44
PROVIDERS: Family Medicine; Admitting Provider Internal Medicine; Emergency Provider Emergency Medicine; PCP Family Medicine; Visit Provider Internal Medicine
DX: J18.9 Pneumonia, unspecified organism (principal); E43 Unspecified severe protein-calorie malnutrition; C78.01 Secondary malignant neoplasm of right lung; D62 Acute posthemorrhagic anemia; J47.0 Bronchiectasis with acute lower respiratory infection; N18.4 Chronic kidney disease, stage 4 (severe); J44.0 Chronic obstructive pulmonary disease with (acute) lower respiratory infection; J90 Pleural effusion, not elsewhere classified; I48.0 Paroxysmal atrial fibrillation; I12.9 Hypertensive chronic kidney disease with stage 1 through stage 4 chronic kidney disease, or unspecified chronic kidney disease; E78.5 Hyperlipidemia, unspecified; I25.10 Atherosclerotic heart disease of native coronary artery without angina pectoris; R31.0 Gross hematuria; R09.02 Hypoxemia; Z53.09 Procedure and treatment not carried out because of other contraindication; Y95 Nosocomial condition; Z66 Do not resuscitate; Z68.23 Body mass index [BMI] 23.0-23.9, adult; Z79.01 Long term (current) use of anticoagulants; Z79.02 Long term (current) use of antithrombotics/antiplatelets; Z95.0 Presence of cardiac pacemaker; Z95.5 Presence of coronary angioplasty implant and graft; Z87.891 Personal history of nicotine dependence; Z90.2 Acquired absence of lung [part of]; Z85.118 Personal history of other malignant neoplasm of bronchus and lung; Z85.51 Personal history of malignant neoplasm of bladder; Z85.46 Personal history of malignant neoplasm of prostate
CPT/HCPCS: 36415; 71045; 71046; 71275; 76604; 80048; 80053; 82728; 83540; 83550; 83605; 83735; 83880; 84100; 84484; 85014; 85018; 85025; 85610; 86850; 86900; 86901; 86920; 87426; 87633; 87641; 90471; 93005; 94640; 94668; 94762; 97110; 97116; 97162; 97166; 97530; 97533; 97535; 97802; 97803; 99252; 99285; J7030; J7040; J7050; P9016; Q9967; A4216; G0463; J2916

== ENCOUNTER → 2022-12-15 | Outpatient (REF) | payer MEDICARE, SELFPAY ==
[2022-12-15 08:43] LABS: Absolute Lymphocyte Count 2.03 X10^3/uL (0.83-4.51); Absolute Neutrophil Count 7.1 X10^3/uL (2.0-7.7); Basophil# 0.06 X10^3/uL; Basophil% 0.6 % (0-1); Eosinophil# 0.14 X10^3/uL; Eosinophils% 1.3 % (0-5); Hematocrit 27.3 % (40-54); Hemoglobin 8.5 g/dL (13.0-16.5); Lymphocyte # 2.03 X10^3/ul (0.83-4.51); Lymphocyte % 19.5 % (19-41); Mean Corp Hgb Conc 31.1 g/dL (32-36); Mean Corpuscular Hgb 30.5 pg (27.0-32.0); Mean Corpuscular Volume 97.8 fL (80-94); Monocyte# 0.92 X10^3/uL; Monocyte% 8.8 % (0-10); NRBC Flagged by Analyzer 0 % (0-5); Neutrophil # 7.09 X10^3/uL (2.7-7.7); Neutrophil % 68.2 % (47-70); Platelet Count 491 K/mm3 (150-450); RBC Distribution Width CV 14.6 % (11.6-14.6); RBC Distribution Width SD 49.9 fl (35.1-43.9); Red Blood Count 2.79 M/mm3 (4.6-6.2); White Blood Count 10.4 K/mm3 (4.4-11.0)
[2022-12-15 08:59] LABS: Vitamin D,25 Hydroxy 80.4 ng/mL
[2022-12-15 09:08] LABS: ALB/GLOB Ratio 0.7 RATIO (0.9-2.4); AST(SGOT) 27 U/L (15-37); Alanine Aminotransfer ALT/SGPT 77 U/L (16-61); Albumin, Serum 2.8 g/dL (3.2-5.0); Alkaline Phosphatase 112 U/L (45-117); Anion Gap 7 (5-15); BUN 63 mg/dL (7-18); BUN/Creat Ratio 32.6 RATIO (10-20); Chloride 110 mmol/L (98-107); Creatinine, Serum 1.93 mg/dL (0.70-1.30); EST Glomerular Filtration Rate 36 mL/min (>60); Est Glom Filt Rate - Afr Amer 44 mL/min (>60); Globulin 3.8 g/dL (2.2-4.2); Glucose 102 mg/dL (74-106); Potassium 4.7 mmol/L (3.5-5.1); Protein, Total 6.6 g/dL (6.4-8.2); Sodium Level 137 mmol/L (136-145); Thyroid Stim Hormone (TSH) 3.75 uIU/mL (0.358-3.74)
== END ==
LOC: OLS.WHLTCC 05:00
PROVIDERS: PCP Family Medicine; Visit Provider Internal Medicine
DX: E55.9 Vitamin D deficiency, unspecified (principal); I12.9 Hypertensive chronic kidney disease with stage 1 through stage 4 chronic kidney disease, or unspecified chronic kidney disease; J18.9 Pneumonia, unspecified organism; J90 Pleural effusion, not elsewhere classified; K59.00 Constipation, unspecified; N18.4 Chronic kidney disease, stage 4 (severe); C34.31 Malignant neoplasm of lower lobe, right bronchus or lung
CPT/HCPCS: 36415; 80053; 82306; 84443; 85025; 87493

== ENCOUNTER 2022-12-22 12:17 | Inpatient (IN) | payer MEDICARE, SELFPAY ==
[2022-12-22] VITALS (29 sets, daily range): BP systolic 109–145; BP diastolic 39–88; PULSE 65–83; RESP 11–19; TEMP 36.3–36.8; O2SAT 93–100; BMI 24.8; BMI 24.1
--- NOTE | 2022-12-22 12:35 | RAD_ITS ---
STUDY: X-RAY CHEST REASON FOR EXAM: Male, 77 years old. sob TECHNIQUE: Single AP portable view of the chest. COMPARISON: Comparison is made with prior study dated December 06, 2022. FINDINGS: EKG electrodes are seen. Elevation of the right hemidiaphragm with blunting of the right costophrenic angle. Mild bibasilar atelectasis. Normal size heart. A left-sided dual-chamber pacemaker is seen. Normal mediastinum and annalisa. Normal visualized pulmonary arteries. Normal visualized aortic arch and descending thoracic aorta. Normal visualized thoracic spine. Normal visualized ribs, clavicles, and shoulders. There is no demonstrated abnormality of the visualized soft tissue structures of the upper abdomen. RAD/Chest 1 View (Portable) IMPRESSION: Blunting of the right costophrenic angle with mild right basilar atelectasis and elevation of the right hemidiaphragm. Electronically Signed: Ramo Little MD at 13:38 EST ,
--- NOTE | 2022-12-22 12:35 | EKG12_ITS ---
Test Reason : SOB Blood Pressure : / mmHG Vent. Rate : 074 BPM Atrial Rate : 074 BPM P-R Int : 196 ms QRS Dur : 110 ms QT Int : 378 ms P-R-T Axes : 052 -15 040 degrees QTc Int : 419 ms Normal sinus rhythm Right bundle branch block Abnormal ECG Confirmed by DALLAS QUINTERO, CATALINO ([id number]), acquisition editor JADE GARCÍA ([id number]) on 12/30/2022 10:35:18 AM Referred By: Confirmed By:CATALINO HAYNES MD
--- NOTE | 2022-12-22 12:44 | EDS_ITS ---
HPI History of Present Illness Chief Complaint: Shortness of Breath Informant: patient Onset/Context/Timing Onset: Days Context: Gradual Onset Narrative Narrative: Patient presents from [facility] secondary to increased shortness of breath and weakness. Patient was admitted to the hospital December 04 through the for pneumonia and hypoxia. He is currently at [facility] for therapy. When he was in the hospital he developed hematuria and his Eliquis was stopped. He states it is still on hold but he is on Plavix. His urine has cleared and he has noted no further blood in his urine. He has developed diarrhea for the last several days. He states it is mendosa in color and he has not noted any blood in his stool. Lab work was performed this morning and his hemoglobin was found to be 5.7. PFSH PFS Medical History Acute renal insufficiency Anemia Arthritis of wrist, right Atherosclerotic heart disease of [place] coronary artery without angina pectoris Atrial fibrillation Bladder cancer CAD (coronary artery disease) Cancer Cellulitis of right wrist Chest pain Chronic hyponatremia Chronic indwelling Ricketts catheter Chronic renal insufficiency CKD (chronic kidney disease) COPD (chronic obstructive pulmonary disease) Former smoker History of ETOH abuse Hydronephrosis Hypertension Kidney disease Kidney stones Myocardial infarct NSTEMI (non-ST elevated myocardial infarction) Pacemaker Paroxysmal SVT (supraventricular tachycardia) Presence of stent in coronary artery (~04/03/22) Prostate cancer Smoker Tobacco use Home Medications multivitamin (Daily Multi-Vitamin tablet) 1 tab PO DAILY SUPPLEMENT 08/30/17 [History Last Taken 12/04/22] amlodipine 10 mg tablet 10 mg PO DAILY BP 04/01/22 [History Last Taken 12/04/22] cholecalciferol (vitamin D3) 250 mcg (10,000 unit) tablet 250 mcg PO DAILY SUPPLEMENT 04/01/22 [History Last Taken 12/04/22] vit C 250 mg-vit E 90 mg-zinc 40 mg-copper 1 xf-ofuonf-qjrewk capsule (PreserVision AREDS-2) 1 tab PO BID EYE HEALTH 04/01/22 [History Last Taken 12/04/22] atorvastatin 40 mg tablet 40 mg PO QHS #90 tabs 04/21/22 [Rx Last Taken 12/03/22] carvedilol 3.125 mg tablet 3.125 mg PO BID #180 tabs 04/21/22 [Rx Last Taken 12/04/22] clopidogrel 75 mg tablet (Plavix) 75 mg PO DAILY #90 tabs 05/18/22 [Rx Last Taken 12/04/22] acetaminophen 500 mg tablet 1,000 mg (2 x 500 mg) PO Q8 #0 tabs 06/27/22 [Rx Last Taken Unknown] Balance of Nature fruit/veg 3 cap PO DAILY 07/08/22 [History Last Taken 12/03/22] apixaban 5 mg tablet (Eliquis) 5 mg PO BID #180 tabs 11/09/22 [Rx Last Taken 12/04/22] Lactobacil.acidophilus-Bifido.animalis 5 billion cell sprinkle capsule (Probiotic) 1 cap PO DAILY 12/04/22 [History Last Taken 12/04/22] ferrous sulfate 325 mg (65 mg iron) tablet (Feosol) 325 mg PO QODAY 12/04/22 [History Last Taken 12/03/22] megestrol 400 mg/10 mL (40 mg/mL) oral suspension 200 mg PO DAILY cancer treatment 12/04/22 [History Last Taken 12/03/22] food supplemt, lactose-reduced 0.08 gram-1.5 kcal/mL oral liquid (Ensure Plus High Protein) 120 ml PO 4X/DAY #0 mL 12/11/22 [Rx Last Taken Unknown] guaifenesin 1,200 mg tablet, extended release 12 hr (Mucus Relief ER) 1,200 mg PO BID #0 tabs 12/11/22 [Rx Last Taken Unknown] ipratropium 0.5 mg-albuterol 3 mg (2.5 mg base)/3 mL nebulization soln 3 ml inhalation Q6H.RT #0 mL 12/11/22 [Rx Last Taken Unknown] menthol 0.44 %-zinc oxide 20.6 % topical ointment (Calmoseptine) 1 applic topical TID #0 grams 12/11/22 [Rx Last Taken Unknown] sennosides 8.6 mg-docusate sodium 50 mg tablet (Stool Softener-Stimulant Laxative) 2 tab PO BID PRN PRN Constipation #0 tabs 12/11/22 [Rx Last Taken Unknown] Allergy/AdvReac Type Severity Reaction Status Date / Time ciprofloxacin [From Cipro] Allergy Intermediate Hives Verified 12/22/22 12:22 metronidazole [From Flagyl] Allergy Rash Verified 12/22/22 12:22 Family History Mother Hypertension Surgical History History of bladder surgery History of carpal tunnel surgery History of circumcision History of coronary artery stent placement History of foot surgery History of tonsillectomy and adenoidectomy History of transurethral resection of prostate History of urostomy Presence of coronary angioplasty implant and graft (~04/03/22) S/P PTCA (percutaneous transluminal coronary angioplasty) S/P radical cystoprostatectomy Social History Smoking Status: Former smoker alcohol intake: current details: occasional substance use type: does not use ROS ROS ED Constitutional Constitutional ED: Denies chills or fever(s) Eyes Eyes: Denies change in vision or discharge from eye(s) ENT ENT ED: Denies discharge from eye(s), rhinorrhea or sore throat Cardiovascular Cardiovascular: Denies chest pain or palpitations Respiratory/Chest Respiratory/Chest: Reports dyspnea; Denies cough Gastrointestinal Gastrointestinal: Reports diarrhea; Denies abdominal pain, nausea or vomiting Genitourinary Genitourinary ED: Denies hematuria Musculoskeletal Musculoskeletal: Denies back pain or extremity pain Integumentary Denies Abrasions or rash Neurologic Neurologic: Reports weakness; Denies headache(s) Psychiatric Psychiatric: Denies anxiety or depression Allergic/Immunologic Allergic/Immunologic ED: Denies lip swelling or urticaria EXAM Physical Exam Const Vital Signs: 12/22/22 12:18 12/22/22 12:21 12/22/22 12:22 Temperature 97.4 F L 97.4 F L Temperature Source Oral Oral Pulse Rate 76 70 Respiratory Rate 11 L 19 H Respiratory Effort Short of Breath Labored Respiratory Depth Normal Respiratory Pattern Tachypnea Blood Pressure 109/39 L 109/39 L Blood Pressure Mean 62 62 Pulse Ox 98 97 Oxygen Delivery Method Room Air Room Air Room Air 12/22/22 13:28 12/22/22 13:43 Temperature 97.7 F L Temperature Source Oral Pulse Rate 82 66 Respiratory Rate 16 18 Respiratory Effort Respiratory Depth Respiratory Pattern Blood Pressure 126/67 H 126/67 H Blood Pressure Mean 86 86 Pulse Ox 98 99 Oxygen Delivery Method Room Air Room Air Positive well nourished and well developed General Appearance ED: well developed and pallor HEENT Reports normocephalic and head/scalp atraumatic Eyes PERRL and EOMs intact bilaterally Neck supple Chest Wall inspection of chest normal and palpation of chest normal Resp normal respiratory effort and clear to auscultation bilaterally Cardio regular rate and regular rhythm GI normal to inspection, nondistended, normoactive bowel sounds GI Narrative: Urostomy noted right lower quadrant. Palpation: soft Rectal Exam: normal sphincter tone, heme positive stool and other Other Details: No obvious hemorrhoids. Brown stool noted on gloved finger. Extremity normal to inspection Neuro oriented x3 Neuro Narrative: Generalized weakness but no focal neurologic deficits. Sensorium / Orientation: alert Psych mental status grossly normal Skin General Skin Exam: pallor MDM MDM MDM Narrative Medical decision making narrative: IV line established. Patient placed on environmental monitoring specialist. EKG obtained to evaluate for cardiac arrhythmia/ischemia. Chest x-ray obtained to evaluate for acute lung pathology, cardiac size, or mediastinal abnormality. Lab work from earlier today reviewed. His hemoglobin is 5.7 with hematocrit of 18.9. His hemoglobin was 8.5 on December 15. Chemistry studies reveal a BUN of 59 and creatinine 1.65. This is actually improving when compared to his prior values. Patient does have history of coronary disease with stent. 3 units of packed RBCs were ordered. I will perform a rectal exam to evaluate for any evidence of GI bleed. Urine in his urostomy bag is light yellow in color. Lab Data Labs: Laboratory Results - last 24 hr 12/22/22 12:48 PT 17.3 H INR 1.4 APTT 36.1 Blood Type O POSITIVE Antibody Screen NEGATIVE Crossmatch See Detail Radiography Diagnostic Testing: Clinical Impression(s) from Imaging Studies Chest X-Ray 12/22/22 12:35 IMPRESSION: Blunting of the right costophrenic angle with mild right basilar atelectasis and elevation of the right hemidiaphragm. Electronically Signed: Ramo Little MD at 13:38 EST , Treatment and Re-Evaluation :: Rectal exam is positive for blood. Chest x-ray per my interpretation was chronic changes with postop changes from previous right lower lobectomy. No focal infiltrate. Radiology interpretation is reviewed. EKG is sinus at 74 with no acute ischemia. Test results discussed with the patient. I discussed case with Dr. Hare. Patient will be given Protonix and he will see the patient in consult. I will speak with hospitalist regarding admission. Discharge Plan Triage Chief Complaint: Shortness of Breath ED Provider: Joanie Brooks Dx/Rx/DC Orders Clinical Impression: GI bleed, Anemia, Dyspnea Prescriptions: No Action multivitamin [Daily Multi-Vitamin] tablet 1 tab PO DAILY carvedilol 3.125 mg tablet 3.125 mg PO BID Qty: 180 3RF atorvastatin 40 mg tablet 40 mg PO QHS Qty: 90 3RF clopidogrel [Plavix] 75 mg tablet 75 mg PO DAILY Qty: 90 3RF Balance of Nature fruit/veg 3 cap PO DAILY PreserVision AREDS-2 250-90-40-1 mg Capsule 1 tab PO BID cholecalciferol (vitamin D3) 250 mcg (10,000 unit) Tablet 250 mcg PO DAILY amlodipine 10 MG tablet 10 mg PO DAILY Patient Comments: Pt instructed by PCP to stop this med due to low bp. 95/[address] today 12/04/2022. acetaminophen 500 mg Tablet 1,000 mg PO Q8 Qty: 0 0RF megestrol 400 mg/10 mL (40 mg/mL) suspension 200 mg PO DAILY ferrous sulfate [Feosol] 325 mg (65 mg iron) tablet 325 mg PO QODAY Probiotic 5 billion cell capsule, sprinkle 1 cap PO DAILY ipratropium-albuterol 0.5 mg-3 mg(2.5 mg base)/3 mL Solution For Nebulization 3 ml inhalation Q6H.RT Qty: 0 0RF sennosides-docusate sodium [Stool Softener-Stimulant Laxat] 8.6-50 mg Tablet 2 tab PO BID PRN PRN (Reason: Constipation) Qty: 0 0RF guaifenesin [Mucus Relief ER] 1,200 mg Tablet Extended Release 12hr 1,200 mg PO BID Qty: 0 0RF menthol-zinc oxide [Calmoseptine] 0.44-20.6 % Ointment 1 applic topical TID Qty: 0 0RF Protocol: *Topical Application Instructions APPLICATION INSTRUCTIONS: RIGHT BUTTOCK- PRESSURE WOUND Ensure Plus High Protein 0.08 gram-1.5 kcal/mL Liquid 120 ml PO 4X/DAY Qty: 0 0RF Eliquis 5 mg tablet 5 mg PO BID Qty: 180 3RF Patient Comments: Pt reports his doctor wants him to stop this med tomorrow. 12/05/2022. Pt unsure why. Primary Care Provider: Candido Valle Referrals: Candido Valle MD [Primary Care Provider] -
[2022-12-22 13:09] LABS: International Normalized Ratio 1.4; Partial Thromboplast Time 36.1 Seconds (24.1-36.2); Prothrombin Time (Protime)PT. 17.3 SECONDS (11.7-14.9)
--- NOTE | 2022-12-22 14:38 | ED.RN ---
THIS RN WITNESSED PT CALL [facility]. PT SPOKE TO NURSE TO LET THEM KNOW HE WOULD BE ADMITTED OVERNIGHT.
--- NOTE | 2022-12-22 14:38 | PCM.HP.STD ---
HPI - General General Date of Admission: 12/22/22 Date of Service: 12/22/22 Chief Complaint: Dyspnea, fatigue, weakness. HPI Narrative The patient is a 77 y/o M w/ PMHx: Former EtOH abuse, Chronic COPD, Hx Prostate and Bladder CA s/p urostomy, Recent Diagnosis Lung CA (Metastatic) s/p RLL resection [facility], HTN, HLD, PAF, CAD s/p PCI [facility] recently 04/03/2022 (planned restart ASA 12/06/22 but per his report they did not restart this as of yet, maintained on plavix), CKD stage IV, Chronic anemia/Fe Deficiency anemia w/ outpatient IV Fe following with Dr. Mcgee, Recent 12/11/2022 discharge following admission 12/04/2022 with treatment of bilateral lower lobe pneumonia with associated hypoxemia as well as right-sided pleural effusion without marked fluid to drain following attempted ultrasound-guided thoracentesis with acute blood loss anemia at that time felt secondary to hematuria with hold on patient antiplatelet as well as discontinuation of Eliquis which had previously been started for PAF who presents to the [facility] ED on 12/22/22 with history of progressively worsening dyspnea, weakness and fatigue still with Eliquis on hold but continue Plavix therapy with reported per facility of urine clearing however the last several days he has had diarrhea noted to be mendosa in color with hemoglobin routine check on day of presentation significant with level 5.7 prompting immediate referral to the ED. At the SNF they did order c-diff which was negative and following this they did give him imodium of note. He denies associated abdominal pain, nausea or emesis. Work-up in the ED included T97.9, heart 72, BP 129/63, respiratory rate 18, 100% on room air, coags with PT 17.3, INR 1.4, PTT 36.1, stool guaiac positive, chest x-ray with blunting of the right costophrenic angle with mild right basilar atelectasis and elevation of the right hemidiaphragm with left-sided dual-chamber pacemaker evident, type and cross initiated for 3 unit PRBC per ED physician. Prior to transition to the ED patient CBC with WBC 7.9, hemoglobin 5.7, platelet 105 without marked shift, previous to this most recent CBC 12/15/2022 with WBC 10.4, hemoglobin 8.5, platelet 491 with increased immature granulocytes and prior to this on 12/11/2022 CBC with hemoglobin 10.4. In the ED patient started Protonix 40 mg IV x1. PFSH Medical History Anemia Arthritis of wrist, right Atherosclerotic heart disease of [place] coronary artery without angina pectoris Atrial fibrillation Bladder cancer CAD (coronary artery disease) Cancer Chronic hyponatremia Chronic indwelling Ricketts catheter CKD (chronic kidney disease) COPD (chronic obstructive pulmonary disease) Former smoker History of ETOH abuse Hydronephrosis Hypertension Kidney stones NSTEMI (non-ST elevated myocardial infarction) Pacemaker Paroxysmal SVT (supraventricular tachycardia) Presence of stent in coronary artery (~04/03/22) Prostate cancer Smoker Tobacco use Home Medications amlodipine 10 mg tablet 10 mg PO DAILY BLOOD PRESSURE 04/01/22 [History Last Taken 12/22/22] cholecalciferol (vitamin D3) 250 mcg (10,000 unit) tablet 250 mcg PO DAILY SUPPLEMENT 04/01/22 [History Last Taken 12/22/22] vit C 250 mg-vit E 90 mg-zinc 40 mg-copper 1 [id number] capsule (PreserVision AREDS-2) 1 tab PO BID EYE HEALTH 04/01/22 [History Last Taken 12/22/22] atorvastatin 40 mg tablet 40 mg PO QHS CHOLESTEROL #90 tabs 04/21/22 [Rx Last Taken 12/21/22] carvedilol 3.125 mg tablet 3.125 mg PO BID HEART #180 tabs 04/21/22 [Rx Last Taken 12/22/22] clopidogrel 75 mg tablet (Plavix) 75 mg PO DAILY BLOOD THINNER #90 tabs 05/18/22 [Rx Last Taken 12/22/22] apixaban 5 mg tablet (Eliquis) 5 mg PO BID BLOOD THINNER #180 tabs 11/09/22 [Rx Last Taken 12/22/22] Lactobacil.acidophilus-Bifido.animalis 5 billion cell sprinkle capsule (Probiotic) 1 cap PO DAILY GUT HEALTH 12/04/22 [History Last Taken 12/22/22] ferrous sulfate 325 mg (65 mg iron) tablet (Feosol) 325 mg PO QODAY SUPPLEMENT 12/04/22 [History Last Taken 12/21/22] megestrol 400 mg/10 mL (40 mg/mL) oral suspension 200 mg PO DAILY CANCER TREATMENT 12/04/22 [History Last Taken 12/22/22] food supplemt, lactose-reduced 0.08 gram-1.5 kcal/mL oral liquid (Ensure Plus High Protein) 120 ml PO 4X/DAY SUPPLEMENT #0 mL 12/11/22 [Rx Last Taken 12/22/22] guaifenesin 1,200 mg tablet, extended release 12 hr (Mucus Relief ER) 1,200 mg PO BID PNEUMONIA #0 tabs 12/11/22 [Rx Last Taken 12/22/22] acetaminophen 500 mg tablet 1,000 mg PO Q8H PAIN 12/22/22 [History Last Taken 12/22/22] calcium polycarbophil 625 mg tablet (Fiber-Tabs) 625 mg PO DAILY CONSTIPATION 12/22/22 [History Last Taken 12/22/22] ipratropium 0.5 mg-albuterol 3 mg (2.5 mg base)/3 mL nebulization soln 3 ml inhalation TID PNEUMONIA 12/22/22 [History Last Taken 12/22/22] levothyroxine 25 mcg tablet 25 mcg PO DAILY THYROID 12/22/22 [History Last Taken 12/22/22] multivitamin 1 tab PO DAILY SUPPLEMENT 12/22/22 [History Last Taken 12/22/22] nutritional supplements 1 ea PO BID SUPPLEMENT 12/22/22 [History Last Taken 12/22/22] sennosides 8.6 mg-docusate sodium 50 mg tablet (Stool Softener-Stimulant Laxative) 2 tab PO BID PRN CONSTIPATION 12/22/22 [History Last Taken Unknown] Allergy/AdvReac Type Severity Reaction Status Date / Time ciprofloxacin [From Cipro] Allergy Intermediate Hives Verified 12/22/22 12:22 metronidazole [From Flagyl] Allergy Rash Verified 12/22/22 12:22 Family History Mother Hypertension Father Lung cancer Surgical History History of bladder surgery History of carpal tunnel surgery History of circumcision History of coronary artery stent placement History of foot surgery History of tonsillectomy and adenoidectomy History of transurethral resection of prostate History of urostomy Presence of coronary angioplasty implant and graft (~04/03/22) S/P PTCA (percutaneous transluminal coronary angioplasty) S/P radical cystoprostatectomy Social History (Updated 12/22/22 @ 19:[address] Lashon Costa MD) household members: spouse housing: prison Smoking Status: Former smoker alcohol intake: former details: Sober since 12/01/16, prior 6-8 beers per day. substance use type: does not use ROS ROS Narrative Admission Review of Systems: CONSTITUTIONAL: No weight loss, fever, chills, + weakness or fatigue. HEENT: + LH/dizziness. Eyes: No visual loss, blurred vision, double vision or yellow sclerae. Ears, Nose, Throat: No hearing loss, sneezing, congestion, runny nose or sore throat. SKIN: No rash or itching, lesions, wounds. CARDIOVASCULAR: + LH/Dizziness. No chest pain, chest pressure or chest discomfort, palpitations, edema, orthopnea, syncopal events. RESPIRATORY: + shortness of breath. No marked cough or sputum, wheezing, hemoptysis. GASTROINTESTINAL: + anorexia. No nausea, vomiting or diarrhea, abdominal pain, melena, BRBPR. GENITOURINARY: No dysuria, frequency, urgency or retention. NEUROLOGICAL: + LH/dizziness. No headache, syncope, paralysis, ataxia, numbness or tingling in the extremities, focal weakness, change in bowel or bladder control, seizure. MUSCULOSKELETAL: + muscle, back pain, joint pain or stiffness. HEMATOLOGIC: + anemia, bleeding, easy bruising. LYMPHATICS: No enlarged nodes. No history of splenectomy. PSYCHIATRIC: No history of depression or anxiety. ENDOCRINOLOGIC: No reports of sweating, cold or heat intolerance. No polyuria or polydipsia. ALLERGIES: + Hx of hives. Vital Signs Vital Signs Vital Signs: 12/22/22 12:18 12/22/22 12:21 12/22/22 12:22 Temperature 97.4 F L 97.4 F L Temperature Source Oral Oral Pulse Rate 76 70 Respiratory Rate 11 L 19 H Respiratory Effort Short of Breath Labored Respiratory Depth Normal Respiratory Pattern Tachypnea Blood Pressure 109/39 L 109/39 L Blood Pressure Mean 62 62 Blood Pressure Source Blood Pressure Position Blood Pressure Location Pulse Ox 98 97 Oxygen Delivery Method Room Air Room Air Room Air 12/22/22 13:28 12/22/22 13:43 12/22/22 14:18 Temperature 97.7 F L 97.9 F Temperature Source Oral Oral Pulse Rate 82 66 73 Respiratory Rate 16 18 19 H Respiratory Effort Respiratory Depth Respiratory Pattern Blood Pressure 126/67 H 126/67 H 129/62 H Blood Pressure Mean 86 86 84 Blood Pressure Source Blood Pressure Position Blood Pressure Location Pulse Ox 98 99 99 Oxygen Delivery Method Room Air Room Air Room Air 12/22/22 14:18 12/22/22 14:21 12/22/22 14:29 Temperature 97.7 F L 97.9 F Temperature Source Oral Oral Pulse Rate 74 80 72 Respiratory Rate 18 14 18 Respiratory Effort Respiratory Depth Respiratory Pattern Blood Pressure 129/62 H 127/64 H 129/63 H Blood Pressure Mean 84 85 85 Blood Pressure Source Monitor Monitor Blood Pressure Position Semi-Fowlers Semi-Fowlers Blood Pressure Location Left Arm Left Arm Pulse Ox 99 99 100 Oxygen Delivery Method Room Air Room Air Room Air Weight Weight: 158 lb 11.725 oz Body Mass Index (BMI) 24.8 Physical Exam Narrative Physical Examination: General: Awake, alert, oriented x 3 and cooperative, seated upright in the ED bed in no apparent distress, fatigued. Skin: Pale color, normal turgor, no icterus, no cyanosis except for occasional staged ecchymoses, abrasions. HEENT: AT/NC, EOMI, PERRLA, mildly dry MM, no carotid bruits or JVD noted. Lungs: Diminished, greater bases, appropriate effort, no evidence of any distress, no rales, ronchi or wheezing. Heart: Regular rate and rhythm; no gallop, rub audible. Abdomen: Soft, NTTP, ND, hyperactive BS, urostomy in place with normal-appearing urine output, no HSM. Extremities: No cyanosis, no clubbing, no significant marked peripheral pitting edema noted. Neurological: Patient awake, alert, oriented as noted, cognitive function intact; pupils equally reactive to light and accommodation, cranial nerves II-XII grossly normal, moving all 4 extremities, no focal deficits, strength severely globally decreased secondary to acute presentation. Psychiatric: Affect appears flat, fatigued, no acute evidence of depressive or anxiety feelings. Results Lab / Micro Data Labs: Laboratory Results - last 24 hr 12/22/22 12:48: PT 17.3 H, INR 1.4, APTT 36.1, Blood Type O POSITIVE, Antibody Screen NEGATIVE, Crossmatch See Detail Micro: Microbiology 12/22/22 13:08 Stool Stool Occult Blood (CHEL) - Final Occult Blood Positive Radiology Impression Chest X-Ray 12/22/22 12:35 IMPRESSION: Blunting of the right costophrenic angle with mild right basilar atelectasis and elevation of the right hemidiaphragm. Electronically Signed: Ramo Little MD at 13:38 EST , Assessment & Plan Assessment/Plan (1) GI bleed: QUALIFIERS: GI bleed type/associated pathology: unspecified gastrointestinal hemorrhage type Qualified Code(s): K92.2 - Gastrointestinal hemorrhage, unspecified (2) Anemia: QUALIFIERS: Anemia type: iron deficiency Iron deficiency anemia type: chronic blood loss Qualified Code(s): D50.0 - Iron deficiency anemia secondary to blood loss (chronic) PLAN: Plan The patient is a 77 y/o M w/ PMHx: Former EtOH abuse, Chronic COPD, Hx Prostate and Bladder CA s/p urostomy, Recent Diagnosis Lung CA (Metastatic) s/p RLL resection [facility], HTN, HLD, PAF, CAD s/p PCI [facility] recently 04/03/2022 (planned restart ASA 12/06/22 but per his report they did not restart this as of yet, maintained on plavix), CKD stage IV, Chronic anemia/Fe Deficiency anemia w/ outpatient IV Fe following with Dr. Mcgee, Recent 12/11/2022 discharge following admission 12/04/2022 with treatment of bilateral lower lobe pneumonia with associated hypoxemia as well as right-sided pleural effusion without marked fluid to drain following attempted ultrasound-guided thoracentesis with acute blood loss anemia at that time felt secondary to hematuria with hold on patient antiplatelet as well as discontinuation of Eliquis which had previously been started for PAF who presents to the [facility] ED on 12/22/22 with history of progressively worsening dyspnea, weakness and fatigue still with Eliquis on hold but continue Plavix therapy with reported per facility of urine clearing however the last several days he has had diarrhea noted to be [place] in color with hemoglobin routine check on day of presentation significant with level 5.7 prompting immediate referral to the ED. #1. Acute GI Bleed w/ resultant Acute Blood Loss Anemia on Chronic/iron deficiency anemia, unclear exact source: Admission Hgb 5.7, guiac positive but mendosa stool appearance, will admit to PCU, maintain on judicious IVFs, obtain serial H+Hs, continue planned 3 u PRBC administration initiated per ED with pulse dose lasix if necessary, will maintain on IV PPI, per discussion with GI will start bowel prep, clears until midnight then NPO status. Maintain on fall precautions, PT/OT/CM consultations for discharge planning. To be cautious also requested enteric pathogen but again C. difficile negative at outside facility with Lomotil initiated and stools are beginning to form now. #2. Recent acute hypoxia secondary to bilateral lower lobe pneumonia complicated by underlying metastatic lung disease with a right-sided pleural effusion with concurrent underlying COPD: Patient discharged 12/11/2022, completed antibiotic therapy course, will continue DuoNeb therapy aerosols as well as as needed albuterol, encourage head of bed, I-S. #3. Recent Diagnosis Lung CA (Metastatic): s/p RLL resection [facility], with Dr. Mcgee with ongoing outpatient therapies, will obtain magnesium and phosphorus levels to be cautious with supplementation as needed. #4. CAD: S/p PCI [facility] recently 04/03/2022, complicated recent presentation with hold on aspirin but continue Plavix and discontinuation of Eliquis, given current presentation with #1 and significant anemia associated we will hold Plavix given timeline of greater than 6 months, once endoscopies performed would certainly be beneficial to resume at least single antiplatelet therapy. We will continue patient Coreg as well as statin for. #5. CKD stage IV per GFR trending: Admission BUN/creatinine 59/1.65, baseline creatinine primarily more recently 1.8-2.3, will continue to trend CMP. #6. Hypertension: Continue home regimen including Coreg, amlodipine with hold parameters as needed given presentation as noted #1, PRN hydralazine. #7. Hyperlipidemia: We will continue patient on statin therapy. #8. PAF: We will continue Coreg, previous admission Eliquis had been held, will continue to hold especially given number 1. #9. Hx Prostate and Bladder CA: Status post resection/intervention, s/p urostomy in place, considered in remission. #10. Former EtOH abuse: Encourage sobriety. #11. Former tobacco use: Encourage continued tobacco cessation. #12. DVT prophylaxis: SCDs. #13. CODE STATUS: DNR CCA, no intubation per facility paperwork. Charges/Coding Visit Charges Inpatient E&M: 24115 Init Hosp L3
[2022-12-22] MEDS: Pantoprazole Sodium 40 MG in 0.9% Normal Saline (100mL MB+) 100 ML 330 MG IV ×2 (15:44→22:18)
--- NOTE | 2022-12-22 16:46 | EX.PCM.CON.G ---
HPI Consult Data Date of Consult: 12/22/22 HPI Narrative Reason for Consultation: Anemia HPI Narrative: MIGUEL PEREZ, is a 77 M who presents from [facility] secondary to increased shortness of breath and weakness. Patient was admitted to the hospital December 04 through the for pneumonia and hypoxia. He is currently at [facility] for therapy. When he was in the hospital he developed hematuria and his Eliquis was stopped. He states it is still on hold but he is on Plavix. His urine has cleared and he has noted no further blood in his urine. He has developed diarrhea for the last several days. He states it is mendosa in color and he has not noted any blood in his stool. Lab work was performed this morning and his hemoglobin was found to be 5.7. The patient was recently diagnosed with lung cancer and had a right lower lobe resection at [facility] from when she was discharged at the end of October. He notes that since that point in time he has had shortness of breath. During his lung procedure he developed some cardiac arrhythmia that required pacemaker placement concurrently. Over the last week or so he has developed more shortness of breath as well as a cough and some congestion. He has been weaker than he had been previously. His appetite has been poor for several months but this is not new. He is following with Dr. Mcgee from an oncology standpoint i. He typically is not oxygen dependent and he was tested for oxygen requirements prior to discharge from [facility]. [facility] Medical History Acute renal insufficiency Anemia Arthritis of wrist, right Atherosclerotic heart disease of [place] coronary artery without angina pectoris Atrial fibrillation Bladder cancer CAD (coronary artery disease) Cancer Cellulitis of right wrist Chest pain Chronic hyponatremia Chronic indwelling Ricketts catheter Chronic renal insufficiency CKD (chronic kidney disease) COPD (chronic obstructive pulmonary disease) Former smoker History of ETOH abuse Hydronephrosis Hypertension Kidney disease Kidney stones Myocardial infarct NSTEMI (non-ST elevated myocardial infarction) Pacemaker Paroxysmal SVT (supraventricular tachycardia) Presence of stent in coronary artery (~04/03/22) Prostate cancer Smoker Tobacco use Home Medications amlodipine 10 mg tablet 10 mg PO DAILY BLOOD PRESSURE 04/01/22 [History Last Taken 12/22/22] cholecalciferol (vitamin D3) 250 mcg (10,000 unit) tablet 250 mcg PO DAILY SUPPLEMENT 04/01/22 [History Last Taken 12/22/22] vit C 250 mg-vit E 90 mg-zinc 40 mg-copper 1 yo-xleycy-mdbidw capsule (PreserVision AREDS-2) 1 tab PO BID EYE HEALTH 04/01/22 [History Last Taken 12/22/22] atorvastatin 40 mg tablet 40 mg PO QHS CHOLESTEROL #90 tabs 04/21/22 [Rx Last Taken 12/21/22] carvedilol 3.125 mg tablet 3.125 mg PO BID HEART #180 tabs 04/21/22 [Rx Last Taken 12/22/22] clopidogrel 75 mg tablet (Plavix) 75 mg PO DAILY BLOOD THINNER #90 tabs 05/18/22 [Rx Last Taken 12/22/22] apixaban 5 mg tablet (Eliquis) 5 mg PO BID BLOOD THINNER #180 tabs 11/09/22 [Rx Last Taken 12/22/22] Lactobacil.acidophilus-Bifido.animalis 5 billion cell sprinkle capsule (Probiotic) 1 cap PO DAILY GUT HEALTH 12/04/22 [History Last Taken 12/22/22] ferrous sulfate 325 mg (65 mg iron) tablet (Feosol) 325 mg PO QODAY SUPPLEMENT 12/04/22 [History Last Taken 12/21/22] megestrol 400 mg/10 mL (40 mg/mL) oral suspension 200 mg PO DAILY CANCER TREATMENT 12/04/22 [History Last Taken 12/22/22] food supplemt, lactose-reduced 0.08 gram-1.5 kcal/mL oral liquid (Ensure Plus High Protein) 120 ml PO 4X/DAY SUPPLEMENT #0 mL 12/11/22 [Rx Last Taken 12/22/22] guaifenesin 1,200 mg tablet, extended release 12 hr (Mucus Relief ER) 1,200 mg PO BID PNEUMONIA #0 tabs 12/11/22 [Rx Last Taken 12/22/22] acetaminophen 500 mg tablet 1,000 mg PO Q8H PAIN 12/22/22 [History Last Taken 12/22/22] calcium polycarbophil 625 mg tablet (Fiber-Tabs) 625 mg PO DAILY CONSTIPATION 12/22/22 [History Last Taken 12/22/22] ipratropium 0.5 mg-albuterol 3 mg (2.5 mg base)/3 mL nebulization soln 3 ml inhalation TID PNEUMONIA 12/22/22 [History Last Taken 12/22/22] levothyroxine 25 mcg tablet 25 mcg PO DAILY THYROID 12/22/22 [History Last Taken 12/22/22] multivitamin 1 tab PO DAILY SUPPLEMENT 12/22/22 [History Last Taken 12/22/22] nutritional supplements 1 ea PO BID SUPPLEMENT 12/22/22 [History Last Taken 12/22/22] sennosides 8.6 mg-docusate sodium 50 mg tablet (Stool Softener-Stimulant Laxative) 2 tab PO BID PRN CONSTIPATION 12/22/22 [History Last Taken Unknown] Allergy/AdvReac Type Severity Reaction Status Date / Time ciprofloxacin [From Cipro] Allergy Intermediate Hives Verified 12/22/22 12:22 metronidazole [From Flagyl] Allergy Rash Verified 12/22/22 12:22 Family History Mother Hypertension Surgical History History of bladder surgery History of carpal tunnel surgery History of circumcision History of coronary artery stent placement History of foot surgery History of tonsillectomy and adenoidectomy History of transurethral resection of prostate History of urostomy Presence of coronary angioplasty implant and graft (~04/03/22) S/P PTCA (percutaneous transluminal coronary angioplasty) S/P radical cystoprostatectomy Social History Smoking Status: Former smoker alcohol intake: current details: occasional substance use type: does not use ROS Constitutional Constitutional: Reports anorexia, change in weight, chills, fatigue, malaise and weakness; Denies fever(s), night sweats or other Eyes Eyes: Denies blurry vision, change in eye color, change in vision, discharge from eye(s), double vision, erythema, eye pain, loss of vision or other ENT HEENT: Denies abnormal hearing, dysphagia, ear pain, epistaxis, headache(s), hearing loss, nasal congestion, nasal discharge, post nasal drip, sinus pressure, sore throat or other Cardiovascular Cardiovascular: Reports paroxysmal nocturnal dyspnea; Denies chest pain, claudication, dyspnea on exertion, edema, lightheadedness, orthopnea, palpitations, rapid heart rate, syncope or other Respiratory/Chest Respiratory/Chest: Reports cough, dyspnea, shortness of breath at rest and shortness of breath with exertion; Denies excessive phlegm production, hemoptysis, productive cough, wheezing or other Gastrointestinal Gastrointestinal: Denies abdominal pain, coffee ground emesis, constipation, diarrhea, dyspepsia, hematemesis, hematochezia, loose stools, melena, nausea, vomiting or other Genitourinary Genitourinary: Reports hematuria Musculoskeletal Musculoskeletal: Reports myalgias; Denies arthralgias, back pain, joint pain, joint stiffness, joint swelling, neck pain or other Neurologic Neurologic: Denies abnormal gait, abnormal speech, confusion, disequilibrium, dizziness, focal weakness, headache(s), numbness, paresthesias, seizure-like activity, seizures, syncope, tingling, tremor(s) or other Psychiatric Psychiatric: Denies anxiety, depression, homicidal ideation, suicidal ideation or other Endocrine Endocrinology: Denies change in body appearance, cold intolerance, excessive sweating, heat intolerance, polydipsia, polyuria or other Hematologic/Lymphatic Hematologic/Lymphatic: Denies anemia, easy bleeding, easy bruising, lymphadenopathy or other Allergic/Immunologic Allergic/Immunologic: Denies rhinitis, hives, eczemia, asthma or other Physical Exam Narrative GENERAL: cooperative HEENT: Atraumatic; normocephalic EYES; Anicteric, Normal Conjunctiva NECK; supple, normal thyroid, RESPIRATORY: Diminished to auscultation CARDIOVASCULAR: Regular S1 S2, GI: soft, normoactive bowel sounds, : Urostomy bag on the right flank EXTREMITIES: No edema, no clubbing, MUSCULOSKELETAL: no muscle wasting NEURO: Awake; no lateralizing signs. SKIN: No Rash PSYCH; Flat affect Lab / Micro Data Labs: Laboratory Results - last 24 hr 12/22/22 12:48: PT 17.3 H, INR 1.4, APTT 36.1, Blood Type O POSITIVE, Antibody Screen NEGATIVE, Crossmatch See Detail Micro: Microbiology 12/22/22 13:08 Stool Stool Occult Blood (CHEL) - Final Occult Blood Positive Radiology Impression Chest X-Ray 12/22/22 12:35 IMPRESSION: Blunting of the right costophrenic angle with mild right basilar atelectasis and elevation of the right hemidiaphragm. Electronically Signed: Ramo Little MD at 13:38 EST Reading Location ID and State: [address] [place] [address] , Service support , Assessment & Plan Assessment/Plan (1) Pneumonia of both lower lobes: QUALIFIERS: Pneumonia type: due to unspecified organism Qualified Code(s): J18.9 - Pneumonia, unspecified organism PLAN: Resolved and is currently not having any chest pain or shortness of breath or cough at this time (2) Bronchiectasis: QUALIFIERS: Bronchiectasis type: uncomplicated Qualified Code(s): J47.9 - Bronchiectasis, uncomplicated (3) Leukocytosis: QUALIFIERS: Leukocytosis type: other Qualified Code(s): D72.828 - Other elevated white blood cell count PLAN: . Likely reactive to his anemia. (4) Hematuria: QUALIFIERS: Hematuria type: unspecified type Qualified Code(s): R31.9 - Hematuria, unspecified PLAN: His hematuria resolved after being off anticoagulation and is currently only on Plavix at this time (5) Hypoxia: PLAN: .Patient is requiring 2 L of oxygen but has a history of COPD. (6) Anemia: QUALIFIERS: Anemia type: iron deficiency Iron deficiency anemia type: chronic blood loss Qualified Code(s): D50.0 - Iron deficiency anemia secondary to blood loss (chronic) PLAN: Likely multifactorial from his hematuria blood loss. However his stools are positive for blood and in the setting of antiplatelet and recent anticoagulation a GI blood loss should be ruled out. (7) GI bleed: QUALIFIERS: GI bleed type/associated pathology: unspecified gastrointestinal hemorrhage type Qualified Code(s): K92.2 - Gastrointestinal hemorrhage, unspecified PLAN: Plan Anemia from acute hematuria with a history of prostate and bladder cancer/CKD 4 ? Does have a history of prostate and bladder cancer and follows with oncology as an outpatient ? We will continue to monitor his hemoglobin did drop to 5.7, transfused 2 units of packed red blood cells ? His Eliquis has been discontinued and he is currently on Plavix due to stents back in March we will likely need started back on aspirin but we should wait to see what his upper and lower endoscopy looks like. ? Continue to monitor his renal function, he likely does also have a component of anemia these ? He is getting iron and with his cardiac history should keep hemoglobin close to 9. -He should undergo an EGD and colonoscopy to evaluate his upper GI tract and if that is negative he will need to have a capsule endoscopy. He was explained alternatives, risk, benefits including not withstanding bleeding, infection, sepsis, perforation, need for emergent surgery . He will have an ASA of 3 for the procedures. Charges/Coding Visit Charges Inpatient E&M: 98693 Init Hosp L3
[2022-12-22 17:08] LABS: Magnesium 2.2 mg/dL (1.6-2.6)
--- NOTE | 2022-12-22 19:37 | ED.RN ---
THIS RN TOOK PT TO FLOOR. BLOOD INFUSING AT 120 ML/HR CONFIRMED WITH YULIANA PATRICK (PCU NURSE). IV INTACT/PATENT/INFUSING. PT A &OX3.
[2022-12-22] MEDS: Bisacodyl 5 MG Tablet 20 MG PO (21:03)
[2022-12-22] MEDS: 0.9% Normal Saline (1000mL) 1,000 ML 75 ML IV (21:16)
[2022-12-22] MEDS: Atorvastatin Calcium 40 MG Tablet PO (22:10)
[2022-12-22] MEDS: Carvedilol 3.125 MG TABLET PO (22:11)
[2022-12-22] MEDS: guaiFENesin 1,200 MG Tablet 1200 MG PO (22:11)
[2022-12-22] MEDS: Polyethylene Glycol 3350 BOWEL PREP PO (22:15)
--- NOTE | 2022-12-22 23:25 | CPS ---
LAUNCH ENGINEER talked with patient about Aero Tx ordered, patient does not currently take any at home and wishes to not take any treatments here currently.
[2022-12-23] VITALS (9 sets, daily range): BP systolic 127–154; BP diastolic 67–79; PULSE 66–85; RESP 16–20; TEMP 36.7–36.8; O2SAT 94–100; BMI 23.9
[2022-12-23 02:16] LABS: Hematocrit 33.1 % (40-54); Hemoglobin 10.6 g/dL (13.0-16.5)
[2022-12-23] MEDS: Bisacodyl 5 MG Tablet 20 MG PO (04:58)
[2022-12-23] MEDS: Polyethylene Glycol 3350 BOWEL PREP 1 BOTTLE PO (05:56)
[2022-12-23 06:16] LABS: Absolute Lymphocyte Count 1.84 X10^3/uL (0.83-4.51); Absolute Neutrophil Count 6.7 X10^3/uL (2.0-7.7); Basophil# 0.08 X10^3/uL; Basophil% 0.8 % (0-1); Eosinophil# 0.31 X10^3/uL; Eosinophils% 3.2 % (0-5); Hemoglobin 11.1 g/dL (13.0-16.5); Lymphocyte # 1.84 X10^3/ul (0.83-4.51); Mean Corp Hgb Conc 31.7 g/dL (32-36); Mean Corpuscular Hgb 30.4 pg (27.0-32.0); Mean Corpuscular Volume 95.9 fL (80-94); Mean Platelet Vol. 9.7 fl (6.2-12.0); Monocyte# 0.69 X10^3/uL; Monocyte% 7.1 % (0-10); NRBC Flagged by Analyzer 0 % (0-5); Neutrophil % 69.2 % (47-70); Platelet Count 284 K/mm3 (150-450); RBC Distribution Width CV 17.9 % (11.6-14.6); RBC Distribution Width SD 61.8 fl (35.1-43.9); Red Blood Count 3.65 M/mm3 (4.6-6.2); White Blood Count 9.7 K/mm3 (4.4-11.0)
[2022-12-23 06:25] LABS: International Normalized Ratio 1.2; Prothrombin Time (Protime)PT. 14.8 SECONDS (11.7-14.9)
[2022-12-23 06:26] LABS: Partial Thromboplast Time 31.8 Seconds (24.1-36.2)
[2022-12-23 06:43] LABS: ALB/GLOB Ratio 0.9 RATIO (0.9-2.4); AST(SGOT) 47 U/L (15-37); Alanine Aminotransfer ALT/SGPT 109 U/L (16-61); Albumin, Serum 3.2 g/dL (3.2-5.0); Alkaline Phosphatase 104 U/L (45-117); Anion Gap 7 (5-15); BUN 41 mg/dL (7-18); BUN/Creat Ratio 25.6 RATIO (10-20); Calcium,Total 9.2 mg/dL (8.5-10.1); Chloride 115 mmol/L (98-107); EST Glomerular Filtration Rate 45 mL/min (>60); Est Glom Filt Rate - Afr Amer 54 mL/min (>60); Estimated Creatinine Clearance 36.72 ml/min; Globulin 3.6 g/dL (2.2-4.2); Glucose 98 mg/dL (74-106); Potassium 3.8 mmol/L (3.5-5.1); Protein, Total 6.8 g/dL (6.4-8.2); Sodium Level 139 mmol/L (136-145)
[2022-12-23 06:54] LABS: Thyroid Stim Hormone (TSH) 4.76 uIU/mL (0.358-3.74)
--- NOTE | 2022-12-23 08:13 | PN.HOSP_ITS ---
Reason for Visit Reason for Visit: Diagnoses Iron deficiency anemia secondary to blood loss (chronic) (12/22/22) Gastrointestinal hemorrhage, unspecified (12/22/22) Subjective Subjective Patient is a 77-year-old gentleman with multiple comorbidities admitted with progressive shortness of breath. Patient was found to be anemic with hemoglobin of 5.7 Objective Data Objective Data Vital Signs: Vital Signs Temp Pulse Resp BP Pulse Ox O2 Del Method 98.0 F 84 18 154/78 H 100 Room Air 12/23/22 06:35 12/23/22 06:35 12/23/22 06:35 12/23/22 06:35 12/23/22 06:35 12/23/22 06:35 Oxygen Delivery Method Room Air Weight: 69.3 kg Body Mass Index (BMI) 23.9 Intake & Output: Intake and Output for Last 24 Hours 12/21/22 12/22/22 12/23/22 23:59 23:59 23:59 Intake Total 222 / 222 431 / 431 Output Total 1350 / 1350 Balance 222 / -528 -919 / -919 Lab / Micro Data 12/23/22 05:50 12/23/22 05:50 Labs: Laboratory Results - last 24 hr 12/22/22 05:40: Phosphorus 3.0, Magnesium 2.2 12/22/22 12:48: PT 17.3 H, INR 1.4, APTT 36.1, Blood Type O POSITIVE, Antibody Screen NEGATIVE, Crossmatch See Detail 12/23/22 01:59: Hgb 10.6 L, Hct 33.1 L 12/23/22 05:50: WBC 9.7, RBC 3.65 L, Hgb 11.1 L, Hct 35.0 L, MCV 95.9 H D, MCH 30.4, MCHC 31.7 L, RDW Std Deviation 61.8 H, RDW Coeff of Sari 17.9 H, Plt Count 284, MPV 9.7, Immature Gran % (Auto) 0.700, Neut % (Auto) 69.2, Lymph % (Auto) 1 9.0, [place] % (Auto) 7.1, Eos % (Auto) 3.2, Baso % (Auto) 0.8, Absolute Neuts (auto) 6.7, Absolute Lymphs (auto) 1.84, Nucleated RBC % 0, PT 14.8, INR 1.2, APTT 31.8, Sodium 139, Potassium 3.8, Chloride 115 H, Carbon Dioxide 17.0 L, Anion Gap 7, BUN 41 H, Creatinine 1.60 H, Estim Creat Clear Calc 36.72, Est GFR (MDRD) Af Amer 54 L, Est GFR (MDRD) Non-Af 45 L, BUN/Creatinine Ratio 25.6 H, Glucose 98, Calcium 9.2, Total Bilirubin 0.60, AST 47 H, ALT 109 H, Alkaline Phosphatase 104, Total Protein 6.8, Albumin 3.2, Globulin 3.6, Albumin/Globulin Ratio 0.9, TSH 4.76 H Micro: Microbiology 12/22/22 13:08 Stool Stool Occult Blood (CHEL) - Final Occult Blood Positive Radiography Diagnostic Testing: Radiology Impression Chest X-Ray 12/22/22 12:35 IMPRESSION: Blunting of the right costophrenic angle with mild right basilar atelectasis and elevation of the right hemidiaphragm. Electronically Signed: Ramo Little MD at 13:38 EST , Physical Exam Narrative GENERAL: cooperative HEENT: Atraumatic; normocephalic EYES; Anicteric, Normal Conjunctiva NECK; supple, normal thyroid, RESPIRATORY: Diminished to auscultation CARDIOVASCULAR: Regular S1 S2, GI: soft, normoactive bowel sounds, : Urostomy bag on the right flank EXTREMITIES: No edema, no clubbing, MUSCULOSKELETAL: no muscle wasting NEURO: Awake; no lateralizing signs. SKIN: No Rash PSYCH; Flat affect Assessment & Plan Assessment/Plan (1) GI bleed: QUALIFIERS: GI bleed type/associated pathology: unspecified gastrointestinal hemorrhage type Qualified Code(s): K92.2 - Gastrointestinal hemorrhage, unspecified (2) Anemia: QUALIFIERS: Anemia type: iron deficiency Iron deficiency anemia type: chronic blood loss Qualified Code(s): D50.0 - Iron deficiency anemia secondary to blood loss (chronic) PLAN: Plan Patient is a 77-year-old gentleman with multiple comorbidities admitted with progressive shortness of breath. Patient was found to be anemic with hemoglobin of 5.7 1. Acute symptomatic anemia with hemoglobin of 5.7 ? Secondary to acute on chronic blood loss anemia from the GI tract. Patient admitted to a monitored bed transfused with 3 units PRBC patient is on antiplatelet therapy with aspirin and Plavix as well as systemic anticoagulation with Eliquis or held treated with Protonix consult placed to GI with plans for patient to undergo endoscopic evaluation 2. Acute GI bleed ? Management as discussed above 3. Recently diagnosed lung CA ? Patient had right lower lobe resection done at [facility] 4. History of prostate and bladder CA ? Status post urostomy 5. Chronic kidney disease stage IV ? Kidney function at baseline 6. Physical deconditioning - Requested for PT OT eval and social services specialist to assist with discharge planning 7. Coronary artery disease ? With recent PCI with [facility] patient is on antiplatelet therapy 8. Hypertension - Blood pressure controlled, home medications continued with dose adjustment as needed 9.. Dyslipidemia -Patient is on statin therapy, continued at home dose 10. Paroxysmal A-fib ? Rate controlled, systemic anticoagulation held given patient's significant anemia 11. Malnutrition (severe): -chronic Evidenced By Suboptimal Energy Intake ( Severe),Weight Loss (Severe) Clinical Problem ? Chronic Disease or Condition Related Malnutrition Etiology related to decreased ability to consume sufficient energy to meet estimated nutrient needs. Plan is to consult dietitian for recommendations 12. DVT prophylaxis -bilateral SCDs Time spent in the patient's overall evaluation,decision-making process, review of diagnostic data, adjustment of management, discussion with other providers, nursing nursing and ancillary staff involved in patient's care documentation, 55 minutes Charges/Coding Visit Charges Inpatient E&M: 69555 [facility] Hosp L3
[2022-12-23] MEDS: amLODIPine 10 MG Tablet PO (08:27)
[2022-12-23] MEDS: Levothyroxine 25 MCG TABLET PO (08:27)
[2022-12-23] MEDS: Carvedilol 3.125 MG TABLET PO ×2 (08:27→20:16)
--- NOTE | 2022-12-23 08:51 | CASEMGMT ---
Patient has a Healthcare Power of Corset Fitter (HCPOA) and a Healthcare Living Will on file at [facility]. Patient's sister Leyla is patient's HCPOA. Gricelda CONNOR
[2022-12-23] MEDS: Pantoprazole Sodium 40 MG in 0.9% Normal Saline (100mL MB+) 100 ML 330 MG IV ×2 (09:11→20:31)
[2022-12-23] MEDS: Albuterol 2.5 MG/3 ML VIAL.NEB. INHALATION (10:05)
[2022-12-23] MEDS: Ipratropium/Albuterol Sulfate 3 ML AMPUL.NEB INHALATION (12:51)
--- NOTE | 2022-12-23 17:11 | CASEMGMT ---
RN CM chart review: Patient was admitted 12/04-12/11/22 for pneumonia. SEE RN CM assessment from 12/05/22. Patient was discharged to [facility] for additional therapy. Patient returned to [facility] ED on 12/22/22 for SOB, ABLA, GI Bleed. Hgb was 5.7 and patient recieved 3 units of PRBC. GI consulted and scopes planned for 12/24/22. RN CM in to discuss discharge plan with patient. Patient wishes to return to [facility] at discharge. CM to update SW.
[2022-12-23] MEDS: Atorvastatin Calcium 40 MG Tablet PO (20:16)
[2022-12-23] MEDS: guaiFENesin 1,200 MG Tablet 1200 MG PO (20:16)
[2022-12-23] MEDS: 0.9% Saline Lock 10 ML Syringe IV (20:32)
[2022-12-24] VITALS (10 sets, daily range): BP systolic 98–132; BP diastolic 55–79; PULSE 66–90; RESP 16; TEMP 36.2–37.5; O2SAT 90–100; BMI 23.6
--- NOTE | 2022-12-24 | COLBX_PTH ---
PATIENT: MIGUEL PEREZ LOC: [facility] U#:[id number] AGE/SX: 77/M ROOM: [facility] RE12/22/[address]: Dr. Shaun Chen MD : 1945 BED: 1 DIS: 12/26/2022 SPEC #: [id number] RECD: 12/24/22 11:55 STATUS: JUAN ODWNEY #: [id number] DOMINIK: 12/24/22 00:[address]: Naga Hare DEPT: SURGICAL PATHOLOGY RECD BY: Sonam Meyers ENTERED: 12/24/22 11:55 SP TYPE: COLON BX OTHR DR: MD Dr. Shaun Grant MD Dr. Mark Elderbrock, MD Tissues: A - Duodenum, NOS B - Cecum, NOS C - COLON BIOPSY Procedures: Surgery Specimen Level IV Comments: @ Ordering doctor for SUIV edited from to @ by RGOKILEY at 12/25/22 08 @ Submitting doctor edited from to @ by RGOOD at 12/25/22805 HEADER OPERATION: Colonoscopy, EGD with biopsy PRE-OP DIAGNOSIS: GI bleed TISSUE SUBMITTED: A - Duodenum ulcer biopsy, B - Cecal polyp, C - Hepatic flexure polyp MICROSCOPIC DIAGNOSIS A. Duodenum ulcer, biopsy: Focal gastric metaplasia. Minimal chronic nonspecific inflammation. B. Cecal polyp, biopsy: Tubular adenoma. C. Colonic polyp at hepatic flexure, biopsy: Tubular adenoma. AM:aranza 12/25/2022 MICROSCOPIC DESCRIPTION Slides are reviewed. GROSS DESCRIPTION A - Received in fixative is one container labeled with the patient's name and designated duodenum ulcer biopsy. The specimen consists of multiple irregular fragments of light mendosa soft tissue that in aggregate measure 1.0 x 0.3 x 0.1 cm. The specimen is totally submitted in one cassette. B - Received in fixative is one container labeled with the patient's name and designated cecal polyp. The specimen consists of one irregular fragment of light mendosa soft tissue that measures 0.3 x 0.3 x 0.1 cm. The specimen is totally submitted in one cassette. C - Received in fixative is one container labeled with the patient's name and designated hepatic flexure polyp. The specimen consists of one irregular fragment of light mendosa soft tissue that measures 0.5 x 0.3 x 0.1 cm. The specimen is totally submitted in one cassette. / AM:aranza 12/24/2022 TC:3 CPT: 68276 x3
[2022-12-24 05:30] LABS: Absolute Lymphocyte Count 1.53 X10^3/uL (0.83-4.51); Absolute Neutrophil Count 4.6 X10^3/uL (2.0-7.7); Basophil# 0.06 X10^3/uL; Basophil% 0.9 % (0-1); Eosinophil# 0.23 X10^3/uL; Eosinophils% 3.3 % (0-5); Hemoglobin 10.2 g/dL (13.0-16.5); Lymphocyte # 1.53 X10^3/ul (0.83-4.51); Lymphocyte % 21.7 % (19-41); Mean Corp Hgb Conc 31.9 g/dL (32-36); Mean Corpuscular Hgb 30.4 pg (27.0-32.0); Mean Corpuscular Volume 95.2 fL (80-94); Mean Platelet Vol. 9.9 fl (6.2-12.0); Monocyte# 0.63 X10^3/uL; Monocyte% 8.9 % (0-10); NRBC Flagged by Analyzer 0 % (0-5); Neutrophil # 4.56 X10^3/uL (2.7-7.7); Neutrophil % 64.6 % (47-70); Platelet Count 258 K/mm3 (150-450); RBC Distribution Width CV 17.9 % (11.6-14.6); RBC Distribution Width SD 60.4 fl (35.1-43.9); Red Blood Count 3.36 M/mm3 (4.6-6.2); White Blood Count 7.1 K/mm3 (4.4-11.0)
[2022-12-24 05:53] LABS: Anion Gap 7 (5-15); BUN 31 mg/dL (7-18); BUN/Creat Ratio 18.9 RATIO (10-20); Calcium,Total 8.8 mg/dL (8.5-10.1); Chloride 116 mmol/L (98-107); Creatinine, Serum 1.64 mg/dL (0.70-1.30); EST Glomerular Filtration Rate 44 mL/min (>60); Est Glom Filt Rate - Afr Amer 53 mL/min (>60); Estimated Creatinine Clearance 35.83 ml/min; Glucose 89 mg/dL (74-106); Magnesium 2.2 mg/dL (1.6-2.6); Phosphorus 2.9 mg/dL (2.5-4.9); Potassium 4.1 mmol/L (3.5-5.1); Sodium Level 141 mmol/L (136-145)
[2022-12-24 06:05] LABS: Alanine Aminotransfer ALT/SGPT 101 U/L (16-61); Thyroid Stim Hormone (TSH) 2.17 uIU/mL (0.358-3.74)
[2022-12-24 06:06] LABS: AST(SGOT) 40 U/L (15-37)
[2022-12-24 06:09] LABS: International Normalized Ratio 1.1; Prothrombin Time (Protime)PT. 14.1 SECONDS (11.7-14.9)
[2022-12-24] MEDS: Lactated Ringers 1,000 ML 15 ML IV (07:55)
--- NOTE | 2022-12-24 07:59 | PCM.PN.HOSP ---
Reason for Visit Reason for Visit: Diagnoses Iron deficiency anemia secondary to blood loss (chronic) (12/22/22) Other elevated white blood cell count (12/22/22) Pneumonia, unspecified organism (12/22/22) Bronchiectasis, uncomplicated (12/22/22) Gastrointestinal hemorrhage, unspecified (12/22/22) Hypoxemia (12/22/22) Hematuria, unspecified (12/22/22) Subjective Subjective Patient scheduled to undergo EGD and colonoscopy Objective Data Objective Data Vital Signs: Vital Signs Temp Pulse Resp BP Pulse Ox O2 Del Method 98.8 F 76 16 125/79 H 99 Room Air 12/24/22 07:38 12/24/22 07:38 12/24/22 07:38 12/24/22 07:38 12/24/22 07:38 12/24/22 07:43 Oxygen Delivery Method Room Air Weight: 68.6 kg Body Mass Index (BMI) 23.6 Intake & Output: Intake and Output for Last 24 Hours 12/22/22 12/23/22 12/24/22 23:59 23:59 23:59 Intake Total 222 / 222 1771 / 1771 Output Total 2525 / 2525 850 / 850 Balance 222 / -528 -754 / -754 -850 / -850 Medical Nutrition Assessment Dietitian: Malnutrition Criteria Met Start: 12/23/22 12:14 Freq: Status: Active Protocol: Document 12/23/22 12:14 (Rec: 12/23/22 12:14 [id number]) Nutrition Malnutrition Evidence of Malnutrition Exists Yes Malnutrition (moderate): Chronic Evidenced By Suboptimal Energy Intake ( Moderate),Weight Loss ( Moderate),Physical Changes ( Mild) Clinical Problem Chronic Disease or Condition Related Malnutrition Etiology moderate, chronic malnutrition related to inadequate energy intake w/ increased energy needs d/t metastatic disease Signs/Symptoms as evidenced by unintentional 14% wt loss x 9 months, estimated PO intake meeting<75 % of estimated energy needs > 3 months, mild muscle wasting/ fat loss evident per physical exam in orbital, clavicle, acromion and temporal areas Status Active Problem Recommendation Dietitian Recommendations/Changes recommend advance diet as tolerated to regular w/ 120mL ensure plus high protein 4x/ day when PO diet appropriate given evidence of malnutrition Lab / Micro Data 12/24/22 04:25 12/24/22 04:25 Labs: Laboratory Results - last 24 hr 12/24/22 04:25: WBC 7.1, RBC 3.36 L, Hgb 10.2 L, Hct 32.0 L, MCV 95.2 H, MCH 30.4, MCHC 31.9 L, RDW Std Deviation 60.4 H, RDW Coeff of Sari 17.9 H, Plt Count 258, MPV 9.9, Immature Gran % (Auto) 0.600, Neut % (Auto) 64.6, Lymph % (Auto) 21.7, Meriwether % (Auto) 8.9, Eos % (Auto) 3.3, Baso % (Auto) 0.9, Absolute Neuts (auto) 4.6, Absolute Lymphs (auto) 1.53, Nucleated RBC % 0, PT 14.1, INR 1.1, APTT 32.0, Sodium 141, Potassium 4.1, Chloride 116 H, Carbon Dioxide 18.0 L, Anion Gap 7, BUN 31 H, Creatinine 1.64 H, Estim Creat Clear Calc 35.83, Est GFR (MDRD) Af Amer 53 L, Est GFR (MDRD) Non-Af 44 L, BUN/Creatinine Ratio 18.9, Glucose 89, Calcium 8.8, Phosphorus 2.9, Magnesium 2.2, AST 40 H, ALT 101 H, TSH 2.17 Micro: Microbiology 12/22/22 13:08 Stool Stool Occult Blood (CHEL) - Final Occult Blood Positive Physical Exam Narrative GENERAL: cooperative HEENT: Atraumatic; normocephalic EYES; Anicteric, Normal Conjunctiva NECK; supple, normal thyroid, RESPIRATORY: Diminished to auscultation CARDIOVASCULAR: Regular S1 S2, GI: soft, normoactive bowel sounds, : Urostomy bag on the right flank EXTREMITIES: No edema, no clubbing, MUSCULOSKELETAL: no muscle wasting NEURO: Awake; no lateralizing signs. SKIN: No Rash PSYCH; Flat affect Assessment & Plan Assessment/Plan (1) GI bleed: QUALIFIERS: GI bleed type/associated pathology: unspecified gastrointestinal hemorrhage type Qualified Code(s): K92.2 - Gastrointestinal hemorrhage, unspecified (2) Anemia: QUALIFIERS: Anemia type: iron deficiency Iron deficiency anemia type: chronic blood loss Qualified Code(s): D50.0 - Iron deficiency anemia secondary to blood loss (chronic) PLAN: Plan Patient is a 77-year-old gentleman with multiple comorbidities admitted with progressive shortness of breath. Patient was found to be anemic with hemoglobin of 5.7 1. Acute symptomatic anemia with hemoglobin of 5.7 ? Secondary to acute on chronic blood loss anemia from the GI tract. Patient admitted to a monitored bed transfused with 3 units PRBC patient is on antiplatelet therapy with aspirin and Plavix as well as systemic anticoagulation with Eliquis or held treated with Protonix consult placed to GI with plans for patient to undergo endoscopic evaluation ? 12/24/2022. Patient underwent EGD and colonoscopy results are as below EGD; Impressions : - Normal esophagus. - Non-obstructing Schatzki ring. - Medium-sized hiatal hernia. - Oozing duodenal ulcers with pigmented material. Injected. Treated with a heater probe. - Non-bleeding duodenal ulcers with no stigmata of bleeding. Biopsied. Colonoscopy; Impressions : - Hemorrhoids found on perianal exam. - Diverticulosis in the recto-sigmoid colon, in the sigmoid colon, in the descending colon and at the splenic flexure. - Two 1 to 2 mm polyps at the hepatic flexure and in the cecum, removed with a cold snare. Resected and retrieved. - The examination was otherwise normal on direct and retroflexion views 2. Acute GI bleed ? Management as discussed above 3. Recently diagnosed lung CA ? Patient had right lower lobe resection done at [facility] 4. History of prostate and bladder CA ? Status post urostomy 5. Chronic kidney disease stage IV ? Kidney function at baseline 6. Physical deconditioning - Requested for PT OT eval and social work assistant to assist with discharge planning 7. Coronary artery disease ? With recent PCI with [facility] patient is on antiplatelet therapy 8. Hypertension - Blood pressure controlled, home medications continued with dose adjustment as needed 9.. Dyslipidemia -Patient is on statin therapy, continued at home dose 10. Paroxysmal A-fib ? Rate controlled, systemic anticoagulation held given patient's significant anemia 11. Malnutrition (severe): -chronic Evidenced By Suboptimal Energy Intake ( Severe),Weight Loss (Severe) Clinical Problem ? Chronic Disease or Condition Related Malnutrition Etiology related to decreased ability to consume sufficient energy to meet estimated nutrient needs. Plan is to consult dietitian for recommendations 12. DVT prophylaxis -bilateral SCDs Time spent in the patient's overall evaluation,decision-making process, review of diagnostic data, adjustment of management, discussion with other providers, nursing nursing and ancillary staff involved in patient's care documentation, 50 minutes Charges/Coding Visit Charges Inpatient E&M: 49881 Subs Hosp L3
--- NOTE | 2022-12-24 08:40 | CASEMGMT ---
ADRY noted patient is from [place] and his plan is to return. ADRY sent updates to [place] via [employer] and asked that they start the pre-cert. Plan: d/c back to [place] pending insurance approval. Gricelda CONNOR
--- NOTE | 2022-12-24 08:48 | OP.CCLET_ITS ---
12/24/2022 Candido Valle [address] [place] [address] Re : Upper GI endoscopy procedure for Kendell Blount Dear Dr. Valle This procedure was performed on December. My impressions and recommendations are as follows: Impressions : - Normal esophagus. - Non-obstructing Schatzki ring. - Medium-sized hiatal hernia. - Oozing duodenal ulcers with pigmented material. Injected. Treated with a heater probe. - Non-bleeding duodenal ulcers with no stigmata of bleeding. Biopsied. Recommendations : - [facility]. - Resume regular diet. - Continue present medications. - Await pathology results. - Repeat upper endoscopy in 4 months for surveillance. My findings are described in the full procedure note, which is enclosed. If I can be of further assistance, please feel free to contact me at . Sincerely, Naga Hare, 12/24/2022 8:48:21 AM This report has been signed electronically.
--- NOTE | 2022-12-24 08:48 | OP.EGD_ITS ---
Patient Name: Kendell Blount Procedure Date: 12/24/2022 8:14 AM Date of : 1945 Age: 77 Procedure: Upper GI endoscopy Indications: Iron deficiency anemia Providers: Naga Hare DO Medicines: Monitored Anesthesia Care Patient Profile: This is a 77 year old male. Refer to note in patient chart for documentation of history and physical. Patient has symptoms of acute epigastric abdominal pain and acute dyspepsia. Complications: No immediate complications. Procedure: Pre-Anesthesia Assessment: - Prior to the procedure, a History and Physical was performed, and patient medications and allergies were reviewed. The risks and benefits of the procedure and the sedation options and risks were discussed with the patient. All questions were answered and informed consent was obtained. Patient identification and proposed procedure were verified by the physician in the pre-procedure area. Mental Status Examination: normal. Prophylactic Antibiotics: The patient does not require prophylactic antibiotics. Prior Anticoagulants: The patient has taken no anticoagulant or antiplatelet agents. ASA Grade Assessment: III - A patient with severe systemic disease. After reviewing the risks and benefits, the patient was deemed in satisfactory condition to undergo the procedure. The anesthesia plan was to use monitored anesthesia care (MAC). Immediately prior to administration of medications, the patient was re-assessed for adequacy to receive sedatives. The heart rate, respiratory rate, oxygen saturations, blood pressure, adequacy of pulmonary ventilation, and response to care were monitored throughout the procedure. The physical status of the patient was re-assessed after the procedure. After obtaining informed consent, the endoscope was passed under direct vision. Throughout the procedure, the patient's blood pressure, pulse, and oxygen saturations were monitored continuously. The colonoscope was introduced through the mouth, and advanced to the second part of duodenum. The upper GI endoscopy was accomplished without difficulty. The patient tolerated the procedure well. Scope In: 8:23:36 AM Scope Out: 8:26:53 AM Total Procedure Duration Time 0 hours 3 minutes 17 seconds Findings: The examined esophagus was normal. A non-obstructing Schatzki ring was found at the gastroesophageal junction. A medium-sized hiatal hernia was present. No other significant abnormalities were identified in a careful examination of the stomach. Six oozing linear duodenal ulcers with pigmented material were found in the duodenal bulb. The largest lesion was 8 mm in largest dimension. Area was successfully injected with 4 mL of a 0.1 mg/mL solution of epinephrine for drug delivery. Coagulation for hemostasis using heater probe was successful. Estimated blood loss was minimal. Two non-bleeding linear duodenal ulcers with no stigmata of bleeding were found in the first portion of the duodenum. The largest lesion was 7 mm in largest dimension. Biopsies were taken with a cold forceps for histology. Verification of patient identification for the specimen was done. Estimated blood loss was minimal. Impression: - Normal esophagus. - Non-obstructing Schatzki ring. - Medium-sized hiatal hernia. - Oozing duodenal ulcers with pigmented material. Injected. Treated with a heater probe. - Non-bleeding duodenal ulcers with no stigmata of bleeding. Biopsied. Recommendation: - [facility]. - Resume regular diet. - Continue present medications. - Await pathology results. - Repeat upper endoscopy in 4 months for surveillance. Procedure Code(s): --- Professional --- 44629, 59, Esophagogastroduodenoscopy, flexible, transoral; with control of bleeding, any method 55143, Esophagogastroduodenoscopy, flexible, transoral; with biopsy, single or multiple 49103, 59, Esophagogastroduodenoscopy, flexible, transoral; with directed submucosal injection(s), any substance CPT copyright 2021 [employer]. All rights reserved. The codes documented in this report are preliminary and upon media relations intern review may be revised to meet current compliance requirements. Naga Hare DO 12/24/2022 8:48:21 AM This report has been signed electronically. Number of Addenda: 0 Note Initiated On: 12/24/2022 8:14 AM
--- NOTE | 2022-12-24 08:51 | OP.CCLET_ITS ---
12/24/2022 Candido Valle [address] [place] [address] Re : Colonoscopy procedure for Kendell Blount Dear Dr. Valle This procedure was performed on December. My impressions and recommendations are as follows: Impressions : - Hemorrhoids found on perianal exam. - Diverticulosis in the recto-sigmoid colon, in the sigmoid colon, in the descending colon and at the splenic flexure. - Two 1 to 2 mm polyps at the hepatic flexure and in the cecum, removed with a cold snare. Resected and retrieved. - The examination was otherwise normal on direct and retroflexion views. Recommendations : - [facility]. - Resume regular diet. - Continue present medications. - Await pathology results. - Repeat colonoscopy in 5 years for surveillance. My findings are described in the full procedure note, which is enclosed. If I can be of further assistance, please feel free to contact me at . Sincerely, Naga Hare, 12/24/2022 8:50:55 AM This report has been signed electronically.
--- NOTE | 2022-12-24 08:51 | OP.COLON_ITS ---
Patient Name: Kendell Blount Procedure Date: 12/24/2022 8:27 AM Date of : 1945 Age: 77 Procedure: Colonoscopy Indications: Iron deficiency anemia Providers: Naga Hare DO Medicines: Monitored Anesthesia Care Patient Profile: This is a 77 year old male. Refer to note in patient chart for documentation of history and physical. Patient has symptoms of acute epigastric abdominal pain and acute dyspepsia. Last Colonoscopy: date unknown. Unable to locate last colonoscopy report. Complications: No immediate complications. Procedure: Pre-Anesthesia Assessment: - Prior to the procedure, a History and Physical was performed, and patient medications and allergies were reviewed. The risks and benefits of the procedure and the sedation options and risks were discussed with the patient. All questions were answered and informed consent was obtained. Patient identification and proposed procedure were verified by the physician in the pre-procedure area. Mental Status Examination: normal. Prophylactic Antibiotics: The patient does not require prophylactic antibiotics. Prior Anticoagulants: The patient has taken no anticoagulant or antiplatelet agents. ASA Grade Assessment: III - A patient with severe systemic disease. After reviewing the risks and benefits, the patient was deemed in satisfactory condition to undergo the procedure. The anesthesia plan was to use monitored anesthesia care (MAC). Immediately prior to administration of medications, the patient was re-assessed for adequacy to receive sedatives. The heart rate, respiratory rate, oxygen saturations, blood pressure, adequacy of pulmonary ventilation, and response to care were monitored throughout the procedure. The physical status of the patient was re-assessed after the procedure. After I obtained informed consent, the scope was passed under direct vision. Throughout the procedure, the patient's blood pressure, pulse, and oxygen saturations were monitored continuously. The colonoscope was introduced through the anus and advanced to the terminal ileum. The colonoscopy was performed without difficulty. The patient tolerated the procedure well. The quality of the bowel preparation was adequate. Scope In: 8:28:26 AM Scope Withdrawal Time 0 hours 10 minutes 0 seconds Scope Out: 8:42:35 AM Total Procedure Duration Time 0 hours 14 minutes 9 seconds Findings: Hemorrhoids were found on perianal exam. Multiple small and large-mouthed diverticula were found in the recto-sigmoid colon, sigmoid colon, descending colon and splenic flexure. Two sessile polyps were found in the hepatic flexure and cecum. The polyps were 1 to 2 mm in size. These polyps were removed with a cold snare. Resection and retrieval were complete. Verification of patient identification for the specimen was done. Estimated blood loss was minimal. The exam was otherwise without abnormality on direct and retroflexion views. Impression: - Hemorrhoids found on perianal exam. - Diverticulosis in the recto-sigmoid colon, in the sigmoid colon, in the descending colon and at the splenic flexure. - Two 1 to 2 mm polyps at the hepatic flexure and in the cecum, removed with a cold snare. Resected and retrieved. - The examination was otherwise normal on direct and retroflexion views. Recommendation: - [facility]. - Resume regular diet. - Continue present medications. - Await pathology results. - Repeat colonoscopy in 5 years for surveillance. Procedure Code(s): --- Professional --- 34221, Colonoscopy, flexible; with removal of tumor(s), polyp(s), or other lesion(s) by snare technique CPT copyright 2021 [employer]. All rights reserved. The codes documented in this report are preliminary and upon piece jobber review may be revised to meet current compliance requirements. Naga Haer DO 12/24/2022 8:50:55 AM This report has been signed electronically. Number of Addenda: 0 Note Initiated On: 12/24/2022 8:27 AM
--- NOTE | 2022-12-24 09:19 | CASEMGMT ---
SW received a message from Katie at [facility] stating patient was there private, but they will try and skill him. Pre-cert has been started. Gricelda Ngo ASSET PROTECTION OFFICER [employer]
[2022-12-24] MEDS: Carvedilol 3.125 MG TABLET PO ×2 (09:31→22:29)
[2022-12-24] MEDS: Menthol/Lanolin/Calamine/Znox 113 GM Tube 1 APPLIC TOPICAL (09:31)
[2022-12-24] MEDS: guaiFENesin 1,200 MG Tablet 1200 MG PO ×2 (09:31→22:29)
[2022-12-24] MEDS: amLODIPine 10 MG Tablet PO (09:31)
[2022-12-24] MEDS: Megestrol Acetate 400 MG/10 ML UDC 200 MG PO (09:32)
[2022-12-24] MEDS: Pantoprazole Sodium 40 MG in 0.9% Normal Saline (100mL MB+) 100 ML 330 MG IV ×2 (10:22→22:20)
[2022-12-24] MEDS: Atorvastatin Calcium 40 MG Tablet PO (22:29)
[2022-12-24] MEDS: 0.9% Saline Lock 10 ML Syringe IV (22:32)
[2022-12-25 04:22] VITALS: BP 125/70; PULSE 64; RESP 16; TEMP 36.7; O2SAT 99
[2022-12-25 04:41] VITALS: BMI 23.9
--- NOTE | 2022-12-25 05:55 | EKG12_ITS ---
Test Reason : AM EKG Blood Pressure : / mmHG Vent. Rate : 070 BPM Atrial Rate : 070 BPM P-R Int : 188 ms QRS Dur : 110 ms QT Int : 402 ms P-R-T Axes : 093 -24 039 degrees QTc Int : 434 ms Normal sinus rhythm Incomplete right bundle branch block Borderline ECG When compared with ECG of 22-DEC-2022 12:40, MANUAL COMPARISON REQUIRED, DATA IS UNCONFIRMED Confirmed by DALLAS QUINTERO, CATALINO ([id number]), medical transcription editor JADE GARCÍA ([id number]) on 12/30/2022 1:03:25 PM Referred By: Confirmed By:CATALINO HAYNES MD
[2022-12-25] MEDS: Levothyroxine 25 MCG TABLET PO (06:10)
[2022-12-25 06:22] LABS: Absolute Lymphocyte Count 1.24 X10^3/uL (0.83-4.51); Absolute Neutrophil Count 6.8 X10^3/uL (2.0-7.7); Basophil# 0.02 X10^3/uL; Basophil% 0.2 % (0-1); Eosinophil# 0.01 X10^3/uL; Eosinophils% 0.1 % (0-5); Hematocrit 29.6 % (40-54); Hemoglobin 9.6 g/dL (13.0-16.5); Lymphocyte # 1.24 X10^3/ul (0.83-4.51); Lymphocyte % 13.9 % (19-41); Mean Corp Hgb Conc 32.4 g/dL (32-36); Mean Corpuscular Hgb 30.6 pg (27.0-32.0); Mean Corpuscular Volume 94.3 fL (80-94); Mean Platelet Vol. 9.8 fl (6.2-12.0); Monocyte# 0.78 X10^3/uL; Monocyte% 8.8 % (0-10); NRBC Flagged by Analyzer 0 % (0-5); Neutrophil # 6.81 X10^3/uL (2.7-7.7); Neutrophil % 76.6 % (47-70); Platelet Count 233 K/mm3 (150-450); RBC Distribution Width CV 17.1 % (11.6-14.6); RBC Distribution Width SD 58.2 fl (35.1-43.9); Red Blood Count 3.14 M/mm3 (4.6-6.2); White Blood Count 8.9 K/mm3 (4.4-11.0)
[2022-12-25 07:16] VITALS: O2SAT 95
--- NOTE | 2022-12-25 08:33 | PCM.PN.HOSP ---
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 Objective Data Objective Data Vital Signs: Vital Signs Temp Pulse Resp BP Pulse Ox O2 Del Method O2 Flow Rate 98.1 F 64 16 125/70 H 99 Room Air 2 12/25/22 04:22 12/25/22 04:22 12/25/22 04:22 12/25/22 04:22 12/25/22 04:22 12/25/22 04:22 12/24/22 09:00 Oxygen Flow Rate (L/min) 2 Oxygen Delivery Method Room Air Weight: 69.4 kg Body Mass Index (BMI) 23.9 Intake & Output: Intake and Output for Last 24 Hours 12/23/22 12/24/22 12/25/22 23:59 23:59 23:59 Intake Total 1771 / 1771 1720 / 1720 610 / 610 Output Total 2525 / 2525 2360 / 2360 800 / 800 Balance -754 / -754 -640 / -640 -190 / -190 Medical Nutrition Assessment Dietitian: Malnutrition Criteria Met Start: 12/23/22 12:14 Freq: Status: Active Protocol: Document 12/23/22 12:14 (Rec: 12/23/22 12:14 [id number]) Nutrition Malnutrition Evidence of Malnutrition Exists Yes Malnutrition (moderate): Chronic Evidenced By Suboptimal Energy Intake ( Moderate),Weight Loss ( Moderate),Physical Changes ( Mild) Clinical Problem Chronic Disease or Condition Related Malnutrition Etiology moderate, chronic malnutrition related to inadequate energy intake w/ increased energy needs d/t metastatic disease Signs/Symptoms as evidenced by unintentional 14% wt loss x 9 months, estimated PO intake meeting<75 % of estimated energy needs > 3 months, mild muscle wasting/ fat loss evident per physical exam in orbital, clavicle, acromion and temporal areas Status Active Problem Recommendation Dietitian Recommendations/Changes recommend advance diet as tolerated to regular w/ 120mL ensure plus high protein 4x/ day when PO diet appropriate given evidence of malnutrition Lab / Micro Data 12/25/22 05:30 12/24/22 04:25 Labs: Laboratory Results - last 24 hr 12/25/22 05:30: WBC 8.9, RBC 3.14 L, Hgb 9.6 L, Hct 29.6 L, MCV 94.3 H, MCH 30.6, MCHC 32.4, RDW Std Deviation 58.2 H, RDW Coeff of Sari 17.1 H, Plt Count 233, MPV 9.8, Immature Gran % (Auto) 0.400, Neut % (Auto) 76.6 H, Lymph % (Auto) 13.9 L, [place] % (Auto) 8.8, Eos % (Auto) 0.1, Baso % (Auto) 0.2, Absolute Neuts (auto) 6.8, Absolute Lymphs (auto) 1.24, Nucleated RBC % 0 Micro: Microbiology 12/22/22 13:08 Stool Stool Occult Blood (CHEL) - Final Occult Blood Positive Physical Exam Narrative GENERAL: cooperative HEENT: Atraumatic; normocephalic EYES; Anicteric, Normal Conjunctiva NECK; supple, normal thyroid, RESPIRATORY: Diminished to auscultation CARDIOVASCULAR: Regular S1 S2, GI: soft, normoactive bowel sounds, : Urostomy bag on the right flank EXTREMITIES: No edema, no clubbing, MUSCULOSKELETAL: no muscle wasting NEURO: Awake; no lateralizing signs. SKIN: No Rash PSYCH; Flat affect Assessment & Plan Assessment/Plan (1) GI bleed: QUALIFIERS: GI bleed type/associated pathology: unspecified gastrointestinal hemorrhage type Qualified Code(s): K92.2 - Gastrointestinal hemorrhage, unspecified (2) Anemia: QUALIFIERS: Anemia type: iron deficiency Iron deficiency anemia type: chronic blood loss Qualified Code(s): D50.0 - Iron deficiency anemia secondary to blood loss (chronic) PLAN: Plan Patient is a 77-year-old gentleman with multiple comorbidities admitted with progressive shortness of breath. Patient was found to be anemic with hemoglobin of 5.7 1. Acute symptomatic anemia with hemoglobin of 5.7 ? Secondary to acute on chronic blood loss anemia from the GI tract. Patient admitted to a monitored bed transfused with 3 units PRBC patient is on antiplatelet therapy with aspirin and Plavix as well as systemic anticoagulation with Eliquis or held treated with Protonix consult placed to GI with plans for patient to undergo endoscopic evaluation ? 12/24/2022. Patient underwent EGD and colonoscopy results are as below EGD; Impressions : - Normal esophagus. - Non-obstructing Schatzki ring. - Medium-sized hiatal hernia. - Oozing duodenal ulcers with pigmented material. Injected. Treated with a heater probe. - Non-bleeding duodenal ulcers with no stigmata of bleeding. Biopsied. Colonoscopy; Impressions : - Hemorrhoids found on perianal exam. - Diverticulosis in the recto-sigmoid colon, in the sigmoid colon, in the descending colon and at the splenic flexure. - Two 1 to 2 mm polyps at the hepatic flexure and in the cecum, removed with a cold snare. Resected and retrieved. - The examination was otherwise normal on direct and retroflexion views -Patient is on PPI 2. Acute GI bleed ? Management as discussed above 3. Recently diagnosed lung CA ? Patient had right lower lobe resection done at [facility] 4. History of prostate and bladder CA ? Status post urostomy 5. Chronic kidney disease stage IV ? Kidney function at baseline 6. Physical deconditioning - Requested for PT OT eval and social services designee to assist with discharge planning 7. Coronary artery disease ? With recent PCI with CHUYITA patient is on antiplatelet therapy 8. Hypertension - Blood pressure controlled, home medications continued with dose adjustment as needed 9.. Dyslipidemia -Patient is on statin therapy, continued at home dose 10. Paroxysmal A-fib ? Rate controlled, systemic anticoagulation held given patient's significant anemia 11. Malnutrition (severe): -chronic Evidenced By Suboptimal Energy Intake ( Severe),Weight Loss (Severe) Clinical Problem ? Chronic Disease or Condition Related Malnutrition Etiology related to decreased ability to consume sufficient energy to meet estimated nutrient needs. Plan is to consult dietitian for recommendations 12. DVT prophylaxis -bilateral SCDs 13. Physical deconditioning - Requested for PT OT eval and social services designee to assist with discharge planning Time spent in the patient's overall evaluation,decision-making process, review of diagnostic data, adjustment of management, discussion with other providers, nursing nursing and ancillary staff involved in patient's care documentation, 35 minutes Charges/Coding Visit Charges Inpatient E&M: 31143 Subs Hosp L2
[2022-12-25 08:50] VITALS: BP 128/62; PULSE 84; RESP 14; TEMP 36.6; O2SAT 99
[2022-12-25] MEDS: Carvedilol 3.125 MG TABLET PO ×2 (08:54→21:00)
[2022-12-25] MEDS: Menthol/Lanolin/Calamine/Znox 113 GM Tube 1 APPLIC TOPICAL ×3 (08:54→21:00)
[2022-12-25] MEDS: guaiFENesin 1,200 MG Tablet 1200 MG PO ×2 (08:55→21:00)
[2022-12-25] MEDS: Megestrol Acetate 400 MG/10 ML UDC 200 MG PO (08:55)
[2022-12-25] MEDS: amLODIPine 10 MG Tablet PO (08:55)
[2022-12-25] MEDS: Pantoprazole Sodium 40 MG in 0.9% Normal Saline (100mL MB+) 100 ML 330 MG IV ×2 (08:59→21:00)
[2022-12-25] MEDS: Ferrous Sulfate 325 MG Tablet PO (11:45)
[2022-12-25] MEDS: Flu Vacc QS2023-24(65YR UP)/PF 240 MCG/0.7 ML Syringe IM (11:50)
--- NOTE | 2022-12-25 14:38 | CASEMGMT ---
ADRY spoke with patient and he does want to return to [place]. He understands he will likely continue to be private pay still at [place]. Plan: d/c back to [place] under intermediate level of care. Gricelda CONNOR
[2022-12-25 15:14] VITALS: BP 113/59; PULSE 69; RESP 14; TEMP 36.6; O2SAT 97
--- NOTE | 2022-12-25 16:10 | EX.PCM.PN.GI ---
Subjective Subjective Patient underwent upper and lower endoscopy yesterday. There was no signs or symptoms of recurrent lung cancer. He denies any chest pain or shortness of breath. He is tolerating a normal diet. Objective Data Objective Data Vital Signs: Vital Signs Temp Pulse Resp BP Pulse Ox O2 Del Method O2 Flow Rate 97.8 F 69 14 113/59 L 97 Room Air 2 12/25/22 15:14 12/25/22 15:14 12/25/22 15:14 12/25/22 15:14 12/25/22 15:14 12/25/22 15:23 12/24/22 09:00 Oxygen Flow Rate (L/min) 2 Oxygen Delivery Method Room Air Weight: 153 lb 0.013 oz Body Mass Index (BMI) 23.9 Intake & Output: Intake and Output for Last 24 Hours 12/23/22 12/24/22 12/25/22 23:59 23:59 23:59 Intake Total 1771 / 1771 1720 / 1720 1345 / 1345 Output Total 2525 / 2525 2360 / 2360 1450 / 1450 Balance -754 / -754 -640 / -640 -105 / -105 Medical Nutrition Assessment Dietitian: Malnutrition Criteria Met Start: 12/23/22 12:14 Freq: Status: Active Protocol: Document 12/23/22 12:14 AG (Rec: 12/23/22 12:14 [id number]) Nutrition Malnutrition Evidence of Malnutrition Exists Yes Malnutrition (moderate): Chronic Evidenced By Suboptimal Energy Intake ( Moderate),Weight Loss ( Moderate),Physical Changes ( Mild) Clinical Problem Chronic Disease or Condition Related Malnutrition Etiology moderate, chronic malnutrition related to inadequate energy intake w/ increased energy needs d/t metastatic disease Signs/Symptoms as evidenced by unintentional 14% wt loss x 9 months, estimated PO intake meeting<75 % of estimated energy needs > 3 months, mild muscle wasting/ fat loss evident per physical exam in orbital, clavicle, acromion and temporal areas Status Active Problem Recommendation Dietitian Recommendations/Changes recommend advance diet as tolerated to regular w/ 120mL ensure plus high protein 4x/ day when PO diet appropriate given evidence of malnutrition Lab / Micro Data 12/25/22 05:30 12/24/22 04:25 Labs: Laboratory Results - last 24 hr 12/25/22 05:30: WBC 8.9, RBC 3.14 L, Hgb 9.6 L, Hct 29.6 L, MCV 94.3 H, MCH 30.6, MCHC 32.4, RDW Std Deviation 58.2 H, RDW Coeff of Sari 17.1 H, Plt Count 233, MPV 9.8, Immature Gran % (Auto) 0.400, Neut % (Auto) 76.6 H, Lymph % (Auto) 13.9 L, [place] % (Auto) 8.8, Eos % (Auto) 0.1, Baso % (Auto) 0.2, Absolute Neuts (auto) 6.8, Absolute Lymphs (auto) 1.24, Nucleated RBC % 0 Micro: Microbiology 12/22/22 13:08 Stool Stool Occult Blood (CHEL) - Final Occult Blood Positive Physical Exam Narrative GENERAL: cooperative HEENT: Atraumatic; normocephalic EYES; Anicteric, Normal Conjunctiva NECK; supple, normal thyroid, RESPIRATORY: Diminished to auscultation CARDIOVASCULAR: Regular S1 S2, GI: soft, normoactive bowel sounds, : Urostomy bag on the right flank EXTREMITIES: No edema, no clubbing, MUSCULOSKELETAL: no muscle wasting NEURO: Awake; no lateralizing signs. SKIN: No Rash PSYCH; Flat affect Assessment & Plan Assessment/Plan (1) GI bleed: QUALIFIERS: GI bleed type/associated pathology: unspecified gastrointestinal hemorrhage type Qualified Code(s): K92.2 - Gastrointestinal hemorrhage, unspecified PLAN: Acute on chronic blood loss anemia first from hematuria and now from duodenal ulcer status post cauterization with upper endoscopy. His hemoglobin seems holding steady. He is on Eliquis as an outpatient. I would give him iron transfusion prior to leaving the hospital and he can be restarted back on anticoagulation. I would hold antiplatelet therapy for 7 days. Charges/Coding Visit Charges Inpatient E&M: 85691 Subs Hosp L3
[2022-12-25] MEDS: Atorvastatin Calcium 40 MG Tablet PO (21:00)
[2022-12-25 21:15] VITALS: BP 127/72; PULSE 73; RESP 16; TEMP 36.9; O2SAT 97
[2022-12-26 02:12] VITALS: BMI 24.5
[2022-12-26 03:00] VITALS: BP 121/71; PULSE 90; RESP 16; TEMP 36.3; O2SAT 95
[2022-12-26] MEDS: Levothyroxine 25 MCG TABLET PO (06:55)
[2022-12-26 08:22] LABS: Absolute Lymphocyte Count 1.52 X10^3/uL (0.83-4.51); Absolute Neutrophil Count 6.1 X10^3/uL (2.0-7.7); Basophil# 0.05 X10^3/uL; Basophil% 0.6 % (0-1); Eosinophil# 0.16 X10^3/uL; Eosinophils% 1.9 % (0-5); Hematocrit 31.8 % (40-54); Lymphocyte # 1.52 X10^3/ul (0.83-4.51); Lymphocyte % 17.7 % (19-41); Mean Corp Hgb Conc 31.4 g/dL (32-36); Mean Corpuscular Hgb 30.7 pg (27.0-32.0); Mean Corpuscular Volume 97.5 fL (80-94); Mean Platelet Vol. 10.1 fl (6.2-12.0); Monocyte# 0.67 X10^3/uL; Monocyte% 7.8 % (0-10); NRBC Flagged by Analyzer 0 % (0-5); Neutrophil # 6.13 X10^3/uL (2.7-7.7); Neutrophil % 71.5 % (47-70); Platelet Count 255 K/mm3 (150-450); RBC Distribution Width CV 17.2 % (11.6-14.6); RBC Distribution Width SD 61.9 fl (35.1-43.9); Red Blood Count 3.26 M/mm3 (4.6-6.2); White Blood Count 8.6 K/mm3 (4.4-11.0)
[2022-12-26 08:38] LABS: Anion Gap 8 (5-15); BUN 36 mg/dL (7-18); BUN/Creat Ratio 20.6 RATIO (10-20); Calcium,Total 8.8 mg/dL (8.5-10.1); Chloride 114 mmol/L (98-107); Creatinine, Serum 1.75 mg/dL (0.70-1.30); EST Glomerular Filtration Rate 40 mL/min (>60); Est Glom Filt Rate - Afr Amer 49 mL/min (>60); Estimated Creatinine Clearance 33.57 ml/min; Glucose 91 mg/dL (74-106); Sodium Level 139 mmol/L (136-145)
--- NOTE | 2022-12-26 08:45 | PCM.TXEXTCAR ---
Diet Diet Order/Speech Therapy: 12/24/22 09:26 Diet: Regular - General Is pt able to select menu?: Yes Wound(s) rt lower back: Wound Type: Surgical Incision Problem/Diagnosis (1) GI bleed: Status: Acute Code(s): K92.2 - Gastrointestinal hemorrhage, unspecified Plan Patient is a 77-year-old gentleman with multiple comorbidities admitted with progressive shortness of breath. Patient was found to be anemic with hemoglobin of 5.7 1. Acute symptomatic anemia with hemoglobin of 5.7 ? Secondary to acute on chronic blood loss anemia from the GI tract. Patient admitted to a monitored bed transfused with 3 units PRBC patient is on antiplatelet therapy with aspirin and Plavix as well as systemic anticoagulation with Eliquis or held treated with Protonix consult placed to GI with plans for patient to undergo endoscopic evaluation ? 12/24/2022. Patient underwent EGD and colonoscopy results are as below EGD; Impressions : - Normal esophagus. - Non-obstructing Schatzki ring. - Medium-sized hiatal hernia. - Oozing duodenal ulcers with pigmented material. Injected. Treated with a heater probe. - Non-bleeding duodenal ulcers with no stigmata of bleeding. Biopsied. Colonoscopy; Impressions : - Hemorrhoids found on perianal exam. - Diverticulosis in the recto-sigmoid colon, in the sigmoid colon, in the descending colon and at the splenic flexure. - Two 1 to 2 mm polyps at the hepatic flexure and in the cecum, removed with a cold snare. Resected and retrieved. - The examination was otherwise normal on direct and retroflexion views -Patient is on PPI. Prescription was written on discharge 2. Acute GI bleed ? Management as discussed above 3. Recently diagnosed lung CA ? Patient had right lower lobe resection done at [facility] 4. History of prostate and bladder CA ? Status post urostomy 5. Chronic kidney disease stage IV ? Kidney function at baseline 6. Physical deconditioning - Requested for PT OT eval and social work specialist to assist with discharge planning 7. Coronary artery disease ? With recent PCI with CHUYITA patient is on antiplatelet therapy. Patient was discharged on Plavix 8. Hypertension - Blood pressure controlled, home medications continued with dose adjustment as needed 9.. Dyslipidemia -Patient is on statin therapy, continued at home dose 10. Paroxysmal A-fib ? Rate controlled, systemic anticoagulation held given patient's significant anemia ? Eliquis discontinued on discharge 11. Malnutrition (severe): -chronic Evidenced By Suboptimal Energy Intake ( Severe),Weight Loss (Severe) Clinical Problem ? Chronic Disease or Condition Related Malnutrition Etiology related to decreased ability to consume sufficient energy to meet estimated nutrient needs. Plan is to consult dietitian for recommendations 12. DVT prophylaxis -bilateral SCDs 13. Physical deconditioning - Requested for PT OT eval and social work specialist to assist with discharge planning Time spent in the patient's overall evaluation,decision-making process, review of diagnostic data, adjustment of management, discussion with other providers, nursing nursing and ancillary staff involved in patient's care documentation, 35 minutes Allergies/Procedures Done in Hospital Allergies ciprofloxacin [From Cipro] Allergy (Intermediate, Verified 12/22/22 12:22) Hives metronidazole [From Flagyl] Allergy (Verified 12/22/22 12:22) Rash Type of Care/Length of Stay Estimated LOS: More Than 30 Days Type of Care Needed: Intermediate Rehab Potential: Good Prognosis: Good Additional Orders/Day of Discharge Day of Discharge: 12/26/22 Dietary and Speech Recommendations Dietitian Recommendations/Changes: recommend advance diet as tolerated to regular w/ 120mL ensure plus high protein 4x/day when PO diet appropriate given evidence of malnutrition Discharge Plan Admission Admit Date/Time: 12/22/22 14:54 Attending Provider: Shaun Chen Primary Care Provider: Candido Valle Consulting Providers: Lashon Costa Discharge Orders/Prescriptions Prescriptions: New pantoprazole [Protonix] 40 mg tablet,delayed release (DR/EC) 40 mg PO BID Qty: 120 0RF albuterol sulfate 2.5 mg /3 mL (0.083 %) Solution For Nebulization 2.5 mg inhalation Q2H PRN PRN (Reason: Dyspnea, wheezing) Qty: 0 0RF melatonin 3 mg Tablet 3 mg PO QHS PRN PRN (Reason: Insomnia) Qty: 0 0RF alum-mag hydroxide-simeth [Mag-Al Plus Extra Strength] 400-400-40 mg/5 mL Suspension 30 ml PO Q6H PRN PRN (Reason: Gastric Burning) Qty: 0 0RF menthol-zinc oxide [Calmoseptine] 0.44-20.6 % Ointment 1 applic topical 4X/DAY Qty: 0 0RF Protocol: *Topical Application Instructions APPLICATION INSTRUCTIONS: apply to affected region Continued carvedilol 3.125 mg tablet 3.125 mg PO BID Qty: 180 3RF atorvastatin 40 mg tablet 40 mg PO QHS Qty: 90 3RF clopidogrel [Plavix] 75 mg tablet 75 mg PO DAILY Qty: 90 3RF PreserVision AREDS-2 250-90-40-1 mg Capsule 1 tab PO BID cholecalciferol (vitamin D3) 250 mcg (10,000 unit) Tablet 250 mcg PO DAILY amlodipine 10 MG tablet 10 mg PO DAILY megestrol 400 mg/10 mL (40 mg/mL) suspension 200 mg PO DAILY ferrous sulfate [Feosol] 325 mg (65 mg iron) tablet 325 mg PO QODAY Probiotic 5 billion cell capsule, sprinkle 1 cap PO DAILY guaifenesin [Mucus Relief ER] 1,200 mg Tablet Extended Release 12hr 1,200 mg PO BID Qty: 0 0RF Ensure Plus High Protein 0.08 gram-1.5 kcal/mL Liquid 120 ml PO 4X/DAY Qty: 0 0RF nutritional supplements Powder 1 ea PO BID multivitamin Tablet 1 tab PO DAILY levothyroxine 25 mcg tablet 25 mcg PO DAILY calcium polycarbophil [Fiber-Tabs] 625 mg tablet 625 mg PO DAILY ipratropium-albuterol 0.5 mg-3 mg(2.5 mg base)/3 mL Solution For Nebulization 3 ml inhalation TID sennosides-docusate sodium [Stool Softener-Stimulant Laxat] 8.6-50 mg Tablet 2 tab PO BID PRN (Reason: CONSTIPATION ) acetaminophen 500 mg Tablet 1,000 mg PO Q8H Discontinued Eliquis 5 mg tablet 5 mg PO BID Qty: 180 3RF Referrals / Follow Up: Betzy Gross [Other] - 03/23/23 11:00 am (Pacer Placement Follow-up) Candido Valle MD [Primary Care Provider] - Carlos Cabrales FLORAL ARRANGER, FLORAL ARRANGER-C [Med Staff - [facility]] - 02/03/23 10:00 am (1) GI bleed Qualifiers: GI bleed type/associated pathology: unspecified gastrointestinal hemorrhage type Qualified Code(s): K92.2 - Gastrointestinal hemorrhage, unspecified
--- NOTE | 2022-12-26 08:49 | DS.PCM_ITS ---
Providers Date of Admission: 12/22/22 Date of Discharge: 12/26/22 Primary Care Physician: Dr. Candido Valle MD Consultations 12/22/22 19:29 Consult: Gastroenterology Routine Consulting Provider: Debora G[facility] Reason for Consult: GI bleed EMERGENT Consult: No MD Notified: Yes Date Notified: 12/22/22 Time Notified: 16:33 Method of Notification: Verbal Reason For Visit: ABLA, GI BLEED Diagnosis Discharge Diagnosis (1) GI bleed: Status: Acute Code(s): K92.2 - Gastrointestinal hemorrhage, unspecified Qualifiers: GI bleed type/associated pathology: unspecified gastrointestinal hemorrhage type Qualified Code(s): K92.2 - Gastrointestinal hemorrhage, unspecified Plan Patient is a 77-year-old gentleman with multiple comorbidities admitted with progressive shortness of breath. Patient was found to be anemic with hemoglobin of 5.7 1. Acute symptomatic anemia with hemoglobin of 5.7 ? Secondary to acute on chronic blood loss anemia from the GI tract. Patient admitted to a monitored bed transfused with 3 units PRBC patient is on antiplatelet therapy with aspirin and Plavix as well as systemic anticoagulation with Eliquis or held treated with Protonix consult placed to GI with plans for patient to undergo endoscopic evaluation ? 12/24/2022. Patient underwent EGD and colonoscopy results are as below EGD; Impressions : - Normal esophagus. - Non-obstructing Schatzki ring. - Medium-sized hiatal hernia. - Oozing duodenal ulcers with pigmented material. Injected. Treated with a heater probe. - Non-bleeding duodenal ulcers with no stigmata of bleeding. Biopsied. Colonoscopy; Impressions : - Hemorrhoids found on perianal exam. - Diverticulosis in the recto-sigmoid colon, in the sigmoid colon, in the descending colon and at the splenic flexure. - Two 1 to 2 mm polyps at the hepatic flexure and in the cecum, removed with a cold snare. Resected and retrieved. - The examination was otherwise normal on direct and retroflexion views -Patient is on PPI. Prescription was written on discharge 2. Acute GI bleed ? Management as discussed above 3. Recently diagnosed lung CA ? Patient had right lower lobe resection done at [facility] 4. History of prostate and bladder CA ? Status post urostomy 5. Chronic kidney disease stage IV ? Kidney function at baseline 6. Physical deconditioning - Requested for PT OT eval and social worker palliative care to assist with discharge planning 7. Coronary artery disease ? With recent PCI with CHUYITA patient is on antiplatelet therapy. Patient was discharged on Plavix 8. Hypertension - Blood pressure controlled, home medications continued with dose adjustment as needed 9.. Dyslipidemia -Patient is on statin therapy, continued at home dose 10. Paroxysmal A-fib ? Rate controlled, systemic anticoagulation held given patient's significant anemia ? Eliquis discontinued on discharge 11. Malnutrition (severe): -chronic Evidenced By Suboptimal Energy Intake ( Severe),Weight Loss (Severe) Clinical Problem ? Chronic Disease or Condition Related Malnutrition Etiology related to decreased ability to consume sufficient energy to meet estimated nutrient needs. Plan is to consult dietitian for recommendations 12. DVT prophylaxis -bilateral SCDs 13. Physical deconditioning - Requested for PT OT eval and social worker palliative care to assist with discharge planning Time spent in the patient's overall evaluation,decision-making process, review of diagnostic data, adjustment of management, discussion with other providers, nursing nursing and ancillary staff involved in patient's care documentation, 35 minutes Medications at Discharge Home Medications amlodipine 10 mg tablet 10 mg PO DAILY BLOOD PRESSURE 04/01/22 cholecalciferol (vitamin D3) 250 mcg (10,000 unit) tablet 250 mcg PO DAILY SUPPLEMENT 04/01/22 vit C 250 mg-vit E 90 mg-zinc 40 mg-copper 1 ol-afnofm-zmfrew capsule (PreserVision AREDS-2) 1 tab PO BID EYE HEALTH 04/01/22 atorvastatin 40 mg tablet 40 mg PO QHS CHOLESTEROL #90 tabs 04/21/22 carvedilol 3.125 mg tablet 3.125 mg PO BID HEART #180 tabs 04/21/22 clopidogrel 75 mg tablet (Plavix) 75 mg PO DAILY BLOOD THINNER #90 tabs 05/09 Lactobacil.acidophilus-Bifido.animalis 5 billion cell sprinkle capsule (Probiotic) 1 cap PO DAILY GUT HEALTH 12/04/22 ferrous sulfate 325 mg (65 mg iron) tablet (Feosol) 325 mg PO QODAY SUPPLEMENT 12/04/22 megestrol 400 mg/10 mL (40 mg/mL) oral suspension 200 mg PO DAILY CANCER TREATMENT 12/04/22 food supplemt, lactose-reduced 0.08 gram-1.5 kcal/mL oral liquid (Ensure Plus High Protein) 120 ml PO 4X/DAY SUPPLEMENT #0 mL 11/03/23 guaifenesin 1,200 mg tablet, extended release 12 hr (Mucus Relief ER) 1,200 mg PO BID PNEUMONIA #0 tabs 12/11/22 acetaminophen 500 mg tablet 1,000 mg PO Q8H PAIN 12/22/22 calcium polycarbophil 625 mg tablet (Fiber-Tabs) 625 mg PO DAILY CONSTIPATION 12/22/22 ipratropium 0.5 mg-albuterol 3 mg (2.5 mg base)/3 mL nebulization soln 3 ml inhalation TID PNEUMONIA 12/22/22 levothyroxine 25 mcg tablet 25 mcg PO DAILY THYROID 12/22/22 multivitamin 1 tab PO DAILY SUPPLEMENT 12/22/22 nutritional supplements 1 ea PO BID SUPPLEMENT 12/22/22 sennosides 8.6 mg-docusate sodium 50 mg tablet (Stool Softener-Stimulant Laxative) 2 tab PO BID PRN CONSTIPATION 12/22/22 albuterol sulfate 2.5 mg/3 mL (0.083 %) solution for nebulization 2.5 mg (3 mL) inhalation Q2H PRN PRN Dyspnea, wheezing #0 mL 12/26/22 aluminum-mag hydroxide-simethicone 400 mg-400 mg-40 mg/5 mL oral susp (Mag-Al Plus Extra Strength) 30 ml PO Q6H PRN PRN Gastric Burning #0 mL 12/26/22 melatonin 3 mg tablet 3 mg PO QHS PRN PRN Insomnia #0 tabs 12/26/22 menthol 0.44 %-zinc oxide 20.6 % topical ointment (Calmoseptine) 1 applic topical 4X/DAY #0 grams 12/26/22 pantoprazole 40 mg tablet,delayed release (Protonix) 40 mg PO BID #120 tabs 12/26/22 Hospital Course Summary of Care Provided Minutes Spent on Discharge: 35 Physical Exam Narrative GENERAL: cooperative HEENT: Atraumatic; normocephalic EYES; Anicteric, Normal Conjunctiva NECK; supple, normal thyroid, RESPIRATORY: Diminished to auscultation CARDIOVASCULAR: Regular S1 S2, GI: soft, normoactive bowel sounds, : Urostomy bag on the right flank EXTREMITIES: No edema, no clubbing, MUSCULOSKELETAL: no muscle wasting NEURO: Awake; no lateralizing signs. SKIN: No Rash PSYCH; Flat affect Medical Records Data Medical Nutrition Assessment Dietitian: Malnutrition Criteria Met Start: 12/23/22 12:14 Freq: Status: Active Protocol: Document 12/23/22 12:14 AG (Rec: 12/23/22 12:14 AG [id number]) Nutrition Malnutrition Evidence of Malnutrition Exists Yes Malnutrition (moderate): Chronic Evidenced By Suboptimal Energy Intake ( Moderate),Weight Loss ( Moderate),Physical Changes ( Mild) Clinical Problem Chronic Disease or Condition Related Malnutrition Etiology moderate, chronic malnutrition related to inadequate energy intake w/ increased energy needs d/t metastatic disease Signs/Symptoms as evidenced by unintentional 14% wt loss x 9 months, estimated PO intake meeting<75 % of estimated energy needs > 3 months, mild muscle wasting/ fat loss evident per physical exam in orbital, clavicle, acromion and temporal areas Status Active Problem Recommendation Dietitian Recommendations/Changes recommend advance diet as tolerated to regular w/ 120mL ensure plus high protein 4x/ day when PO diet appropriate given evidence of malnutrition Weight / BMI Weight Weight: 70.9 kg Body Mass Index (BMI) 24.5 ABG / Lab / Microbiology Data 12/26/22 06:51 12/26/22 06:51 Laboratory: Laboratory Results - last 24 hr 12/26/22 06:51: WBC 8.6, RBC 3.26 L, Hgb 10.0 L, Hct 31.8 L, MCV 97.5 H, MCH 30.7, MCHC 31.4 L, RDW Std Deviation 61.9 H, RDW Coeff of Sari 17.2 H, Plt Count 255, MPV 10.1, Immature Gran % (Auto) 0.500, Neut % (Auto) 71.5 H, Lymph % (Auto) 17.7 L, Hendry % (Auto) 7.8, Eos % (Auto) 1.9, Baso % (Auto) 0.6, Absolute Neuts (auto) 6.1, Absolute Lymphs (auto) 1.52, Nucleated RBC % 0, Sodium 139, Potassium 4.0, Chloride 114 H, Carbon Dioxide 17.0 L, Anion Gap 8, BUN 36 H, Creatinine 1.75 H, Estim Creat Clear Calc 33.57, Est GFR (MDRD) Af Amer 49 L, Est GFR (MDRD) Non-Af 40 L, BUN/Creatinine Ratio 20.6 H, Glucose 91, Calcium 8.8 Microbiology: Microbiology 12/22/22 13:08 Stool Stool Occult Blood (CHEL) - Final Occult Blood Positive D/C Instructions Discharge Diet: Low fat / Low cholesterol Weight Bearing Status: Weight bearing as tolerated (to right wrist) Call your doctor if your incision/area has: Increased Redness Call your doctor if you observe: Fever of 101 or Higher and - (increased pain and swelling of right wrist and hand. ) Meaningful Use Info Meaningful Use Diagnoses (Choose all that apply): None applicable Discharge Plan Admission Admit Date/Time: 12/22/22 14:54 Attending Provider: Shaun Chen Primary Care Provider: Candido Valle Consulting Providers: Lashon Costa Discharge Orders/Prescriptions Prescriptions: New pantoprazole [Protonix] 40 mg tablet,delayed release (DR/EC) 40 mg PO BID Qty: 120 0RF albuterol sulfate 2.5 mg /3 mL (0.083 %) Solution For Nebulization 2.5 mg inhalation Q2H PRN PRN (Reason: Dyspnea, wheezing) Qty: 0 0RF melatonin 3 mg Tablet 3 mg PO QHS PRN PRN (Reason: Insomnia) Qty: 0 0RF alum-mag hydroxide-simeth [Mag-Al Plus Extra Strength] 400-400-40 mg/5 mL Suspension 30 ml PO Q6H PRN PRN (Reason: Gastric Burning) Qty: 0 0RF menthol-zinc oxide [Calmoseptine] 0.44-20.6 % Ointment 1 applic topical 4X/DAY Qty: 0 0RF Protocol: *Topical Application Instructions APPLICATION INSTRUCTIONS: apply to affected region Continued carvedilol 3.125 mg tablet 3.125 mg PO BID Qty: 180 3RF atorvastatin 40 mg tablet 40 mg PO QHS Qty: 90 3RF clopidogrel [Plavix] 75 mg tablet 75 mg PO DAILY Qty: 90 3RF PreserVision AREDS-2 250-90-40-1 mg Capsule 1 tab PO BID cholecalciferol (vitamin D3) 250 mcg (10,000 unit) Tablet 250 mcg PO DAILY amlodipine 10 MG tablet 10 mg PO DAILY megestrol 400 mg/10 mL (40 mg/mL) suspension 200 mg PO DAILY ferrous sulfate [Feosol] 325 mg (65 mg iron) tablet 325 mg PO QODAY Probiotic 5 billion cell capsule, sprinkle 1 cap PO DAILY guaifenesin [Mucus Relief ER] 1,200 mg Tablet Extended Release 12hr 1,200 mg PO BID Qty: 0 0RF Ensure Plus High Protein 0.08 gram-1.5 kcal/mL Liquid 120 ml PO 4X/DAY Qty: 0 0RF nutritional supplements Powder 1 ea PO BID multivitamin Tablet 1 tab PO DAILY levothyroxine 25 mcg tablet 25 mcg PO DAILY calcium polycarbophil [Fiber-Tabs] 625 mg tablet 625 mg PO DAILY ipratropium-albuterol 0.5 mg-3 mg(2.5 mg base)/3 mL Solution For Nebulization 3 ml inhalation TID sennosides-docusate sodium [Stool Softener-Stimulant Laxat] 8.6-50 mg Tablet 2 tab PO BID PRN (Reason: CONSTIPATION ) acetaminophen 500 mg Tablet 1,000 mg PO Q8H Discontinued Eliquis 5 mg tablet 5 mg PO BID Qty: 180 3RF Referrals / Follow Up: Betzy Gross [Other] - 03/23/23 11:00 am (Pacer Placement Follow-up) Candido Valle MD [Primary Care Provider] - Naga Hare DO [Med Staff - Active Staff] - Within 1 Month Carlos Cabrales NP, REHABILITATION COUNSELLOR-C [Med Staff - Adv Practice Prof] - 02/03/23 10:00 am Disposition Disposition (needs filled in before D/C Order can be placed): Longterm Facility Charges/Coding Visit Charges Inpatient E&M: 68419 Disch Hosp >30min
[2022-12-26 09:00] VITALS: BP 123/63; PULSE 72; RESP 16; TEMP 36.3; O2SAT 99
[2022-12-26] MEDS: Pantoprazole Sodium 40 MG in 0.9% Normal Saline (100mL MB+) 100 ML 330 MG IV (09:12)
[2022-12-26] MEDS: Menthol/Lanolin/Calamine/Znox 113 GM Tube 1 APPLIC TOPICAL (09:13)
[2022-12-26] MEDS: Carvedilol 3.125 MG TABLET PO (09:13)
[2022-12-26] MEDS: amLODIPine 10 MG Tablet PO (09:14)
[2022-12-26] MEDS: guaiFENesin 1,200 MG Tablet 1200 MG PO (09:14)
[2022-12-26] MEDS: Megestrol Acetate 400 MG/10 ML UDC 200 MG PO (09:14)
--- NOTE | 2022-12-26 11:53 | NURSING ---
Callled report to pat at [facility]
== END 2022-12-26 12:10 | disposition skilled nursing facility (03) | DRG 378 ==
LOC: ED 13:19 → PCU 16:09
PROVIDERS: Anesthesiology; Internal Medicine Gastroenterology; Admitting Provider Family Medicine; Emergency Provider Emergency Medicine; PCP Family Medicine; Visit Provider Internal Medicine
PROC: 0DJD8ZZ Inspection of Lower Intestinal Tract, Via Natural or Artificial Opening Endoscopic (ICD-10-PCS; CPT 45378; principal; 2022-12-24 12:25)
DX: K26.4 Chronic or unspecified duodenal ulcer with hemorrhage (principal); C78.01 Secondary malignant neoplasm of right lung; N18.4 Chronic kidney disease, stage 4 (severe); D62 Acute posthemorrhagic anemia; J47.9 Bronchiectasis, uncomplicated; I48.0 Paroxysmal atrial fibrillation; J44.9 Chronic obstructive pulmonary disease, unspecified; I12.9 Hypertensive chronic kidney disease with stage 1 through stage 4 chronic kidney disease, or unspecified chronic kidney disease; F10.11 Alcohol abuse, in remission; E78.5 Hyperlipidemia, unspecified; I25.10 Atherosclerotic heart disease of native coronary artery without angina pectoris; K63.5 Polyp of colon; K57.30 Diverticulosis of large intestine without perforation or abscess without bleeding; K44.9 Diaphragmatic hernia without obstruction or gangrene; D12.0 Benign neoplasm of cecum; Z68.24 Body mass index [BMI] 24.0-24.9, adult; Z23 Encounter for immunization; Z66 Do not resuscitate; Z79.02 Long term (current) use of antithrombotics/antiplatelets; Z79.890 Hormone replacement therapy; Z79.899 Other long term (current) drug therapy; Z87.891 Personal history of nicotine dependence; Z95.5 Presence of coronary angioplasty implant and graft; Z95.0 Presence of cardiac pacemaker
CPT/HCPCS: 36415; 71045; 80048; 80053; 82274; 83735; 84100; 84443; 84450; 84460; 85014; 85018; 85025; 85610; 85730; 86644; 86850; 86900; 86901; 86920; 86922; 87426; 87506; 88305; 93005; 94640; 94668; 97110; 97162; 97166; 97530; 97802; 99285; J7030; J7040; J7050; J7120; P9016; 90662; A4216; J2405

== ENCOUNTER → 2022-12-22 | Outpatient (REF) | payer MEDICARE, SELFPAY ==
[2022-12-22 09:52] LABS: Absolute Neutrophil Count 5.2 X10^3/uL (2.0-7.7); Basophil# 0.06 X10^3/uL; Basophil% 0.8 % (0-1); Eosinophil# 0.14 X10^3/uL; Eosinophils% 1.8 % (0-5); Hematocrit 18.9 % (40-54); Mean Corp Hgb Conc 30.2 g/dL (32-36); Mean Corpuscular Hgb 31.7 pg (27.0-32.0); Mean Platelet Vol. 10.4 fl (6.2-12.0); Monocyte# 0.55 X10^3/uL; Monocyte% 6.9 % (0-10); NRBC Flagged by Analyzer 0 % (0-5); Neutrophil # 5.22 X10^3/uL (2.7-7.7); Neutrophil % 65.7 % (47-70); POSITIVE COUNT YES; Platelet Count 318 K/mm3 (150-450); RBC Distribution Width CV 17.1 % (11.6-14.6); RBC Distribution Width SD 64.3 fl (35.1-43.9); White Blood Count 7.9 K/mm3 (4.4-11.0)
[2022-12-22 09:58] LABS: Hemoglobin 5.7 g/dL (13.0-16.5)
[2022-12-22 10:11] LABS: Anion Gap 6 (5-15); BUN 59 mg/dL (7-18); BUN/Creat Ratio 35.8 RATIO (10-20); Calcium,Total 9.3 mg/dL (8.5-10.1); Chloride 114 mmol/L (98-107); Creatinine, Serum 1.65 mg/dL (0.70-1.30); EST Glomerular Filtration Rate 43 mL/min (>60); Est Glom Filt Rate - Afr Amer 52 mL/min (>60); Glucose 97 mg/dL (74-106); Potassium 4.1 mmol/L (3.5-5.1); Sodium Level 140 mmol/L (136-145)
[2022-12-24 10:42] LABS: Pathologist Review Reviewed
== END ==
LOC: OLS.WHLTCC 05:00
PROVIDERS: PCP Family Medicine; Visit Provider Internal Medicine
DX: I12.9 Hypertensive chronic kidney disease with stage 1 through stage 4 chronic kidney disease, or unspecified chronic kidney disease (principal); N18.4 Chronic kidney disease, stage 4 (severe); J18.9 Pneumonia, unspecified organism; J90 Pleural effusion, not elsewhere classified; K59.00 Constipation, unspecified; S21.209A Unspecified open wound of unspecified back wall of thorax without penetration into thoracic cavity, initial encounter
CPT/HCPCS: 36415; 80048; 85025; 87070; 87205

== ENCOUNTER → 2022-12-29 | Outpatient (REF) | payer MEDICARE, SELFPAY ==
[2022-12-29 09:11] LABS: Absolute Lymphocyte Count 1.54 X10^3/uL (0.83-4.51); Absolute Neutrophil Count 5.4 X10^3/uL (2.0-7.7); Basophil# 0.04 X10^3/uL; Basophil% 0.5 % (0-1); Eosinophil# 0.31 X10^3/uL; Eosinophils% 3.8 % (0-5); Hematocrit 33.5 % (40-54); Hemoglobin 10.8 g/dL (13.0-16.5); Lymphocyte # 1.54 X10^3/ul (0.83-4.51); Lymphocyte % 19.1 % (19-41); Mean Corp Hgb Conc 32.2 g/dL (32-36); Mean Corpuscular Hgb 30.6 pg (27.0-32.0); Mean Corpuscular Volume 94.9 fL (80-94); Mean Platelet Vol. 10.1 fl (6.2-12.0); Monocyte# 0.73 X10^3/uL; NRBC Flagged by Analyzer 0 % (0-5); Neutrophil # 5.41 X10^3/uL (2.7-7.7); Platelet Count 245 K/mm3 (150-450); RBC Distribution Width CV 17.1 % (11.6-14.6); RBC Distribution Width SD 59.8 fl (35.1-43.9); Red Blood Count 3.53 M/mm3 (4.6-6.2); White Blood Count 8.1 K/mm3 (4.4-11.0)
[2022-12-29 09:33] LABS: ALB/GLOB Ratio 0.8 RATIO (0.9-2.4); AST(SGOT) 20 U/L (15-37); Alanine Aminotransfer ALT/SGPT 70 U/L (16-61); Albumin, Serum 2.7 g/dL (3.2-5.0); Alkaline Phosphatase 111 U/L (45-117); Anion Gap 6 (5-15); BUN 43 mg/dL (7-18); BUN/Creat Ratio 25.1 RATIO (10-20); Chloride 111 mmol/L (98-107); Creatinine, Serum 1.71 mg/dL (0.70-1.30); EST Glomerular Filtration Rate 42 mL/min (>60); Est Glom Filt Rate - Afr Amer 50 mL/min (>60); Globulin 3.6 g/dL (2.2-4.2); Glucose 96 mg/dL (74-106); Potassium 4.4 mmol/L (3.5-5.1); Protein, Total 6.3 g/dL (6.4-8.2); Sodium Level 136 mmol/L (136-145)
== END ==
LOC: OLS.WHLTCC 05:00
PROVIDERS: PCP Family Medicine; Visit Provider Internal Medicine
DX: N18.4 Chronic kidney disease, stage 4 (severe) (principal)
CPT/HCPCS: 36415; 80053; 85025

== ENCOUNTER → 2023-01-05 | Outpatient (REF) | payer MEDICARE, SELFPAY ==
[2023-01-05 09:29] LABS: Absolute Lymphocyte Count 1.83 X10^3/uL (0.83-4.51); Absolute Neutrophil Count 3.9 X10^3/uL (2.0-7.7); Basophil# 0.06 X10^3/uL; Basophil% 0.9 % (0-1); Eosinophil# 0.23 X10^3/uL; Eosinophils% 3.4 % (0-5); Hematocrit 30.5 % (40-54); Hemoglobin 10.2 g/dL (13.0-16.5); Lymphocyte # 1.83 X10^3/ul (0.83-4.51); Mean Corp Hgb Conc 33.4 g/dL (32-36); Mean Corpuscular Hgb 32.1 pg (27.0-32.0); Mean Corpuscular Volume 95.9 fL (80-94); Mean Platelet Vol. 9.9 fl (6.2-12.0); Monocyte# 0.69 X10^3/uL; Monocyte% 10.2 % (0-10); NRBC Flagged by Analyzer 0 % (0-5); Neutrophil # 3.92 X10^3/uL (2.7-7.7); Neutrophil % 57.9 % (47-70); Platelet Count 293 K/mm3 (150-450); RBC Distribution Width CV 15.4 % (11.6-14.6); Red Blood Count 3.18 M/mm3 (4.6-6.2); White Blood Count 6.8 K/mm3 (4.4-11.0)
[2023-01-05 09:50] LABS: Anion Gap 6 (5-15); BUN 43 mg/dL (7-18); BUN/Creat Ratio 23.2 RATIO (10-20); Calcium,Total 8.7 mg/dL (8.5-10.1); Chloride 108 mmol/L (98-107); Creatinine, Serum 1.85 mg/dL (0.70-1.30); EST Glomerular Filtration Rate 38 mL/min (>60); Est Glom Filt Rate - Afr Amer 46 mL/min (>60); Glucose 96 mg/dL (74-106); Potassium 4.1 mmol/L (3.5-5.1); Sodium Level 135 mmol/L (136-145)
== END ==
LOC: OLS.WHLTCC 05:00
PROVIDERS: PCP Family Medicine; Visit Provider Internal Medicine
DX: I10 Essential (primary) hypertension (principal)
CPT/HCPCS: 36415; 80048; 85025

== ENCOUNTER 2023-02-15 10:30 | Outpatient (RCR) | payer MEDICARE, SELFPAY ==
--- NOTE | 2023-01-15 15:04 | HP.PTEVAL_ITS ---
Patient's Visit Information Visit Information Visit Information: MIGUEL PEREZ is a 77 year old M referred to Physical Therapy by Dr. Stephanie Barraza MD with a diagnosis of MALIGNANT NEOPLASM OF LOWER LOBE ,DIFFICUTY IN WALKING. Date of Evaluation: 01/15/23 Physical Therapist: Everardo Giron, PT, Cert MDT, OCS Visit Plan Frequency: 2x /Week Duration: 4 Weeks Plan: PT INTERVTIONS BLE STRENGTHENING ,ENDURANCE PROGRAM , BALANCE TRAINING AND FUNCTIONAL STRENGTHENING Subjective Subjective: This 77 y/o male presents to physical therapy with with difficulty with walking and endurance. Patient developed lung CA lower lobe ,thus admitted [facility] on Oct 14 thus underwent lobectomy .Patient started to have A-FIB then had pacemaker ~ Oct 28. Patient d/c to home but then to [facility] due to pneumonia [facility] Patient was there for 1 month but continue to get weaker ,and found to have ulcer bleeding and return [facility] and received transfusion 3 units of blood. Then return to [facility] for [facility]hab then d/c to home Jan 10 . Patient lives alone. Patient is able to bath dress self but has stool for tub. Patient has major issue with decrease endurance which affects function. Patient has 1 story home with 3 steps with no rails. Patient condition affects QOL and function. Patient goals to increase strength and endurance SOCIAL: single VOCATION: Objective Objective: POSTURE: WFL GAIT: reciprocal pattern mild forward posture( Spo2 98% ,HR 81) BALANCE: good- MMT: quads/hams 4/5 ,hip flexion ,hip abduction 4-/5 ,ankle 4/5 STAIRS: one steps at time rails Balance/Special Test Scores Functional Gait Assessment Score: 26 % Disability: 13.3400 CATSIB Score (Max score 120 seconds): 90 Lower Extremity Functional Score: 33 30 Second Chair Rise Test Seconds: 5 Goals Goal 1:: I with HEP for strengthening Goal Time Frame: 4-6 Weeks Goal 2:: Patient to improve CATSIB by 5 points to improve balance Goal 3:: Patient to improve 30sec sit-stand by 5 reps to improve functional strength. Goal Time Frame: 4-6 Weeks Goal 4:: Patient to improve LFES score by 5 points to improve gait and QOL Goal Time Frame: 4-6 Weeks Goal 5:: Patient to demonstrate 50% improvement with increase function and strength Goal Time Frame: 4-6 Weeks Rehabilitation Potential Physical Therapy Diagnosis: This patient has multiple comorbities along with decrease strength ,endurance ,weakness which appears ADLS and housework tasks thus benefit from skileld PT Rehabilitation Potential: Good Anticipated Interventions Patient/Client Instruction: Educate patient on: Condition and Plan of Care For the Purpose of:: To increase ROM, To improve muscle performance and motor function, To improve ability to perform ADL's, To increase tolerance to activity/condition/position, To improve ability of physical actions for home/community/work/leisure, To improve gait and locomotor functions and To increase flexibility/ROM Therapeutic Exercise to Include: Strength training, Endurance training, Balance training, Gait and locomotor training and Active ROM Comment: BLE For the Purpose of:: To improve muscle performance and motor function, To improve ability to perform ADL's, To increase tolerance to activity/condition/position, To improve ability of physical actions for home/community/work/leisure, To improve gait and locomotor functions, To improve endurance, To improve balance, To improve safety with gait and To improve tolerance to ADL's Text: Thank you for the opportunity to evaluate your patient. For Medicare and Medicare HMO plans, please review the plan of care and approve it. It will need to be FAXED BACK to us at [phone] for Medicare purposes. For Medicare only, by signing this I certify the plan of care. Please let me know if there are questions or concerns regarding this plan of care. Physician Signature: Date:
== END 2023-02-15 19:00 | disposition home or self-care (01) ==
LOC: PT 10:30
PROVIDERS: PCP Family Medicine; Referring Provider Internal Medicine; Visit Provider Internal Medicine
DX: C34.31 Malignant neoplasm of lower lobe, right bronchus or lung (principal); R26.2 Difficulty in walking, not elsewhere classified
CPT/HCPCS: 97110; 97162

== ENCOUNTER → 2023-05-24 | Outpatient (CLI) | payer MEDICARE, SELFPAY | END | disposition home or self-care (01) | LOC: PSN 10:34 | PROVIDERS: PCP Family Medicine; Visit Provider Internal Medicine Critical Care Medicine | DX: Z90.2 Acquired absence of lung [part of] (principal) | CPT/HCPCS: 94060; 94726; 94729 ==

== ENCOUNTER → 2023-05-26 | Outpatient (CLI) | payer MEDICARE, SELFPAY ==
[2023-05-26 11:32] VITALS: PULSE 100; PULSE 101; PULSE 102; PULSE 78; PULSE 80; PULSE 95; PULSE 97; O2SAT 86; O2SAT 90; O2SAT 91; O2SAT 92; O2SAT 93; O2SAT 94; O2SAT 98
--- NOTE | 2023-05-26 11:35 | CPS ---
Patient does not have oxygen at home. Started walk on room air, SpO2 94%. At one minute and 45 seconds patient's SpO2 was 86%. Stopped patient at that time and placed on 2 lpm O2. Patient walked the remaining time on 2 lpm with one brief break between the 4 and 5 minute shobha for about 10 seconds. Results faxed to [facility].
--- NOTE | 2023-05-27 07:24 | WT_ITS ---
PSN 6 Minute Walk Test 6 Minute Walk Test 6 Minute Walk Test: 6 Minute Walk Test PSN:6-Minute Walk Test Start: 05/26/23 11:31 Freq: Status: Active Protocol: RESP.6MINW Document 05/26/23 11:32 LANCEDANYELL (Rec: 05/26/23 11:38 JUVE [id number]) 6 Minute Walk Test Date Performed 05/26/23 Time Performed 11:15 Height 5 ft 7 in Weight: 161 lb Weight in Pounds 161.[address]: Stiven Cabral Assistive device used: None Pre-test Oxygen Delivery Method Room Air Pulse Ox 94 Pulse Rate (60-100) 78 Dyspnea Zandra Scale (0-10) 0.5 Exertion Zandra Scale (6-20) 6 1st minute Oxygen Delivery Method Room Air Pulse Ox 90 Pulse Rate (60-100) 95 2nd minute Oxygen Delivery Method Room Air Pulse Ox 86 Pulse Rate (60-100) 97 3rd minute Oxygen Flow Rate (L/min) 2 Oxygen Delivery Method Nasal Cannula Pulse Ox 93 Pulse Rate (60-100) 100 4th minute Oxygen Flow Rate (L/min) 2 Oxygen Delivery Method Nasal Cannula Pulse Ox 92 Pulse Rate (60-100) 102 H 5th minute Oxygen Flow Rate (L/min) 2 Oxygen Delivery Method Nasal Cannula Pulse Ox 91 Pulse Rate (60-100) 101 H Number of Rests Taken 1 6th minute Oxygen Flow Rate (L/min) 2 Oxygen Delivery Method Nasal Cannula Pulse Ox 91 Pulse Rate (60-100) 102 H Dyspnea Zandra Scale (0-10) 5 Exertion Zandra Scale (6-20) 14 Post-test Oxygen Flow Rate (L/min) 2 Oxygen Delivery Method Nasal Cannula Pulse Ox 98 Pulse Rate (60-100) 80 Full Laps Walked 14 Partial Lap, Number of Tiles Walked 12 Total Distance Walked (ft) 838 05/26/23 11:35 Cardiopulmonary Services by Pretty Flores Patient does not have oxygen at home. Started walk on room air, SpO2 94%. At one minute and 45 seconds patient's SpO2 was 86%. Stopped patient at that time and placed on 2 lpm O2. Patient walked the remaining time on 2 lpm with one brief break between the 4 and 5 minute shobha for about 10 seconds. Results faxed to [facility]. Initialized on 04/17/24 11:35 - END OF NOTE Interpretation Interpretation: The patient ambulated 838 feet over the course of 6 minutes beginning on room air without assistive devices. Pretesting oxygen saturation was noted to be 94% on room air. With ambulation, the aby oxygen saturation was 86%, requiring 2 L/min of supplemental oxygen with exertion to maintain appropriate saturations. Recommendations Recommendations: 2 L/min of supplemental oxygen is required with exertion.
== END | disposition home or self-care (01) ==
LOC: PSN 11:03
PROVIDERS: PCP Family Medicine; Referring Provider Internal Medicine Critical Care Medicine; Visit Provider Internal Medicine Critical Care Medicine
DX: Z90.2 Acquired absence of lung [part of] (principal)
CPT/HCPCS: 94618

== ENCOUNTER 2023-07-08 14:28 | Emergency (ER) | payer MEDICARE, SELFPAY ==
[2023-07-08 14:30] VITALS: BP 141/70; PULSE 110; RESP 20; TEMP 36.6; O2SAT 92
--- NOTE | 2023-07-08 14:51 | VDUE_ITS ---
Reason For Study: LUE Edema Left Proximal Left jugular vein is spontaneous, widely patent, phasic, with no intraluminal echogenicity noted. Left subclavian vein is spontaneous, widely patent, phasic, with no intraluminal echogenicity noted. HX Pacemaker implant. Unable to visualize prox Subclavian Vein. Left Arm Left axillary vein is spontaneous, patent, phasic, competent, compressible and demonstrates augmentation. Left brachial vein is compressible. Left cephalic vein is compressible. Left basilic vein is compressible. Left Lower Arm Left radial vein is compressible. Left ulnar vein is compressible. Patient Safety Venous duplex with b-mode, color and pulsed wave doppler. Preliminary results delivered to Dr. Brooks. VL/Venous Duplex US, Unilateral Interpretation Summary Deep veins of the left upper extremity are patent and compressible segmentally. There is no evidence of deep vein thrombosis. Superficial veins of the left upper extremity are patent and compressible segme ntally. There is no evidence of superficial vein thrombosis. Limited study due to prior pacemaker Ordering Physician: Joanie Brooks Performed By: Aniket Fung RVT and Student ???
--- NOTE | 2023-07-08 14:52 | EX.ED.DYSGE1 ---
HPI History of Present Illness Chief Complaint: Edema Detail of Chief Complaint: Left upper extremity swelling Informant: patient Narrative Narrative: Patient presents with swelling of the left upper extremity for the past week. He denies any pain but does note that when he pushes on a certain portion of his volar forearm he will get some tingling. He has had no weakness or change in temperature of his left upper arm. Patient states that he is currently on prednisone and has been for the past month. He is unsure if this is causing his swelling, but denies swelling elsewhere. He had previously been on Eliquis but it is currently on hold as he did have some bleeding ulcers requiring blood transfusion. [facility] Medical History Intermittent complete heart block Sick sinus syndrome Former smoker Atrial fibrillation Pacemaker Anemia Chronic hyponatremia Cancer Chronic indwelling Ricketts catheter Kidney stones Smoker Hypertension CKD (chronic kidney disease) Arthritis of wrist, right Presence of stent in coronary artery (~04/03/22) Atherosclerotic heart disease of tribe coronary artery without angina pectoris CAD (coronary artery disease) NSTEMI (non-ST elevated myocardial infarction) Paroxysmal SVT (supraventricular tachycardia) Hydronephrosis Tobacco use History of ETOH abuse Bladder cancer COPD (chronic obstructive pulmonary disease) Prostate cancer Home Medications ?Medication ?Instructions ?Recorded ?Last Taken ?Type cholecalciferol (vitamin D3) 250 250 mcg PO DAILY SUPPLEMENT 04/01/22 12/22/22 History mcg (10,000 unit) tablet vit C 250 mg-vit E 90 mg-zinc 40 1 tab PO BID EYE HEALTH 04/01/22 12/22/22 History mg-copper 1 [id number] capsule (PreserVision AREDS-2) atorvastatin 40 mg tablet 40 mg PO QHS CHOLESTEROL #90 tabs 04/21/22 12/21/22 Rx Lactobacil.acidophilus-Bifido.animalis 1 cap PO DAILY GUT HEALTH 12/04/22 12/22/22 History 5 billion cell sprinkle capsule (Probiotic) ferrous sulfate 325 mg (65 mg 325 mg PO QODAY SUPPLEMENT 12/04/22 12/21/22 History iron) tablet (Feosol) ipratropium 0.5 mg-albuterol 3 mg 3 ml inhalation TID PNEUMONIA 12/22/22 12/22/22 History (2.5 mg base)/3 mL nebulization soln levothyroxine 25 mcg tablet 25 mcg PO DAILY THYROID 12/22/22 12/22/22 History multivitamin 1 tab PO DAILY SUPPLEMENT 12/22/22 12/22/22 History albuterol sulfate 2.5 mg/3 mL 2.5 mg (3 mL) inhalation Q2H PRN 12/26/22 Unknown Rx (0.083 %) solution for nebulization PRN Dyspnea, wheezing #0 mL carvedilol 6.25 mg tablet 6.25 mg PO BID HEART #60 tabs 03/12/23 Unknown Rx prednisone 20 mg tablet 20 mg PO BID 06/29/23 Unknown History Allergy/AdvReac Type Severity Reaction Status Date / Time ciprofloxacin (From Cipro) Allergy Intermediate Hives Verified 07/08/23 14:30 metronidazole (From Flagyl) Allergy Rash Verified 07/08/23 14:30 apixaban (From Eliquis) AdvReac Intermediate Bleeding Verified 07/08/23 14:30 ulcers Family History Mother Hypertension Father Lung cancer Surgical History History of coronary artery stent placement History of urostomy Presence of coronary angioplasty implant and graft (~04/03/22) S/P PTCA (percutaneous transluminal coronary angioplasty) S/P radical cystoprostatectomy History of bladder surgery History of tonsillectomy and adenoidectomy History of transurethral resection of prostate History of foot surgery History of carpal tunnel surgery History of circumcision Social History household members: spouse housing: long term Smoking Status: Former smoker alcohol intake: former details: Sober since 12/01/16, prior 6-8 beers per day. substance use type: does not use ROS ROS ED Constitutional Constitutional ED: Denies chills or fever(s) Eyes Eyes: Denies change in vision or discharge from eye(s) ENT ENT ED: Denies discharge from eye(s), rhinorrhea or sore throat Cardiovascular Cardiovascular: Denies chest pain or palpitations Respiratory/Chest Respiratory/Chest: Denies cough or dyspnea Gastrointestinal Gastrointestinal: Denies abdominal pain, nausea or vomiting Musculoskeletal Musculoskeletal: Reports other Details: Left upper extremity edema ; Denies back pain or extremity pain Integumentary Denies Abrasions or rash Neurologic Neurologic: Denies headache(s) or weakness Psychiatric Psychiatric: Denies anxiety or depression Allergic/Immunologic Allergic/Immunologic ED: Denies lip swelling or urticaria EXAM Physical Exam Const Vital Signs: 07/08/23 14:30 07/08/23 14:35 Temperature 97.8 F Temperature Source Temporal Pulse Rate 110 H Respiratory Rate 20 H Respiratory Effort Normal Respiratory Pattern Normal Blood Pressure 141/70 H Blood Pressure Mean 93 Pulse Ox 92 Oxygen Delivery Method Nasal Cannula Oxygen Flow Rate (L/min) 2 Positive well nourished and well developed General Appearance ED: well developed HEENT Reports moist mucous membranes Eyes EOMs intact bilaterally Chest Wall inspection of chest normal and palpation of chest normal Resp normal respiratory effort Resp Narrative: Diminished breath sounds bilateral bases. Cardio regular rate and regular rhythm GI non-tender Palpation: soft Extremity Extremity Narrative: 2+ edema noted to the left upper extremity. Good distal pulses. Full range of motion at all joints without difficulty. No erythema or sign of infection. Neuro oriented x3 and no sensory deficits noted Motor Exam: strength 5/5 throughout Psych mental status grossly normal Skin no rashes or lesions noted MDM MDM MDM Narrative Medical decision making narrative: Venous ultrasound of the left upper extremity obtained to evaluate for evidence of DVT. Treatment and Re-Evaluation :: Venous ultrasound of the left upper extremity reveals no evidence of DVT. Test results discussed with the patient. He has chronic renal problems and in reviewing his most recent outpatient labs his creatinine clearance is only 35, borderline for tolerating a CT scan of the chest with contrast. I do not feel that he has significant vessel narrowing in the chest as he does not have arm pain, temperature change, paresthesias. He does have a pacemaker in place near the left axilla. This may have caused some problems with lymphatic drainage and therefore he is seeing more swelling in the left upper extremity. Patient is given Claude wrap for light compression to the left upper extremity. He will continue to monitor his symptoms and strict return instructions have been discussed. Patient comfortable with the plan. Discharge Plan Triage Chief Complaint: Edema ED Provider: Joanie Brooks Dx/Rx/DC Orders Clinical Impression: Arm edema Instructions: ED Peripheral Edema, Unilateral Prescriptions: No Action atorvastatin 40 mg tablet 40 mg PO QHS Qty: 90 3RF prednisone 20 mg tablet 20 mg PO BID PreserVision AREDS-2 250-90-40-1 mg Capsule 1 tab PO BID cholecalciferol (vitamin D3) 250 mcg (10,000 unit) Tablet 250 mcg PO DAILY ferrous sulfate [Feosol] 325 mg (65 mg iron) tablet 325 mg PO QODAY Probiotic 5 billion cell capsule, sprinkle 1 cap PO DAILY multivitamin Tablet 1 tab PO DAILY levothyroxine 25 mcg tablet 25 mcg PO DAILY ipratropium-albuterol 0.5 mg-3 mg(2.5 mg base)/3 mL Solution For Nebulization 3 ml inhalation TID albuterol sulfate 2.5 mg /3 mL (0.083 %) Solution For Nebulization 2.5 mg inhalation Q2H PRN PRN (Reason: Dyspnea, wheezing) Qty: 0 0RF carvedilol 6.25 mg tablet 6.25 mg PO BID Qty: 60 11RF Primary Care Provider: Candido Valle Referrals: Candido Valle MD [Primary Care Provider] - 1 Week if not improving Print Language: Setswana Disposition Disposition: Home, Self Care
[2023-07-08 15:49] VITALS: BP 160/80; PULSE 80; RESP 16; TEMP 36.6; O2SAT 97
== END 2023-07-08 15:50 | disposition home or self-care (01) ==
PROVIDERS: Emergency Provider Emergency Medicine; PCP Family Medicine; Visit Provider Emergency Medicine
DX: R60.0 Localized edema (principal); J44.9 Chronic obstructive pulmonary disease, unspecified; I12.9 Hypertensive chronic kidney disease with stage 1 through stage 4 chronic kidney disease, or unspecified chronic kidney disease; N18.9 Chronic kidney disease, unspecified; I25.10 Atherosclerotic heart disease of native coronary artery without angina pectoris; Z79.890 Hormone replacement therapy; Z79.899 Other long term (current) drug therapy; Z87.891 Personal history of nicotine dependence; Z95.0 Presence of cardiac pacemaker; Z95.5 Presence of coronary angioplasty implant and graft
CPT/HCPCS: 93971; 99282

== ENCOUNTER → 2023-08-24 | Outpatient (CLI) | payer MEDICARE, SELFPAY ==
--- NOTE | 2023-08-24 10:00 | PET_ITS ---
EXAMINATION: FDG PET-CT INDICATIONS: A 78-year-old male with a history of primary urinary bladder carcinoma presenting for restaging examination. COMPARISON EXAMINATION: Previous FDG PET CT study dated 11/24/22. TECHNIQUE: Following the intravenous administration of 13.83 mCi of F-18 deoxyglucose via the right hand, multiplanar image acquisitions of the head, neck, chest, abdomen and pelvis to level of mid-thigh, lower extremities obtained at one hour post radiopharmaceutical administration contemporaneously interpreted with the current CT of the head, neck, chest, abdomen and pelvis to level of mid-thigh, lower extremities dated 08/24/23 via coregistration and previous FDG PET CT study dated 05/26/22 reveal: SERUM GLUCOSE LEVEL: 109 mg/dl. HEIGHT: 67 inches. WEIGHT: 174 lbs. FINDINGS: Head/Neck: There is no evidence of abnormal increased glucose metabolism in the pharyngeal mucosal space, parapharyngeal space, bilateral-lateral and anterior neck, hypopharynx and distribution of the laryngeal structures. The visualized portion of the cerebral cortical-subcortical structures demonstrate symmetric and preserved glucose metabolism. CHEST: There is no quantitative scintigraphic evidence of abnormal increased glucose metabolism within the context of the bilateral hemithorax pulmonary parenchyma, right and left hemithoracic pleural interface, mediastinal structures and thoracic perihilum.? Prominent radiopharmaceutical concentration is identified in the left ventricular myocardium commensurate with the [place]. Pertinent chest CT findings are as follows. Scattered mediastinal and bilateral axillary soft tissue densities are ametabolic. Ventricular pacemaker placement is defined. There are no parenchymal densities-nodules defined in the right and left hemithorax with quantitatively significant increased FDG uptake. There is atherosclerotic calcification defined in the thoracic aorta without evidence of dilatation-aneurysm formation. Coronary arterial calcification is observed. Abdomen/Pelvis: Normal physiologic distribution of the radiopharmaceutical is apparent in the hepatic and splenic parenchyma, both renal units, and visualized intestinal tract. Diffuse radiopharmaceutical concentration is noted in all four quadrants of the abdomen and pelvis. There is urinary diversion-ileal conduit. The left kidney is hypotrophic and demonstrates multicystic change. Multiple surgical clips are identified in the right-left hemipelvis. The abdomen and pelvis CT findings are as follows. There is atherosclerotic calcification defined in the abdominal aorta without evidence of dilatation-aneurysm formation. Abdominal-pelvic arterial calcification is observed. An ostomy is demonstrated in the right anterior pelvic wall. Right and left inguinal soft tissue densities are non-tracer avid. Skeletal: Degenerative changes are noted in the cervical, thoracic and lumbar spine. PET/PET/CT Tumor Base -Thigh Subs IMPRESSION: 1. NEGATIVE EXAMINATION. There is no definitive quantitative scintigraphic evidence of recurrent-metastatic viable neoplasm. 2. Overall, compared to the prior FDG PET CT study dated 11/24/22, there is current and continued absence of defined viable neoplastic disease. Electronic Signature Sam Briggs D.O. Accurate Quantification of SUVs for this report are calculated using the exclusive [employer], ([place] Patent No. [id number] [phone] [place] patent [phone] ). Standardization and correction of the FDG SUV metric exclusively available with [employer] intellectual property, allow for vendor non-specific objective quantitative sequential FDG PET-CT comparison and otherwise unobtainable optimization of the sensitivity and specificity of the examination. [email or web address].[email or web address] https://[employer] Electronically Signed: Sam Briggs DO at 8:43 EDT ,
== END | disposition home or self-care (01) ==
LOC: ONC 09:47
PROVIDERS: PCP Family Medicine; Referring Provider Internal Medicine Hematology & Oncology; Visit Provider Internal Medicine Hematology & Oncology
DX: C34.30 Malignant neoplasm of lower lobe, unspecified bronchus or lung (principal); C67.2 Malignant neoplasm of lateral wall of bladder; E83.52 Hypercalcemia
CPT/HCPCS: 78815; A9552

== ENCOUNTER → 2024-05-04 | Outpatient (CLI) | payer MEDICARE, SELFPAY ==
--- NOTE | 2024-05-04 12:48 | CDU_ITS ---
Reason For Study Reason For Study: TIA Rt. Velocities/BP Lt. Velocities/BP Prox CCA 55.1/7.8 cm/sec. Prox CCA 71.1/12.6 cm/sec. Mid CCA 60.7/8.8 cm/sec. Mid CCA 64.5/12.6 cm/sec. Dist CCA 58.9/11.6 cm/sec. Dist CCA 57/11.6 cm/sec. Prox ICA 144.8/29.8 cm/sec. Prox ICA 75.9/13.5 cm/sec. Mid ICA 110.1/15.2 cm/sec. Mid ICA 78.4/16.8 cm/sec. Dist ICA 99.8/20 cm/sec. Dist ICA 97.1/22.3 cm/sec. Rt. ICA/CCA = 2.39. Lt. ICA/CCA = 1.51. Prox ECA 96.6/11.6 cm/sec. Prox ECA 73/7.8 cm/sec. Lt. Vert. 38.6/9 cm/sec. Right Extracranial There is homogeneous, smooth atherosclerotic plaque noted in the right common carotid artery. There is heterogeneous, irregular atherosclerotic plaque noted in the right internal carotid artery. There is intimal thickening but no significant atherosclerotic plaque noted in the right external carotid artery. Unable to visualize right vertebral artery. Left Extracranial There is intimal thickening but no significant atherosclerotic plaque noted in the left common carotid artery. There is heterogeneous, irregular atherosclerotic plaque noted in the left internal carotid artery. There is heterogeneous, irregular atherosclerotic plaque noted in the left external carotid artery. Antegrade flow is noted in the left vertebral artery. Procedure Carotid Duplex [id number]. This is a Carotid Duplex examination using B-mode, color flow and specral Doppler. Exam performed in department. VL/Carotid Duplex Ultrasound Interpretation Summary Moderate (50-69%) stenosis right extracranial internal carotid. Mild (<50%) stenosis left extracranial internal carotid. The Right vertebral artery is not visualized The Left vertebral is patent and antegrade. Ordering Physician: Roberto Castaneda Referring Physician: MD Tori Candido Performed By: Raven Lowe RVT
== END | disposition home or self-care (01) ==
LOC: CVS 12:48
PROVIDERS: PCP Family Medicine; Referring Provider Internal Medicine Cardiovascular Disease; Visit Provider Internal Medicine Cardiovascular Disease
DX: G45.1 Carotid artery syndrome (hemispheric) (principal)
CPT/HCPCS: 93880